=== PATIENT | female | born 1950 | race Caucasian/White ===

== ENCOUNTER 2023-06-10 14:24 | Observation (INO) | payer MEDICARE, SELFPAY ==
[2023-06-10] VITALS (9 sets, daily range): BP systolic 108–161; BP diastolic 50–91; PULSE 63–91; RESP 15–18; TEMP 36.1–36.6; O2SAT 94–99; BMI 41.9
--- NOTE | 2023-06-10 | KNEE_PTH ---
PATIENT: ANNA SANCHEZ LOC: MS3 U#:[id number] AGE/SX: 72/F ROOM: [facility] RE06/10/[address]: Dr. Alfred Lira DO : 1950 BED: 1 DIS: 06/13/2023 SPEC #: [id number] RECD: 06/10/23 14:05 STATUS: REHAN ENGLEDeion #: [id number] YESY: 06/10/23 00:[address]: Alfred Lira DEPT: SURGICAL PATHOLOGY RECD BY: Leonel Zhou ENTERED: 06/11/23 08:15 SP TYPE: TOTAL KNEE OTHR DR: Dr. Ko Barr DO Tissues: Knee, NOS Procedures: Decalcification bone/plaque Surgery Specimen Level IV HEADER OPERATION: ERAS, total knee replacement robotic arm assist PRE-OP DIAGNOSIS: Unilateral posttraumatic osteoarthritis, right knee; valgus deformity right knee TISSUE SUBMITTED: Right knee bone and tissue MICROSCOPIC DIAGNOSIS Bone and soft tissue, right knee, total knee replacement/resection: Pieces of bone with degenerative osteoarthritic changes. Fibroadipose tissue, fibroconnective tissue, skeletal muscle tissue and reactive synovial tissue. Focal changes consistent with pseudogout. LEAH:ap 06/13/2023 MICROSCOPIC DESCRIPTION Slides are reviewed. GROSS DESCRIPTION Received is one container designated bone and soft tissue right knee. The specimen consists of multiple fragments of nunes-yellow bone measuring in aggregate 8.0 x 7.0 x 3.0 cm. Focal area of bone also shows chalky, white deposits. Also in the specimen container are multiple fragments of yellow-white soft tissue measuring in aggregate 6.0 x 7.0 x 2.0 cm. A number of bony fragments contain articular surfaces consistent with tibial plateau and femoral condyle and displaying prominent osteophyte formation, eburnation and bone erosion. Seed Potato Cutter sections are submitted in two cassettes as follows: 1 - soft tissue, 2 - bone after decalcification. / LEAH:ap 06/11/2023 TC:5 CPT: 72691, 99585
[2023-06-10] MEDS: Lactated Ringers 1,000 ML 15 ML IV (08:31)
[2023-06-10] MEDS: Magnesium 2 GM for ERAS IV (08:31)
[2023-06-10] MEDS: Acetaminophen 500 MG Tablet 1000 MG PO ×3 (08:53→22:02)
[2023-06-10] MEDS: Gabapentin 600 MG Tablet PO (08:54)
[2023-06-10 09:43] LABS: Bedside Glucose 130 mg/dL (74-106)
[2023-06-10] MEDS: Clindamycin 900 MG/50 ML BAG 75 MG IV (10:37)
[2023-06-10] MEDS: TXA 1000mg in NS100 100ml (IVPB at Incision) 660 MG IV (10:50)
[2023-06-10] MEDS: JPS (Morphine 10mg/ml) OPERA.SITE (11:45)
[2023-06-10] MEDS: TXA 1000mg in NS100 100ml (IVPB at Closure) 660 MG IV (11:47)
--- NOTE | 2023-06-10 11:53 | PCM.OPRPT ---
Report of Operation Date of Procedure: 06/10/23 Pre-Operative Diagnosis: OA right knee Post-Operative Diagnosis: same Surgery/Procedure Performed:: Right TKR Description of Surgical Findings:: Report of Operation Date of Procedure: 06/10/2023 Preoperative Diagnosis: [ right ] knee primary osteoarthritis Postoperative Diagnosis: [ right ] knee primary osteoarthritis Operation: Robotic Assisted Knee Total Arthroplasty, [ right ] knee Surgeon: Dr Alfred Lira DO Senior Bioinformatics Scientist: Magdiel De Los Santos PA-C Anesthesia: spinal Anesthesiologist: Speedy Fuentes M.D. Findings: Stable knee with good patella tracking Specimen(s): Bony cuts Complications: No intraoperative complications Estimated Blood Loss: 20 cc IV Fluids: 1000 cc crystalloid Implants Used: 1. Marquis Triathlon CR press fit size 2 femur 2. [place] Triathlon size 1 tibia 3. 11 mm CS polyethylene 4. 29 mm patella Brief History Operative Indications: [ (72 y/o female) ] with history of [ right ] knee osteoarthrosis with radiographic findings with loss of joint space, osteophyte formation and subchondral sclerosis. Failed conservative measures as mentioned in the H&P. Discussion of total knee arthroplasty as well as risk and benefits were discussed with the patient including but not limited to blood loss, DVTs, PEs, neurovascular damage, general risk of anesthesia including loss of life, and stiffness or instability were also discussed with the patient. Patient demonstrated understanding and was able to sign informed consent. Procedure: On the date of procedure, patient's [ right ] lower extremity was marked in the preoperative area. The patient was then taken back to the operating room where that patient was placed on the table in the supine position. All bony prominences were identified and well-padded. Anesthesia assumed control of the C-spine and airway throughout the remainder of the procedure. A tourniquet was placed on the [ right ] upper thigh and the leg was prepped in a sterile fashion. The surgeon then scrubbed at this time. Upon reentering the room, the [right ] lower extremity was draped in a standard orthopedic fashion. A timeout was then called and everyone agreed upon the side, the site, the procedure to be performed, patient's identity and antibiotics given. Esmarch bandage was used to exsanguinate the extremity and the tourniquet was placed up to 250 mmHg with the knee in flexion. A midline skin incision was made and a sharp dissection was taken down through skin, subcutaneous tissue and fat. The standard medial parapatellar incision was made and the patella was subluxed laterally. An appropriate deep MCL release was done and the fat pad was resected. Our attention was then directed to the patella. The patella was everted and a flat resection was made. The knee was then flexed up and 2 femoral pins were placed inside the incision and 2 tibial pins were placed outside the incision in the medial tibia bicortically. Once this was completed, the 2 checkpoints in the femur and tibia were placed. Knee was then flexed up and the bony landmarks were registered. Once the was completed, the knee taken through range of motion and manually stressed allowing us to plan for an appropriate tibial cut. The robotic arm was brought into the field sterilely and checkpoint and saw were registered. Based on the patient's deformity, the tibial cut was made in [ 2 degrees valgus ]. At this time, the tensioner was then placed in the joint and ligament tension was checked at 90 degrees and full extension. Based on the patient's ligamentous tension, appropriate adjustments were made to the operative plan and ligament releases were done. Once we were happy with our operative plan with balanced flexion and extension gaps, our attention was directed to the femur. The robot was brought into the field sterilely and registered. Posterior condylar cuts, anterior chamfer cuts and anterior cuts were appropriately made for a [size 2 ] femur. When these were completed, the saws were switched out in the distal femoral and posterior chamfer cuts were made. Protecting the soft tissue throughout this time. A [ size1 ] base plate was selected. The knee was flexed to 90 degrees and soft tissues and posterior osteophytes were removed from the joint. 40 cc of the periarticular injection was injected into the posterior medial corner of the joint. The appropriate trials were then placed on the femur and tibia. A trial polyethylene was trialed to ensure proper balancing and stability of the knee. The appropriate tibial internal rotation was then marked with a bovie. Our attention was then directed to the patella. The lug holes were drilled and the patella trial was placed. Patellar tracking was checked and deemed appropriate. Once we were happy, lug holes were drilled for the femur and trial components were removed. The tibia was subluxed and pinned into place and the keel was punched and drilled appropriately. Final components were verified and opened. The wound was copiously irrigated with normal saline. The components were impacted into place with the tibia, femur and finally the patella. The trial poly component was placed and the knee was placed in full extension. The tracking, alignment and balance were verified and a [ 11 mm CS ] polyethylene component was placed. Once the final components were placed an Irrisept lavage was performed and the wound was copiously irrigated with normal saline solution and the periarticular injection was given. the wound was closed in a layer-decker fashion using #1 vicryl interrupted sutures for the arthrotomy, 2-0 interrupted vicryl suture for the subcuticular layer and ophelia for final skin closure. A sterile compressive dressing was then placed. The patient was then awakened from anesthesia, transferred to the rlong lane and transferred to the PACU for recovery. My physician clinical physician assistant was a vital part of this case. He was important in appropriate retraction during the case, and protection of soft tissues during bony cuts. His intimate knowledge of the case and my steps aided in safe and expedient completion of the procedure as well as appropriate position of the leg during the case. He was also vital in assisting with closure under my direct supervision. Due to the complexity of this case, robotic arm was used to assist in the surgery to improve accuracy and clinical outcomes. Post-op Plan: DVT ppx; ASA 81 mg BID, thigh high compression stockings Follow up: in office in 2 weeks for wound check PT: to start POD #0 at hospital, outpatient PT should be arranged. Preoperative antibiotic: Clindamycin 900 mg IV Alfred Lira DO Surgeon: Alfred Lira tracing lathe set up operator: Magdiel De Los Santos Type of Anesthesia: Spinal Anesthesiologist: Speedy Fuentes Estimated Blood Loss (mL): 20 cc Fluids Replaced: 1000 cc crystalloid Admit VTE Documentation VTE Present on Admission: No VTE Mechan Device Prophylaxis: SCD's and Thigh High RONALD Hose VTE Pharm Prophylaxis ordered?: Yes
--- NOTE | 2023-06-10 12:29 | RAD_ITS ---
STUDY: X-RAY - RIGHT KNEE REASON FOR EXAM: Female, 72 years old. Post op -- AP and Lateral xray of operative knee in PACU TECHNIQUE: 2 view(s) of the knee. COMPARISON: None. FINDINGS: Normal visualized distal femur. Normal visualized proximal tibia and fibula. Normal proximal tibiofibular articulation. The patient is status post total knee replacement. There is good alignment. Postoperative soft tissue changes. RAD/Knee 1 or 2 Views IMPRESSION: Status post total knee replacement. There is good alignment. Postoperative soft tissue changes. Electronically Signed: Damir Lake MD at 13:28 EDT ,
[2023-06-10] MEDS: Lactated Ringers 1,000 ML 999 ML IV (12:40)
[2023-06-10 13:51] LABS: Bedside Glucose 132 mg/dL (74-106)
--- NOTE | 2023-06-10 16:19 | CASEMGMT ---
TASH was informed patient's was asking for SW. TASH met with patient and her . Introduced self and role at [facility]. Patient said she spoke with Dominga in TCU and patient would like to know if she is going to TCU or the Rehab Unit. TASH told patient TASH will have to check with Dominga as TASH is not aware of this arrangement. TASH attempted to call Dominga, but she was not available. TASH let patient know SW will have to follow up with her tomorrow as Dominga is gone for the day. TASH updated TASH Dexter on MS3. TASH also sent Dominga a Backline message letting her know about patient. Millicent Cutler METER SETTER FIELD RECORDER
[2023-06-10] MEDS: Clindamycin 600 MG/50 ML BAG 100 MG IV ×2 (16:28→22:11)
[2023-06-10] MEDS: Aspirin 81 MG TAB.CHEW PO (16:28)
[2023-06-10] MEDS: oxyCODONE 5 MG Tablet PO (19:20)
[2023-06-10] MEDS: Ondansetron 4 MG/2 ML Vial IV (21:57)
[2023-06-10] MEDS: Senna/Docusate Sodium 1 Tablet 2 TABLET PO (22:03)
[2023-06-10] MEDS: metFORMIN (XR) 500 MG Tablet PO (22:04)
[2023-06-10] MEDS: Atorvastatin Calcium 10 MG Tablet PO (22:06)
[2023-06-11] VITALS (8 sets, daily range): BP systolic 128–141; BP diastolic 61–72; PULSE 65–82; RESP 16–18; TEMP 36.5–37.2; O2SAT 88–98
[2023-06-11] MEDS: Acetaminophen 500 MG Tablet 1000 MG PO ×3 (05:45→22:36)
[2023-06-11] MEDS: Levothyroxine 50 MCG Tablet PO (05:45)
[2023-06-11] MEDS: Clindamycin 600 MG/50 ML BAG 100 MG IV (05:45)
[2023-06-11 07:06] LABS: Hematocrit 39.7 % (37-47); Hemoglobin 12.3 g/dL (12.0-15.0); Mean Corpuscular Hgb 28.5 pg (27.0-32.0); Mean Corpuscular Volume 92.1 fL (81-99); Mean Platelet Vol. 8.9 fl (6.2-12.0); Platelet Count 202 K/mm3 (150-450); RBC Distribution Width CV 14.1 % (11.6-14.6); RBC Distribution Width SD 47.8 fl (35.1-43.9); Red Blood Count 4.31 M/mm3 (4.2-5.4)
[2023-06-11 07:37] LABS: Anion Gap 2 (5-15); BUN 16 mg/dL (7-18); BUN/Creat Ratio 20.9 RATIO (10-20); Calcium,Total 8.7 mg/dL (8.5-10.1); Chloride 105 mmol/L (98-107); Creatinine, Serum 0.77 mg/dL (0.55-1.02); EST Glomerular Filtration Rate 79 mL/min (>60); Est Glom Filt Rate - Afr Amer 95 mL/min (>60); Estimated Creatinine Clearance 37.06 ml/min; Glucose 149 mg/dL (74-106); Potassium 4.9 mmol/L (3.5-5.1); Sodium Level 136 mmol/L (136-145)
--- NOTE | 2023-06-11 07:54 | PN.ORTHO_ITS ---
Subjective Subjective Patient sitting at bedside. Patient states her knee is a little sore today. Otherwise she feels her pain has been very well managed. Patient denies chest pain, shortness of breath, calf pain, nausea or vomiting. Has no other complaints at this time. Patient is hoping that she can go to [facility] for for rehab. Objective Data Objective Data Vital Signs: Vital Signs Temp Pulse Resp BP Pulse Ox O2 Del Method O2 Flow Rate 98.2 F 65 16 136/67 H 94 Room Air 4 06/11/23 07:32 06/11/23 07:32 06/11/23 07:32 06/11/23 07:32 06/11/23 07:32 06/11/23 07:32 06/10/23 13:30 Oxygen Flow Rate (L/min) 4 Oxygen Delivery Method Room Air Weight: 97.4 kg Body Mass Index (BMI) 41.9 Intake & Output: Intake and Output for Last 24 Hours 06/09/23 06/10/23 06/11/23 23:59 23:59 23:59 Intake Total 2474 / 2474 50 / 50 Balance 2474 / 2474 50 / 50 Lab / Micro Data 06/11/23 06:57 06/11/23 06:57 Labs: Laboratory Results - last 24 hr 06/10/23 08:14: POC Glucose 130 H 06/10/23 13:31: POC Glucose 132 H 06/11/23 06:57: WBC 9.0, RBC 4.31, Hgb 12.3, Hct 39.7, MCV 92.1, MCH 28.5, MCHC 31.0 L, RDW Std Deviation 47.8 H, RDW Coeff of Romario 14.1, Plt Count 202, MPV 8.9, Sodium 136, Potassium 4.9, Chloride 105, Carbon Dioxide 29.0, Anion Gap 2 L, BUN 16, Creatinine 0.77, Estim Creat Clear Calc 37.06, Est GFR (MDRD) Af Amer 95, Est GFR (MDRD) Non-Af 79, BUN/Creatinine Ratio 20.9 H, Glucose 149 H, Calcium 8.7 Radiography Diagnostic Testing: Radiology Impression Knee X-Ray 06/10/23 12:29 IMPRESSION: Status post total knee replacement. There is good alignment. Postoperative soft tissue changes. Electronically Signed: Damir Lake MD at 13:28 EDT , Physical Exam Narrative Exam patient sitting in chair at bedside. Alert oriented. No respiratory distress, speaking in full sentences. Full range of motion of the upper extremities without limitations. The dressing is clean dry intact. No calf tenderness. Neurovascular is otherwise intact. Const alert and oriented x3 General Appearance: cooperative HEENT normocephalic Eyes PERRL Resp normal respiratory effort Effort and Inspection: able to speak in complete sentences Extremity normal capillary refill Skin no rashes or lesions noted Neuro CN's II-XII intact bilaterally Motor Exam: strength 5/5 throughout Psych mental status grossly normal and affect normal Assessment & Plan Assessment/Plan (1) Status post total right knee replacement not using cement: PLAN: 1. Continue all pain medications as prescribed 2. Aspirin 81 mg 1 p.o. every 12 hours x30 days for postop DVT prophylaxis 3. Encourage incentive spirometry 4. Continue ice to right knee when sitting 5. Ambulate weightbearing as tolerated with walker 6. Possible discharge tomorrow to [facility] for for rehab
[2023-06-11] MEDS: oxyCODONE 5 MG Tablet PO ×4 (09:11→22:26)
[2023-06-11] MEDS: Loratadine 10 MG Tablet PO (09:12)
[2023-06-11] MEDS: Aspirin 81 MG TAB.CHEW PO ×2 (09:12→17:11)
[2023-06-11] MEDS: Calcium Carbonate 500 MG Tablet PO (09:12)
[2023-06-11] MEDS: Senna/Docusate Sodium 1 Tablet 2 TABLET PO ×2 (09:12→22:36)
[2023-06-11] MEDS: Ascorbic Acid 500 MG Tablet PO (09:12)
[2023-06-11] MEDS: Losartan Potassium 50 MG Tablet PO (09:12)
--- NOTE | 2023-06-11 09:16 | CASEMGMT ---
Discharge Planning A list of SNF providers including quality and resource use data and consistent with the patient?s preferred geographic region, medical needs, and insurance network were printed and provided from the [employer] Guide. Lakshmi Lux, Discharge Planning Asst.
--- NOTE | 2023-06-11 11:16 | CASEMGMT ---
Social Work SW received call that patient had spoken with TCU regarding placement. TCU informed patient that no beds are currently available but patient will be notified if anything becomes available. SW introduced self and role to patient and patient's spouse, Josue. SW brought patient list for review. Patient declined list and provided choices: 1-[facility], 2-[facility] and 3-[facility]. SW referred patient to [facility], patient reported [facility] is her preference and she would prefer not to go elsewhere. Plan: Pt to d/c to SNF, pending SNF acceptance. Guerita Harrison PICTURE FRAME MAKER, SURGERY SCHEDULER
--- NOTE | 2023-06-11 13:08 | CASEMGMT ---
Discharge Planning Patient has been accepted by [facility]. Asked for precert to be submitted. Lakshmi Lux, Discharge Planning Asst.
--- NOTE | 2023-06-11 13:10 | CASEMGMT ---
Discharge Planning Patient has been accepted by [facility]. Asked for precert to be started. Lakshmi Lux, Discharge Planning Asst.
--- NOTE | 2023-06-11 15:21 | CASEMGMT ---
Social Work SW notified patient that [facility] accepted, pending precert. SW provided support and answered questions as able. Plan: Pt to d/c to [facility], pending precert. Guerita Harrison PIERCING MILL OPERATOR, DRUG ENFORCEMENT ADMINISTRATION AGENT
[2023-06-11] MEDS: metFORMIN (XR) 500 MG Tablet PO (22:26)
[2023-06-11] MEDS: Atorvastatin Calcium 10 MG Tablet PO (22:37)
[2023-06-12] MEDS: oxyCODONE 5 MG Tablet PO ×5 (02:30→19:00)
[2023-06-12] MEDS: Levothyroxine 50 MCG Tablet PO (06:28)
[2023-06-12] MEDS: Acetaminophen 500 MG Tablet 1000 MG PO ×3 (06:28→20:51)
[2023-06-12 06:30] VITALS: BP 146/85; PULSE 82; RESP 18; TEMP 36.5; O2SAT 98
[2023-06-12 09:33] VITALS: O2SAT 92
--- NOTE | 2023-06-12 10:35 | PCM.PN.ORT ---
Subjective Subjective Patient sitting at bedside. Patient states pain has been very well managed. Patient denies chest pain, shortness of breath, calf pain, nausea vomiting. No other complaints at this time. Patient states she is ready for discharge to ECF. Objective Data Objective Data Vital Signs: Vital Signs Temp Pulse Resp BP Pulse Ox O2 Del Method O2 Flow Rate 97.7 F L 82 18 146/85 H 98 Room Air 4 06/12/23 06:30 06/12/23 06:30 06/12/23 06:30 06/12/23 06:30 06/12/23 06:30 06/12/23 06:30 06/10/23 13:30 Oxygen Flow Rate (L/min) 4 Oxygen Delivery Method Room Air Weight: 97.4 kg Body Mass Index (BMI) 41.9 Intake & Output: Intake and Output for Last 24 Hours 06/10/23 06/11/23 06/12/23 23:59 23:59 23:59 Intake Total 2474 / 2474 50 / 50 Balance 2474 / 2474 50 / 50 Lab / Micro Data 06/11/23 06:57 06/11/23 06:57 Physical Exam Narrative Exam I found patient sitting at bedside alert oriented. No respiratory distress speaking full sentences. Cranial nerves II through gross intact. Full range of motion the upper extremities good muscle tone and strength. The dressing was clean dry intact. No calf tenderness. Neurovascular is otherwise intact. Const alert and oriented x3 General Appearance: cooperative and well developed HEENT normocephalic Eyes PERRL Resp normal respiratory effort Effort and Inspection: able to speak in complete sentences Extremity normal capillary refill Skin no rashes or lesions noted Neuro CN's II-XII intact bilaterally Psych mental status grossly normal and affect normal Assessment & Plan Assessment/Plan (1) Status post total right knee replacement not using cement: PLAN: 1. Continue all pain medications as prescribed 2. Aspirin 81 mg 1 p.o. every 12 hours x30 days for postop DVT prophylaxis 3. Continue encourage incentive spirometry 4. Ice to 30 minutes each hour while awake 5. Weight-bear as tolerated with walker 6. Diet to be changed to diabetic diet 1800 corwin/day 7. Possible discharge to ECF tomorrow
--- NOTE | 2023-06-12 10:36 | CASEMGMT ---
Discharge Planning Updates sent to [place] via [facility]. Precert has not been submitted and they are hoping to get it submitted at some point today. SW updated. Lakshmi Lux, Discharge Planning Asst.
[2023-06-12] MEDS: Senna/Docusate Sodium 1 Tablet 2 TABLET PO ×2 (10:45→20:50)
[2023-06-12] MEDS: Loratadine 10 MG Tablet PO (10:45)
[2023-06-12] MEDS: Aspirin 81 MG TAB.CHEW PO ×2 (10:45→17:11)
[2023-06-12] MEDS: Calcium Carbonate 500 MG Tablet PO (10:45)
[2023-06-12] MEDS: Losartan Potassium 50 MG Tablet PO (10:45)
[2023-06-12] MEDS: Ascorbic Acid 500 MG Tablet PO (10:46)
[2023-06-12 10:50] VITALS: BP 132/82; PULSE 72; RESP 20; TEMP 36.8; O2SAT 96
--- NOTE | 2023-06-12 14:12 | CASEMGMT ---
Social Work SW received message from [facility] in TCU that they now have beds available. SW updated pt and covid outbreak in TCU. Pt choosing to remain with plan to go to [facility]. Pt made aware salud is still pending at with insurance. Plan: [facility], pending ANTWON Bowman
[2023-06-12 15:06] VITALS: BP 126/62; PULSE 87; RESP 18; TEMP 36.8; O2SAT 96
[2023-06-12 20:43] VITALS: BP 133/58; PULSE 78; RESP 18; TEMP 36.6; O2SAT 97
[2023-06-12] MEDS: metFORMIN (XR) 500 MG Tablet PO (20:49)
[2023-06-12] MEDS: Atorvastatin Calcium 10 MG Tablet PO (20:50)
[2023-06-12] MEDS: 0.9% Saline Lock 10 ML Syringe IV (20:53)
[2023-06-13 00:15] VITALS: BP 127/64; PULSE 78; RESP 18; TEMP 36.5; O2SAT 95
[2023-06-13] MEDS: oxyCODONE 5 MG Tablet PO ×4 (00:16→14:52)
[2023-06-13] MEDS: Acetaminophen 500 MG Tablet 1000 MG PO ×2 (04:51→14:32)
[2023-06-13] MEDS: Levothyroxine 50 MCG Tablet PO (04:52)
[2023-06-13 04:58] VITALS: BP 133/63; PULSE 82; RESP 20; TEMP 36.7; O2SAT 95
[2023-06-13 08:30] VITALS: BP 126/66; PULSE 82; RESP 18; TEMP 36.8; O2SAT 95
[2023-06-13] MEDS: Losartan Potassium 50 MG Tablet PO (08:36)
[2023-06-13] MEDS: Aspirin 81 MG TAB.CHEW PO (08:36)
[2023-06-13] MEDS: Ascorbic Acid 500 MG Tablet PO (08:36)
[2023-06-13] MEDS: Calcium Carbonate 500 MG Tablet PO (08:36)
[2023-06-13] MEDS: Loratadine 10 MG Tablet PO (08:36)
--- NOTE | 2023-06-13 11:20 | CASEMGMT ---
Discharge Planning [facility] has received precert. SW updated. Lakshmi Lux, Discharge Planning Asst.
--- NOTE | 2023-06-13 12:19 | CASEMGMT ---
Social Work Precert has been obtained for pt to admit to [facility]. SW notified pt who in turn let her know. SW to notify physician when he comes in. ANTWON Beebe
--- NOTE | 2023-06-13 13:36 | PCM.PN.ORT ---
Subjective Subjective patient is s/p right sided total knee arthroplasty with Dr. Lira. Patient resting comfortably in bed. Rates pain 3/ 10 at rest. With movement 10/10. States taking Tylenol and oxycodone as needed and ice help to relieve pain. Patient has been up with therapy. Walking with the assit of a walker. Afebrile, no chest pain, shortness of breath, negative calf pain/ erythema, and no other signs of DVT. Objective Data Objective Data Vital Signs: Vital Signs Temp Pulse Resp BP Pulse Ox O2 Del Method O2 Flow Rate 98.2 F 82 18 126/66 H 95 Room Air 4 06/13/23 08:30 06/13/23 08:30 06/13/23 08:30 06/13/23 08:30 06/13/23 08:30 06/13/23 08:30 06/10/23 13:30 Oxygen Flow Rate (L/min) 4 Oxygen Delivery Method Room Air Weight: 97.4 kg Body Mass Index (BMI) 41.9 Intake & Output: Intake and Output for Last 24 Hours 06/11/23 06/12/23 06/13/23 23:59 23:59 23:59 Intake Total 50 / 50 Output Total 500 / 500 Balance 50 / 50 -500 / -500 Lab / Micro Data 06/11/23 06:57 06/11/23 06:57 Physical Exam Const Constitutional Narrative: Patient resting comfortably in bed No signs of acute distress Satting well on room air Limb is warm to touch, Sensation intact throughout entire lower extremity, including saphenous, sural, superficial and deep peroneal, and tibial distribution. DP/PT pulses bounding. Dorsi and plantarflexion strength 5/5 Dressing clear dry intact Calf nontender to palpation, no erythema, no edema. Negative Homans Assessment & Plan Assessment/Plan (1) Status post total right knee replacement not using cement: PLAN: Postop day 3 right total knee arthroplasty 1. Will continue PT today. Weightbearing as tolerated 2. plan for discharge to extended care facility today 3. Patient will follow up for post op appointment on as previously scheduled in 2 weeks 4. Labs remained stable no new data. 5. DVT prophylaxis : Aspirin 81 mg twice daily x4 weeks. Compressions walking x2 weeks. 6. Pain control: patient instructed to take tylenol 500mg 2 tablets TID. and oxycodone 1-2 tablets every 4-6 hours only as needed for pain control. 7. ok to remove post op dressing. post op day 5
--- NOTE | 2023-06-13 13:39 | TREXTCAR_ITS ---
Diet Diet Order/Speech Therapy: 06/12/23 10:25 Diet: Consistent Carb - Calorie Controlled Is pt able to select menu?: Yes How many daily calories?: 1800 calorie Wound(s) RIGHT KNEE: Wound Type: Surgical Incision Dressing Change: Okay to remove dressing postop day 5 otherwise maintain surgical dressing. Therapies Weight Bearing: Full weight bearing and Weight bearing as tolerated Physical Therapy: Eval and Treat Occupational Therapy: Eval and Treat Problem/Diagnosis (1) Status post total right knee replacement not using cement: Status: Acute Code(s): Z96.651 - Presence of right artificial knee joint Plan: Postop day 3 right total knee arthroplasty 1. Will continue PT today. Weightbearing as tolerated 2. plan for discharge to extended care facility 3. Patient will follow up for post op appointment on as previously scheduled in 2 weeks 4. Labs remained stable no new data. 5. DVT prophylaxis : Aspirin 81 mg twice daily x4 weeks. Compressions walking x2 weeks. 6. Pain control: patient instructed to take tylenol 500mg 2 tablets TID. and oxycodone 1-2 tablets every 4-6 hours only as needed for pain control. 7. ok to remove post op dressing. post op day 5 Allergies/Procedures Done in Hospital Allergies erythromycin base Allergy (Verified 06/10/23 08:33) PT UNSURE OF REACTION Penicillins Allergy (Verified 06/10/23 08:33) PT UNSURE OF REACTION Type of Care/Length of Stay Estimated LOS: Convalescent Care Less Than 30 days Type of Care Needed: Skilled Rehab Potential: Good Prognosis: Good Additional Orders/Day of Discharge Day of Discharge: 06/13/23 Discharge Plan Admission Admit Date/Time: 06/10/23 14:24 Attending Provider: Alfred Lira Primary Care Provider: Ko Barr Discharge Orders/Prescriptions Prescriptions: New acetaminophen 500 mg Tablet 1,000 mg PO Q8 Qty: 180 0RF aspirin 81 mg Tablet,Chewable 81 mg PO BIDCM Qty: 60 0RF sennosides-docusate sodium [Stool Softener-Stimulant Laxat] 8.6-50 mg Tablet 2 tab PO BID Qty: 14 0RF oxycodone 5 mg Tablet 5 - 10 mg PO .q4-6hrs prn PRN (Reason: Pain Score 4-10) 7 Days Qty: 60 0RF Continued albuterol sulfate 90 mcg/actuation HFA aerosol inhaler 2 inh INHALATION Q4H PRN (Reason: shortness of breath or wheezing) Patient Comments: inhale 2 puffs by mouth and INTO THE LUNGS every 4 hours if neede... (REFER TO PRESCRIPTION NOTES). levothyroxine 50 mcg tablet 50 mcg PO DAILY Patient Comments: take 1 tablet by mouth once daily 30 MINUTES before OTHER MEDS OR FOOD lisinopril 20 mg tablet 20 mg PO DAILY Patient Comments: take 1 tablet by mouth once daily omeprazole 20 mg capsule,delayed release(DR/EC) 20 mg PO DAILY Patient Comments: take 1 capsule by mouth once daily celecoxib 100 mg capsule 100 mg PO DAILY Patient Comments: take 1 capsule by mouth twice a day if needed for pain metformin 500 mg tablet extended release 24 hr 500 mg PO QHS Patient Comments: take 1 tablet by mouth every evening with dinner rosuvastatin 5 mg tablet 5 mg PO QHS Patient Comments: take 1 tablet by mouth at bedtime calcium carbonate-vitamin D3 [Calcium 600 + D(3)] 600 mg-10 mcg (400 unit) tablet 1 tab PO DAILY ascorbic acid (vitamin C) 500 mg capsule 50 mg PO DAILY zinc 50 mg capsule 50 mg PO DAILY cetirizine 10 mg tablet 10 mg PO DAILY Patient Comments: take 1 tablet by mouth once daily losartan 50 mg tablet 50 mg PO DAILY Patient Comments: take 1 tablet by mouth once daily Referrals / Follow Up: Ko Barr DO [Primary Care Provider] - Disposition Disposition (needs filled in before D/C Order can be placed): Group Home Facility
--- NOTE | 2023-06-13 13:42 | DCINST_ITS ---
Discharge Instructions Diet Discharge Diet: 1800 Calorie Control Diet and Carb Control Diet Activity Discharge Activity: Return to Normal Activity Weight Bearing Status: Weight bearing as tolerated Dressing / Incision Call your doctor if your incision/area has: Continuous Slow Oozing, Sudden Increased Bleeding, Increased Pain/ Swelling, Increased Redness, Foul Smelling Discharge and Swelling at the incision site Call your doctor if you observe: Fever of 101 or Higher, Shortness of breath, Chest pain and Calf discomfort Remove Dressing in: 5 days Cleanse incision/area with: Soap & Water and Keep Dressing Clean & Dry Follow Up Care When: In 2 weeks as previously scheduled. Test Results: Test results from this visit will be discussed in further detail at your follow- up appointment, if applicable. Discharge Plan Admission Admit Date/Time: 06/10/23 14:24 Attending Provider: Alfred Lira Primary Care Provider: Ko Barr Discharge Orders/Prescriptions Prescriptions: New acetaminophen 500 mg Tablet 1,000 mg PO Q8 Qty: 180 0RF aspirin 81 mg Tablet,Chewable 81 mg PO BIDCM Qty: 60 0RF sennosides-docusate sodium [Stool Softener-Stimulant Laxat] 8.6-50 mg Tablet 2 tab PO BID Qty: 14 0RF oxycodone 5 mg Tablet 5 - 10 mg PO .q4-6hrs prn PRN (Reason: Pain Score 4-10) 7 Days Qty: 60 0RF Continued albuterol sulfate 90 mcg/actuation HFA aerosol inhaler 2 inh INHALATION Q4H PRN (Reason: shortness of breath or wheezing) Patient Comments: inhale 2 puffs by mouth and INTO THE LUNGS every 4 hours if neede... (REFER TO PRESCRIPTION NOTES). levothyroxine 50 mcg tablet 50 mcg PO DAILY Patient Comments: take 1 tablet by mouth once daily 30 MINUTES before OTHER MEDS OR FOOD lisinopril 20 mg tablet 20 mg PO DAILY Patient Comments: take 1 tablet by mouth once daily omeprazole 20 mg capsule,delayed release(DR/EC) 20 mg PO DAILY Patient Comments: take 1 capsule by mouth once daily celecoxib 100 mg capsule 100 mg PO DAILY Patient Comments: take 1 capsule by mouth twice a day if needed for pain metformin 500 mg tablet extended release 24 hr 500 mg PO QHS Patient Comments: take 1 tablet by mouth every evening with dinner rosuvastatin 5 mg tablet 5 mg PO QHS Patient Comments: take 1 tablet by mouth at bedtime calcium carbonate-vitamin D3 [Calcium 600 + D(3)] 600 mg-10 mcg (400 unit) tablet 1 tab PO DAILY ascorbic acid (vitamin C) 500 mg capsule 50 mg PO DAILY zinc 50 mg capsule 50 mg PO DAILY cetirizine 10 mg tablet 10 mg PO DAILY Patient Comments: take 1 tablet by mouth once daily losartan 50 mg tablet 50 mg PO DAILY Patient Comments: take 1 tablet by mouth once daily Referrals / Follow Up: Ko Barr DO [Primary Care Provider] - Disposition Disposition (needs filled in before D/C Order can be placed[facility]
--- NOTE | 2023-06-13 14:05 | CASEMGMT ---
Social Work Precert has been obtained.? Physician updated and pt is ready for discharge today.? [facility] and sent along with discharge orders to [facility] via [facility].? Pt notified that precert has been obtained and that she would discharge today. Pt notifying spouse. Disposition: [place], [facility] level of care ANTWON Beebe
--- NOTE | 2023-06-13 14:15 | CASEMGMT ---
Discharge Planning Discharge orders, signed med list, and transport time sent to [place] via [facility]. [facility] will transport patient by wheelchair at 3p. Nursing, SW, and patient updated. Lakshmi Lux, Discharge Planning Asst.
--- NOTE | 2023-06-13 14:25 | DS.PCM_ITS ---
Providers Date of Admission: 06/10/23 Primary Care Physician: Dr. Ko Barr DO Reason For Visit: Total Knee Replacement Robotic Arm Nimesh Diagnosis Discharge Diagnosis (1) Status post total right knee replacement not using cement: Status: Acute Code(s): Z96.651 - Presence of right artificial knee joint Plan: Postop day 3 right total knee arthroplasty 1. Will continue PT today. Weightbearing as tolerated 2. plan for discharge to extended care facility today 3. Patient will follow up for post op appointment on as previously scheduled in 2 weeks 4. Labs remained stable no new data. 5. DVT prophylaxis : Aspirin 81 mg twice daily x4 weeks. Compressions walking x2 weeks. 6. Pain control: patient instructed to take tylenol 500mg 2 tablets TID. and oxycodone 1-2 tablets every 4-6 hours only as needed for pain control. 7. ok to remove post op dressing. post op day 5 Medications at Discharge Home Medications albuterol sulfate 90 mcg/actuation aerosol inhaler 2 inh inhalation Q4H PRN shortness of breath or wheezing 05/13/23 ascorbic acid (vitamin C) 500 mg capsule 50 mg PO DAILY SUPPLEMENT 05/13/23 calcium carbonate 600 mg-vitamin D3 10 mcg (400 unit) tablet (Calcium 600 + D(3)) 1 tab PO DAILY SUPPLEMENT 05/13/23 celecoxib 100 mg capsule 100 mg PO DAILY PAIN 05/13/23 cetirizine 10 mg tablet 10 mg PO DAILY ALLERGIES 05/13/23 levothyroxine 50 mcg tablet 50 mcg PO DAILY THYROID 05/13/23 lisinopril 20 mg tablet 20 mg PO DAILY HTN 05/13/23 metformin 500 mg tablet,extended release 24 hr 500 mg PO QHS BLOOD GLUCOSE 05/13/23 omeprazole 20 mg capsule,delayed release 20 mg PO DAILY GERD 05/13/23 rosuvastatin 5 mg tablet 5 mg PO QHS HLD 05/13/23 zinc 50 mg capsule 50 mg PO DAILY SUPPLEMENT 05/13/23 losartan 50 mg tablet 50 mg PO DAILY htn 06/10/23 acetaminophen 500 mg tablet 1,000 mg (2 x 500 mg) PO Q8 #180 tabs 06/13/23 aspirin 81 mg chewable tablet 81 mg PO BIDCM #60 tabs 06/13/23 oxycodone 5 mg tablet 5 - 10 mg (1 - 2 x 5 mg) PO .q4-6hrs prn PRN Pain Score 4- 10 7 days #60 tabs 06/13/23 sennosides 8.6 mg-docusate sodium 50 mg tablet (Stool Softener-Stimulant Laxative) 2 tab PO BID #14 tabs 06/13/23 Hospital Course Summary of Care Provided Hospital Course: Patient was admitted electively on 06/10/2023 for a right total knee arthroplasty with Dr. Greenwood. Medically patient had uncomplicated postoperative course h owever she had trouble with movement, pain control and therapy. She and therapy and case management have decided to pre-CERT to an extended care facility for which she was excepted to. Plan for discharge today. Weight / BMI Weight Weight: 97.4 kg Body Mass Index (BMI) 41.9 ABG / Lab / Microbiology Data 06/11/23 06:57 06/11/23 06:57 D/C Instructions Discharge Diet: 1800 Calorie Control Diet and Carb Control Diet Weight Bearing Status: Weight bearing as tolerated Call your doctor if your incision/area has: Continuous Slow Oozing, Sudden Increased Bleeding, Increased Pain/ Swelling, Increased Redness, Foul Smelling Discharge and Swelling at the incision site Call your doctor if you observe: Fever of 101 or Higher, Shortness of breath, Chest pain and Calf discomfort Cleanse incision/area with: Soap & Water and Keep Dressing Clean & Dry When: In 2 weeks as previously scheduled. Meaningful Use Info Meaningful Use Diagnoses (Choose all that apply): None applicable Discharge Plan Admission Admit Date/Time: 06/10/23 14:24 Attending Provider: Alfred Lira Primary Care Provider: Ko Barr Discharge Orders/Prescriptions Prescriptions: New acetaminophen 500 mg Tablet 1,000 mg PO Q8 Qty: 180 0RF aspirin 81 mg Tablet,Chewable 81 mg PO BIDCM Qty: 60 0RF sennosides-docusate sodium [Stool Softener-Stimulant Laxat] 8.6-50 mg Tablet 2 tab PO BID Qty: 14 0RF oxycodone 5 mg Tablet 5 - 10 mg PO .q4-6hrs prn PRN (Reason: Pain Score 4-10) 7 Days Qty: 60 0RF Continued albuterol sulfate 90 mcg/actuation HFA aerosol inhaler 2 inh INHALATION Q4H PRN (Reason: shortness of breath or wheezing) Patient Comments: inhale 2 puffs by mouth and INTO THE LUNGS every 4 hours if neede... (REFER TO PRESCRIPTION NOTES). levothyroxine 50 mcg tablet 50 mcg PO DAILY Patient Comments: take 1 tablet by mouth once daily 30 MINUTES before OTHER MEDS OR FOOD lisinopril 20 mg tablet 20 mg PO DAILY Patient Comments: take 1 tablet by mouth once daily omeprazole 20 mg capsule,delayed release(DR/EC) 20 mg PO DAILY Patient Comments: take 1 capsule by mouth once daily celecoxib 100 mg capsule 100 mg PO DAILY Patient Comments: take 1 capsule by mouth twice a day if needed for pain metformin 500 mg tablet extended release 24 hr 500 mg PO QHS Patient Comments: take 1 tablet by mouth every evening with dinner rosuvastatin 5 mg tablet 5 mg PO QHS Patient Comments: take 1 tablet by mouth at bedtime calcium carbonate-vitamin D3 [Calcium 600 + D(3)] 600 mg-10 mcg (400 unit) tablet 1 tab PO DAILY ascorbic acid (vitamin C) 500 mg capsule 50 mg PO DAILY zinc 50 mg capsule 50 mg PO DAILY cetirizine 10 mg tablet 10 mg PO DAILY Patient Comments: take 1 tablet by mouth once daily losartan 50 mg tablet 50 mg PO DAILY Patient Comments: take 1 tablet by mouth once daily Referrals / Follow Up: Ko Barr DO [Primary Care Provider] - Disposition Disposition (needs filled in before D/C Order can be placed): Residential Facility
[2023-06-13 14:29] VITALS: BP 101/56; PULSE 94; RESP 16; TEMP 37.1; O2SAT 97
== END 2023-06-13 15:45 | disposition skilled nursing facility (03) ==
LOC: MS3 06-11 08:42 → SDC 06-11 10:28
PROVIDERS: Admitting Provider Orthopaedic Surgery; PCP Student in an Organized Health Care Education/Training Program; Referring Provider Orthopaedic Surgery; Visit Provider Orthopaedic Surgery
PROC: 0SRC0JZ Replacement of Right Knee Joint with Synthetic Substitute, Open Approach (ICD-10-PCS; CPT 27447; principal; 2023-06-10 09:45)
DX: M17.31 Unilateral post-traumatic osteoarthritis, right knee (principal); E66.01 Morbid (severe) obesity due to excess calories; Z68.41 Body mass index [BMI] 40.0-44.9, adult; E11.9 Type 2 diabetes mellitus without complications; Z79.899 Other long term (current) drug therapy; Z79.84 Long term (current) use of oral hypoglycemic drugs; K21.9 Gastro-esophageal reflux disease without esophagitis; J45.909 Unspecified asthma, uncomplicated; M79.7 Fibromyalgia; E78.00 Pure hypercholesterolemia, unspecified; I10 Essential (primary) hypertension; M21.061 Valgus deformity, not elsewhere classified, right knee
CPT/HCPCS: 27447; S2900; 01402; 64447; 36415; 73560; 80048; 82962; 85027; 88305; 88311; 94668; 96365; 96366; 96375; 97110; 97116; 97162; 97166; 97530; 99221; 99252; C1776; J7120; A4216; G0378; G0463; J2405

== ENCOUNTER 2024-05-11 07:17 | Day surgery (SDC) | payer MEDICARE, SELFPAY ==
[2024-05-11] VITALS (7 sets, daily range): BP systolic 125–164; BP diastolic 67–77; PULSE 58–74; RESP 16–18; TEMP 36.1–36.4; O2SAT 93–97; BMI 43.1
--- NOTE | 2024-05-11 07:40 | RAD_ITS ---
STUDY: X-RAY - SACRUM/COCCYX REASON FOR EXAM: Female, 73 years old. CAUDAL BLOCK TECHNIQUE: 2 view(s) of the sacrum and coccyx were obtained. COMPARISON: None. FINDINGS: 4.7 seconds of fluoroscopy of the sacrum visualized operating room during a caudal block in 2 images are submitted for interpretation.. RAD/Fluor Guidance for Spine Inj IMPRESSION: Fluoroscopy during caudal block. Electronically Signed: Andrez Hallman MD at 13:39 EDT ,
[2024-05-11] MEDS: Lactated Ringers 1,000 ML 15 ML IV (07:44)
--- NOTE | 2024-05-11 07:53 | PRE.ANES_ITS ---
ASA Classification* ASA Classification ASA Classification: 3 Assessment & Plan Anesthesia* Anesthesia Assessment Anesthesia Assessment: Discussed sedation and/or anesthesia options, risks, benefits, and alternatives with patient/parents/legal guardian/POA. Questions invited. The patient/parents/legal guardian/POA seems to understand and agrees to proceed with anesthesia plan. Reviewed the physical assessment, medical history, allergy history and patient home medications list prior to surgery/procedure/anesthetic and documented any changes. Performed airway and anesthesia risk assessments. Anesthesia Type Anesthesia Type: MAC (see written pre anesthesia record for full assessment) Anesthesia Focused Assessment* Temperature: 97 F Pulse Rate: 74 Blood Pressure: 164/75 Respiratory Rate: 18 Pulse Ox: 97 Airway Assessment Mouth opens: >3 cm Mallampati Score: II Focused Labs Anesthesia Preop lab: CBC WBC 9.0 K/mm3 (4.4-11.0) 06/11/23 06:57 RBC 4.31 M/mm3 (4.2-5.4) 06/11/23 06:57 Hgb 12.3 g/dL (12.0-15.0) 06/11/23 06:57 Hct 39.7 % (37-47) 06/11/23 06:57 Plt Count 202 K/mm3 (150-450) 06/11/23 06:57 CHEMISTRY Potassium 4.9 mmol/L (3.5-5.1) 06/11/23 06:57 Sodium 136 mmol/L (136-145) 06/11/23 06:57 BUN 16 mg/dL (7-18) 06/11/23 06:57 Creatinine 0.77 mg/dL (0.55-1.02) 06/11/23 06:57 Glucose 149 mg/dL (74-106) H 06/11/23 06:57 POC Glucose 132 mg/dL (74-106) H 06/10/23 13:31 COAG Pre-Assessment Diagnosis/Proposed Procedure Planned Operative Procedure(s): CAUDAL EPIDURAL STEROID INJECTION Anesthesia History 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 When Was Last Pacemaker Check QUESTION #4 FULL TEXT: You/Your Family Experience fever (hyperthermia) with Anesthesia Last Oral Intake Last Oral intake: Last Oral Intake NPO since 00:00 05/11/24 07:46 Meds taken in AM with sips of Yes 05/11/24 07:46 water? Meds patient instructed to take am of surgery PONV PONV - library media specialist: PONV - library media specialist Female Yes 05/06/24 14:31 HX of Motion Sickness No 05/06/24 14:31 HX of N/V After Surgery No 05/06/24 14:31 Non-Smoker Yes 05/06/24 14:31 Duration of Surgery greater No 05/06/24 14:31 than 60 minutes Number of Risk Factors 2 05/06/24 14:31 PONV Score Moderate Risk 05/06/24 14:31 Height & Weight Height & Weight: Anesthesia: Height & Weight Height 5 ft 05/11/24 07:46 Weight: 100.244 kg 05/11/24 07:46 Body Mass Index (BMI) 43.1 05/11/24 07:46 Respiratory Assessment Respiratory Assessment - library media specialist: Respiratory Tract Infection Hx - library media specialist Hx Respiratory Tract Infection No 05/06/24 14:31 STOP Sleep Apnea STOP Sleep Apnea - library media specialist: STOP Sleep Apnea - library media specialist Hx Hypertension Yes: PER PT, CONTROLLED ON 05/06/24 14:31 MEDS Hx Sleep Apnea No 05/06/24 14:31 CPAP No 05/06/24 14:31 BIPAP Do you snore loudly (louder No 05/06/24 14:31 than talking or can be heard Do you often feel tired/ No 05/06/24 14:31 fatigued/ sleepy during daytime? Has anyone observed you stop No 05/06/24 14:31 breathing during sleep? STOP Results Negative 05/06/24 14:31 QUESTION #5 FULL TEXT : Do you snore loudly (louder than talking or can be heard through closed doors)? Tobacco Use History Tobacco Use History - library media specialist: Tobacco Use History - library media specialist Tobacco Use Smoking Status Former smoker 05/06/24 14:31 Hx Tobacco Use No 05/06/24 14:31 Years Smoking Packs Smoked per Day Smoking Cessation Date was No - quit smoking greater 05/06/24 14:31 within the last 15 years than 15 years ago Hx Smoking Cessation Date Hx Smoking Cessation Counseling Hematologic Medial History Hematologic Hx - library media specialist: Hematologic Medical Hx - lean sensei Hx of Blood Transfusion No 05/06/24 14:31 Hx of Transfusion in last 3 No 05/06/24 14:31 Months Date of Last Transfusion (if within last 3 months) Ever experience any problems No 05/06/24 14:31 with transfusion(s)? Specify any problems Hx of Preganancy in last 3 N/A 05/06/24 14:31 Months Nurse Filling Out Transfusion NBUCHER 05/06/24 14:31 & Questions: Date: 05/06/24 05/06/24 14:31 Time: 14:32 05/06/24 14:31 Patient unable to answer at this time (ie. confused, unrespo /Reproduction History /Reproductive History - library media specialist: /Reproductive Hx- library media specialist Hx Now No 05/06/24 14:31 Gestational Age (in weeks): EDC: Hx Hx Para Hx Section SAB No 05/06/24 14:31 Active Medications Active Medications: Current Medications Generic Name Dose Route Start Last Admin Trade Name Freq PRN Reason Stop Dose Admin Lactated Ringer's 1,000 mls @ 15 mls/hr 05/11/24 07:30 05/11/24 07:44 IV 15 mls/hr .Q48H DORIS Administration PFSH Medical History Herniated disc Wears glasses History of skin cancer Alcohol use Seasonal allergies Thyroid disease Diabetes Walker as ambulation aid Fibromyalgia Ambulates with cane High cholesterol Migraine headache Restless legs Dietary restriction Gastric reflux Asthma Shortness of breath on exertion Former smoker History of stress test Hypertension Home Medications ?Medication ?Instructions ?Recorded ?Last Taken ?Type albuterol sulfate 90 mcg/actuation 2 inh inhalation Q4H PRN shortness 05/13/23 Unknown History aerosol inhaler of breath or wheezing ascorbic acid (vitamin C) 500 mg 50 mg PO DAILY SUPPLEMENT 05/13/23 Unknown History capsule calcium carbonate 600 mg-vitamin 1 tab PO DAILY SUPPLEMENT 05/13/23 Unknown History D3 10 mcg (400 unit) tablet (Calcium 600 + D(3)) levothyroxine 50 mcg tablet 50 mcg PO DAILY THYROID 05/13/23 05/11/24 History metformin 500 mg tablet,extended 500 mg PO QHS BLOOD GLUCOSE 05/13/23 Unknown History release 24 hr omeprazole 20 mg capsule,delayed 20 mg PO DAILY GERD 05/13/23 05/11/24 History release rosuvastatin 5 mg tablet 5 mg PO QHS HLD 05/13/23 Unknown History zinc 50 mg capsule 50 mg PO DAILY SUPPLEMENT 05/13/23 Unknown History losartan 50 mg tablet 50 mg PO DAILY htn 06/10/23 05/11/24 History gabapentin 100 mg capsule 100 mg PO TID 05/06/24 05/11/24 History magnesium oxide 400 mg (241.3 mg 400 mg PO BID 05/06/24 Unknown History magnesium) tablet montelukast 10 mg tablet 10 mg PO DAILY 05/06/24 Unknown History Allergy/AdvReac Type Severity Reaction Status Date / Time erythromycin base Allergy PT UNSURE Verified 05/11/24 07:49 OF REACTION Penicillins Allergy PT UNSURE Verified 05/11/24 07:49 OF REACTION Surgical History History of total right knee replacement History of colonoscopy History of tonsillectomy History of thumb surgery History of tubal ligation History of cholecystectomy History of right knee surgery Social History Smoking Status: Former smoker Review of Systems (Anesthesia) ROS Narrative System reviewed and no additional complaints, except as documented.
[2024-05-11] MEDS: MethylPREDNISolone Acetate 80 MG/ML Vial (08:45)
[2024-05-11] MEDS: 0.9% Normal Saline (Pres. free 10 ML Vial (08:45)
[2024-05-11] MEDS: Lidocaine 1% (5 ml sdv) 5 ML Vial (08:45)
--- NOTE | 2024-05-11 08:53 | PCM.POST.ANE ---
Anesthesia: Postop Eval I Current Vital Signs Temperature: 97.4 F Pulse Rate: 64 Blood Pressure: 125/67 Respiratory Rate: 16 Pulse Ox: 95 Oxygen Delivery Method: Room Air Assessment Airway patent: Yes Spontaneous unlabored respirations: Yes Mental status: Awake and Calm nausea: No Vomiting: No Anesthesia Complication: No Fluid Hydration Crystalloid volume administer (ml): 200 Total IV fluid infused: 200 Progress Note Anesthesia document: Postop Eval 1 completed: Yes
--- NOTE | 2024-05-11 08:59 | OP.PCM_ITS ---
Report of Operation Date of Procedure: 05/11/24 Pre-Operative Diagnosis: Lumbosacral radiculopathy, lumbosacral degenerative di sc disease, lumbosacral spinal stenosis Post-Operative Diagnosis: Lumbosacral radiculopathy, lumbosacral degenerative disc disease, lumbosacral spinal stenosis Surgery/Procedure Performed:: Diagnostic/therapeutic caudal epidural steroid injection under fluoroscopic guidance Type of Anesthesia: MAC Estimated Blood Loss (mL): Minimal Description of Procedure: DESCRIPTION OF PROCEDURE: History and physical of today was reviewed. Risks and benefits of the procedure were explained. The patient understood and agreed to proceed. Informed consent was obtained. IV inserted per routine protocol. The patient was taken to the operating room and placed in the prone position with a pillow positioned underneath the abdomen. The lower back and tailbone area was prepped and draped in a sterile fashion using iodine x3. Under fluoroscopy guidance on a lateral view, the caudal space was identified. The skin and subcutaneous tissue was anesthetized with approximately 3 mL of 1% lidocaine using a 25-gauge regular needle. Under direct visualization with fluoroscopy, using a 22-gauge 3-1/2-inch spinal needle, the needle was advanced via the skin through the sacral hiatus. The tip of the needle was passed through the sacrococcygeal ligament and advanced to approximately S4 area. After negative aspiration of blood or CSF, a total of 3 mL of contrast was injected to confirm correct placement of the needle as well as cephalad spread. The spread was followed to approximately L5 area. After confirmation on AP as well as lateral view and repeated negative aspiration, a total of 15 mL of preservative-free 0.125% Marcaine with 80 mg of Depo-Medrol was injected easily. The needle was then removed intact. The patient experienced no sign or symptoms of intrathecal or intravascular injection. The patient experienced no paresthesia. The procedure was completed without any apparent difficulty or any complications. The patient appeared to tolerate it well. ASSESSMENT AND PLAN: This is a 73-year-old female with lumbosacral radiculopathy, lumbosacral degenerative disc disease, lumbosacral spinal stenosis status post diagnostic/therapeutic caudal epidural steroid injection, patient will continue her current medications, patient will follow up in approximately 2 weeks for reevaluation. Complications None
--- NOTE | 2024-05-11 09:11 | POSTOPAN2_ITS ---
Anesthesia Postop Eval I Sum Postop Eval Completion status Anesthesia document: Postop Eval 1 completed: Yes Anesthesia Postop Eval I Summary Anesthesia Postop Eval I Summary: Anesthesia Postop Eval I: Assessment Summary Airway patent Yes 05/11/24 08:54 ICT [email or web address] Spontaneous unlabored Yes 05/11/24 08:54 ICT [email or web address].RIGO respirations Mental status Awake,Calm 05/11/24 08:54 ICT [email or web address].RIGO nausea No 05/11/24 08:54 ICT MANAGERS.RIGO Vomiting No 05/11/24 08:54 ICT MANAGERSLAURI Anesthesia Postop Eval I: Fluid Summary Crystalloid volume administer 200 05/11/24 08:54 ICT MANAGERS.RIGO (ml) Colloids volume administered ( ml) Blood Product volume administered (ml) Total IV fluid infused 200 05/11/24 08:54 ICT MANAGERSLAURI Anesthesia Postop Eval I: Summary Notes Anesthesia Complication No 05/11/24 08:54 ZOILA Anesthesia Complication Comment: Post-operative progress note Anesthesia: Postop Eval II Evaluation Mental status: Awake Pain Level: 0 nausea: No Vomiting: No
--- NOTE | 2024-05-11 09:11 | PCM.POSTANE2 ---
Anesthesia Postop Eval I Sum Postop Eval Completion status Anesthesia document: Postop Eval 1 completed: Yes Anesthesia Postop Eval I Summary Anesthesia Postop Eval I Summary: Anesthesia Postop Eval I: Assessment Summary Airway patent Yes 05/11/24 08:54 PLASTERING CONTRACTOR.[email or web address] Spontaneous unlabored Yes 05/11/24 08:54 PLASTERING CONTRACTOR.RIGO respirations Mental status Awake,Calm 05/11/24 08:54 PLASTERING CONTRACTOR.RIGO nausea No 05/11/24 08:54 PLASTERING CONTRACTOR.RIGO Vomiting No 05/11/24 08:54 PLASTERING CONTRACTORLAURI Anesthesia Postop Eval I: Fluid Summary Crystalloid volume administer 200 05/11/24 08:54 PLASTERING CONTRACTOR.RIGO (ml) Colloids volume administered ( ml) Blood Product volume administered (ml) Total IV fluid infused 200 05/11/24 08:54 PLASTERING CONTRACTORLAURI Anesthesia Postop Eval I: Summary Notes Anesthesia Complication No 05/11/24 08:54 ZOILA Anesthesia Complication Comment: Post-operative progress note Anesthesia: Postop Eval II Evaluation Mental status: Awake Pain Level: 0 nausea: No Vomiting: No
[2024-05-11 09:35] LABS: Bedside Glucose 136 mg/dL (74-106)
== END 2024-05-11 09:19 | disposition home or self-care (01) ==
LOC: SDC 07:19 → AC 07:21
PROVIDERS: PCP Student in an Organized Health Care Education/Training Program; Referring Provider Anesthesiology Pain Medicine; Visit Provider Anesthesiology Pain Medicine
PROC: 3E0S3BZ Introduction of Anesthetic Agent into Epidural Space, Percutaneous Approach (ICD-10-PCS; CPT 62282; principal; 2024-05-11 08:35)
DX: M51.17 Intervertebral disc disorders with radiculopathy, lumbosacral region (principal); E11.9 Type 2 diabetes mellitus without complications; M48.07 Spinal stenosis, lumbosacral region; K21.9 Gastro-esophageal reflux disease without esophagitis; M79.7 Fibromyalgia; I10 Essential (primary) hypertension; J45.909 Unspecified asthma, uncomplicated; Z79.84 Long term (current) use of oral hypoglycemic drugs; Z79.899 Other long term (current) drug therapy
CPT/HCPCS: 62323; 64483; 77003; 82962; J7120; J3490

== ENCOUNTER 2024-08-10 08:51 | Day surgery (SDC) | payer MEDICARE, SELFPAY ==
[2024-08-10] VITALS (8 sets, daily range): BP systolic 110–155; BP diastolic 58–77; PULSE 59–77; RESP 16–18; TEMP 36.2–36.7; O2SAT 94–99; BMI 44.1
--- NOTE | 2024-08-10 09:30 | RAD_ITS ---
PROCEDURE: Right sacroiliac joint block. DATE OF EXAMINATION: August 10, 2024. INDICATION: Female, 74 years old. Low back pain. FLUOROSCOPY TIME (if supplied): (3.1 seconds) minutes/seconds. 2.08 mGy. One image was submitted. RAD/S-I Jts 3 or More Views IMPRESSION: Intraoperative imaging provided for right sacroiliac joint block. Electronically Signed: Damir Lake MD at 12:56 EST ,
--- NOTE | 2024-08-10 09:35 | PCM.PRE.AN2 ---
ASA Classification* ASA Classification ASA Classification: 2 Assessment & Plan Anesthesia* Anesthesia Assessment Anesthesia Assessment: Discussed sedation and/or anesthesia options, risks, benefits, and alternatives with patient/parents/legal guardian/POA. Questions invited. The patient/parents/legal guardian/POA seems to understand and agrees to proceed with anesthesia plan. Reviewed the physical assessment, medical history, allergy history and patient home medications list prior to surgery/procedure/anesthetic and documented any changes. Performed airway and anesthesia risk assessments. Anesthesia Type Anesthesia Type: MAC Anesthesia Focused Assessment* Temperature: 98.1 F Pulse Rate: 66 Blood Pressure: 155/74 Respiratory Rate: 16 Pulse Ox: 99 Airway Assessment Mouth opens: >3 cm Mallampati Score: II Focused Labs Anesthesia Preop lab: CBC WBC 9.0 K/mm3 (4.4-11.0) 06/11/23 06:57 RBC 4.31 M/mm3 (4.2-5.4) 06/11/23 06:57 Hgb 12.3 g/dL (12.0-15.0) 06/11/23 06:57 Hct 39.7 % (37-47) 06/11/23 06:57 Plt Count 202 K/mm3 (150-450) 06/11/23 06:57 CHEMISTRY Potassium 4.9 mmol/L (3.5-5.1) 06/11/23 06:57 Sodium 136 mmol/L (136-145) 06/11/23 06:57 BUN 16 mg/dL (7-18) 06/11/23 06:57 Creatinine 0.77 mg/dL (0.55-1.02) 06/11/23 06:57 Glucose 149 mg/dL (74-106) H 06/11/23 06:57 POC Glucose 136 mg/dL (74-106) H 05/11/24 07:40 COAG Pre-Assessment Diagnosis/Proposed Procedure Planned Operative Procedure(s): Right SI joint injection Anesthesia History Anesthesia History - counterintelligence agent: Anesthesia History - counterintelligence agent Hx Hospitalization No 05/06/24 14:31 Any Problems With Anesthesia No 05/06/24 14:31 Cholinesterase deficiency No 05/06/24 14:31 You/Your Family Experience No 05/06/24 14:31 fever (hyperthermia) with Relationship Recent Exposure to Contagious No 08/10/24 09:13 Disease Does patient have nerve Yes: ON MEDS 05/06/24 14:31 stimulator Patient instructed to have device shut off --Does patient have Pacemaker No 08/10/24 09:13 or ICD? When Was Last Pacemaker Check QUESTION #4 FULL TEXT: You/Your Family Experience fever (hyperthermia) with Anesthesia Last Oral Intake Last Oral intake: Last Oral Intake NPO since 00:00 08/10/24 09:13 Meds taken in AM with sips of No 08/10/24 09:13 water? Meds patient instructed to take am of surgery PONV PONV - counterintelligence agent: PONV - counterintelligence agent Female HX of Motion Sickness HX of N/V After Surgery Non-Smoker Duration of Surgery greater than 60 minutes Number of Risk Factors PONV Score Height & Weight Height & Weight: Anesthesia: Height & Weight Height 5 ft 08/10/24 09:13 Weight: 102.512 kg 08/10/24 09:13 Body Mass Index (BMI) 44.1 08/10/24 09:13 Respiratory Assessment Respiratory Assessment - counterintelligence agent: Respiratory Tract Infection Hx - counterintelligence agent Hx Respiratory Tract Infection No 05/06/24 14:31 STOP Sleep Apnea STOP Sleep Apnea - counterintelligence agent: STOP Sleep Apnea - counterintelligence agent Hx Hypertension Yes: PER PT, CONTROLLED ON 05/06/24 14:31 MEDS Hx Sleep Apnea No 05/11/24 09:05 CPAP No 05/11/24 08:55 BIPAP Do you snore loudly (louder than talking or can be heard Do you often feel tired/ fatigued/ sleepy during daytime? Has anyone observed you stop breathing during sleep? STOP Results QUESTION #5 FULL TEXT : Do you snore loudly (louder than talking or can be heard through closed doors)? 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 Specify any problems Hx of Preganancy in last 3 Months Nurse Filling Out Transfusion & Questions: Date: Time: Patient unable to answer at this time (ie. confused, unrespo /Reproduction History /Reproductive History - counterintelligence agent: /Reproductive Hx- counterintelligence agent Hx Now Gestational Age (in weeks): EDC: Hx Hx Para Hx Section SAB No 05/06/24 14:31 [facility] Medical History Herniated disc Wears glasses History of skin cancer Alcohol use Seasonal allergies Thyroid disease Diabetes Walker as ambulation aid Fibromyalgia Ambulates with cane High cholesterol Migraine headache Restless legs Dietary restriction Gastric reflux Asthma Shortness of breath on exertion Former smoker History of stress test Hypertension Home Medications ?Medication ?Instructions ?Recorded ?Last Taken ?Type albuterol sulfate 90 mcg/actuation 2 inh inhalation Q4H PRN shortness 05/13/23 08/09/24 History aerosol inhaler of breath or wheezing ascorbic acid (vitamin C) 500 mg 50 mg PO DAILY SUPPLEMENT 05/13/23 08/09/24 History capsule calcium 600 mg (as 1 tab PO DAILY SUPPLEMENT 05/13/23 08/09/24 History carbonate)-vitamin D3 10 mcg (400 unit) tablet (Calcium 600 + D(3)) levothyroxine 50 mcg tablet 50 mcg PO DAILY THYROID 05/13/23 08/10/24 History metformin 500 mg tablet,extended 500 mg PO QHS BLOOD GLUCOSE 05/13/23 08/09/24 History release 24 hr omeprazole 20 mg capsule,delayed 20 mg PO DAILY GERD 05/13/23 08/09/24 History release rosuvastatin 5 mg tablet 5 mg PO QHS HLD 05/13/23 08/09/24 History zinc 50 mg capsule 50 mg PO DAILY SUPPLEMENT 05/13/23 08/09/24 History losartan 50 mg tablet 50 mg PO DAILY htn 06/10/23 08/10/24 History gabapentin 100 mg capsule 100 mg PO TID 05/06/24 08/09/24 History magnesium oxide 400 mg (241.3 mg 400 mg PO BID 05/06/24 08/09/24 History magnesium) tablet montelukast 10 mg tablet 10 mg PO DAILY 05/06/24 08/09/24 History Allergy/AdvReac Type Severity Reaction Status Date / Time erythromycin base Allergy PT UNSURE Verified 08/10/24 09:08 OF REACTION Penicillins Allergy PT UNSURE Verified 08/10/24 09:08 OF REACTION Surgical History History of total right knee replacement History of colonoscopy History of tonsillectomy History of thumb surgery History of tubal ligation History of cholecystectomy History of right knee surgery Social History Smoking Status: Former smoker Review of Systems (Anesthesia) ROS Narrative System reviewed and no additional complaints, except as documented.
[2024-08-10 09:37] LABS: Bedside Glucose 140 mg/dL (74-106)
[2024-08-10] MEDS: Lidocaine 1% (5 ml sdv) 5 ML Vial (10:22)
[2024-08-10] MEDS: MethylPREDNISolone Acetate 40 MG/ML Vial (10:23)
[2024-08-10] MEDS: Bupivacaine 0.25% 30 ML Vial (10:23)
--- NOTE | 2024-08-10 10:24 | OP.PCM_ITS ---
Operative Report (Standard) Operative Information Surgery/Procedure Performed: Right-sided sacroiliac joint steroid injection under fluoroscopic guidance Surgeon: Raj Booth Date of Procedure: 08/10/24 Procedure Start Time: : Procedure Stop Time: Pre-Operative Diagnosis: Sacroiliitis, sacroiliac joints dysfunction Post-Operative Diagnosis: Sacroiliitis, sacroiliac joints dysfunction Select all DRAINS/GRAFTS/IMPLANTS that apply: None Type of Anesthesia: Local MAC and MAC Estimated Blood Loss: 1 cc Specimen collected: No Description of surgery: PREOPERATIVE DIAGNOSES: 1. Sacroiliitis. 2. Sacroiliac joint dysfunction. POSTOPERATIVE DIAGNOSES: 1. Sacroiliitis. 2. Sacroiliac joint dysfunction. PROCEDURE PERFORMED: Right-sided sacroiliac joint steroid injection under fluoroscopy guidance. ANESTHESIA: MAC. BLOOD LOSS: Minimal. COMPLICATIONS: None. DESCRIPTION OF PROCEDURE: History and physical of today was reviewed. Risks and benefits of the procedure were explained. The patient understood and agreed to the procedure. Informed consent was obtained. IV inserted per routine protocol. The patient was taken to the operating room and placed in the prone position with a pillow positioned underneath the abdomen. The right lower back and buttock area was prepped and draped in a sterile fashion using iodine x3. Under fluoroscopy guidance on an AP view, the right SI joint was visualized. The skin and subcutaneous tissue was anesthetized with approximately 3 mL of 1% lidocaine using a 25-gauge regular needle. Under direct visualization with fluoroscopy at approximately 15-degree angle, using a 22-gauge 3-1/2-inch spinal needle, the needle was advanced via the skin. The tip of the needle was maneuvered and directed towards the inferior one-third of the posterior SI joint. Once the tip of the needle was at the vicinity of the joint, after negative aspiration for blood or CSF, a total of 1 mL of contrast was injected to confirm correct placement of the needle as well as cephalocaudal spread. Confirmation was obtained on AP as well as oblique view. After repeated negative aspiration and confirmation, a total of 4 mL of preservative-free 0.25% Marcaine with 40 mg of Depo-Medrol was injected in and around the SI joint. The needle was then removed intact. The patient experienced no sign or symptoms of intrathecal or intravascular injection. The patient experienced no paresthesia. The procedure was completed without any apparent difficulty or any complications. The patient appeared to tolerate it well. ASSESSMENT AND PLAN: This is a 74-year-old female with sacroiliitis sacral iliac joint dysfunction status post right-sided sacroiliac joint steroid injection under fluoroscopic guidance, patient will continue current medications, patient will follow in approximately 2 weeks for reevaluation. Surgical Findings: see Flange Turner in flight refueling operator: No Complications Complications: No Admit VTE Documentation VTE Present on Admission: No VTE Pharm Prophylaxis ordered?: No
--- NOTE | 2024-08-10 10:26 | PCM.POST.ANE ---
Anesthesia: Postop Eval I Current Vital Signs Temperature: 97.4 F Pulse Rate: 77 Blood Pressure: 110/58 Respiratory Rate: 18 Pulse Ox: 96 Assessment Airway patent: Yes Spontaneous unlabored respirations: Yes nausea: No Vomiting: No Anesthesia Complication: No Fluid Hydration Crystalloid volume administer (ml): 0 Total IV fluid infused: 0 Progress Note Anesthesia document: Postop Eval 1 completed: No
--- NOTE | 2024-08-10 11:13 | POSTOPAN2_ITS ---
Anesthesia Postop Eval I Sum Postop Eval Completion status Anesthesia document: Postop Eval 1 completed: No Anesthesia Postop Eval I Summary Anesthesia Postop Eval I Summary: Anesthesia Postop Eval I: Assessment Summary Airway patent Yes 08/10/24 10:26 [email or web address] Spontaneous unlabored Yes 08/10/24 10:26 [email or web address].CSIR respirations Mental status nausea No 08/10/24 10:26 [email or web address]CSIR Vomiting No 08/10/24 10:26 [email or web address].CSIR Anesthesia Postop Eval I: Fluid Summary Crystalloid volume administer 0 08/10/24 10:26 [email or web address].CSIR (ml) Colloids volume administered ( ml) Blood Product volume administered (ml) Total IV fluid infused 0 08/10/24 10:26 [email or web address].CSIR Anesthesia Postop Eval I: Summary Notes Anesthesia Complication No 08/10/24 10:26 [email or web address].CSIR Anesthesia Complication Comment: Post-operative progress note Anesthesia: Postop Eval II Evaluation Mental status: Awake Pain Level: 0 nausea: No Vomiting: No
--- NOTE | 2024-08-10 11:13 | PCM.POSTANE2 ---
Anesthesia Postop Eval I Sum Postop Eval Completion status Anesthesia document: Postop Eval 1 completed: No Anesthesia Postop Eval I Summary Anesthesia Postop Eval I Summary: Anesthesia Postop Eval I: Assessment Summary Airway patent Yes 08/10/24 10:26 MD [email or web address] Spontaneous unlabored Yes 08/10/24 10:26 MD [email or web address] respirations Mental status nausea No 08/10/24 10:26 MD [email or web address] Vomiting No 08/10/24 10:26 MD [email or web address] Anesthesia Postop Eval I: Fluid Summary Crystalloid volume administer 0 08/10/24 10:26 MD [email or web address] (ml) Colloids volume administered ( ml) Blood Product volume administered (ml) Total IV fluid infused 0 08/10/24 10:26 MD [email or web address] Anesthesia Postop Eval I: Summary Notes Anesthesia Complication No 08/10/24 10:26 MD [email or web address] Anesthesia Complication Comment: Post-operative progress note Anesthesia: Postop Eval II Evaluation Mental status: Awake Pain Level: 0 nausea: No Vomiting: No
== END 2024-08-10 10:55 | disposition home or self-care (01) ==
LOC: SDC 08:51 → AC 08:54
PROVIDERS: PCP Student in an Organized Health Care Education/Training Program; Referring Provider Anesthesiology Pain Medicine; Visit Provider Anesthesiology Pain Medicine
PROC: 3E0U3BZ Introduction of Anesthetic Agent into Joints, Percutaneous Approach (ICD-10-PCS; CPT 64451; principal; 2024-08-10 10:25)
DX: M46.1 Sacroiliitis, not elsewhere classified (principal); E11.9 Type 2 diabetes mellitus without complications; M53.3 Sacrococcygeal disorders, not elsewhere classified; I10 Essential (primary) hypertension; E07.9 Disorder of thyroid, unspecified; M79.7 Fibromyalgia; E78.00 Pure hypercholesterolemia, unspecified; K21.9 Gastro-esophageal reflux disease without esophagitis; G25.81 Restless legs syndrome; J45.909 Unspecified asthma, uncomplicated; Z88.0 Allergy status to penicillin; Z90.49 Acquired absence of other specified parts of digestive tract; Z79.84 Long term (current) use of oral hypoglycemic drugs; Z79.890 Hormone replacement therapy; Z85.828 Personal history of other malignant neoplasm of skin; Z79.899 Other long term (current) drug therapy; Z96.651 Presence of right artificial knee joint; Z87.891 Personal history of nicotine dependence
CPT/HCPCS: 27096; 64483; 72202; 82962; A4216; J2405

== ENCOUNTER 2024-11-09 06:04 | Day surgery (SDC) | payer MEDICARE, SELFPAY ==
[2024-11-09] VITALS (7 sets, daily range): BP systolic 125–151; BP diastolic 70–84; PULSE 66–81; RESP 16–18; TEMP 36.2–36.6; O2SAT 94–98; BMI 44.0
--- NOTE | 2024-11-09 06:43 | PCM.PRE.AN2 ---
ASA Classification* ASA Classification ASA Classification: 2 Assessment & Plan Anesthesia* Anesthesia Assessment Anesthesia Assessment: Discussed sedation and/or anesthesia options, risks, benefits, and alternatives with patient/parents/legal guardian/POA. Questions invited. The patient/parents/legal guardian/POA seems to understand and agrees to proceed with anesthesia plan. Reviewed the physical assessment, medical history, allergy history and patient home medications list prior to surgery/procedure/anesthetic and documented any changes. Performed airway and anesthesia risk assessments. Anesthesia Type Anesthesia Type: MAC Anesthesia Focused Assessment* Airway Assessment Mouth opens: >3 cm Mallampati Score: II Focused Labs Anesthesia Preop lab: CBC WBC 9.0 K/mm3 (4.4-11.0) 06/11/23 06:57 06/11/23 RBC 4.31 M/mm3 (4.2-5.4) 06/11/23 06:57 06/11/23 Hgb 12.3 g/dL (12.0-15.0) 06/11/23 06:57 06/11/23 Hct 39.7 % (37-47) 06/11/23 06:57 06/11/23 Plt Count 202 K/mm3 (150-450) 06/11/23 06:57 06/11/23 CHEMISTRY Potassium 4.9 mmol/L (3.5-5.1) 06/11/23 06:57 06/11/23 Sodium 136 mmol/L (136-145) 06/11/23 06:57 06/11/23 BUN 16 mg/dL (7-18) 06/11/23 06:57 06/11/23 Creatinine 0.77 mg/dL (0.55-1.02) 06/11/23 06:57 06/11/23 Glucose 149 mg/dL (74-106) H 06/11/23 06:57 06/11/23 POC Glucose 140 mg/dL (74-106) H 08/10/24 09:19 08/10/24 COAG Pre-Assessment Diagnosis/Proposed Procedure Planned Operative Procedure(s): Caudal block Anesthesia History Anesthesia History - security systems manager: Anesthesia History - security systems manager Hx Hospitalization No 05/06/24 14:31 Any Problems With Anesthesia No 05/06/24 14:31 Cholinesterase deficiency No 05/06/24 14:31 You/Your Family Experience No 05/06/24 14:31 fever (hyperthermia) with Relationship Recent Exposure to Contagious No 11/09/24 06:39 Disease Does patient have nerve Yes: ON MEDS 05/06/24 14:31 stimulator Patient instructed to have device shut off --Does patient have Pacemaker or ICD? When Was Last Pacemaker Check QUESTION #4 FULL TEXT: You/Your Family Experience fever (hyperthermia) with Anesthesia Last Oral Intake Last Oral intake: Last Oral Intake NPO since Meds taken in AM with sips of water? Meds patient instructed to take am of surgery PONV PONV - security systems manager: PONV - security systems manager Female HX of Motion Sickness HX of N/V After Surgery Non-Smoker Duration of Surgery greater than 60 minutes Number of Risk Factors PONV Score Height & Weight Height & Weight: Anesthesia: Height & Weight Height 5 ft 08/10/24 09:13 Respiratory Assessment Respiratory Assessment - security systems manager: Respiratory Tract Infection Hx - security systems manager Hx Respiratory Tract Infection No 05/06/24 14:31 STOP Sleep Apnea STOP Sleep Apnea - security systems manager: STOP Sleep Apnea - security systems manager Hx Hypertension Yes: PER PT, CONTROLLED ON 05/06/24 14:31 MEDS Hx Sleep Apnea No 08/10/24 10:40 CPAP No 05/11/24 08:55 BIPAP Do you snore loudly (louder than talking or can be heard Do you often feel tired/ fatigued/ sleepy during daytime? Has anyone observed you stop breathing during sleep? STOP Results QUESTION #5 FULL TEXT : Do you snore loudly (louder than talking or can be heard through closed doors)? 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 Specify any problems Hx of Preganancy in last 3 Months Nurse Filling Out Transfusion & Questions: Date: Time: Patient unable to answer at this time (ie. confused, unrespo /Reproduction History /Reproductive History - security systems manager: /Reproductive Hx- security systems manager Hx Now Gestational Age (in weeks): EDC: Hx Hx Para Hx Section SAB No 05/06/24 14:31 [facility] Medical History Herniated disc Wears glasses History of skin cancer Alcohol use Seasonal allergies Thyroid disease Diabetes Walker as ambulation aid Fibromyalgia Ambulates with cane High cholesterol Migraine headache Restless legs Dietary restriction Gastric reflux Asthma Shortness of breath on exertion Former smoker History of stress test Hypertension Home Medications ?Medication ?Instructions ?Recorded ?Last Taken ?Type albuterol sulfate 90 mcg/actuation 2 inh inhalation Q4H PRN shortness 05/13/23 08/09/24 History aerosol inhaler of breath or wheezing calcium 600 mg (as 1 tab PO DAILY SUPPLEMENT 05/13/23 11/08/24 History carbonate)-vitamin D3 10 mcg (400 unit) tablet (Calcium 600 + D(3)) levothyroxine 50 mcg tablet 50 mcg PO DAILY THYROID 05/13/23 11/09/24 History metformin 500 mg tablet,extended 500 mg PO QHS BLOOD GLUCOSE 05/13/23 11/08/24 History release 24 hr omeprazole 20 mg capsule,delayed 20 mg PO DAILY GERD 05/13/23 11/08/24 History release rosuvastatin 5 mg tablet 5 mg PO QHS HLD 05/13/23 11/08/24 History losartan 50 mg tablet 50 mg PO DAILY htn 06/10/23 11/09/24 History gabapentin 100 mg capsule 100 mg PO TID 05/06/24 11/08/24 History magnesium oxide 400 mg (241.3 mg 400 mg PO BID 05/06/24 11/08/24 History magnesium) tablet Allergy/AdvReac Type Severity Reaction Status Date / Time erythromycin base Allergy PT UNSURE Verified 08/10/24 09:08 OF REACTION Penicillins Allergy PT UNSURE Verified 08/10/24 09:08 OF REACTION Surgical History History of total right knee replacement History of colonoscopy History of tonsillectomy History of thumb surgery History of tubal ligation History of cholecystectomy History of right knee surgery Social History Smoking Status: Former smoker Review of Systems (Anesthesia) ROS Narrative System reviewed and no additional complaints, except as documented.
[2024-11-09 07:09] LABS: Bedside Glucose 125 mg/dL (74-106)
[2024-11-09] MEDS: 0.9% Normal Saline (Pres. free 10 ML Vial (07:45)
[2024-11-09] MEDS: Lidocaine 1% (5 ml sdv) 5 ML Vial (07:45)
[2024-11-09] MEDS: MethylPREDNISolone Acetate 80 MG/ML Vial (07:45)
[2024-11-09] MEDS: Bupivacaine 0.25% 30 ML Vial (07:45)
--- NOTE | 2024-11-09 07:45 | RAD_ITS ---
Fluoroscopic guidance was used intraoperatively. Please refer to the operative note for further details. 1 image. Total radiation dose 2.69 mGy. Total fluoroscopy time 4.6 seconds. Reading Location: [facility]
--- NOTE | 2024-11-09 07:55 | PCM.OPRPT ---
Operative Report (Standard) Operative Information Date of Procedure: 11/09/24 Pre-Operative Diagnosis: 1 Post-Operative Diagnosis: 1 Surgery/Procedure Performed: 1 editor trade journal: No Type of Anesthesia: Local MAC RN Documented Start/Stop Times: Operation Date: 11/09/24 07:30 Case Time Into Pre-Op 11/09/24 06:11 Out of Pre-Op 11/09/24 07:34 Anesthesia Start 11/09/24 07:38 Into Room 11/09/24 07:38 Procedure Start 11/09/24 07:45 Procedure End 11/09/24 07:50 Anesthesia End 11/09/24 07:52 Into Recovery 11/09/24 07:52 Out of Room 11/09/24 07:52 Procedure Start Time: 07:55 Procedure Stop Time: 07:55 Select all DRAINS/GRAFTS/IMPLANTS that apply: None Estimated Blood Loss: 0 Specimen collected: No Description of surgery: PREOPERATIVE DIAGNOSIS: Lumbosacral radiculopathy, lumbosacral degenerative disc disease, lumbosacral spinal stenosis POSTOPERATIVE DIAGNOSIS:Lumbosacral radiculopathy, lumbosacral degenerative disc disease, lumbosacral spinal stenosis PROCEDURE PERFORMED: Diagnostic/therapeutic caudal epidural steroid injection Under fluoroscopic guidance. ANESTHESIA: MAC. BLOOD LOSS: Minimal. COMPLICATIONS: None. DESCRIPTION OF PROCEDURE: History and physical of today was reviewed. Risks and benefits of the procedure were explained. The patient understood and agreed to proceed. Informed consent was obtained. IV inserted per routine protocol. The patient was taken to the operating room and placed in the prone position with a pillow positioned underneath the abdomen. The lower back and tailbone area was prepped and draped in a sterile fashion using iodine x3. Under fluoroscopy guidance on a lateral view, the caudal space was identified. The skin and subcutaneous tissue was anesthetized with approximately 3 mL of 1% lidocaine using a 25-gauge regular needle. Under direct visualization with fluoroscopy, using a 22-gauge 3-1/2-inch spinal needle, the needle was advanced via the skin through the sacral hiatus. The tip of the needle was passed through the sacrococcygeal ligament and advanced to approximately S4 area. After negative aspiration of blood or CSF, a total of 3 mL of contrast was injected to confirm correct placement of the needle as well as cephalad spread. The spread was followed to approximately L5 area. After confirmation on AP as well as lateral view and repeated negative aspiration, a total of 15 mL of preservative-free 0.125% Marcaine with 80 mg of Depo-Medrol was injected easily. The needle was then removed intact. The patient experienced no sign or symptoms of intrathecal or intravascular injection. The patient experienced no paresthesia. The procedure was completed without any apparent difficulty or any complications. The patient appeared to tolerate it well. ASSESSMENT AND PLAN: This is a 74-year-old female with lumbosacral radiculopathy, lumbosacral spinal stenosis, lumbosacral degenerative disc disease status post diagnostic/therapeutic caudal epidural steroid injection, patient will continue her current medications, patient will follow-up in approximately 2 weeks for reevaluation. Surgical Findings: 0 Complications Complications: No Admit VTE Documentation VTE Present on Admission: No VTE Mechan Device Prophylaxis: None VTE Pharm Prophylaxis ordered?: No
--- NOTE | 2024-11-09 07:56 | PCM.POST.ANE ---
Anesthesia: Postop Eval I Current Vital Signs Temperature: 97.8 F Pulse Rate: 81 Blood Pressure: 133/75 Respiratory Rate: 18 Pulse Ox: 94 Assessment Airway patent: Yes Spontaneous unlabored respirations: Yes nausea: No Vomiting: No Anesthesia Complication: No Fluid Hydration Crystalloid volume administer (ml): 20 Total IV fluid infused: 20 Progress Note Anesthesia document: Postop Eval 1 completed: Yes
--- NOTE | 2024-11-09 08:57 | POSTOPAN2_ITS ---
Anesthesia Postop Eval I Sum Postop Eval Completion status Anesthesia document: Postop Eval 1 completed: Yes Anesthesia Postop Eval I Summary Anesthesia Postop Eval I Summary: Anesthesia Postop Eval I: Assessment Summary Airway patent Yes 11/09/24 07:56 IMPLEMENTATION ANALYST.TNES Spontaneous unlabored Yes 11/09/24 07:56 IMPLEMENTATION ANALYST.TNES respirations Mental status nausea No 11/09/24 07:56 IMPLEMENTATION ANALYST.TNES Vomiting No 11/09/24 07:56 IMPLEMENTATION ANALYST.TNES Anesthesia Postop Eval I: Fluid Summary Crystalloid volume administer 20 11/09/24 07:56 IMPLEMENTATION ANALYST.TNES (ml) Colloids volume administered ( ml) Blood Product volume administered (ml) Total IV fluid infused 20 11/09/24 07:56 IMPLEMENTATION ANALYST.TNES Anesthesia Postop Eval I: Summary Notes Anesthesia Complication No 11/09/24 07:56 IMPLEMENTATION ANALYST.TNES Anesthesia Complication Comment: Post-operative progress note Anesthesia: Postop Eval II Evaluation Mental status: Awake Pain Level: 0 nausea: No Vomiting: No
--- NOTE | 2024-11-09 08:57 | PCM.POSTANE2 ---
Anesthesia Postop Eval I Sum Postop Eval Completion status Anesthesia document: Postop Eval 1 completed: Yes Anesthesia Postop Eval I Summary Anesthesia Postop Eval I Summary: Anesthesia Postop Eval I: Assessment Summary Airway patent Yes 11/09/24 07:56 HUMAN RESOURCES ASSISTANT MANAGER.[email or web address] Spontaneous unlabored Yes 11/09/24 07:56 HUMAN RESOURCES ASSISTANT MANAGER.TNES respirations Mental status nausea No 11/09/24 07:56 HUMAN RESOURCES ASSISTANT MANAGER.TNES Vomiting No 11/09/24 07:56 HUMAN RESOURCES ASSISTANT MANAGER.TNES Anesthesia Postop Eval I: Fluid Summary Crystalloid volume administer 20 11/09/24 07:56 HUMAN RESOURCES ASSISTANT MANAGER.TNES (ml) Colloids volume administered ( ml) Blood Product volume administered (ml) Total IV fluid infused 20 11/09/24 07:56 HUMAN RESOURCES ASSISTANT MANAGER.TNES Anesthesia Postop Eval I: Summary Notes Anesthesia Complication No 11/09/24 07:56 HUMAN RESOURCES ASSISTANT MANAGER.TNES Anesthesia Complication Comment: Post-operative progress note Anesthesia: Postop Eval II Evaluation Mental status: Awake Pain Level: 0 nausea: No Vomiting: No
== END 2024-11-09 08:27 | disposition home or self-care (01) ==
LOC: SDC 06:05 → AC 06:08
PROVIDERS: PCP Student in an Organized Health Care Education/Training Program; Referring Provider Anesthesiology Pain Medicine; Visit Provider Anesthesiology Pain Medicine
PROC: 3E0S3BZ Introduction of Anesthetic Agent into Epidural Space, Percutaneous Approach (ICD-10-PCS; CPT 62282; principal; 2024-11-09 07:25)
DX: M51.17 Intervertebral disc disorders with radiculopathy, lumbosacral region (principal); E11.9 Type 2 diabetes mellitus without complications; M48.07 Spinal stenosis, lumbosacral region; I10 Essential (primary) hypertension; E07.9 Disorder of thyroid, unspecified; E78.00 Pure hypercholesterolemia, unspecified; M79.7 Fibromyalgia; K21.9 Gastro-esophageal reflux disease without esophagitis; J45.909 Unspecified asthma, uncomplicated; G25.81 Restless legs syndrome; Z79.890 Hormone replacement therapy; Z79.84 Long term (current) use of oral hypoglycemic drugs; Z88.0 Allergy status to penicillin; Z96.651 Presence of right artificial knee joint; Z79.899 Other long term (current) drug therapy; Z87.891 Personal history of nicotine dependence
CPT/HCPCS: 62323; 64490; 77003; 82962; A4216

== ENCOUNTER 2024-12-28 07:24 | Day surgery (SDC) | payer MEDICARE, SELFPAY ==
[2024-12-28] VITALS (7 sets, daily range): BP systolic 120–130; BP diastolic 57–88; PULSE 61–79; RESP 16–18; TEMP 36.4–36.6; O2SAT 93–100; BMI 42.6
--- NOTE | 2024-12-28 07:40 | RAD_ITS ---
PROCEDURE: L/S SPINE W BEND MIN 6 VW 12/28/2024 REASON FOR EXAM: MEDIAL BRANCH BLOCK L4-S1, BILAT TECHNIQUE: 7 fluoroscopic images were submitted. Fluoroscopy time was 20.2 seconds. Peak skin radiation dose was 9.1 mGy. COMPARISON: None FINDINGS: See impression RAD/L/S Spine w Bend Min 6 Vw IMPRESSION: Fluoroscopic guidance provided during L4 through S1 medial nerve blocks. See operative report for further details. Reading Location: [facility]
--- NOTE | 2024-12-28 07:56 | PCM.PRE.AN2 ---
ASA Classification* ASA Classification ASA Classification: 2 Assessment & Plan Anesthesia* Anesthesia Assessment Anesthesia Assessment: Discussed sedation and/or anesthesia options, risks, benefits, and alternatives with patient/parents/legal guardian/POA. Questions invited. The patient/parents/legal guardian/POA seems to understand and agrees to proceed with anesthesia plan. Reviewed the physical assessment, medical history, allergy history and patient home medications list prior to surgery/procedure/anesthetic and documented any changes. Performed airway and anesthesia risk assessments. Anesthesia Type Anesthesia Type: MAC Anesthesia Focused Assessment* Airway Assessment Mouth opens: >3 cm Mallampati Score: II Focused Labs Anesthesia Preop lab: CBC WBC 9.0 K/mm3 (4.4-11.0) 06/11/23 06:57 06/11/23 RBC 4.31 M/mm3 (4.2-5.4) 06/11/23 06:57 06/11/23 Hgb 12.3 g/dL (12.0-15.0) 06/11/23 06:57 06/11/23 Hct 39.7 % (37-47) 06/11/23 06:57 06/11/23 Plt Count 202 K/mm3 (150-450) 06/11/23 06:57 06/11/23 CHEMISTRY Potassium 4.9 mmol/L (3.5-5.1) 06/11/23 06:57 06/11/23 Sodium 136 mmol/L (136-145) 06/11/23 06:57 06/11/23 BUN 16 mg/dL (7-18) 06/11/23 06:57 06/11/23 Creatinine 0.77 mg/dL (0.55-1.02) 06/11/23 06:57 06/11/23 Glucose 149 mg/dL (74-106) H 06/11/23 06:57 06/11/23 POC Glucose 125 mg/dL (74-106) H 11/09/24 06:32 11/09/24 COAG Pre-Assessment Diagnosis/Proposed Procedure Planned Operative Procedure(s): alysia median nerve block Anesthesia History Anesthesia History - horseback excavator: Anesthesia History - horseback excavator Hx Hospitalization No 05/06/24 14:31 Any Problems With Anesthesia No 05/06/24 14:31 Cholinesterase deficiency No 05/06/24 14:31 You/Your Family Experience No 05/06/24 14:31 fever (hyperthermia) with Relationship Recent Exposure to Contagious No 11/09/24 06:39 Disease Does patient have nerve Yes: ON MEDS 05/06/24 14:31 stimulator Patient instructed to have device shut off --Does patient have Pacemaker or ICD? When Was Last Pacemaker Check QUESTION #4 FULL TEXT: You/Your Family Experience fever (hyperthermia) with Anesthesia Last Oral Intake Last Oral intake: Last Oral Intake NPO since Meds taken in AM with sips of water? Meds patient instructed to take am of surgery PONV PONV - horseback excavator: PONV - horseback excavator Female HX of Motion Sickness HX of N/V After Surgery Non-Smoker Duration of Surgery greater than 60 minutes Number of Risk Factors PONV Score Height & Weight Height & Weight: Anesthesia: Height & Weight Height 5 ft 11/09/24 06:40 Respiratory Assessment Respiratory Assessment - horseback excavator: Respiratory Tract Infection Hx - horseback excavator Hx Respiratory Tract Infection No 05/06/24 14:31 STOP Sleep Apnea STOP Sleep Apnea - horseback excavator: STOP Sleep Apnea - horseback excavator Hx Hypertension Yes: PER PT, CONTROLLED ON 05/06/24 14:31 MEDS Hx Sleep Apnea No 08/10/24 10:40 CPAP No 11/09/24 07:54 BIPAP Do you snore loudly (louder than talking or can be heard Do you often feel tired/ fatigued/ sleepy during daytime? Has anyone observed you stop breathing during sleep? STOP Results QUESTION #5 FULL TEXT : Do you snore loudly (louder than talking or can be heard through closed doors)? 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 Specify any problems Hx of Preganancy in last 3 Months Nurse Filling Out Transfusion & Questions: Date: Time: Patient unable to answer at this time (ie. confused, unrespo /Reproduction History /Reproductive History - horseback excavator: /Reproductive Hx- horseback excavator Hx Now Gestational Age (in weeks): EDC: Hx Hx Para Hx Section SAB No 05/06/24 14:31 [facility] Medical History Allergic rhinitis Fatty liver Herniated disc Wears glasses History of skin cancer Alcohol use Seasonal allergies Thyroid disease Diabetes Walker as ambulation aid Fibromyalgia Ambulates with cane High cholesterol Migraine headache Restless legs Dietary restriction Gastric reflux Asthma Shortness of breath on exertion Former smoker History of stress test Hypertension Home Medications ?Medication ?Instructions ?Recorded ?Last Taken ?Type calcium 600 mg (as 1 tab PO DAILY SUPPLEMENT 05/13/23 11/08/24 History carbonate)-vitamin D3 10 mcg (400 unit) tablet (Calcium 600 + D(3)) levothyroxine 50 mcg tablet 50 mcg PO DAILY THYROID 05/13/23 12/28/24 History omeprazole 20 mg capsule,delayed 20 mg PO DAILY GERD 05/13/23 11/08/24 History release rosuvastatin 5 mg tablet 5 mg PO QHS HLD 05/13/23 11/08/24 History losartan 50 mg tablet 50 mg PO DAILY htn 06/10/23 12/28/24 History magnesium oxide 400 mg (241.3 mg 400 mg PO BID 05/06/24 11/08/24 History magnesium) tablet diclofenac sodium 1 % topical gel 2 g topical ONCE 12/22/24 Unknown History (Arthritis Pain (diclofenac)) ferrous sulfate 325 mg (65 mg 325 mg PO QDAY 12/22/24 Unknown History iron) tablet semaglutide 1 mg/dose (4 mg/3 mL) 1 mg subcut QWEEK 12/28/24 12/13/24 History subcutaneous pen injector (Ozempic) Allergy/AdvReac Type Severity Reaction Status Date / Time erythromycin base Allergy PT UNSURE Verified 12/28/24 07:47 OF REACTION Penicillins Allergy PT UNSURE Verified 12/28/24 07:47 OF REACTION Family History Mother Alcohol abuse Arthritis Myocardial infarction Heart disease Brother Alcohol abuse Father Myocardial infarction Heart disease Surgical History History of total right knee replacement History of colonoscopy History of tonsillectomy History of thumb surgery History of tubal ligation History of cholecystectomy History of right knee surgery Social History Smoking Status: Former smoker alcohol intake: current alcohol intake frequency: a few times a week substance use type: does not use Review of Systems (Anesthesia) ROS Narrative System reviewed and no additional complaints, except as documented.
[2024-12-28] MEDS: Ipratropium/Albuterol Sulfate 3 ML AMPUL.NEB INHALATION (08:17)
[2024-12-28 08:23] LABS: Bedside Glucose 123 mg/dL (74-106)
[2024-12-28] MEDS: Lidocaine 1% (5 ml sdv) 5 ML Vial (08:46)
[2024-12-28] MEDS: MethylPREDNISolone Acetate 80 MG/ML Vial (08:46)
[2024-12-28] MEDS: Bupivacaine 0.25% 30 ML Vial (08:46)
--- NOTE | 2024-12-28 08:52 | OP.PCM_ITS ---
Operative Report (Standard) Operative Information Date of Procedure: 12/28/24 Pre-Operative Diagnosis: Lumbosacral spondylosis, lumbosacral degenerative disc disease, lumbar facet arthropathy Post-Operative Diagnosis: Lumbosacral spondylosis, lumbosacral degenerative disc disease, lumbar facet arthropathy Surgery/Procedure Performed: Bilateral lumbar medial branch block at L4-5 L5-S1 paving machine operator: No Type of Anesthesia: Local MAC RN Documented Start/Stop Times: Operation Date: 12/28/24 08:40 Case Time Into Pre-Op 12/28/24 07:27 Anesthesia Start 12/28/24 08:40 Into Room 12/28/24 08:40 Procedure Start 12/28/24 08:46 Procedure End 12/28/24 08:51 Procedure Start Time: 08:53 Procedure Stop Time: 08:53 Select all DRAINS/GRAFTS/IMPLANTS that apply: None Estimated Blood Loss: 0 Specimen collected: No Description of surgery: PROCEDURE PERFORMED: Bilateral lumbar medial branch block at L4, L5, and S1. ANESTHESIA: MAC. BLOOD LOSS: Minimal. COMPLICATIONS: None. DESCRIPTION OF PROCEDURE: History and physical of today was reviewed. Risks and benefits of the procedure were explained. The patient understood and agreed to proceed. Informed consent was obtained. IV inserted per routine protocol. The patient was taken to the operating room and placed in the prone position with a pillow positioned underneath the abdomen. The lower back area was prepped and draped in a sterile fashion using iodine x3. Under fluoroscopy guidance on AP view, the L4 through S1 vertebral bodies were visualized. The skin and subcutaneous tissue was anesthetized with approximately 5 mL of 1% lidocaine using a 25-gauge regular needle. Under direct visualization with fluoroscopy, at approximately 25-degree angle, starting on the left L4, ending on the right L4, passing through the L5 and S1 bilaterally, using a 22-gauge 3-1/2-inch spinal needle, the needle was advanced via the skin. The tip of the needle was maneuvered and directed towards the superior medial gutter of the transverse process at the vicinity of the medial branch. Once tip of the needle was in contact with the bone, the needle was pulled approximately 2 mm off the bone. After negative aspiration for blood or CSF and confirmation on AP, oblique as well as lateral view, a total of 12 mL of preservative-free 0.25% Marcaine with 80 mg of Depo-Medrol was injected in divided doses between those six levels. The needles were then removed intact. The patient experienced no sign or symptoms of intrathecal or intravascular injection. The patient experienced no paresthesia. The procedure was completed without any apparent difficulty or any complications. The patient appeared to tolerate it well. ASSESSMENT AND PLAN: This is a 74-year-old female with lumbosacral spondylosis, lumbosacral degenerative disc disease, lumbar facet arthropathy, status post bilateral lumbar medial branch block at L4-5 L5-S1, patient will continue her current medications, patient will follow-up in approximately 1-2 weeks for reevaluation. Surgical Findings: 1 Complications Complications: No
--- NOTE | 2024-12-28 08:54 | PCM.POST.ANE ---
Anesthesia: Postop Eval I Current Vital Signs Temperature: 97.8 F Pulse Rate: 79 Blood Pressure: 120/88 Respiratory Rate: 18 Pulse Ox: 93 Assessment Airway patent: Yes Spontaneous unlabored respirations: Yes nausea: No Vomiting: No Anesthesia Complication: No Fluid Hydration Crystalloid volume administer (ml): 10 Total IV fluid infused: 10 Progress Note Anesthesia document: Postop Eval 1 completed: Yes
--- NOTE | 2024-12-28 09:14 | POSTOPAN2_ITS ---
Anesthesia Postop Eval I Sum Postop Eval Completion status Anesthesia document: Postop Eval 1 completed: Yes Anesthesia Postop Eval I Summary Anesthesia Postop Eval I Summary: Anesthesia Postop Eval I: Assessment Summary Airway patent Yes 12/28/24 08:54 TELETYPE [email or web address].[email or web address] Spontaneous unlabored Yes 12/28/24 08:54 TELETYPE MECHANIC.CSIR respirations Mental status nausea No 12/28/24 08:54 TELETYPE MECHANIC.CSIR Vomiting No 12/28/24 08:54 TELETYPE MECHANIC.CSIR Anesthesia Postop Eval I: Fluid Summary Crystalloid volume administer 10 12/28/24 08:54 TELETYPE [email or web address].CSIR (ml) Colloids volume administered ( ml) Blood Product volume administered (ml) Total IV fluid infused 10 12/28/24 08:54 TELETYPE MECHANIC.CSIR Anesthesia Postop Eval I: Summary Notes Anesthesia Complication No 12/28/24 08:54 TELETYPE [email or web address].CSIR Anesthesia Complication Comment: Post-operative progress note Anesthesia: Postop Eval II Evaluation Mental status: Awake Pain Level: 2 nausea: No Vomiting: No
--- NOTE | 2024-12-28 09:14 | PCM.POSTANE2 ---
Anesthesia Postop Eval I Sum Postop Eval Completion status Anesthesia document: Postop Eval 1 completed: Yes Anesthesia Postop Eval I Summary Anesthesia Postop Eval I Summary: Anesthesia Postop Eval I: Assessment Summary Airway patent Yes 12/28/24 08:54 PARK [email or web address].[email or web address] Spontaneous unlabored Yes 12/28/24 08:54 PARK NATURALIST.CSIR respirations Mental status nausea No 12/28/24 08:54 PARK NATURALIST.CSIR Vomiting No 12/28/24 08:54 PARK NATURALIST.CSIR Anesthesia Postop Eval I: Fluid Summary Crystalloid volume administer 10 12/28/24 08:54 PARK [email or web address].CSIR (ml) Colloids volume administered ( ml) Blood Product volume administered (ml) Total IV fluid infused 10 12/28/24 08:54 PARK [email or web address].CSIR Anesthesia Postop Eval I: Summary Notes Anesthesia Complication No 12/28/24 08:54 PARK NATURALIST.CSIR Anesthesia Complication Comment: Post-operative progress note Anesthesia: Postop Eval II Evaluation Mental status: Awake Pain Level: 2 nausea: No Vomiting: No
== END 2024-12-28 09:34 | disposition home or self-care (01) ==
LOC: SDC 07:25 → AC 07:28
PROVIDERS: PCP Student in an Organized Health Care Education/Training Program; Referring Provider Anesthesiology Pain Medicine; Visit Provider Anesthesiology Pain Medicine
PROC: 3E0S3BZ Introduction of Anesthetic Agent into Epidural Space, Percutaneous Approach (ICD-10-PCS; CPT 62322; principal; 2024-12-28 08:35)
DX: M47.817 Spondylosis without myelopathy or radiculopathy, lumbosacral region (principal); E11.9 Type 2 diabetes mellitus without complications; M51.379 Other intervertebral disc degeneration, lumbosacral region without mention of lumbar back pain or lower extremity pain; M46.96 Unspecified inflammatory spondylopathy, lumbar region; I10 Essential (primary) hypertension; K21.9 Gastro-esophageal reflux disease without esophagitis; K76.0 Fatty (change of) liver, not elsewhere classified; E07.9 Disorder of thyroid, unspecified; E78.00 Pure hypercholesterolemia, unspecified; G25.81 Restless legs syndrome; M79.7 Fibromyalgia; J45.909 Unspecified asthma, uncomplicated; Z79.85 Long-term (current) use of injectable non-insulin antidiabetic drugs; Z90.49 Acquired absence of other specified parts of digestive tract; Z79.890 Hormone replacement therapy; Z79.899 Other long term (current) drug therapy; Z87.891 Personal history of nicotine dependence
CPT/HCPCS: 64493; 64494; 64483; 72114; 82962; 94640; A4216; J2405

== ENCOUNTER 2025-04-12 07:55 | Day surgery (SDC) | payer MEDICARE, SELFPAY ==
[2025-04-12] VITALS (8 sets, daily range): BP systolic 115–128; BP diastolic 63–90; PULSE 60–76; RESP 14–18; TEMP 36.8–36.9; O2SAT 95–98; BMI 43.0
[2025-04-12] MEDS: Lactated Ringers 1,000 ML 15 ML IV (08:28)
[2025-04-12] MEDS: Lidocaine 1% (20 ml mdv) 20 ML Vial (09:07)
== END 2025-04-12 09:47 | disposition home or self-care (01) ==
LOC: SDC 07:55 → AC 07:57
PROVIDERS: PCP Student in an Organized Health Care Education/Training Program; Referring Provider Anesthesiology Pain Medicine; Visit Provider Anesthesiology Pain Medicine
PROC: 3E0S3BZ Introduction of Anesthetic Agent into Epidural Space, Percutaneous Approach (ICD-10-PCS; CPT 62322; principal; 2025-04-12 09:25)
DX: M51.379 Other intervertebral disc degeneration, lumbosacral region without mention of lumbar back pain or lower extremity pain (principal); E11.9 Type 2 diabetes mellitus without complications; M47.817 Spondylosis without myelopathy or radiculopathy, lumbosacral region; M46.96 Unspecified inflammatory spondylopathy, lumbar region; I10 Essential (primary) hypertension; E07.9 Disorder of thyroid, unspecified; M79.7 Fibromyalgia; K21.9 Gastro-esophageal reflux disease without esophagitis; E78.00 Pure hypercholesterolemia, unspecified; G25.81 Restless legs syndrome; J45.909 Unspecified asthma, uncomplicated; Z79.82 Long term (current) use of aspirin; Z79.890 Hormone replacement therapy; Z79.85 Long-term (current) use of injectable non-insulin antidiabetic drugs; Z79.899 Other long term (current) drug therapy; Z87.891 Personal history of nicotine dependence
CPT/HCPCS: 64493; 64494; 01992; 64483; 72110; 82962

== ENCOUNTER 2025-07-12 05:59 | Day surgery (SDC) | payer MEDICARE, SELFPAY ==
[2025-07-12] VITALS (7 sets, daily range): BP systolic 113–139; BP diastolic 63–75; PULSE 58–86; RESP 12–20; TEMP 2.7–37; O2SAT 97–99; BMI 42.2
--- OUTSIDE RECORDS SUMMARY | 2025-07-12 06:05 | XMS RPT_ITS | CCD ---
Author Organization [facility] Care Team Providers Care Fiction And Nonfiction Author Name Role Phone KENNEDY FRENCH, DR CONNELL Primary Care Physician [phone] Dr. Venus Torres Unavailable Unavailable Venus Torres Attending Unavailable ROMAR DO, DR CONNELL Primary Care Unavailable KNAPIC DO MARIANGEL FRENCH Attending Unavailable ROMAR DO, DR CONNELL Primary Care Unavailable BAILEY , SHAWNA Flynn Attending Unavailable ROMAR DO, DR CONNELL Primary Care Unavailable ROMAR DO, DR CONNELL Attending Unavailable ROMAR DO, DR CONNELL Primary Care Unavailable KNAPIC DO MARIANGEL FRENCH Attending Unavailable ROMAR DO, DR CONNELL Primary Care Unavailable AIMEE NEWELL Attending Unavailable ROMAR DO, DR CONNELL Primary Care Unavailable ROMAR DO, DR CONNELL Attending Unavailable ROMAR DO, DR CONNELL Primary Care Unavailable ROMAR DO, DR CONNELL Attending Unavailable ROMAR DO, DR CONNELL Primary Care Unavailable ROMAR DO, DR CONNELL Attending Unavailable ROMAR DO, DR CONNELL Primary Care Unavailable ROMAR DO, DR CONNELL Attending Unavailable ROMAR DO, DR CONNELL Primary Care Unavailable ROMAR DO, DR CONNELL Attending Unavailable ROMAR DO, DR CONNELL Primary Care Unavailable ROMAR DO, DR CONNELL Attending Unavailable ROMAR DO, DR CONNELL Primary Care Unavailable ROMAR DO, DR CONNELL Attending Unavailable ROMAR DO, DR CONNELL Primary Care Unavailable ALEX OLIVIER-LIVIA MOREIRA Attending Unavai lable ROMAR DO, DR CONNELL Primary Care Unavailable ROMAR DO, DR CONNELL Attending Unavailable ROMAR DO, DR CONNELL Primary Care Unavailable ROMAR DO, DR CONNELL Attending Unavailable ROMAR DO, DR CONNELL Primary Care Unavailable KNAPIC DO MARIANGEL FRENCH Attending Unavailable ROMAR DO, DR CONNELL Primary Care Unavailable ROMAR DO, DR CONNELL Attending Unavailable ROMAR DO, DR CONNELL Primary Care Unavailable ROMAR DO, DR CONNELL Attending Unavailable ROMAR DO, DR CONNELL Primary Care Unavailable ROMAR DO, DR CONNELL Attending Unavailable ROMAR DO, DR CONNELL Primary Care Unavailable ROMAR DO, DR CONNELL Attending Unavailable ROMAR DO, DR CONNELL Primary Care Unavailable ROMAR DO, DR CONNELL Attending Unavailable ROMAR DO, DR CONNELL Primary Care Unavailable ROMAR DO, DR CONNELL Attending Unavailable ROMAR DO, DR CONNELL Primary Care Unavailable ROMAR DO, DR CONNELL Attending Unavailable ROMAR DO, DR CONNELL Primary Care Unavailable DANNY VINSON, RAYSA Attending Unavailable ROMAR DO, DR CONNELL Primary Care Unavailable ROMAR DO, DR CONNELL Attending Unavailable Romar DO, Dr. Connell Primary Care Provider [phone] Leobardo VINSON, Dr. Anthony Attending Provider Leobardo VINSON, Dr. Anthony Referring Provider JENSEN FRENCH, HEATHER Zamorano Primary Care Physician [phone] Kennedy FRENCH, Dr. Connell Primary Care Provider [phone] Leobardo VINSON, Dr. Anthony Attending Provider Leobardo VINSON, Dr. Anthony Referring Provider [phone] Kennedy FRENCH, Dr. Connell Referring Provider [phone] Jason VINSON, Dr. Gil Attending Provider Caseytchreyes FRENCH, Dr. Heather Zamorano Primary Care Provider [phone] CASEYTCHEY DO, HEATHER M Primary Care Unavailable DITCHEY DO, HEATHER M Attending Unavailable DITCHEY DO, HEATHER M Primary Care Unavailable DITCHEY DO, HEATHER M Attending Unavailable ROMAR DO, DR CONNELL Primary Care Unavailable ROMAR DO, DR CONNELL Attending Unavailable ROMAR DO, DR CONNELL Primary Care Unavailable ROMAR DO, DR CONNELL Attending Unavailable ROMAR DO, DR CONNELL Primary Care Unavailable ROMAR DO, DR CONNELL Attending Unavailable ROMAR DO, DR CONNELL Attending Unavailable ROMAR DO, DR CONNELL Primary Care Unavailable ROMAR DO, DR CONNELL Attending Unavailable ROMAR DO, DR CONNELL Primary Care Unavailable DITCHEY DO, HEATHER Zamorano Primary Care Unavailable DITCHEY DO, HEATHER M Attending Unavailable KENNEDY DO, DR CONNELL Attending Unavailable KENNEDY DO, DR CONNELL Primary Care Unavailable Ko Benavides Primary Care Unavailable Raj Booth Attending Unavailable Raj Booth Referring Unavailable Heather Styles Primary Care Unavailable Leobardo, Raj Referring Unavailable Raj Booth Attending Unavailable Heather Styles Primary Care Unavailable Jeffery Gomez Attending Unavailable Jeffery Gomez Referring Unavailable Heather Styles Primary Care Unavailable Raj Booth Attending Unavailable Leobardo, Raj Referring Unavailable Jeffery Gomez Attending Unavailable Ko Benavides Primary Care Unavailable Ko Benavides Referring Unavailable Raj Booth Attending Unavailable Ko Benavides Primary Care Unavailable Leobardo, Raj Referring Unavailable Ko Benavides Primary Care Unavailable Leobardo, Raj Attending Unavailable Leobardo, Raj Referring Unavailable Allergies Allergy Classification Reported Allergen(s) Allergy Type Date of Onset Reaction(s) Facility Macrolides (antibiotic) (2 sources) Azithromycin; Translations: [azithromycin] Drug Allergy Asthenia (finding) [facility] Penicillins (antibiotic) (2 sources) Penicillin; Translations: [penicillin] Drug Allergy [facility] (20 sources) Penicillin; Translations: [penicillin] Drug Allergy 3 [facility] (20 sources) Azithromycin; Translations: [azithromycin] Drug Allergy Asthenia (finding) [facility] (3 sources) Erythromycin Drug Allergy 3 PT UNSURE OF REACTION [facility] (3 sources) Penicillins Allergy to substance 3 PT UNSURE OF REACTION [facility] (1 source) Erythromycin Drug Allergy 3 [facility] (1 source) Erythromycin, Penicillin; Translations: [Erythromycin, Penicillin] Propensity to adverse reactions (disorder) [facility] (1 source) Erythromycin Drug Allergy 5 [facility] Rep[facility] (1 source) Penicillins Drug allergy (disorder) 5 [facility] Repository Medications Current Medications Medication Drug Class(es) Dates Sig (Normalized) Sig (Original) 3 ML semaglutide 1.34 MG/ML Pen Injector [Ozempic] (4 sources) Start: 11-24-2024 inject 1 dose by subcutaneous injection every week Ozempic 4 mg/3 mL (1 mg dose) subcutaneous solution Dose : 1 mg =, Subcutaneous, qWeek, # 3 mL, 3 Refill(s), Pharmacy: [facility], 151, cm, 10/27/24 11:33:00 EST, Height, kg, 10/27/24 11:33:00 EST, Dosing Weight Start Date: 11/24/24 Status: Ordered Quantity: 3.0 Unit: mL Repeat number: 4 Albuterol Sulfate HFA Inhalation Aerosol Solution 108 (90 Base) MCG/ACT (1 source) Start: 06-13-2023 Albuterol Sulfate HFA Inhalation Aerosol Solution 108 (90 Base) MCG/ACT 2 inhalation Aerosol Solution Inhalation 2 inhalation inhale orally every 4 hours as needed for dyspnea 06/13/2023 17:00:00 ascorbic acid 500 mg oral tablet (10 sources) Vitamin C Start: 06-14-2023 take 1 tablet by mouth once daily Ascorbic Acid Oral Tablet 500 MG 1 tablet Tablet Oral Give 1 tablet by mouth one time a day for supplement 06/14/2023 8:00:00 Start: 05-13-2023 End: 11-09-2024 Ascorbic Acid (Vitamin C) 50 0 mg capsule Discontinued 50 mg PO DAILY May 13, 2023 12:00am November 09, 2024 7:24am SUPPLEMENT Start: 05-13-2023 take 50 mg by mouth once daily Ascorbic Acid (Vitamin C) Active 50 MG PO DAILY May 13, 2023 12:00am Start: 09-29-2021 Vitamin C 500 mg oral tablet, chewable Dose : 500 mg = 1 tab(s), Chewed, Daily, # 30 tab(s), 0 Refill(s) Start Date: 09/29/21 Status: Ordered Start: 07-08-2018 Vitamin C qDay Start Date: 07/08/18 Status: Ordered aspirin 81 mg delayed release oral tablet (4 sources) Platelet Aggregation Inhibitor, Nonsteroidal Anti-inflammatory Drug Start: 04-06-2025 take 1 tablet by mouth once daily Aspirin (Adult Aspirin Regimen) 81 mg tablet,delayed release (DR/EC) Active 81 mg PO DAILY April 06, 2025 12:00am Start: 06-13-2023 End: 05-06-2024 take 1 tablet by mouth twice daily at mealtime Aspirin 81 mg Tablet,Chewable Discontinued 81 mg PO TWICE DAILY WITH MEALS 60 0 June 13, 2023 12:00am May 06, 2024 2:27pm Aspirin 81 Oral Tablet Delayed Release (1 source) Start: 06-14-2023 take 1 tablet by mouth twice daily Aspirin 81 Oral Tablet Delayed Release 1 tablet Tablet Delayed Release Oral Give 1 tablet by mouth two times a day for preventative preventative 06/14/2023 8:00:00 atorvastatin (1 source) HMG-CoA Reductase Inhibitor Start: 06-13-2023 take 1 tablet by mouth at bedtime for hyperlipidemia ATORVASTATIN 10 MG TABLET{90 EA} 1 tablet Tablet Oral GIVE 1 TABLET BY MOUTH AT BEDTIME FOR HYPERLIPIDEMIA (FORMULARY EQUIVALENT FOR ROSUVASTATIN) 06/13/2023 20:00:00 betamethasone 0.5 mg/ml topical cream (20 sources) Corticosteroid Start: 09-29-2021 betamethasone dipropionate 0.05% topical cream Apply 1 katie, Topical, BID, PRN Rash, # 45 gram(s), 0 Refill(s), Cream, 103.6 Start Date: 09/29/21 Status: Ordered Start: 09-29-2021 betamethasone dipropionate 0.05% topical cream Apply 1 katie, Topical, BID, # 45 gram(s), 0 Refill(s), Cream, 103.6 Start Date: 09/29/21 Status: Ordered calcium carbonate 1500 mg oral tablet (20 sources) Start: 12-19-2022 take 1 mg by mouth once daily calcium (as carbonate) 600 mg oral tablet mg = tab(s), Oral, qDay, 0 Refill(s) Start Date: 12/19/22 Status: Ordered calcium carbonate 1500 mg / cholecalciferol 0.01 mg oral tablet (3 sources) Vitamin D Start: 05-13-2023 Calcium Carbonate-Vitamin D3 (Calcium 600 + D(3)) 600 mg-10 mcg (400 unit) tablet Active 1 {tbl} PO DAILY May 13, 2023 12:00am SUPPLEMENT Calcium Carbonate-Vit D-Min Oral Tablet (1 source) Start: 06-14-2023 take 1 tablet by mouth once daily Calcium Carbonate-Vit D-Min Oral Tablet 1 tablet Tablet Oral Give 1 tablet by mouth one time a day for supplement 06/14/2023 8:00:00 Calcium Plus Vitamin D3 600 mg-12.5 mcg (500 intl units) oral capsule (6 sources) Start: 10-27-2024 take 1 capsule by mouth twice daily Calcium Plus Vitamin D3 600 mg-12.5 mcg (500 intl units) oral capsule 1 cap, Oral, BID, 0 Refill(s) Start Date: 10/27/24 Status: Ordered Repeat number: 1 Calcium with Vitamin D and K oral tablet, chewable (2 sources) Start: 07-02-2022 Calcium with Vitamin D and K oral tablet, chewable 0 Refill(s) Start Date: 07/02/22 Status: Ordered chlorhexidine gluconate 40 mg/ml medicated liquid soap (10 sources) Start: 10-27-2024 Hibiclens 4% topical soap See Instructions, PRN Rash, Rinse area with water, then apply minimum amount necessary to cover skin or wound area and wash gently. Rinse again thoroughly., # 240 mL, 1 Refill(s), Pharmacy: [facility], 151, cm, 10/27/24 11:33:00 EST, Height, kg, 10/27/24 11:33:00 EST, Dosing Weight Start Date: 10/27/24 Status: Ordered Quantity: 240.0 Unit: mL Repeat number: 2 Start: 11-15-2021 Hibiclens 4% t opical soap See Instructions, Rinse area with water, then apply minimum amount necessary to cover skin or wound area and wash gently. Rinse again thoroughly., # 240 mL, 0 Refill(s), Pharmacy: [id number], 152, cm, 11/14/21 9:02:00 EST, Height, kg, ... Start Date: 11/15/21 Status: Ordered diclofenac sodium 0.01 mg/mg topical gel (20 sources) Nonsteroidal Anti-inflammatory Drug Start: 12-22-2024 Diclofenac Sodium (Arthritis Pain (Diclofenac)) 1 % gel Active 2 g TOPICAL ONCE December 22, 2024 12:00am apply to single elbow, wrist or hand; for hand includes palm/fingers/back of hand Start: 09-28-2024 End: 03-27-2025 Voltaren 1% topical gel 4 = gram(s), Topical, QID, PRN Pain, not to exceed 16 grams/day/single joint of lower extremities. not to exceed 8 grams/day/single joint of upper extremities. not to exceed 32 grams/day total., # 100 gram(s), 1 Refill(s), Pharmacy: [facility], Gel, 152.4, cm, 09/02/24 9:26:00 EST, Height, 101.1, kg, 09/02/24 9:26:00 EST, Dosing Weight Start Date: 09/28/24 Stop Date: 03/27/25 Status: Ordered Quantity: 100.0 Unit: g Repeat number: 2 Start: 03-29-2022 End: 03-24-2023 Voltaren 1% topical gel 4 = gram(s), Topical, QID, PRN Pain, not to exceed 16 grams/day/single joint of lower extremities. not to exceed 8 grams/day/single joint of upper extremities. not to exceed 32 grams/day total., # 100 gram(s), 3 Refill(s), [facility]: [id number], Gel, 153, cm, 03/29/22 8:04:00 EDT, Height, 92.8 Start Date: 03/29/22 Stop Date: 03/24/23 Status: Ordered Start: 09-29-2021 Voltaren 1% to pical gel = gram(s), Topical, BID, 0 Refill(s), 103.6 Start Date: 09/29/21 Status: Ordered Start: 09-29-2021 Voltaren 1% to pical gel = gram(s), Topical, BID, 0 Refill(s), 103.6 Start Date: 09/29/21 Status: Ordered DME MISCellaneous (7 sources) Start: 12-23-2022 DME MISCellane ous See Instructions, Rollator with seat, Ht 4'11 weight 213lbs. Dx: M25.569, M54.9, # 1 EA, 0 Refill(s), Chronic knee pain Chronic back pain, 96.6 Start Date: 12/23/22 Status: Ordered Start: 06-05-2022 DME MISCellane ous See Instructions, BP machine and cuff. Dx: R03.0, # 1 EA, 0 Refill(s), [facility]: [id number], Elevated blood pressure reading, 152, cm, 05/10/22 8:34:00 EDT, Height, 91.3 Start Date: 06/05/22 Status: Ordered Esomeprazole (1 source) Proton Pump Inhibitor Start: 09-29-2021 esomeprazole 0 Refill(s) Start Date: 09/29/21 Status: Ordered gabapentin 300 mg oral capsule (7 sources) Anti-epileptic Agent Start: 10-27-2024 gabapenti n 300 mg oral capsule TID, 0 Refill(s), 101.1 Start Date: 10/27/24 Status: Ordered Repeat number: 1 Start: 05-06-2024 End: 12-28-2024 take 1 capsule by mouth three times daily Gabapentin 100 mg capsule Discontinued 100 mg PO THREE TIMES A DAY May 06, 2024 12:00am December 28, 2024 7:49am Hibiclens 4% topical soap (3 sources) Start: 09-29-2021 Hibiclens 4% t opical soap See Instructions, Rinse area with water, then apply minimum amount necessary to cover skin or wound area and wash gently. Rinse again thoroughly., # 240 mL, 0 Refill(s) Start Date: 09/29/21 Status: Ordered levothyroxine sodium 0.05 mg oral tablet (20 sources) l-Thyroxine Start: 01-26-2025 End: 10-23-2025 levothyroxine 50 mcg (0.05 mg) oral tablet Dose : 50 mcg = 1 tab(s), Oral, qDayAC, 30 minutes before other meds/food, # 90 tab(s), 2 Refill(s), Pharmacy: [facility], 150, cm, 01/26/25 10:07:00 EDT, Height, kg, 01/26/25 10:07:00 EDT, Dosing Weight Start Date: 01/26/25 Stop Date: 10/23/25 Status: Ordered Quantity: 90.0 Unit: tab(s) Repeat number: 3 Start: 07-30-2024 End: 10-28-2024 levothyroxine 50 mcg (0.05 m g) oral tablet Dose : 50 mcg = 1 tab(s), Oral, qDay, 30 minutes before other meds/food, # 90 tab(s), 0 Refill(s), Pharmacy: [facility], 152.4, cm, 05/22/24 10:55:00 EDT, Height, kg, 05/22/24 10:55:00 EDT, Dosing Weight Start Date: 07/30/24 Stop Date: 10/28/24 Status: Ordered Quantity: 90.0 Unit: tab(s) Repeat number: 1 Start: 06-14-2023 take 1 tablet by abdulaziz once daily for hypothyroidism Levothyroxine Sodium Oral Tablet 50 MCG 1 tablet Tablet Oral Give 1 tablet by mouth one time a day for hypothyroidism 06/14/2023 6:00:00 Start: 05-13-2023 take 1 tablet by mouth once da anjel Levothyroxine 50 mcg tablet Active 50 ug PO DAILY May 13, 2023 12:00am THYROID Start: 12-21-2022 End: 06-13-2024 levothyroxine 50 mcg (0.05 m g) oral tablet Dose : 50 mcg = 1 tab(s), Oral, qDay, 30 minutes before other meds/food, # 90 tab(s), 1 Refill(s), Pharmacy: [facility], 152, cm, 12/13/23 13:34:00 EDT, Height, kg, 12/13/23 13:34:00 EDT, Dosing Weight Start Date: 12/16/23 Stop Date: 06/13/24 Status: Ordered Start: 06-22-2022 End: 12-19-2022 levothyroxine 50 mcg (0.05 m g) oral tablet Dose : 50 mcg = 1 tab(s), Oral, qDay, 30 minutes before other meds/food, # 90 tab(s), 1 Refill(s), Pharmacy: [facility] #[id number], 152, cm, 05/10/22 8:34:00 EDT, Height, kg, 05/10/22 8:34:00 EDT, Dosing Weight Start Date: 06/22/22 Stop Date: 12/19/22 Status: Ordered Start: 10-02-2021 End: 06-16-2022 levothyroxine 50 mcg (0.05 m g) oral tablet Dose : 50 mcg = 1 tab(s), Oral, qDay, 30 minutes before other meds/food, # 90 tab(s), 1 Refill(s), Pharmacy: [facility] [facility], 152, cm, 11/14/21 9:02:00 EST, Height, kg, 11/14/21 9:02:00 EST, Dosing Weight Start Date: 12/18/21 Stop Date: 06/16/22 Status: Ordered loratadine 10 mg oral tablet (14 sources) Start: 02-22-2022 End: 06-01-2023 loratadine 10 mg oral tablet Dose : 10 mg = 1 tab(s), Oral, qDay, PRN as needed for allergy symptoms, # 90 tab(s), 1 Refill(s), Pharmacy: [facility] #[id number], 155, cm, 12/03/22 10:50:00 EDT, Height, kg, 12/03/22 10:50:00 EDT, Dosing Weight Start Date: 12/03/22 Stop Date: 06/01/23 Status: Ordered Start: 09-29-2021 loratadine 10 mg oral tablet Dose : 10 mg = 1 tab(s), Oral, qDay, # 90 tab(s), 0 Refill(s) Start Date: 09/29/21 Status: Ordered losartan potassium 50 mg oral tablet (20 sources) Angiotensin 2 Receptor Oz Start: 07-30-2024 End: 07-25-2025 losartan 50 mg oral tablet Dose : 50 mg = 1 tab(s), Oral, qDay, # 90 tab(s), 1 Refill(s), Pharmacy: [facility], 150, cm, 01/26/25 10:07:00 EDT, Height, kg, 01/26/25 10:07:00 EDT, Dosing Weight Start Date: 01/26/25 Stop Date: 07/25/25 Status: Ordered Quantity: 90.0 Unit: tab(s) Repeat number: 2 Start: 06-10-2023 End: 07-16-2024 losartan 50 mg oral tablet D ose : 50 mg = 1 tab(s), Oral, qDay, # 100 tab(s), 0 Refill(s), Pharmacy: [facility], 152.4, cm, 04/07/24 10:25:00 EDT, Height, kg, 04/07/24 10:19:00 EDT, Dosing Weight Start Date: 04/07/24 Stop Date: 07/16/24 Status: Ordered magnesium oxide 400 mg oral tablet (20 sources) Start: 08-05-2023 End: 09-24-2024 take 1 tablet by mouth twice daily Magnesium Oxide 400 mg (241.3 mg magnesium) tablet Active 400 mg PO TWICE A DAY May 06, 2024 12:00am Start: 05-21-2023 End: 06-11-2023 magnesium oxide 400 mg oral tablet Dose : 400 mg = 1 tab(s), Oral, Daily, X 21 day(s), # 21 tab(s), 0 Refill(s), 06/11/23 1:42:00 PM EDT, Pharmacy: [facility] #[id number], 152, cm, 05/21/23 13:10:00 EDT, Height, kg, 05/21/23 13:10:00 EDT, Dosing Weight Start Date: 05/21/23 Stop Date: 06/11/23 Status: Ordered metFORMIN hydrochloride 500 mg oral tablet (20 sources) Biguanide Start: 05-11-2024 MetFORMIN (Eqv -Glucophage XR) 500 mg oral tablet, EXTENDED RELEASE Dose : 500 mg = 1 tab(s), Oral, qDay, with evening meal, # 90 tab(s), 1 Refill(s), Pharmacy: [facility], 151, cm, 10/27/24 11:33:00 EST, Height, kg, 10/27/24 11:33:00 EST, Dosing Weight Start Date: 10/28/24 Status: Ordered Quantity: 90.0 Unit: tab(s) Repeat number: 2 Start: 08-21-2023 MetFORMIN (Eqv -Glucophage XR) 500 mg oral tablet, EXTENDED RELEASE Dose : 500 mg = 1 tab(s), Oral, qDay, with evening meal, # 90 tab(s), 1 Refill(s), Pharmacy: [facility] #[id number], 152, cm, 08/21/23 9:33:00 EST, Height, kg, 08/21/23 9:33:00 EST, Dosing Weight Start Date: 08/21/23 Status: Ordered Start: 05-13-2023 End: 12-28-2024 take 1 tablet by mouth every twenty-four hours at bedtime Metformin 500 mg tablet extended release 24 hr Discontinued 500 mg PO AT BEDTIME May 13, 2023 12:00am December 28, 2024 7:49am BLOOD GLUCOSE Start: 03-20-2023 take 1 tablet by abdulaziz th once daily metFORMIN HCl Oral Tablet 500 MG 1 tablet Tablet Oral Give 1 tablet by mouth one time a day for DM 06/14/2023 16:00:00 Start: 05-11-2022 End: 02-05-2023 metFORMIN 750 mg oral tablet EXTENDED RELEASE Dose : 750 mg = 1 tab(s), Oral, qDay, # 90 tab(s), 1 Refill(s), other reason (Rx) Start Date: 08/09/22 Stop Date: 02/05/23 Status: Ordered Start: 01-09-2022 metFORMIN 750 mg oral tablet EXTENDED RELEASE Dose : 750 mg = 1 tab(s), Oral, qDay, # 180 tab(s), 1 Refill(s), Pharmacy: [facility] 152, cm, 11/14/21 9:02:00 EST, Height, kg, 01/09/22 10:04:00 EDT, Dosing Weight Start Date: 01/09/22 Status: Ordered Start: 12-18-2021 metFORMIN 750 mg oral tablet EXTENDED RELEASE Dose : 750 mg = 1 tab(s), Oral, BID, # 180 tab(s), 1 Refill(s), Pharmacy: [facility] [address] 152, cm, 11/14/21 9:02:00 EST, Height, kg, 11/14/21 9:02:00 EST, Dosing Weight Start Date: 12/18/21 Status: Ordered Start: 09-29-2021 take 1 mg by mouth twice daily metFORMIN 750 mg oral tablet EXTENDED RELEASE mg = tab(s), Oral, BID, 0 Refill(s) Start Date: 09/29/21 Status: Ordered Milk of Magnesia Oral Suspension 1200 MG/15ML (1 source) Start: 06-13-2023 take 30 mL by mouth every twenty-four hours as needed for constipation Milk of Magnesia Oral Suspension 1200 MG/15ML 30 ml Suspension Oral Give 30 ml by mouth every 24 hours as needed for constipation 06/13/2023 15:45:00 mupirocin 0.02 mg/mg topical ointment (20 sources) RNA Synthetase Inhibitor Antibacterial Start: 09-24-2024 mupirocin 2% topical ointment See Instructions, apply sparingly to NASAL LESION twice a day for 5 days (IF NO IMPROVEMENT, SEEK MEDICAL ATTENTION), # 15 gram(s), 0 Refill(s), Pharmacy: [facility], Ointment, 152.4, cm, 09/02/24 9:26:00 EST, Height, 101.1, kg, 09/02/24 9:26:00 EST, Dosing Weight Start Date: 09/24/24 Status: Ordered Quantity: 15.0 Unit: g Repeat number: 1 Start: 09-24-2023 mupirocin 2% t opical ointment See Instructions, apply sparingly to NASAL LESION twice a day for 5 days (IF NO IMPROVEMENT, SEEK MEDICAL ATTENTION), # 15 gram(s), 0 Refill(s), Pharmacy: [facility] #[id number], Ointment, 152, cm, 09/09/23 8:33:00 EST, Height, 98.1, kg, 09/09/23 8:25:00 EST, Dosing Weight Start Date: 09/24/23 Status: Ordered Start: 11-14-2021 mupirocin 2% t opical ointment apply sparingly to NASAL LESION twice a day for 5 days (IF NO IMPROVEMENT, SEEK MEDICAL ATTENTION) Start Date: 11/14/21 Status: Ordered Start: 11-02-2021 End: 11-07-2021 mupirocin 2% topical ointmen t 1 application, Topical, BID, apply a thin film to nasal lesion twice daily. If no improvement seek medical attention., X 5 day(s), # 22 gram(s), 0 Refill(s), Pharmacy: [facility] Ointment, 152.4, cm, 11/02/21 10:46:00 EST, Height, 89.3,... Start Date: 11/02/21 Stop Date: 11/07/21 Status: Ordered nystatin [id number] unt/ml topical cream (20 sources) Polyene Antifungal Start: 11-08-2023 End: 01-07-2024 nystatin 100,000 units/g topical cream Apply 1 katie, Topical, BID, PRN Rash, Apply to the affected area under pannus twice daily until healing complete., # 60 gram(s), 1 Refill(s), Pharmacy: [facility] #[id number], Cream, 149.9, cm, 11/08/23 9:23:00 EST, Height, 98.1, kg, 11/08/23 9:23:00 EST, Dosing Weight Start Date: 11/08/23 Stop Date: 01/07/24 Status: Ordered Start: 11-21-2022 End: 01-20-2023 apply 1 [IU] topically twice daily as needed nystatin 100,000 units/g topical powder Apply 1 katie, Topical, BID, PRN Rash, # 60 gram(s), 1 Refill(s), Pharmacy: [facility] #[id number], Powder, 151.9, cm, 11/06/22 8:45:00 EST, Height, 95 Start Date: 11/21/22 Stop Date: 01/20/23 Status: Ordered Quantity: 60.0 Unit: g Repeat number: 2 Start: 09-29-2021 nystatin 100,0 00 units/g topical powder Apply 1 katie, Topical, BID, # 60 gram(s), 0 Refill(s), Powder, 103.6 Start Date: 09/29/21 Status: Ordered nystatin 100,000 units/g topical powder (3 sources) Start: 09-29-2021 nystatin 100,0 00 units/g topical powder Apply 1 katie, Topical, BID, # 60 gram(s), 0 Refill(s), Powder, 103.6 Start Date: 09/29/21 Status: Ordered omeprazole 20 mg delayed release oral capsule (20 sources) Proton Pump Inhibitor Start: 03-21-2022 End: 04-26-2025 take 1 capsule by mouth once daily Omeprazole 20 mg capsule,delayed release(DR/EC) Active 20 mg PO DAILY May 13, 2023 12:00am GERD Start: 11-20-2021 End: 02-18-2022 omeprazole 20 mg oral delaye d release capsule Dose : 20 mg = 1 cap(s), Oral, qDay, # 90 cap(s), 0 Refill(s), [facility] [address], cm, 11/14/21 9:02:00 EST, Height, kg, 11/14/21 9:02:00 EST, Dosing Weight Start Date: 11/20/21 Stop Date: 02/18/22 Status: Ordered Start: 10-16-2021 omeprazole 20 mg oral delayed release capsule Dose : 20 mg = 1 cap(s), Oral, qDay, # 30 cap(s), 0 Refill(s), [facility] [address] [facility], cm, 09/29/21 8:45:00 EST, Height, kg, 09/29/21 8:45:00 EST, Dosing Weight Start Date: 10/16/21 Status: Ordered Omeprazole Oral Tablet Delayed Release 20 MG (1 source) Start: 06-14-2023 take 1 tablet by abdulaziz once daily for gastroesophageal reflux disease Omeprazole Oral Tablet Delayed Release 20 MG 1 tablet Tablet Delayed Release Oral Give 1 tablet by mouth one time a day for gerd 06/14/2023 8:00:00 PEG-3350 with Electrolytes (Eqv-GoLYTELY) oral powder for reconstitution (1 source) Start: 12-11-2023 PEG-3350 with Electrolytes (Eqv-GoLYTELY) oral powder for reconstitution See Instructions, Take as directed 1 day before colonoscopy. Follow instructions as provided by your GI provider at [facility]., # 1 EA, 0 Refill(s), Pharmacy: [facility], 152, cm, 12/11/23 10:44:00 EDT, Height, kg, 12/11/23 10:44:00 EDT, Dosing Weight Start Date: 12/11/23 Status: Ordered Polyethylene Glycols (1 source) Start: 06-19-2023 take 17 g by mouth o nce daily for constipation Polyethylene Glycol 3350 Powder 17 gram Powder Oral Give 17 gram by mouth one time a day for constipation 06/19/2023 8:00:00 predniSONE 10 mg oral tablet (5 sources) Start: 09-09-2023 predniSONE 10 mg oral tablet See Instructions, Taper: Takes 6 tabs by mouth day 1, 5 tabs day 2, 4 tabs day 3, 3 tabs day 4, 2 days day 5, 1 tab day 6, # 21 tab(s), 0 Refill(s), [facility]acy: [facility] #[id number], Right hamstring muscle strain, 152, cm, 09/09/23 8:33:00 EST, Height, kg, 09/09/23 8:25:00 EST, Dosing Weight Start Date: 09/09/23 Status: Ordered Start: 08-05-2023 End: 08-11-2023 prednisone 10mg tab (TAPER) Taper [id number] x 1 day, Oral, qAM, # 21 tab(s), 0 Refill(s), Pain in left buttock Start Date: 08/05/23 Stop Date: 08/11/23 Status: Ordered rosuvastatin calcium 5 mg oral tablet (20 sources) HMG-CoA Reductase Inhibitor Start: 01-26-2025 rosuvastatin 5 mg or al tablet Dose : 5 mg = 1 tab(s), Oral, qHS, # 90 tab(s), 1 Refill(s), Pharmacy: [facility], 150, cm, 01/26/25 10:07:00 EDT, Height, kg, 01/26/25 10:07:00 EDT, Dosing Weight Start Date: 01/26/25 Status: Ordered Quantity: 90.0 Unit: tab(s) Repeat number: 2 Start: 10-27-2024 rosuvastatin 5 mg oral tablet Dose : 5 mg = 1 tab(s), Oral, qHS, # 90 tab(s), 1 Refill(s), other reason (Rx) Start Date: 10/27/24 Status: Ordered Quantity: 90.0 Unit: tab(s) Repeat number: 2 Start: 07-30-2024 rosuvastatin 5 mg oral tablet Dose : 5 mg = 1 tab(s), Oral, qHS, # 90 tab(s), 1 Refill(s), Pharmacy: [facility], 152.4, cm, 05/22/24 10:55:00 EDT, Height, kg, 05/22/24 10:55:00 EDT, Dosing Weight Start Date: 07/30/24 Status: Ordered Start: 11-08-2023 rosuvastatin 5 mg oral tablet Dose : 5 mg = 1 tab(s), Oral, qHS, # 90 tab(s), 1 Refill(s), Pharmacy: [facility] #[id number], 149.9, cm, 11/08/23 9:23:00 EST, Height, kg, 11/08/23 9:23:00 EST, Dosing Weight Start Date: 11/08/23 Status: Ordered Start: 06-13-2023 End: 06-13-2023 take 1 tablet by mouth at bedtime for hyperlipidemia Rosuvastatin Calcium Oral Tablet 5 MG 1 tablet Tablet Oral Give 1 tablet by mouth at bedtime for hyperlipidemia 06/13/2023 20:00:00 06/13/2023 19:51:00 Aborted Start: 12-21-2022 take 1 tablet by mouth at bedt shekhar Rosuvastatin 5 mg tablet Active 5 mg PO AT BEDTIME May 13, 2023 12:00am HLD Start: 07-05-2022 End: 01-01-2023 rosuvastatin 5 mg oral capsu le Dose : 5 mg = 1 cap(s), Oral, qPM, # 90 cap(s), 1 Refill(s), Pharmacy: [facility] #[id number], 152.4, cm, 07/02/22 7:15:00 EDT, Height, kg, 07/02/22 7:15:00 EDT, Dosing Weight Start Date: 07/05/22 Stop Date: 01/01/23 Status: Ordered Start: 10-02-2021 End: 06-16-2022 rosuvastatin 5 mg oral capsu le Dose : 5 mg = 1 cap(s), Oral, qPM, # 90 cap(s), 1 Refill(s), Pharmacy: [facility] 152, cm, 11/14/21 9:02:00 EST, Height, kg, 11/14/21 9:02:00 EST, Dosing Weight Start Date: 12/18/21 Stop Date: 06/16/22 Status: Ordered Semaglutide (2 sources) Start: 12-28-2024 Semaglutide (O zempic) 1 mg/dose (4 mg/3 mL) pen injector Active 1 mg SC EVERY WEEK December 28, 2024 12:00am Senna Leaves (1 source) Start: 06-14-2023 take 2 tablets by mouth twice daily Senna-S Oral Tablet 8.6-50 MG 2 tablet Tablet Oral Give 2 tablet by mouth two times a day for Preventative 06/14/2023 20:00:00 Tylenol Extra Strength Oral Tablet 500 MG (1 source) Start: 06-13-2023 take 2 tablets by mouth every eight hours as needed for pain Tylenol Extra Strength Oral Tablet 500 MG 2 tablet Tablet Oral Give 2 tablet by mouth every 8 hours as needed for pain 06/13/2023 17:00:00 Urea (1 source) Start: 10-02-2021 End: 10-06-2021 carbamide peroxide 6.5% otic solution Dose = 5 drop(s), Otic, BID, X 4 day(s), # 15 mL, 0 Refill(s), Pharmacy: [address], 152, cm, 09/29/21 8:45:00 EST, Height, kg, 09/29/21 8:45:00 EST, Dosing Weight Start Date: 10/02/21 Stop Date: 10/06/21 Status: Ordered Vitamin C 500 mg oral tablet, chewable (20 sources) Start: 09-29-2021 Vitamin C 500 mg oral tablet, chewable Dose : 500 mg = 1 tab(s), Chewed, Daily, # 30 tab(s), 0 Refill(s) Start Date: 09/29/21 Status: Ordered Vitamin D3 (20 sources) Start: 12-19-2022 Vitamin D3 Dos e : 25 mcg =, qDay, 0 Refill(s) Start Date: 12/19/22 Status: Ordered Start: 12-19-2022 Vitamin D3 qDa y, 0 Refill(s) Start Date: 12/19/22 Status: Ordered Start: 09-29-2021 Vitamin D3 Dos e : 1,000 unit(s) = 1 tab(s), Oral, Daily, 0 Refill(s) Start Date: 09/29/21 Status: Ordered Zinc (20 sources) Start: 06-14-2023 take 1 tablet by abdulaziz once daily Zinc Oral Tablet 50 MG 1 tablet Tablet Oral Give 1 tablet by mouth one time a day for supplement 06/14/2023 8:00:00 Start: 05-13-2023 End: 11-09-2024 take 1 capsule by mouth once daily Zinc 50 mg capsule Discontinued 50 mg PO DAILY May 13, 2023 12:00am November 09, 2024 7:25am SUPPLEMENT Start: 05-13-2023 End: 11-09-2024 take 1 capsule by mouth once daily Zinc 50 mg capsule Discontinued 50 mg PO DAILY May 13, 2023 12:00am November 09, 2024 7:25am Start: 05-13-2023 take 50 mg by mouth once daily Zinc Active 50 MG PO DAILY May 13, 2023 12:00am Start: 07-08-2018 End: 10-28-2021 take 1 dose by mouth once daily Zinc Dose : 50 mg =, O ral, qDay Start Date: 07/08/18 Stop Date: 10/28/21 Status: Ordered Completed/Discontinued Medications Medication Drug Class(es) Dates Sig (Normalized) Sig (Original) 0.25 MG, 0.5 MG Dose 3 ML semaglutide 0.68 MG/ML Pen Injector (1 source) Start: 09-02-2024 End: 10-02-2024 inject 0.5 mg by subcutaneous injection every week semaglutide 2 mg/3 mL (0.25 mg or 0.5 mg dose) subcutaneous solution Dose : 0.25 mg =, Subcutaneous, qWeek, rotate injection sites, # 5 EA, 0 Refill(s), Pharmacy: [facility], 152.4, cm, 09/02/24 9:26:00 EST, Height, kg, 09/02/24 9:26:00 EST, Dosing Weight Start Date: 09/02/24 Stop Date: 10/02/24 Status: Ordered 0.25 MG, 0.5 MG Dose 3 ML semaglutide 0.68 MG/ML Pen Injector [Ozempic] (2 sources) Start: 10-12-2024 inject 0.5 mg by subcutaneous injection every week Ozempic 2 mg/3 mL (0.25 mg or 0.5 mg dose) subcutaneous solution Dose : 0.5 mg =, Subcutaneous, qWeek, rotate injection sites, # 1 EA, 1 Refill(s), Pharmacy: [facility], 152.4, cm, 09/02/24 9:26:00 EST, Height, kg, 09/02/24 9:26:00 EST, Dosing Weight Start Date: 10/12/24 Status: Ordered Quantity: 1.0 Unit: EA Repeat number: 2 acetaminophen 500 mg oral tablet (3 sources) Start: 06-13-2023 End: 05-06-2024 take 2 tablets by mouth every eight hours Acetaminophen 500 mg Tablet Discontinued 1000 mg PO EVERY 8 HOURS 180 0 June 13, 2023 12:00am May 06, 2024 2:26pm Start: 06-13-2023 take 1000 mg by mout h every eight hours Acetaminophen Active 1000 MG PO EVERY 8 HOURS 180 June 13, 2023 12:00am [id number] 200 actuat albuterol 0.09 mg/actuat metered dose inhaler (20 sources) beta2-Adrenergic Agonist Start: 05-13-2023 End: 12-22-2024 Albuterol Sulfate 90 mcg/actuation HFA aerosol inhaler Discontinued 2 NMA INHALATION Q4H as needed for shortness of breath or wheezing May 13, 2023 12:00am December 22, 2024 10:33am Start: 05-13-2023 Albuterol Sulf ate Active 2 INH INHALATION Q4H May 13, 2023 12:00am Start: 12-19-2022 End: 06-17-2023 take 2 puff(s) by inhalation every four hours as needed for wheezing ProAir HFA MDI (90 mcg/inh) inhalation aerosol 2 puff(s), Inhalation, q4h, PRN Shortness of breath or wheezing, use with spacer chamber, # 1 EA, 5 Refill(s), [facility]acy: [facility] #[id number], 150.5, cm, 12/19/22 11:21:00 EDT, Height, kg, 12/19/22 11:21:00 EDT, Dosing Weight Start Date: 12/19/22 Stop Date: 06/17/23 Status: Ordered Start: 05-02-2022 take 2 puff(s) by in halation every six hours as needed for wheezing ProAir HFA MDI (90 mcg/inh) inhalation aerosol 2 puff(s), Inhalation, q6h, PRN as needed for wheezing, # 8.5 gram(s), 0 Refill(s), Pharmacy: [facility] #[id number], 153, cm, 03/29/22 8:04:00 EDT, Height Start Date: 05/02/22 Status: Ordered Albuterol (Eqv-ProAir HFA) 90 mcg/inh inhalation aerosol (3 sources) Start: 01-26-2025 End: 02-25-2025 Albuterol (Eqv-ProAir HFA) 90 mcg/inh inhalation aerosol 180 mcg Dose = 2 inh, Inhalation, q4h, PRN as needed for shortness of breath or wheezing, use with spacer chamber, # 1 EA, 0 Refill(s), Pharmacy: [facility], 150, cm, 01/26/25 10:07:00 EDT, Height, kg, 01/26/25 10:07:00 EDT, Dosing Weight Start Date: 01/26/25 Stop Date: 02/25/25 Status: Ordered Quantity: 1.0 Unit: EA Repeat number: 1 celecoxib 100 mg oral capsule (20 sources) Nonsteroidal Anti-inflammatory Drug Start: 03-20-2023 End: 02-17-2024 CeleBREX 100 mg oral capsule Dose : 200 mg = 2 cap(s), Oral, BID, # 180 cap(s), 0 Refill(s) Start Date: 01/06/24 Status: Suspended Start: 12-19-2022 End: 05-06-2024 take 1 capsule by mouth once daily Celecoxib 100 mg capsule Discontinued 100 mg PO DAILY May 13, 2023 12:00am May 06, 2024 2:27pm PAIN Start: 01-22-2022 End: 06-27-2022 CeleBREX 100 mg oral capsule Dose : 100 mg = 1 cap(s), Oral, BID, PRN Pain, Take with food and drink fluids. Do not take any other NSAIDs while on this medication., # 180 cap(s), 0 Refill(s), Pharmacy: [facility] 153, cm, 03/29/22 8:04:00 EDT, Height, kg, 03/29/22 8... Start Date: 03/29/22 Stop Date: 06/27/22 Status: Ordered Start: 11-20-2021 CeleBREX 100 m g oral capsule Dose : 100 mg = 1 cap(s), Oral, BID, # 60 cap(s), 1 Refill(s), Pharmacy: [address] 152, cm, 11/14/21 9:02:00 EST, Height, kg, 11/14/21 9:02:00 EST, Dosing Weight Start Date: 11/20/21 Status: Ordered Start: 10-16-2021 CeleBREX 100 m g oral capsule Dose : 100 mg = 1 cap(s), Oral, BID, # 60 cap(s), 0 Refill(s), Pharmacy: [address] 152, cm, 09/29/21 8:45:00 EST, Height, kg, 09/29/21 8:45:00 EST, Dosing Weight Start Date: 10/16/21 Status: Ordered Start: 09-29-2021 CeleBREX 100 m g oral capsule Dose : 100 mg = 1 cap(s), Oral, BID, # 60 cap(s), 0 Refill(s) Start Date: 09/29/21 Status: Ordered cetirizine hydrochloride 10 mg oral tablet (9 sources) Histamine-1 Receptor Antagonist Start: 04-08-2023 End: 05-06-2024 take 1 tablet by mouth once daily Cetirizine 10 mg tablet Discontinued 10 mg PO DAILY May 13, 2023 12:00am May 06, 2024 2:27pm ALLERGIES cyclobenzaprine hydrochloride 5 mg oral tablet (13 sources) Muscle Relaxant Start: 12-22-2024 End: 12-22-2024 take 1 tablet by mouth at bedtime Cyclobenzaprine 5 mg tablet Discontinued 5 mg PO AT BEDTIME December 22, 2024 12:00am December 22, 2024 10:32am Start: 02-05-2024 cyclobenzaprin e 5 mg oral tablet Dose : 5 mg = 1 tab(s), Oral, Daily, 0 Refill(s) Start Date: 02/05/24 Status: Ordered Start: 09-29-2021 take 1 mg by mouth t hree times daily cyclobenzaprine 10 mg oral tablet mg = tab(s), Oral, TID, 0 Refill(s) Start Date: 09/29/21 Status: Ordered docusate sodium 50 mg / sennosides, half-way 8.6 mg oral tablet (3 sources) Start: 06-13-2023 End: 05-06-2024 Sennosides-Docusate Sodium (Stool Softener-Stimulant Laxat) 8.6-50 mg Tablet Discontinued 2 {tbl} PO TWICE A DAY 14 0 June 13, 2023 12:00am May 06, 2024 2:29pm doxycycline hyclate 100 mg oral capsule (10 sources) Tetracycline-cla ss Drug Start: 01-09-2022 End: 01-19-2022 doxycycline hyclate 100 mg oral capsule Dose : 100 mg = 1 cap(s), Oral, BID, # 20 cap(s), 0 Refill(s), 90.5 Start Date: 01/09/22 Stop Date: 01/19/22 Status: Ordered ferrous sulfate 325 mg oral tablet (9 sources) Start: 10-27-2024 End: 02-11-2025 take 1 tablet by mouth once daily Ferrous Sulfate 325 mg (65 mg iron) tablet Discontinued 325 mg PO daily December 22, 2024 12:00am February 11, 2025 9:13am folic acid 1 mg oral tablet (10 sources) Start: 09-02-2024 End: 01-21-2026 take 1 tablet by mouth once daily Folic Acid 1 mg tablet Discontinued 1 mg PO daily December 22, 2024 12:00am December 22, 2024 10:32am lisinopril 20 mg oral tablet (13 sources) Angiotensin Converting Enzyme Inhibitor Start: 09-21-2022 End: 05-06-2024 take 1 tablet by mouth once daily Lisinopril 20 mg tablet Discontinued 20 mg PO DAILY May 13, 2023 12:00am May 06, 2024 2:28pm HTN methocarbamol 750 mg oral tablet (20 sources) Muscle Relaxant Start: 12-13-2023 End: 01-10-2024 methocarbamol 750 mg oral tablet Dose : 750 mg = 1 tab(s), Oral, qHS, PRN Muscle spasm, Do not drive, operate heavy machinery, or drink alcohol while on this med., # 14 tab(s), 1 Refill(s), Pharmacy: [facility], 152, cm, 12/13/23 13:34:00 EDT, Height, kg, 12/13/23 13:34:00 EDT, Dosing Weight Start Date: 12/13/23 Stop Date: 01/10/24 Status: Ordered Quantity: 14.0 Unit: tab(s) Repeat number: 2 Start: 11-14-2022 End: 12-12-2022 methocarbamol 750 mg oral ta blet Dose : 750 mg = 1 tab(s), Oral, qHS, PRN Muscle spasm, Do not drive, operate heavy machinery, or drink alcohol while on this med., # 14 tab(s), 1 Refill(s), Pharmacy: [facility] #[id number], 151.9, cm, 11/06/22 8:45:00 EST, Height, kg, 11/06/22 8:45:00 EST, Dosing Weight Start Date: 11/14/22 Stop Date: 12/12/22 Status: Ordered Start: 09-11-2022 End: 09-25-2022 methocarbamol 750 mg oral ta blet Dose : 750 mg = 1 tab(s), Oral, qHS, PRN Muscle spasm, Do not drive, operate heavy machinery, or drink alcohol while on this med., # 14 tab(s), 0 Refill(s), Pharmacy: [facility] #[id number], 155, cm, 09/10/22 9:20:00 EST, Height, kg, 09/10/22 9:20:00 EST, Do... Start Date: 09/11/22 Stop Date: 09/25/22 Status: Ordered Start: 05-10-2022 End: 05-17-2022 methocarbamol 750 mg oral ta blet Dose : 750 mg = 1 tab(s), Oral, TID, PRN Muscle spasm, Do not drive, operate heavy machinery, or drink alcohol while on this med., # 21 tab(s), 0 Refill(s), [facility]: [facility] #[id number], 152, cm, 05/10/22 8:34:00 EDT, Height, kg, 05/10/22 8:34:00 EDT, Do... Start Date: 05/10/22 Stop Date: 05/17/22 Status: Ordered Start: 04-11-2022 End: 04-18-2022 methocarbamol 750 mg oral ta blet Dose : 750 mg = 1 tab(s), Oral, TID, PRN Muscle spasm, Do not drive, operate heavy machinery, or drink alcohol while on this med., # 21 tab(s), 0 Refill(s), Pharmacy: [facility] #[id number], 153, cm, 03/29/22 8:04:00 EDT, Height Start Date: 04/11/22 Stop Date: 04/18/22 Status: Ordered montelukast 10 mg oral tablet (20 sources) Leukotriene Receptor Antagonist Start: 12-22-2024 End: 12-22-2024 take 1 tablet by mouth at bedtime Montelukast 10 mg tablet Discontinued 10 mg PO AT BEDTIME December 22, 2024 12:00am December 22, 2024 10:32am Start: 10-10-2023 End: 11-09-2024 take 1 tablet by mouth once daily Montelukast 10 mg tablet Discontinued 10 mg PO DAILY May 06, 2024 12:00am November 09, 2024 7:25am Start: 07-03-2023 End: 10-01-2023 montelukast 10 mg oral table t Dose : 10 mg = 1 tab(s), Oral, qPM, # 90 tab(s), 0 Refill(s), Pharmacy: [facility] #[id number], 152, cm, 05/21/23 13:10:00 EDT, Height, kg, 05/21/23 13:10:00 EDT, Dosing Weight Start Date: 07/03/23 Stop Date: 10/01/23 Status: Ordered Start: 06-17-2023 take 1 tablet by abdulaziz th at bedtime Singulair Oral Tablet 10 MG 1 tablet Tablet Oral Give 1 tablet by mouth at bedtime for allergies 06/17/2023 20:00:00 Start: 05-07-2023 montelukast 10 mg oral tablet Dose : 10 mg = 1 tab(s), Oral, qPM, # 30 tab(s), 0 Refill(s), Pharmacy: [facility] #[id number], 152, cm, 05/07/23 9:07:00 EDT, Height, kg, 05/07/23 9:07:00 EDT, Dosing Weight Start Date: 05/07/23 Status: Ordered oxyCODONE hydrochloride 5 mg oral tablet (4 sources) Opioid Agonist Start: 06-13-2023 End: 05-06-2024 take 5-10 mg by mouth every four to six hours as needed for pain Oxycodone 5 mg Tablet Discontinued 5 - 10 mg PO .q4-6hrs prn as needed for Pain Score 4-10 60 7 0 June 13, 2023 May 06, 2024 2:28pm Status post total right knee replacement not using cement Presence of right artificial knee joint Semaglutide (2 sources) Start: 12-22-2024 End: 12-22-2024 Semaglutide 0.25 mg or 0.5 mg (2 mg/3 mL) pen injector Discontinued 0.25 mg SC EVERY WEEK December 22, 2024 12:00am December 22, 2024 10:32am for 4 weeks Senna-Tabs Oral Tablet (2 sources) Start: 06-14-2023 End: 06-14-2023 take 2 tablets by mouth twice daily for constipation Senna-Tabs Oral Tablet 2 tablet Tablet Oral Give 2 tablet by mouth two times a day for constipation 06/14/2023 8:00:00 06/14/2023 11:49:00 Aborted Start: 06-13-2023 End: 06-13-2023 take 2 tablets by mouth every twelve hours as needed for constipation Senna-Tabs Oral Tablet 2 tablet Tablet Oral Give 2 tablet by mouth every 12 hours as needed for constipation 06/13/2023 17:00:00 06/13/2023 18:40:00 Aborted thiamine 100 mg oral tablet (6 sources) Start: 09-02-2024 End: 10-22-2025 take 1 tablet by mouth once daily Thiamine Hcl (Vitamin B1) 100 mg tablet Discontinued 100 mg PO daily December 22, 2024 12:00am December 22, 2024 10:32am Problems Active Problems Problem Classification Problem Date Documented Da te Episodic/Chronic Abdominal hernia (20 sources) Hiatal hernia 01-11-2022 Episodic Administrative/social admission (1 source) Need for assistance with personal care; Translations: [NEED FOR ASSISTANCE WITH PERSONAL CARE] Onset: Episodic Asthma (20 sources) Exacerbation of asthma; Translations: [Asthma] 02-02-2022 Chronic Conditions associated with dizziness or vertigo (20 sources) Dizziness 11-06-2022 Episodic Conduction disorders (15 sources) Prolonged QT interval 02-11-2024 Chronic Coronary atherosclerosis and other heart disease (1 source) Coronary atherosclerosis and other heart disease Onset: 3 Deficiency and other anemia (1 source) Anemia; Translations: [Anemia, unspecified] Episodic Delirium, dementia, and amnestic and other cognitive disorders (1 source) Age-related physical debility; Translations: [AGE-RELATED PHYSICAL DEBILITY] Onset: 3 Chronic Diabetes mellitus with complications (20 sources) Type 2 diabetes mellitus in obese; Translations: [Type 2 diabetes mellitus with other specified complication] Onset: 4 04-08-2023 Chronic Diabetes mellitus without complication (18 sources) Diabetes mellitus; Translations: [Type 2 diabetes mellitus without complication] Onset: 3 07-08-2018 Chronic Diabetes mellitus without complication (20 sources) Prediabetes 04-10-2022 Episodic Disorders of lipid metabolism (1 source) Hyperlipidemia, unspecified; Translations: [HYPERLIPIDEMIA, UNSPECIFIED] Onset: 3 Chronic Diverticulosis and diverticulitis (20 sources) Diverticular disease 01-11-2022 Chronic Esophageal disorders (20 sources) Gastroesophageal reflux disease; Translations: [Gastro-esophageal reflux disease without esophagitis] Onset: 3 01-06-2014 Chronic Esophageal disorders (1 source) Esophageal disorders Onset: 3 Essential hypertension (20 sources) Hypertensive disorder; Translations: [Essential hypertension] Onset: 3 08-21-2022 Chronic Fluid and electrolyte disorders (9 sources) Hyponatremia; Translations: [Hyperkalemia] 12-21-2022 Episodic Heart valve disorders (20 sources) Aortic valve sclerosis; Translations: [Pulmonic valve regurgitation] 06-04-2023 Chronic Nonspecific chest pain (18 sources) Chest pain; Translations: [Chest pain, unspecified] Onset: 4 02-11-2024 Episodic Osteoarthritis (2 sources) Osteoarthritis of knee; Translations: [Unilateral post-traumatic osteoarthritis, right knee] Chronic Other acquired deformities (1 source) Acquired genu valgum; Translations: [Valgus deformity, not elsewhere classified, right knee] Episodic Other aftercare (1 source) Aftercare following joint replacement surgery; Translations: [AFTERCARE FOLLOWING JOINT REPLACEMENT SURGERY] Onset: 3 Chronic Other aftercare (1 source) Follow-up orthopedic assessment; Translations: [Aftercare following joint replacement surgery] Chronic Other and ill-defined heart disease (20 sources) Left ventricular hypertrophy 05-21-2023 Chronic Other bone disease and musculoskeletal deformities (1 source) Disorder of bone; Translations: [Other specified disorders of bone density and structure, unspecified site] Onset: 2 Episodic Other bone disease and musculoskeletal deformities (20 sources) Osteopenia 04-24-2022 Episodic Other circulatory disease (1 source) Elevated blood pressure 06-05-2022 Episodic Other connective tissue disease (3 sources) History of total knee arthroplasty; Translations: [Presence of right artificial knee joint] 06-11-2023 Chronic Other connective tissue disease (1 source) Presence of right artificial knee joint; Translations: [Knee joint replacement] 06-13-2023 Chronic Other connective tissue disease (1 source) Artificial knee joint present; Translations: [Presence of right artificial knee joint] Chronic Other connective tissue disease (20 sources) Fibromyositis 01-06-2014 Episodic Other connective tissue disease (20 sources) Panniculitis 01-09-2022 Episodic Other connective tissue disease (20 sources) Cramp in lower limb 03-29-2022 Episodic Other connective tissue disease (1 source) Other symptoms and signs involving the musculoskeletal system; Translations: [Other symptoms and signs involving the musculoskeletal system] Episodic Other gastrointestinal disorders (1 source) Constipation, unspecified; Translations: [CONSTIPATION, UNSPECIFIED] Onset: 3 Episodic Other infections; including parasitic (6 sources) History of sexually transmitted disease 10-27-2024 Episodic Other inflammatory condition of skin (20 sources) Psoriasis 09-29-2021 Chronic Other inflammatory condition of skin (20 sources) Intertrigo 11-08-2023 Episodic Other liver diseases (12 sources) Steatosis of liver 09-18-2024 Chronic Other liver diseases (3 sources) Fatty (change of) liver, not elsewhere classified; Translations: [Metabolic dysfunction-associated steatotic liver disease (MASLD)] Onset: 5 02-11-2025 Chronic Other liver diseases (20 sources) Elevated liver enzymes level 10-02-2021 Episodic Other liver diseases (1 source) Enzyme level - finding; Translations: [Abnormal levels of other serum enzymes] Episodic Other liver diseases (7 sources) Large liver 09-02-2024 Episodic Other liver diseases (2 sources) Abnormal serum enzyme level, unspecified; Translations: [Abnormal serum enzyme level, unspecified] Onset: 5 Episodic Other lower respiratory disease (20 sources) Chronic cough 05-07-2023 Episodic Other lower respiratory disease (20 sources) Cough 04-23-2023 Episodic Other lower respiratory disease (20 sources) Sputum abnormal - amount 04-08-2023 Episodic Other nervous system disorders (1 source) Walking disability; Translations: [Difficulty in walking, not elsewhere classified] Chronic Other nervous system disorders (1 source) Unsteadiness on feet; Translations: [UNSTEADINESS ON FEET] Onset: 3 Episodic Other nervous system disorders (2 sources) Tremor, unspecified; Translations: [Tremor, unspecified] Onset: 5 Episodic Other non-traumatic joint disorders (20 sources) Knee pain 03-29-2022 Episodic Other non-traumatic joint disorders (1 source) Pain in right knee; Translations: [Pain of right knee joint] Episodic Other non-traumatic joint disorders (20 sources) Hip pain 11-08-2023 Episodic Other nutritional; endocrine; and metabolic disorders (20 sources) Body mass index 40+ - severely obese 04-08-2023 Chronic Other nutritional; endocrine; and metabolic disorders (20 sources) Morbid obesity 04-08-2023 Chronic Other nutritional; endocrine; and metabolic disorders (20 sources) Hypomagnesemia 05-21-2023 Chronic Other skin disorders (20 sources) Ingrowing nail of toe of right foot 01-09-2022 Episodic Other skin disorders (20 sources) Hidradenitis suppurativa 12-03-2022 Episodic Other upper respiratory disease (20 sources) Allergic rhinitis 04-08-2023 Chronic Other upper respiratory disease (20 sources) Lesion of nose 11-02-2021 Episodic Kate-; endo-; and myocarditis; cardiomyopathy (except that caused by tuberculosis or sexually transmitted disease) (20 sources) Ejection murmur 09-24-2022 Chronic Residual codes; unclassified (20 sources) Postmenopausal state 03-29-2022 Episodic Residual codes; unclassified (20 sources) Current drinker 05-08-2023 Episodic Residual codes; unclassified (20 sources) Peripheral edema 02-03-2023 Episodic Skin and subcutaneous tissue infections (20 sources) Cellulitis; Translations: [Furuncle] 12-03-2022 Episodic Sprains and strains (1 source) Injury of muscle and tendon at hip and thigh level; Translations: [Strain of muscle, fascia and tendon of the posterior muscle group at thigh level, right thigh, subsequent encounter] Episodic Thyroid disorders (7 sources) Hypothyroidism, unspecified; Translations: [Hypothyroidism] Onset: 3 10-27-2024 Chronic Unclassified (20 sources) Entire carpal canal (body structure) 01-06-2014 Unclassified (8 sources) Onset: 3 Unclassified (20 sources) Mild mitral valve regurgitation 06-04-2023 Unclassified (20 sources) Mild tricuspid valve regurgitation 06-04-2023 Unclassified (3 sources) Finding of hand region 01-26-2025 Unclassified (1 source) Low back pain, unspecified; Translations: [Low back pain, unspecified] Onset: Past or Other Problems Problem Classification Problem Date Documented Date Episodic/Chronic Immunizations and screening for infectious disease (6 sources) Encounter for screening for other viral diseases; Translations: [Encounter for screening for human immunodeficiency virus [HIV]] Onset: 11-08-2023 Episodic Other liver diseases (2 sources) Hepatomegaly, not elsewhere classified; Translations: [Hepatomegaly, not elsewhere classified] Onset: 09-02-2024 Episodic Other screening for suspected conditions (not mental disorders or infectious disease) (3 sources) Procedure carried out on subject; Translations: [Encounter for screening for other suspected endocrine disorder] Onset: 09-02-2024 Episodic Other upper respiratory infections (14 sources) Sore throat symptom; Translations: [Acute upper respiratory infection, unspecified] Onset: 11-21-2023 11-21-2023 Episodic Residual codes; unclassified (2 sources) Other specified health status; Translations: [Other specified health status] Onset: 09-02-2024 Episodic Spondylosis; intervertebral disc disorders; other back problems (20 sources) Chronic low back pain; Translations: [Sacrococcygeal disorders, not elsewhere classified] Onset: 09-12-2024 05-10-2022 Episodic Results Test Name Value Interpretation Reference Range Facility Bedside Glucoseon 04-12-2025 F[facility]ICK GLU 130 mg/dL High 74-106 [facility] Comment on above: Result Comment: NATHALIA EASLEYREGI OF PATIENT CARE PER NURSING PROTOCOL Performed By: #### L 501.080 ####[facility] [address] [place], [place], [address] [facility] deOrdered By: Raj Booth on 04-12-2025 Glucose [Mass/Vol] 130 mg/dL High 74-106 [facility] Comment on above: MANAGEMENT OF PATIEN T CARE PER NURSING PROTOCOL L/S Spine Min 4 Viewson 03-24 L/S Spine Min 4 Views [facility] Imaging Services [address] [place] [address] L/S Spine Min 4 Views MR#: [id number] Acct: [id number] Name: ANNA SANCHEZ Rep #: [id number] : 1950 F 74 From: James Perez MD PCP: Dr. Heather Styles DO Status: [facility] Study: L/S Spine Min 4 Views Date of Exam: 04/12/25 Exam# [id number] Ordering Dr: Raj Booth MD EXAM: XR Lumbosacral Spine, 2 or 3 Views CLINICAL INDICATION: BILAT MEDIAL BRANCH BLOCK LUMBAR TECHNIQUE: Frontal and lateral views of the lumbar spine and sacrum. COMPARISON: No relevant prior studies available. FINDINGS: OTHER FINDINGS: A total of 6 spot images were obtained. Total fluoroscopy time was 8.6 seconds. Total radiation dose was 4.73 mGy. RAD/L/S Spine Min 4 Views IMPRESSION: Fluoroscopic guidance was used intraoperatively. Please refer to operative note for further details. Reading Location: [facility] CC: Dr. Raj Booth MD; Dr. 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 Heather Styles, DO Status:[facility] Y Race: C Location: [place] [address] Anesthesia: Postop Eval I Current Vital Signs Temperature: 98.3 F Pulse Rate: 76 Blood Pressure: 115/65 Respiratory Rate: 14 Pulse Ox: 95 Assessment Airway patent: Yes Spontaneous unlabored respirations: Yes nausea: No Vomiting: No Anesthesia Complication: No Fluid Hydration Crystalloid volume administer (ml): 300 Total IV fluid infused: 300 Progress Note Anesthesia document: Postop Eval 1 completed: Yes 04/12/25916 Date Dawood Maxwell CRNA Cosigner Signature: Date CC: Signed Normal [facility] MR/[id number] 04-12-2025 [facility] Medical Records Department [address] [place] [address] Anesthesia Postop Eval II 04/12/25 1358 MR#: [id number] Acct: [id number] Name: ANNA SANCHEZ Rep #: [id number] : 1950 74 From: 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 Heather Styles, DO Status:[facility] Y Race: C Location: [facility] Anesthesia Postop Eval I Sum Postop Eval Completion status Anesthesia document: Postop Eval 1 completed: Yes Anesthesia Postop Eval I Summary Anesthesia Postop Eval I Summary: Anesthesia Postop Eval I: Assessment Summary Airway patent Yes 04/12/25 09:17 STAINED GLASS GLAZIER HELPER.JYUN Spontaneous unlabored Yes 04/12/25 09:17 STAINED GLASS GLAZIER HELPER.JYUN respirations Mental status nausea No 04/12/25 09:17 STAINED GLASS GLAZIER HELPER.JYUN Vomiting No 04/12/25 09:17 STAINED GLASS GLAZIER HELPER.JYUN Anesthesia Postop Eval I: Fluid Summary Crystalloid volume administer 300 04/12/25 09:17 STAINED GLASS GLAZIER HELPER.JYUN (ml) Colloids volume administered ( ml) Blood Product volume administered (ml) Total IV fluid infused 300 04/12/25 09:17 STAINED GLASS GLAZIER HELPER.JYUN Anesthesia Postop Eval I: Summary Notes Anesthesia Complication No 04/12/25 09:17 STAINED GLASS GLAZIER HELPER.JYUN Anesthesia Complication Comment: Post-operative progress note Anesthesia: Postop Eval II Evaluation Mental status: Awake and Calm Pain Level: 2 nausea: No Vomiting: No Complications Anesthesia Complication: No 04/12/25 1359 Date Xuan Doss STAINED GLASS GLAZIER HELPER Cosigner Signature: Date CC: Signed Normal [facility] Operative Reporton Operative Report [facility] Medical Records Department [address] [place] [address] Operative Report 04/12/25918 MR#: [id number] Acct: [id number] Name: ANNA SANCHEZ Rep #: [id number] : 1950 74 From: Raj Booth MD PCP: Dr. Heather Styles, DO Status:[facility] Location: [place] [address] Operative Report (Standard) Operative Information Date of Procedure: 04/12/25 Pre-Operative Diagnosis: Lumbosacral spondylosis, lumbosacral generative disease, lumbar facet arthropathy Post-Operative Diagnosis: Lumbosacral spondylosis, lumbosacral degenerative disc disease, lumbar facet arthropathy Surgery/Procedure Performed: Bilateral lumbar medial branch block at L4, L5, S1 under fluoroscopic guidance vacuum frame operator: No Type of Anesthesia: Local MAC RN Documented Start/Stop Times: Operation Date: 04/12/25 09:30 Case Time Into Pre-Op 04/12/25 08:01 Anesthesia Start 04/12/25 08:55 Into Room 04/12/25 08:55 Procedure Start 04/12/25 09:05 Procedure End 04/12/25 09:09 Anesthesia End 04/12/25 09:13 Out of Room 04/12/25 09:13 Into Recovery 04/12/25 09:15 Procedure Start Time: 09:19 Procedure Stop Time: 09:19 Select all DRAINS/GRAFTS/IMPLANTS that apply: None Estimated Blood Loss: 1 Specimen collected: No Description of surgery: PROCEDURE PERFORMED: Bilateral lumbar medial branch block at L4, L5, and S1. ANESTHESIA: MAC. BLOOD LOSS: Minimal. COMPLICATIONS: None. DESCRIPTION OF PROCEDURE: History and physical of today was reviewed. Risks and benefits of the procedure were explained. The patient understood and agreed to proceed. Informed consent was obtained. IV inserted per routine protocol. The patient was taken to the operating room and placed in the prone position with a pillow positioned underneath the abdomen. The lower back area was prepped and draped in a sterile fashion using iodine x3. Under fluoroscopy guidance on AP view, the L4 through S1 vertebral bodies were visualized. The skin and subcutaneous tissue was anesthetized with approximately 5 mL of 1% lidocaine using a 25-gauge regular needle. Under direct visualization with fluoroscopy, at approximately 25-degree angle, starting on the left L4, ending on the right L4, passing through the L5 and S1 bilaterally, using a 22-gauge 3-1/2-inch spinal needle, the needle was advanced via the skin. The tip of the needle was maneuvered and directed towards the superior medial gutter of the transverse process at the vicinity of the medial branch. Once tip of the needle was in contact with the bone, the needle was pulled approximately 2 mm off the bone. After negative aspiration for blood or CSF and confirmation on AP, oblique as well as lateral view, a total of 12 mL of preservative-free 0.25% Marcaine with 80 mg of Depo-Medrol was injected in divided doses between those six levels. The needles were then removed intact. The patient experienced no sign or symptoms of intrathecal or intravascular injection. The patient experienced no paresthesia. The procedure was completed without any apparent difficulty or any complications. The patient appeared to tolerate it well. ASSESSMENT AND PLAN: This is a 74-year-old female with lumbosacral spondylosis, lumbosacral degenerative disc disease, lumbar facet arthropathy, status post bilateral lumbar medial branch block at L4-5 L5-S1, patient will continue her current medications, patient will follow-up in approximately 1-2 weeks for reevaluation. Surgical Findings: 1 Complications Complications: No Admit VTE Documentation VTE Present on Admission: No VTE Mechan Device Prophylaxis: None VTE Pharm Prophylaxis ordered?: No 04/12/25 0920 Cosigner Signature (if applicable): CC: Dr. Raj Booth MD; Dr. Heather Styles DO Signed Normal [facility] MR/PAT.ANEon 04-06-2025 MR/PAT.[facility] Medical Records Department [address] [place] [address] PAT - Anesthesia 04/06/25 1834 MR#: [id number] Acct: [id number] Name: ANNA SANCHEZ Rep #: [id number] : 1950 74 From: Dagoberto Gold MD PCP: Dr. 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 When Was Last Pacemaker Check QUESTION #4 FULL TEXT: You/Your Family Experience fever (hyperthermia) with Anesthesia Last Oral Intake Last Oral intake: Last Oral Intake NPO since Meds taken in AM with sips of water? 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 Female Yes 04/06/25 08:15 HX of Motion Sickness No 04/06/25 08:15 HX of N/V After Surgery No 04/06/25 08:15 Non-Smoker Yes 04/06/25 08:15 Duration of Surgery greater No 04/06/25 08:15 than 60 minutes Number of Risk Factors 2 04/06/25 08:15 PONV Score Moderate Risk 04/06/25 08:15 Height Weight Height Weight: Anesthesia: Height Weight Height 5 ft 02/11/25 08:07 Respiratory Assessment Respiratory Assessment - 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 Has anyone observed you stop No 04/06/25 08:15 breathing during sleep? STOP Results Negative 04/06/25 08:15 QUESTION #5 FULL TEXT : Do you snore loudly (louder than talking or can be heard through closed doors)? 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 Specify any problems Hx of Preganancy in last 3 No 04/06/25 08:15 Months Nurse Filling Out Transfusion [id number] 04/06/25 08:15 Questions: Date: 04/06/25 04/06/25 08:15 Time: 08:19 04/06/25 08:15 Patient unable to answer at this time (ie. 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 Hx Now Gestational Age (in weeks): EDC: Hx Hx Para Hx Section SAB No 04/06/25 08:15 [facility] Medical History (Updated 04/06/25 @ 08:22 by Dennys Abbott) Cardiology follow-up encounter Allergic rhinitis Fatty liver Herniated disc Wears glasses History of skin cancer Alcohol use Seasonal allergies Thyroid disease Diabetes Walker as ambulation aid Fibromyalgia Ambulates with cane High cholesterol Migraine headache Restless legs Dietary restriction Gastric reflux Asthma Shortness of breath on exertion Former smoker History of stress test Hypertension Home Medications ???Medication ???Instructions ???Recorded ???Last Taken ???Type calcium 600 mg (as 1 tab PO DAILY SUPPLEMENT 05/13/23 11/08/24 History carbonate)-vitamin D3 10 mcg (400 unit) tablet (Calcium 600 + D(3)) levothyroxine 50 mcg tablet 50 mcg PO DAILY THYROID 05/13/23 0 12/28/24 History omeprazole 20 mg capsule,delayed (more content not included)... Normal [facility] BD BONE DENSITY DEXA AXIAL S [facility] 03-31-2025 BD BONE DENSITY DEXA AXIAL [facility] ORIGINAL EXAMINATION: BONE DENSITOMETRY 03/31/2025 8:58 am TECHNIQUE: A bone density dual x-ray absorptiometry (DEXA) scan was performed of the axial (e.g. hips, spine) and/or appendicular (e.g. radius) skeleton as appropriate. COMPARISON: 04/24/2022 HISTORY: Reason for Exam: Osteoporosis Screening FINDINGS: BMD (g/cm2) Lumbar Spine L1-L4: 1.081. T Score Lumbar Spine L1-L4: 0.3 BMD (g/cm2) Left Femoral Neck: 0.672. T Score Left Femoral Neck: -1.6 BMD (g/cm2) Left Hip: 0.974. T Score Left Hip: 0.3 BMD Change from previous Hip: +6.5 %, significant BMD Change from previous Lumbar spine: -4.1 %, significant FRAX: 10 year fracture risk assessment Major osteoporotic fracture: 13% Hip fracture: 2.5% The BHOF f/k/a NOF recommends that FDA-approved medical therapies be considered in post-menopausal women and men age >/= 50 years with a: * Hip or vertebral fracture, or * T-score of /= 20% for major osteoporotic fractures or * >/= 3% for hip fractures All treatment decisions require clinical judgement and consideration of individual patient factors, including patient preferences, comorbidities, previous drug use, risk factors not captured in the FRAX registered model (e.g., frailty, falls, vitamin D deficiency, increased bone turnover, interval significant decline in bone density) and possible under- or over-estimation of fracture risk by FRAX. IMPRESSION: Osteopenia. I have personally reviewed the images of this examination and agree with the resident's findings and interpretations. Interpreted by: Hi Franklin MD Preliminary Report By: Toño Waller Electronically signed By Hi Franklin MD Dictated Date: 03/31/2025 9:21:40 AM Prelim Date: 03/31/2025 11:51:30 AM Sign Date: 03/31/2025 11:51:30 AM Ordering Provider: HEATHER STYLES Interpreted by: Hi Franklin MD Preliminary Report By: Toño Waller Electronically signed By Hi Franklin MD Dictated Date: 03/31/2025 9:21:40 AM Prelim Date: 03/31/2025 11:51:30 AM Sign Date: 03/31/2025 11:51:30 AM Ordering Provider: HEATHER STYLES [facility] MAMMOGRAM SCREENING BILAT ERAL W/TOMOon 03-31-2025 [place] MAMMOGRAM SCREENING BILATERAL W/GUNNER ORIGINAL FROM: [facility] [address] [place], [place] [address] PROCEDURE FOR: ANAN SANCHEZ [address] [place] [address] Home: PID#: [id number] Exam#: [id number] : 1950 Age: 74 TO: HEATHER STYLES DO [address] [facility] [address] [place], [place] [address] EXAMINATION: SCREENING DIGITAL BILATERAL MAMMOGRAM WITH TOMOSYNTHESIS, 03/31/2025 8:44 am TECHNIQUE: Screening mammography of the bilateral breasts was performed with tomosynthesis. 2D standard and 3D tomosynthesis combination imaging performed through both breasts in the MLO and CC projection. Computer aided detection was utilized in the interpretation of this exam. COMPARISON: October 31, 2023, April 24, 2022, September 08, 2020 HISTORY: Breast cancer screening. FINDINGS: BREAST DENSITY: There are scattered areas of fibroglandular density. There are bilateral benign-type calcifications. There is no significant mass, architectural distortion or microcalcification. Fibroglandular pattern is stable. IMPRESSION: No mammographic evidence of malignancy. Continued screening with annual mammograms is recommended. [facility] risk calculations, generated with the history provided, report this patient's 10 year risk and lifetime risk for developing breast cancer at 1.3% and 1.6%, respectively. Based on this assessment tool, if the patient's calculated lifetime risk is below 20%, then the patient is considered at average risk for developing breast cancer. If the patient's calculated lifetime risk is at or above 20%, then the patient is considered high risk for developing breast cancer and may be a candidate for supplemental breast MRI screening in addition to annual mammographic screening per the [employer]. BIRADS: MAMMOGRAM BI-RADS: 2: Benign finding RECALL: 1 year screening RECALL TYPE: mammo LETTER SENT: Normal BI-RADS 1 and 2 Interpreted by: Janessa Oh Preliminary Report By: Janessa Oh Electronically signed By Janessa Oh Dictated Date: 03/31/2025 9:48:16 AM Prelim Date: 03/31/2025 9:50:46 AM Sign Date: 03/31/2025 9:50:46 AM Ordering Provider: HEATHER STYLES Interpreted by: Janessa Oh Preliminary Report By: Janessa Oh Electronically signed By Janessa Oh Dictated Date: 03/31/2025 9:48:16 AM Prelim Date: 03/31/2025 9:50:46 AM Sign Date: 03/31/2025 9:50:46 AM Ordering Provider: HEATHER STYLES Digital Marketing Apprentice: STEVENSON SANTANA RT (R, CT), RDMS letter sent: Normal BI-RADS 1 and 2 Mammogram BI-RADS: 2 Benign Normal [facility] Ct Ann on 03-05-2025 Albumin DL <= 20 mg/L (U) [Mass/Vol] 3.3 mg/L Invalid Interpretation Code AO ADM SS Albumin/Creatinine DL <= 20 mg/L (U) [Mass ratio] 3 mg/G Normal 0 - 30 mg/G AO Chemistry S Creatinine (U) [Mass/Vol] 115.3 mg/dL Normal 29.0 - 226.0 mg/dL AO ADM SS MALBRon 03-05-2025 U Creatinine 115.3 mg/dL Normal 29.0-226.0 [facility] Comment on above: Performed By: #### M ALBR #### [address] [address] U Microalb 3.3 mg/L Normal [facility] Comment on above: Performed By: #### M ALBR #### [place] [address] [place], [place] [address] U Ratio Alb/Cre 3 mg/G Normal 0-30 [facility] Comment on above: Performed By: #### M ALBR #### [place] [address] [place], [place] [address] Gastroenterology Visit Repor ton 02-11-2025 Gastroenterology Visit Report [facility] [address] [place] [address] OFFICE VISIT Date of Service: 02/11/25 MR#: [id number] Acct: [id number] Name: ANNA SANCHEZ Rep #: [id number] : 1950 Provider: Dr. Jeffery flynn MD Age/Sex: 74/F Location: [facility] Status: Signed Intake Vital Signs 11/09/24 06:40 12/28/24 07:57 02/11/25 08:07 Height 5 ft 5 ft 5 ft Weight: 217 lb BMI 42.3 BP 118/76 Blood Pressure Location Rt brachial Position Sitting Pulse 65 Pulse Oximetry (%) 93 Oxygen Delivery Method room air Intake Visit Reasons: Fatty liver Chief Complaint: Fatty Liver Allergies erythromycin base Allergy (Verified 02/11/25 07:50) PT UNSURE OF REACTION Penicillins Allergy (Verified 02/11/25 07:50) PT UNSURE OF REACTION Medications ???Medication ???Instructions ???Recorded ???Confirmed ???Type calcium 600 mg (as 1 tab PO DAILY SUPPLEMENT 05/13/23 12/22/24 History carbonate)-vitamin D3 10 mcg (400 unit) tablet (Calcium 600 + D(3)) levothyroxine 50 mcg tablet 50 mcg PO DAILY THYROID 05/13/23 0 12/28/24 History omeprazole 20 mg capsule,delayed 20 mg PO DAILY GERD 05/13/2312/28 History release rosuvastatin 5 mg tablet 5 mg PO QHS HLD 05/13/23 12/28/24 History losartan 50 mg tablet 50 mg PO DAILY htn 06/10/23 History magnesium oxide 400 mg (241.3 mg 400 mg PO BID 05/06/24 12/22/24 Hi story magnesium) tablet diclofenac sodium 1 % topical gel 2 g topical ONCE 12/22/24 5 History (Arthritis Pain (diclofenac)) semaglutide 1 mg/dose (4 mg/3 mL) 1 mg subcut QWEEK 12/28/24 History subcutaneous pen injector (Ozempic) ferrous sulfate 325 mg (65 mg 325 mg PO Q OTHER DAY 02/11/25 History iron) tablet Have you fallen in the past year?: No PFSH Medical History Allergic rhinitis Fatty liver Herniated disc Wears glasses History of skin cancer Alcohol use Seasonal allergies Thyroid disease Diabetes Walker as ambulation aid Fibromyalgia Ambulates with cane High cholesterol Migraine headache Restless legs Dietary restriction Gastric reflux Asthma Shortness of breath on exertion Former smoker History of stress test Hypertension Surgical History History of total right knee replacement History of colonoscopy History of tonsillectomy History of thumb surgery History of tubal ligation History of cholecystectomy History of right knee surgery Family History Mother Alcohol abuse Arthritis Myocardial infarction Heart disease Brother Alcohol abuse Father Myocardial infarction Heart disease Social History Smoking Status: Former smoker alcohol intake: current alcohol intake frequency: a few times a week substance use type: does not use HPI HPI Chief Complaint: Fatty Liver Details: ANNA SANCHEZ, is a 74 F who presents to the office today for initial consult. PCP referred for fatty liver. PMH includes type 2 diabetes, HTN, iron deficiency and hypothyroidism and on Ozempic. Pt states she feels overall well. Denies GI concerns. 5..24- Fib-4 1.49 ROS Const Constitutional: No fatigue, fever(s) or weight change ENT ENT: No difficulty swallowing Resp Respiratory: No shortness of breath or wheezing Cardio Cardiology: No chest pain at rest or dyspnea on exertion Gastro GI: Positive for bloating; No abdominal pain, belching, change in bowel habits, change in stool character, coffee ground emesis, constipation, cramping, diarrhea, heartburn, difficulty swallowing, feeling full early, excessive flatus, incontinent of stools, Vomiting blood/hematemesis, Blood in stool, loose stools, Black,tarry stools, nausea/dyspepsia, pain with swallowing, vomiting or other Genitourinary-Female: No difficulty urinating or burning urination Musc Musculoskeletal: Positive for abnormal gait, back pain, Arthritis and leg pain at night; No joint pain Skin Skin: No yellowing of the eye or itchy eyes Neuro Neurology: Positive for abnormal gait Psych Psychiatric: No anxiety and No depression Endo Endocrine: No fatigue or weight change Aller/Imm Allergy/Immunologic: No itchy eyes or wheezing Sascha/Lymp Hematologic/Lymphatic: No easy bleeding or easy bruising Exam Const General: cooperative, no acute distress and well developed Nutritional Appearance: obese Orientation: alert, awake and oriented x3 Other: BMI 42.3 kg/m???. Weight 217 pounds. Patient was 226 pounds about 6 months ago [facility] Head: normocephalic and atraumatic Nose: external nose normal Face and sinus: n (more content not included)... Normal [facility] .GFRon 01-26-2025 Estimated Glomerular Filtration Rate 75 ml/min/1.73sqm [facility] Comment on above: Result Comment: Stages of Chronic Kidney Disease (CKD) Stage Description eGFR(ml/min/1.73 sq.m.) CKD 1 Normal kidney function or >=90 normal kindney function with possible kidney damage (ex. Proteinuria) CKD 2 Kidney damage with mild loss 60-89 of kidney function CKD 3a Mild to moderate loss of kidney 45-59 function CKD 3b Moderate to severe loss of 30-44 of kindey function CKD 4 Severe loss of kidney function 15-29 CKD 5 Kidney failure <15 Note: (go live 2024) the eGFR calculation was updated to the 2020 CKD-EPI creatinine equation without a race factor to calculate the eGFR results. Performed By: #### A 1C, CMP, GFR #### [address] [address] #### B12 #### [address] [address] A1Con 01-26-2025 Glucose [Mass/Vol] 128 mg/dL Normal [facility] Comment on above: Result Comment: Tyesha mated Average Glucose calculated by equation ((28.7xA1C)-46.7) Estimated average glucose (eAG) is a calculated value from Hemoglobin A1C and is solar sales representative and assessor of the average blood glucose level in the last 2-3 month period. Normal range: less than 114 mg/dL Performed By: #### A 1C, CMP, GFR #### [place] [id number] #### B12 #### [address] [address] HbA1c (Bld) [Mass fraction] 6.1 % Normal 4.3-6.4 [facility] Comment on above: Performed By: #### A 1C, CMP, GFR #### [address] [address] #### B12 #### [address] [address] B12on 01-26-2025 Cobalamin (Vitamin B12) [Mass/Vol] 1147 pg/mL High 211-911 [facility] Comment on above: Performed By: #### A 1C, CMP, GFR #### [place] [id number] #### B12 #### [place] [address] CMPon 01-26-2025 Albumin Level 3.5 G/dL Normal 3.4-4.8 [facility] Comment on above: Performed By: #### A 1C, CMP, GFR #### [place] [address] #### B12 #### [place] [address] Albumin/Globulin [Mass ratio] 1.0 {ratio} Low 1.1-2.5 [facility] Comment on above: Performed By: #### A 1C, CMP, GFR #### [place] [address] #### B12 #### [place] [address] ALP [Catalytic activity/Vol] 53 U/L Normal 40-135 [facility] Comment on above: Performed By: #### A 1C, CMP, GFR #### [place] [address] #### B12 #### [place] [address] ALT [Catalytic activity/Vol] 51 U/L Normal 14-59 [facility] Comment on above: Performed By: #### A 1C, CMP, GFR #### [place] [address] #### B12 #### [place] [address] AST [Catalytic activity/Vol] 33 U/L Normal 10-40 [facility] Comment on above: Performed By: #### A 1C, CMP, GFR #### [place] [address] #### B12 #### [place] [address] Bili Total 0.5 mg/dL Normal 0.2-1.0 [facility] Comment on above: Result Comment: Use of this assay is not recommended for patients undergoing treatment with eltrombopag due to the potential for falsely elevated results. Performed By: #### A 1C, CMP, GFR #### [place] [address] #### B12 #### [place] [address] BUN/Creatinine Ratio 30 ratio High 7-27 [facility] Comment on above: Performed By: #### A 1C, CMP, GFR #### [place] [address] #### B12 #### [address] [address] Calcium [Mass/Vol] 9.8 mg/dL Normal 8.4-10.2 [facility] Comment on above: Performed By: #### A 1C, CMP, GFR #### [place] [address] #### B12 #### [place] [address] Chloride [Moles/Vol] 102 mmol/L Normal 98-107 [facility] Comment on above: Performed By: #### A 1C, CMP, GFR #### [place] [address] #### B12 #### [place] [address] CO2 [Moles/Vol] 28 mmol/L Normal 23-31 [facility] Comment on above: Performed By: #### A 1C, CMP, GFR #### [place] [address] #### B12 #### [place] [address] Creatinine [Mass/Vol] 0.82 mg/dL Normal 0.51-0.95 [facility] Comment on above: Performed By: #### A 1C, CMP, GFR #### [place] [address] #### B12 #### [address] [address] Electrolyte Balance 9.0 mEq/L Normal 4.0-15.[address] [facility] Comment on above: Performed By: #### A 1C, CMP, GFR #### [address] [address] #### B12 #### [address] [address] Globulin 3.5 G/dL Normal 2.7-4.4 [facility] Comment on above: Performed By: #### A 1C, CMP, GFR #### [place] [address] #### B12 #### [address] [address] Glucose [Mass/Vol] 95 mg/dL Normal 83-110 [facility] Comment on above: Performed By: #### A 1C, CMP, GFR #### [place] [address] #### B12 #### [address] [address] Potassium [Moles/Vol] 4.5 mmol/L Normal 3.5-5.1 [facility] Comment on above: Performed By: #### A 1C, CMP, GFR #### [place] [address] #### B12 #### [address] [address] Sodium [Moles/Vol] 139 mmol/L Normal 136-145 [facility] Comment on above: Performed By: #### A 1C, CMP, GFR #### [place] [address] #### B12 #### [address] [address] Total Protein 7.0 G/dL Normal 6.4-8.2 [facility] Comment on above: Performed By: #### A 1C, CMP, GFR #### [place] [address] #### B12 #### [address] [address] Urea nitrogen [Mass/Vol] 25 mg/dL High 7-18 [facility] Comment on above: Performed By: #### A 1C, CMP, GFR #### [facility] [address] [place], [place] [address] #### B12 #### [facility] [address] [place] [address] LABORATORYOrdered By: SYSTEM SYSTEM on 01-26-2025 Albumin BCP dye [Mass/Vol] 3.5 G/dL Normal 3.4 - 4.8 G/dL AO ADM SS Albumin/Globulin [Mass ratio] 1.0 {ratio} Low 1.1 - 2.5 ratio AO ADM SS ALP [Catalytic activity/Vol] 53 U/L Normal 40 - 135 U/L AO ADM SS ALT With P-5'-P [Catalytic activity/Vol] 51 U/L Normal 14 - 59 U/L AO ADM SS AST With P-5'-P [Catalytic activity/Vol] 33 U/L Normal 10 - 40 U/L AO ADM SS Bilirubin [Mass/Vol] 0.5 mg/dL Normal 0.2 - 1 .0 mg/dL AO ADM SS Comment on above: Interpretive Data: U se of this assay is not recommended for patients undergoing treatment with eltrombopag due to the potential for falsely elevated results. Calcium [Mass/Vol] 9.8 mg/dL Normal 8.4 - 10. 2 mg/dL AO ADM SS Chloride [Moles/Vol] 102 mmol/L Normal 98 - 10 7 mmol/L AO ADM SS CO2 [Moles/Vol] 28 mmol/L Normal 23 - 31 mmol/L AO ADM SS Cobalamin (Vitamin B12) [Mass/Vol] 1147 pg/mL High 211 - 911 pg/mL AH ADM SS Creatinine [Mass/Vol] 0.82 mg/dL Normal 0.51 - 0.95 mg/dL AO ADM SS Electrolyte Balance 9.0 mEq/L Normal 4.0 - 15 .0 mEq/L AO ADM SS Estimated Glomerular Filtration Rate 75 ml/min/1.73sqm Invalid Interpretation Code AO Chemistry S Comment on above: Interpretive Data: Stages of Chronic Kidney Disease (CKD) Stage Description eGFR(ml/min/1.73 sq.m.) CKD 1 Normal kidney function or >=90 normal kindney function with possible kidney damage (ex. Proteinuria) CKD 2 Kidney damage with mild loss 60-89 of kidney function CKD 3a Mild to moderate loss of kidney 45-59 function CKD 3b Moderate to severe loss of 30-44 of kindey function CKD 4 Severe loss of kidney function 15-29 CKD 5 Kidney failure <15 Note: (go live 2024) the eGFR calculation was updated to the 2020 CKD-EPI creatinine equation without a race factor to calculate the eGFR results. Globulin 3.5 G/dL Normal 2.7 - 4.4 G/dL AO ADM SS Glucose [Mass/Vol] 95 mg/dL Normal 83 - 110 mg/dL AO ADM SS Glucose [Mass/Vol] 128 mg/dL Invalid Interpretation Code AO Chemistry S Comment on above: Interpretive Data: E stimated average glucose (eAG) is a calculated value from Hemoglobin A1C and is solar sales representative and assessor of the average blood glucose level in the last 2-3 month period. Normal range: less than 114 mg/dL HbA1c (Bld) [Mass fraction] 6.1 % Normal 4.3 - 6.4 % AO ADM SS Potassium [Moles/Vol] 4.5 mmol/L Normal 3.5 - 5.1 mmol/L AO ADM SS Protein [Mass/Vol] 7.0 G/dL Normal 6.4 - 8.2 G/dL AO ADM SS Sodium [Moles/Vol] 139 mmol/L Normal 136 - 145 mmol/L AO ADM SS Urea nitrogen [Mass/Vol] 25 mg/dL High 7 - 18 mg/dL AO ADM SS Urea nitrogen/Creatinine [Mass ratio] 30 ratio High 7 - 27 ratio AO ADM SS Bedside Glucoseon 12-28-2024 FINGERSTICK GLU 123 mg/dL High 74-106 [facility] Comment on above: Result Comment: NATHALIA DUQUE OF PATIENT CARE PER NURSING PROTOCOL Performed By: #### L 501.080 #### [facility] Laboratory [address] [place], [address] [facility] deOrdered By: Raj Booth on 12-28-2024 Bedside Glucose ([facility]) 123 mg/dL High 74-106 [facility] Comment on above: MANAGEMENT OF PATIEN T CARE PER NURSING PROTOCOL Glucose [Mass/Vol] 123 mg/dL High 74-106 [facility] Comment on above: MANAGEMENT OF PATIEN T CARE PER NURSING PROTOCOL L/S Spine w Bend Min 6 Vwon 12-28-2024 L/S Spine w Bend Min 6 Vw [facility] Imaging Services [address] [place] [address] L/S Spine w Bend Min 6 Vw MR#: [id number] Acct: [id number] Name: ANNA SANCHEZ Rep #: [id number] : 1950 F 74 From: Naseem Mena PCP: Dr. Ko Benavides, DO Status: [facility] Study: L/S Spine w Bend Min 6 Vw Date of Exam: Exam# [id number] Ordering Dr: Raj Booth MD PROCEDURE: L/S SPINE W BEND MIN 6 VW 12/28/2024 REASON FOR EXAM: MEDIAL BRANCH BLOCK L4-S1, BILAT TECHNIQUE: 7 fluoroscopic images were submitted. Fluoroscopy time was 20.2 seconds. Peak skin radiation dose was 9.1 mGy. COMPARISON: None FINDINGS: See impression RAD/L/S Spine w Bend Min 6 Vw IMPRESSION: Fluoroscopic guidance provided during L4 through S1 medial nerve blocks. See operative report for further details. Reading Location: [facility] CC: Dr. Raj Booth MD; Dr. Ko Benavides DO Supervisor Reinforced Steel Placing: Signed [facility] MR/POSTOP.[facility] 12-28-2024 MR/POSTOP.[facility] Medical Records Department [address] [place] [address] Anesthesia Postop Eval I 12/28/24 0854 MR#: [id number] Acct: [id number] Name: ANNA SANCHEZ Rep #: [id number] : 1950 74 From: Cary Forrester PCP: Dr. Ko Benavides, DO Status:[facility] Y Race: C Location: [place] [address] Anesthesia: Postop Eval I Current Vital Signs Temperature: 97.8 F Pulse Rate: 79 Blood Pressure: 120/88 Respiratory Rate: 18 Pulse Ox: 93 Assessment Airway patent: Yes Spontaneous unlabored respirations: Yes nausea: No Vomiting: No Anesthesia Complication: No Fluid Hydration Crystalloid volume administer (ml): 10 Total IV fluid infused: 10 Progress Note Anesthesia document: Postop Eval 1 completed: Yes 12/28/24856 Date Cary Jay Signature: Date CC: Signed Normal [facility] [id number] 12-28-2024 [facility] Medical Records Department [address] [place] [address] Anesthesia Postop Eval II 12/28/24913 MR#: [id number] Acct: [id number] Name: ANNA SANCHEZ Rep #: [id number] : 1950 74 From: Cary Forrester PCP: Dr. Ko Benavides, DO Status:[facility] Y Race: C Location: [place] [address] Anesthesia Postop Eval I Sum Postop Eval Completion status Anesthesia document: Postop Eval 1 completed: Yes Anesthesia Postop Eval I Summary Anesthesia Postop Eval I Summary: Anesthesia Postop Eval I: Assessment Summary Airway patent Yes 12/28/24 08:54 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 Spontaneous unlabored Yes 12/28/24 08:54 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 respirations Mental status nausea No 12/28/24 08:54 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 Vomiting No 12/28/24 08:54 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 Anesthesia Postop Eval I: Fluid Summary Crystalloid volume administer 10 12/28/24 08:54 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 (ml) Colloids volume administered ( ml) Blood Product volume administered (ml) Total IV fluid infused 10 12/28/24 08:54 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 Anesthesia Postop Eval I: Summary Notes Anesthesia Complication No 12/28/24 08:54 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 Anesthesia Complication Comment: Post-operative progress note Anesthesia: Postop Eval II Evaluation Mental status: Awake Pain Level: 2 nausea: No Vomiting: No 12/28/24 0914 Date Cary Jay Signature: Date CC: Signed Normal [facility] Operative Reporton 5 Operative Report [facility] Medical Records Department [address] [place] [address] Operative Report 12/28/24 0852 MR#: [id number] Acct: [id number] Name: ANNA SANCHEZ Rep #: [id number] : 1950 74 From: Raj Booth MD PCP: Dr. Ko Benavides, Status:[facility] Location: [place] [address] Operative Report (Standard) Operative Information Date of Procedure: 12/28/24 Pre-Operative Diagnosis: Lumbosacral spondylosis, lumbosacral degenerative disc disease, lumbar facet arthropathy Post-Operative Diagnosis: Lumbosacral spondylosis, lumbosacral degenerative disc disease, lumbar facet arthropathy Surgery/Procedure Performed: Bilateral lumbar medial branch block at L4-5 L5-S1 vacuum frame operator: No Type of Anesthesia: Local MAC RN Documented Start/Stop Times: Operation Date: 12/28/24 08:40 Case Time Into Pre-Op 12/28/24 07:27 Anesthesia Start 12/28/24 08:40 Into Room 12/28/24 08:40 Procedure Start 12/28/24 08:46 Procedure End 12/28/24 08:51 Procedure Start Time: 08:53 Procedure Stop Time: 08:53 Select all DRAINS/GRAFTS/IMPLANTS that apply: None Estimated Blood Loss: 0 Specimen collected: No Description of surgery: PROCEDURE PERFORMED: Bilateral lumbar medial branch block at L4, L5, and S1. ANESTHESIA: MAC. BLOOD LOSS: Minimal. COMPLICATIONS: None. DESCRIPTION OF PROCEDURE: History and physical of today was reviewed. Risks and benefits of the procedure were explained. The patient understood and agreed to proceed. Informed consent was obtained. IV inserted per routine protocol. The patient was taken to the operating room and placed in the prone position with a pillow positioned underneath the abdomen. The lower back area was prepped and draped in a sterile fashion using iodine x3. Under fluoroscopy guidance on AP view, the L4 through S1 vertebral bodies were visualized. The skin and subcutaneous tissue was anesthetized with approximately 5 mL of 1% lidocaine using a 25-gauge regular needle. Under direct visualization with fluoroscopy, at approximately 25-degree angle, starting on the left L4, ending on the right L4, passing through the L5 and S1 bilaterally, using a 22-gauge 3-1/2-inch spinal needle, the needle was advanced via the skin. The tip of the needle was maneuvered and directed towards the superior medial gutter of the transverse process at the vicinity of the medial branch. Once tip of the needle was in contact with the bone, the needle was pulled approximately 2 mm off the bone. After negative aspiration for blood or CSF and confirmation on AP, oblique as well as lateral view, a total of 12 mL of preservative-free 0.25% Marcaine with 80 mg of Depo-Medrol was injected in divided doses between those six levels. The needles were then removed intact. The patient experienced no sign or symptoms of intrathecal or intravascular injection. The patient experienced no paresthesia. The procedure was completed without any apparent difficulty or any complications. The patient appeared to tolerate it well. ASSESSMENT AND PLAN: This is a 74-year-old female with lumbosacral spondylosis, lumbosacral degenerative disc disease, lumbar facet arthropathy, status post bilateral lumbar medial branch block at L4-5 L5-S1, patient will continue her current medications, patient will follow-up in approximately 1-2 weeks for reevaluation. Surgical Findings: 1 Complications Complications: No 12/28/24 0854 Cosigner Signature (if applicable): CC: Dr. Raj Booth MD; Dr. Ko Benavides DO Signed Normal [facility] HEPACon 11-24-2024 Hep A IgM Ab Non-Reactive Normal Non-Reactive [facility] Comment on above: Performed By: #### H , IBC ####[facility] [place] [address]#### HEPAC ####[place] [address] Hep A IgM Ab Int Normal [facility] Comment on above: Result Comment: No s erological evidence of a current Hepatitis A infection. See Interp Performed By: #### H FP, IBC ####[place] [address]#### HEPAC ####[place] [address] Hep B Core IgM Ab Non-Reactive Normal Non-Reactive [facility] Comment on above: Performed By: #### H FP, IBC ####[place] [address]#### HEPAC ####[place] [address] Hep B Core IgM Ab Int Normal [facility] Comment on above: Result Comment: Samp les with a value < 0.80 Index are considered nonreactive (negative) for IgM antibodies to hepatitis B core antigen. See Interp Performed By: #### H TRENT, IBC ####[place] [address]#### HEPAC ####[place] [address] Hep B Surf Ag Non-Reactive Normal Non-[facility] Comment on above: Performed By: #### H TRENT, IBC ####[place] [address]#### HEPAC ####[place] [address] Hep C Ab Non-Reactive Normal Non-Reactive [facility] Comment on above: Performed By: #### H TRENT, IBC ####[place] [address]#### HEPAC ####[place] [address] Hep C Ab Int Normal [facility] Comment on above: Result Comment: Nonr eactive: Samples with a value < 0.80 are considered nonreactive (negative) for antibodies to HCV. A negative test result does not exclude the possibility of exposure to or infection with HCV. HCV antibodies may be undetectable in some stages of the infection and in some clinical conditions. See Interp Performed By: #### H TRENT, IBC ####[place] [address]#### HEPAC ####[address] [address] HFPon 11-24-2024 Bili Indirect 0.3 mg/dL Normal [facility] Comment on above: Performed By: #### H TRENT, IBC ####[place] [address]#### HEPAC ####[place] [address] Albumin Level 3.7 G/dL Normal 3.4-4.8 [facility] Comment on above: Performed By: #### H TRENT, IBC ####[place] [address]#### HEPAC ####[place] [address] Albumin/Globulin [Mass ratio] 1.1 {ratio} Normal 1.1-2.5 [facility] Comment on above: Performed By: #### H TRENT, IBC ####[place] [address]#### HEPAC ####[place] [address] ALP [Catalytic activity/Vol] 69 U/L Normal 40-135 [facility] Comment on above: Performed By: #### H TRENT, IBC ####[place] [address]#### HEPAC ####[place] [address] ALT [Catalytic activity/Vol] 77 U/L High 14-59 [facility] Comment on above: Performed By: #### H TRENT, IBC ####[place] [address]#### HEPAC ####[place] [address] AST [Catalytic activity/Vol] 41 U/L High 10-40 [facility] Comment on above: Performed By: #### H TRENT IBC ####[id number] [address]#### HEPAC ####[place] [address] Bili Direct 0.1 mg/dL Normal 0.0-0.2 [facility] Comment on above: Result Comment: Use of this assay is not recommended for patients undergoing treatment with eltrombopag due to the potential for falsely elevated results. Performed By: #### H TRENT IB ####[place] [address]#### HEPAC ####[place] [address] Bili Total 0.4 mg/dL Normal 0.2-1.0 [facility] Comment on above: Result Comment: Use of this assay is not recommended for patients undergoing treatment with eltrombopag due to the potential for falsely elevated results. Performed By: #### H TRENT IB ####[place] [address]#### HEPAC ####[place] [address] Globulin 3.5 G/dL Normal 1.5-3.8 [facility] Comment on above: Performed By: #### H TRENT IBC ####[place] [address]#### HEPAC ####[place] [address] Total Protein 7.2 G/dL Normal 6.4-8.2 [facility] Comment on above: Performed By: #### Jesus NEWMAN IBC ####[place] [address]#### HEPAC ####[place] [address] IBCon 11-24-2024 TIBC 355 mcg/dL Normal 250-450 [facility] Comment on above: Performed By: #### H FP, IBC #### [facility] [address] [place], [place] [address] #### HEPAC #### [facility] [address] [place] [address] LABORATORYOrdered By: SYSTEM SYSTEM on 11-24-2024 Albumin BCP dye [Mass/Vol] 3.7 G/dL Normal 3.4 - 4.8 G/dL AO ADM SS Albumin/Globulin [Mass ratio] 1.1 {ratio} Normal 1.1 - 2.5 ratio AO ADM SS ALP [Catalytic activity/Vol] 69 U/L Normal 40 - 135 U/L AO ADM SS ALT With P-5'-P [Catalytic activity/Vol] 77 U/L High 14 - 59 U/L AO ADM SS AST With P-5'-P [Catalytic activity/Vol] 41 U/L High 10 - 40 U/L AO ADM SS Bilirubin [Mass/Vol] 0.4 mg/dL Normal 0.2 - 1 .0 mg/dL AO ADM SS Comment on above: Interpretive Data: U se of this assay is not recommended for patients undergoing treatment with eltrombopag due to the potential for falsely elevated results. Bilirubin.direct [Mass/Vol] 0.1 mg/dL Normal 0.0 - 0.2 mg/dL AO ADM SS Comment on above: Interpretive Data: U se of this assay is not recommended for patients undergoing treatment with eltrombopag due to the potential for falsely elevated results. Bilirubin.direct [Mass/Vol] 0.3 mg/dL Invalid Interpretation Code AO Chemistry S Globulin 3.5 G/dL Normal 1.5 - 3.8 G/dL AO ADM SS Iron binding capacity [Mass/Vol] 355 mcg/dL Normal 250 - 450 mcg/dL AO ADM SS Protein [Mass/Vol] 7.2 G/dL Normal 6.4 - 8.2 G/dL AO ADM SS LABORATORYOrdered By: Cindy Shah on 11-24-2024 HAV IgM IA Ql Non-Reactive (11/24/24 11:21 AM) Normal Non-Reactive AH ADM SS HAV IgM IA Ql No serological evide nce of a current Hepatitis A infection. Invalid Interpretation Code AH Chemistry S HBV core IgM IA Ql Non-Reactive (11/24/24 11:21 AM) Normal Non-Reactive AH ADM SS HBV core IgM IA Ql Samples with a value < 0.80 Index are considered nonreactive (negative) for IgM antibodies to hepatitis B core antigen. Invalid Interpretation Code AH Chemistry S HBV surface Ag IA Ql Non-Reactive (11/24/24 11:21 AM) Normal Non-Reactive AH ADM SS HCV Ab IA Ql Non-Reactive (11/24/24 11:21 AM) Normal Non-Reactive AH ADM SS HCV Ab IA Ql Nonreactive: Samples with a value < 0.80 are considered nonreactive (negative) for antibodies to HCV.A negative test result does not exclude the possibility of exposure to or infection with HCV. HCV antibodies may be undetectable in some stages of the infection and in some clinical conditions. Invalid Interpretation Code Chemistry S Bedside Glucoseon 11-09-2024 FINGERSTICK GLU 125 mg/dL High 74-106 [facility] Comment on above: Result Comment: NATHALIA DUQUE OF PATIENT CARE PER NURSING PROTOCOL Performed By: #### L 501.080 ####[facility] [id number] [facility] [place], [address] Fluor Guidance for Spine Inj on 11-09-2024 Fluor Guidance for Spine Inj [facility] Imaging Services [address] [place] [address] Fluor Guidance for Spine Inj MR#: [id number] Acct: [id number] Name: ANNA SANCHEZ Rep #: [id number] : 1950 F 74 From: James Perez MD PCP: Dr. Ko Benavides DO Status: [facility] Study: Fluor Guidance for Spine Inj Date of Exam: Exam# [id number] Ordering Dr: Raj Booth MD Fluoroscopic guidance was used intraoperatively. Please refer to the operative note for further details. 1 image. Total radiation dose 2.69 mGy. Total fluoroscopy time 4.6 seconds. Reading Location[facility] CC: Dr. Raj Booth MD; Dr. Ko Benavides DO Supervisor Reinforced Steel Placing: Signed Normal [facility] deOrdered By: Raj Booth on 11-09-2024 Bedside Glucose ([facility]) 125 mg/dL High 74-106 [facility] Comment on above: MANAGEMENT OF PATIEN T CARE PER NURSING PROTOCOL MR/POSTOP.ANEon 11-09-2024 MR/POSTOP.ANE [facility] Medical Records Department [address] [facility] [place] [address] Anesthesia Postop Eval I 11/09/24755 MR#: [id number] Acct: [id number] Name: ANNA SANCHEZ Rep #: [id number] : 1950 74 From: Chris Hogan CRNA PCP: Dr. Ko Benavides DO Status:REG SDC Y Race: C Location: [place] [address] Anesthesia: Postop Eval I Current Vital Signs Temperature: 97.8 F Pulse Rate: 81 Blood Pressure: 133/75 Respiratory Rate: 18 Pulse Ox: 94 Assessment Airway patent: Yes Spontaneous unlabored respirations: Yes nausea: No Vomiting: No Anesthesia Complication: No Fluid Hydration Crystalloid volume administer (ml): 20 Total IV fluid infused: 20 Progress Note Anesthesia document: Postop Eval 1 completed: Yes 11/09/24755 Date Chris Hogan CRNA Cosigner Signature: Date CC: Signed Normal [facility] MR/[id number] 11-09-2024 MR/POSTOPAN2 [facility] Medical Records Department [address] [place] [address] Anesthesia Postop Eval II 11/09/2457 MR#: [id number] Acct: [id number] Name: ANNA SANCHEZ Rep #: [id number] : 1950 74 From: Raysa Fuentes MD PCP: Dr. Ko Benavides, DO Status:DEP [facility] Y Race: C Location: [facility] Anesthesia Postop Eval I Sum Postop Eval Completion status Anesthesia document: Postop Eval 1 completed: Yes Anesthesia Postop Eval I Summary Anesthesia Postop Eval I Summary: Anesthesia Postop Eval I: Assessment Summary Airway patent Yes 11/09/24 07:56 STAINED GLASS GLAZIER HELPER.TNES Spontaneous unlabored Yes 11/09/24 07:56 STAINED GLASS GLAZIER HELPER.TNES respirations Mental status nausea No 11/09/24 07:56 STAINED GLASS GLAZIER HELPER.TNES Vomiting No 11/09/24 07:56 STAINED GLASS GLAZIER HELPER.TNES Anesthesia Postop Eval I: Fluid Summary Crystalloid volume administer 20 11/09/24 07:56 STAINED GLASS GLAZIER HELPER.TNES (ml) Colloids volume administered ( ml) Blood Product volume administered (ml) Total IV fluid infused 20 11/09/24 07:56 STAINED GLASS GLAZIER HELPER.TNES Anesthesia Postop Eval I: Summary Notes Anesthesia Complication No 11/09/24 07:56 STAINED GLASS GLAZIER HELPER.TNES Anesthesia Complication Comment: Post-operative progress note Anesthesia: Postop Eval II Evaluation Mental status: Awake Pain Level: 0 nausea: No Vomiting: No 11/09/24 0857 Date Raysa Fuentes MD Cosign Signature: Date CC: Signed Normal [facility] Operative Reporton 5 Operative Report [facility] Medical Records Department [address] [place] [address] Operative Report 11/09/24 0755 MR#: [id number] Acct: [id number] Name: ANNA SANCHEZ Rep #: [id number] : 1950 74 From: Raj Booth MD PCP: Dr. Ko Benavides, DO Status:[facility] Location: [place] [address] Operative Report (Standard) Operative Information Date of Procedure: 02/17/25 Pre-Operative Diagnosis: 1 Post-Operative Diagnosis: 1 Surgery/Procedure Performed: 1 vacuum frame operator: No Type of Anesthesia: Local MAC RN Documented Start/Stop Times: Operation Date: 11/09/24 07:30 Case Time Into Pre-Op 11/09/24 06:11 Out of Pre-Op 11/09/24 07:34 Anesthesia Start 11/09/24 07:38 Into Room 11/09/24 07:38 Procedure Start 11/09/24 07:45 Procedure End 11/09/24 07:50 Anesthesia End 11/09/24 07:52 Into Recovery 11/09/24 07:52 Out of Room 11/09/24 07:52 Procedure Start Time: 07:55 Procedure Stop Time: 07:55 Select all DRAINS/GRAFTS/IMPLANTS that apply: None Estimated Blood Loss: 0 Specimen collected: No Description of surgery: PREOPERATIVE DIAGNOSIS: Lumbosacral radiculopathy, lumbosacral degenerative disc disease, lumbosacral spinal stenosis POSTOPERATIVE DIAGNOSIS:Lumbosacral radiculopathy, lumbosacral degenerative disc disease, lumbosacral spinal stenosis PROCEDURE PERFORMED: Diagnostic/therapeutic caudal epidural steroid injection Under fluoroscopic guidance. ANESTHESIA: MAC. BLOOD LOSS: Minimal. COMPLICATIONS: None. DESCRIPTION OF PROCEDURE: History and physical of today was reviewed. Risks and benefits of the procedure were explained. The patient understood and agreed to proceed. Informed consent was obtained. IV inserted per routine protocol. The patient was taken to the operating room and placed in the prone position with a pillow positioned underneath the abdomen. The lower back and tailbone area was prepped and draped in a sterile fashion using iodine x3. Under fluoroscopy guidance on a lateral view, the caudal space was identified. The skin and subcutaneous tissue was anesthetized with approximately 3 mL of 1% lidocaine using a 25-gauge regular needle. Under direct visualization with fluoroscopy, using a 22-gauge 3-1/2-inch spinal needle, the needle was advanced via the skin through the sacral hiatus. The tip of the needle was passed through the sacrococcygeal ligament and advanced to approximately S4 area. After negative aspiration of blood or CSF, a total of 3 mL of contrast was injected to confirm correct placement of the needle as well as cephalad spread. The spread was followed to approximately L5 area. After confirmation on AP as well as lateral view and repeated negative aspiration, a total of 15 mL of preservative-free 0.125% Marcaine with 80 mg of Depo-Medrol was injected easily. The needle was then removed intact. The patient experienced no sign or symptoms of intrathecal or intravascular injection. The patient experienced no paresthesia. The procedure was completed without any apparent difficulty or any complications. The patient appeared to tolerate it well. ASSESSMENT AND PLAN: This is a 74-year-old female with lumbosacral radiculopathy, lumbosacral spinal stenosis, lumbosacral degenerative disc disease status post diagnostic/therapeutic caudal epidural steroid injection, patient will continue her current medications, patient will follow-up in approximately 2 weeks for reevaluation. Surgical Findings: 0 Complications Complications: No Admit VTE Documentation VTE Present on Admission: No VTE Mechan Device Prophylaxis: None VTE Pharm Prophylaxis ordered?: No 11/09/24 0758 Cosigner Signature (if applicable): CC: Dr. Raj Booth MD; Dr. Ko Benavides DO Signed Normal [facility] US ELASTOGRAPHY LIVER W/ABD LTDon 11-03-2024 US ELASTOGRAPHY LIVER W/ABD LTD ORIGINAL EXAMINATION: LIVER ELASTOGRAPHY ULTRASOUND11/03/2024 10:30 am RUQ Limited ultrasound abdomen and Hepatic elastography COMPARISON: Ultrasound 09/07/2024 TECHNIQUE: This report is based on interpretation of permanently recorded ultrasound images. HISTORY: ORDERING SYSTEM PROVIDED HISTORY: Reason for Exam: hepatic steatosis, rule out fibrosis, fatty liver on previous ultrasound FINDINGS: The gallbladder is not seen surgically absent. There is no intrahepatic bile duct dilatation. The common duct is 8 mm at the jaime hepatis. The liver is coarsened with diffusely increased echogenicity and limited depth penetration. There is some masking of the portal triads. The main portal vein is patent with antegrade blood flow. The pancreas is partially obscured, no focal abnormality or mass is seen in the visualized portions. No ascites is seen in the RUQ. Limited survey images of the right kidney show normal size cortical thickness and echogenicity with no pelvocaliectasis.. Elastography of the liver was performed in the right lobe. Multiple attempts were made but no reliable measurements could be obtained due to patient's large body habitus and increased depth of the liver from the skin surface. IMPRESSION: Failed liver elastography due to patient factors. Liver steatosis or other diffuse hepatocellular disease. No acute findings. Interpreted by: Kevin Holm MD Preliminary Report By: Kevin Holm MD Electronically signed By Kevin Holm MD Dictated Date: 11/03/2024 3:48:11 PM Prelim Date: 11/03/2024 3:50:39 PM Sign Date: 11/03/2024 3:50:39 PM Ordering Provider: KO Parmar [facility] .Auto Diffon 10-27-2024 Basophil, Absolute 0.1 10 3/mcL Normal 0.0-0.2 [facility] Comment on above: Performed By: #### A SHAREE, ADIFF, FE, GFR, CBC, CMP, MG, TSHR ####[place] [address] [place], [place] [address] Basophils/100 WBC (Bld) 0.8 % Normal 0.0-2.5 [facility] Comment on above: Performed By: #### A SHAREE, ADIFF, FE, GFR, CBC, CMP, MG, TSHR ####[address] [address] Eosinophil, Absolute 0.2 10 3/mcL Normal 0.0-0.7 [facility] Comment on above: Performed By: #### A SHAREE, ADIFF, FE, GFR, CBC, CMP, MG, TSHR ####[place] [address] [place], [place] [address] Eosinophils/100 WBC (Bld) 2.7 % Normal 0.0-7.0 [facility] Comment on above: Performed By: #### A SHAREE, ADIFF, FE, GFR, CBC, CMP, MG, TSHR ####[place] [address] [place], [place] [address] Lymphocyte, Absolute 2.3 10 3/mcL Normal 0.9-4.3 [facility] Comment on above: Performed By: #### A SHAREE, ADIFF, FE, GFR, CBC, CMP, MG, TSHR ####[place] [address] [place], [place] [address] Lymphocytes/100 WBC (Bld) 30.4 % Normal 20.0-40.0 [facility] Comment on above: Performed By: #### A SHAREE, ADIFF, FE, GFR, CBC, CMP, MG, TSHR ####[place] [address] [place], [place] [address] Monocyte, Absolute 0.5 10 3/mcL Normal 0.1-1.4 [facility] Comment on above: Performed By: #### A SHAREE, ADIFF, FE, GFR, CBC, CMP, MG, TSHR ####[address] [address] Monocytes/100 WBC (Bld) 6.4 % Normal 2.0-13.0 [facility] Comment on above: Performed By: #### A SHAREE, ADIFF, FE, GFR, CBC, CMP, MG, TSHR ####[place] [address] [place], [place] [address] Neutrophils/100 WBC (Bld) 59.7 % Normal 50.0-75.0 [facility] Comment on above: Performed By: #### A SHAREE, ADIFF, FE, GFR, CBC, CMP, MG, TSHR ####[address] [address] .GFRon 10-27-2024 Estimated Glomerular Filtration Rate 68 ml/min/1.73sqm Normal [facility] Comment on above: Result Comment: Stages of Chronic Kidney Disease (CKD) Stage Description eGFR(ml/min/1.73 sq.m.) CKD 1 Normal kidney function or >=90 normal kindney function with possible kidney damage (ex. Proteinuria) CKD 2 Kidney damage with mild loss 60-89 of kidney function CKD 3a Mild to moderate loss of kidney 45-59 function CKD 3b Moderate to severe loss of 30-44 of kindey function CKD 4 Severe loss of kidney function 15-29 CKD 5 Kidney failure <15 Note: (go live 2024) the eGFR calculation was updated to the 2020 CKD-EPI creatinine equation without a race factor to calculate the eGFR results. Performed By: #### A SHAREE, ADIFF, FE, GFR, CBC, CMP, MG, TSHR ####[place] [address] [place], [place] [address] .NEUABSon 10-27-2024 Neutrophil, Absolute 4.5 10 3/mcL Normal 2.3-8.1 [facility] Comment on above: Performed By: #### A SHAREE, ADIFF, FE, GFR, CBC, CMP, MG, TSHR ####[place] [address] [place], [place] [address] CBCon 10-27-2024 Erythrocyte distribution width (RBC) [Ratio] 14.6 % Normal 11.5-15.5 [facility] Comment on above: Performed By: #### A SHAREE, ADIFF, FE, GFR, CBC, CMP, MG, TSHR ####[place] [address] Hematocrit (Bld) [Volume fraction] 42.0 % Normal 34.0-46.0 [facility] Comment on above: Performed By: #### A SHAREE, ADIFF, FE, GFR, CBC, CMP, MG, TSHR ####[place] [address] Hgb 13.9 G/dL Normal 12.0-16.0 [facility] Comment on above: Performed By: #### A SHAREE, ADIFF, FE, GFR, CBC, CMP, MG, TSHR ####[place] [address] MCH (RBC) [Entitic mass] 29.4 pg Normal 27.0-33.0 [facility] Comment on above: Performed By: #### A SHAREE, ADIFF, FE, GFR, CBC, CMP, MG, TSHR ####[place] [address] MCHC 33.0 G/dL Normal 32.0-36.0 [facility] Comment on above: Performed By: #### A SHAREE, ADIFF, FE, GFR, CBC, CMP, MG, TSHR ####[address] [address] MCV (RBC) [Entitic vol] 89.0 fL Normal 80.0-99.0 [facility] Comment on above: Performed By: #### A SHAREE, ADIFF, FE, GFR, CBC, CMP, MG, TSHR ####[facility] [place], [place] [address] Platelet 231 10 3/mcL Normal 150-450 [facility] Comment on above: Performed By: #### A SHAREE, ADIFF, FE, GFR, CBC, CMP, MG, TSHR ####[facility] [place], [place] [address] Platelet mean volume (Bld) [Entitic vol] 7.5 fL Normal 6.6-10.5 [facility] Comment on above: Performed By: #### A SHAREE, ADIFF, FE, GFR, CBC, CMP, MG, TSHR ####[place] [address] [place], [place] [address] RBC 4.72 10 6/mcL Normal 4.10-5.30 [facility] Comment on above: Performed By: #### A SHAREE, ADIFF, FE, GFR, CBC, CMP, MG, TSHR ####[place] [address] [place], [place] [address] WBC 7.5 10 3/mcL Normal 4.5-10.8 [facility] Comment on above: Performed By: #### A SHAREE, ADIFF, FE, GFR, CBC, CMP, MG, TSHR ####[facility] [place], [place] [address] CMPon 10-27-2024 Albumin Level 3.8 G/dL Normal 3.4-4.8 [facility] Comment on above: Performed By: #### A SHAREE, ADIFF, FE, GFR, CBC, CMP, MG, TSHR ####[facility] [place], [place] [address] Albumin/Globulin [Mass ratio] 1.1 {ratio} Normal 1.1-2.5 [facility] Comment on above: Performed By: #### A SHAREE, ADIFF, FE, GFR, CBC, CMP, MG, TSHR ####[facility] [place], [place] [address] ALP [Catalytic activity/Vol] 56 U/L Normal 40-135 [facility] Comment on above: Performed By: #### A SHAREE, ADIFF, FE, GFR, CBC, CMP, MG, TSHR ####[place] [address] [place], [place] [address] ALT [Catalytic activity/Vol] 60 U/L High 14-59 [facility] Comment on above: Performed By: #### A SHAREE, ADIFF, FE, GFR, CBC, CMP, MG, TSHR ####[address] [address] AST [Catalytic activity/Vol] 44 U/L High 10-40 [facility] Comment on above: Performed By: #### A SHAREE, ADIFF, FE, GFR, CBC, CMP, MG, TSHR ####[place] [address] [place], [place] [address] Bili Total 0.4 mg/dL Normal 0.2-1.0 [facility] Comment on above: Result Comment: Use of this assay is not recommended for patients undergoing treatment with eltrombopag due to the potential for falsely elevated results. Performed By: #### A SHAREE, ADIFF, FE, GFR, CBC, CMP, MG, TSHR ####[place] [address] [place], [place] [address] BUN/Creatinine Ratio 22 ratio Normal 7-27 [facility] Comment on above: Performed By: #### A SHAREE, ADIFF, FE, GFR, CBC, CMP, MG, TSHR ####[address] [address] Calcium [Mass/Vol] 9.8 mg/dL Normal 8.4-10.2 [facility] Comment on above: Performed By: #### A SHAREE, ADIFF, FE, GFR, CBC, CMP, MG, TSHR ####[address] [address] Chloride [Moles/Vol] 104 mmol/L Normal 98-107 [facility] Comment on above: Performed By: #### A SHAREE, ADIFF, FE, GFR, CBC, CMP, MG, TSHR ####[address] [address] CO2 [Moles/Vol] 31 mmol/L Normal 23-31 [facility] Comment on above: Performed By: #### A SHAREE, ADIFF, FE, GFR, CBC, CMP, MG, TSHR ####[address] [address] Creatinine [Mass/Vol] 0.90 mg/dL Normal 0.55-1.02 [facility] Comment on above: Result Comment: Test ing performed on HEALBE Dimension EXL analyzer using a modified kinetic Elan technique. Performed By: #### A SHAREE, ADIFF, FE, GFR, CBC, CMP, MG, TSHR ####[place] [address] [address] Electrolyte Balance 8.0 mEq/L Normal 4.0-15.[address] [facility] Comment on above: Performed By: #### A SHAREE, ADIFF, FE, GFR, CBC, CMP, MG, TSHR ####[address] [address] Globulin 3.6 G/dL Normal [facility] Comment on above: Performed By: #### A SHAREE, ADIFF, FE, GFR, CBC, CMP, MG, TSHR ####[address] [address] Glucose [Mass/Vol] 91 mg/dL Normal 83-110 [facility] Comment on above: Performed By: #### A SHAREE, ADIFF, FE, GFR, CBC, CMP, MG, TSHR ####[address] [address] Potassium [Moles/Vol] 4.5 mmol/L Normal 3.5-5.1 [facility] Comment on above: Performed By: #### A SHAREE, ADIFF, FE, GFR, CBC, CMP, MG, TSHR ####[address] [address] Sodium [Moles/Vol] 143 mmol/L Normal 136-145 [facility] Comment on above: Performed By: #### A SHAREE, ADIFF, FE, GFR, CBC, CMP, MG, TSHR ####[address] [place], [place] [address] Total Protein 7.4 G/dL Normal 6.4-8.2 [facility] Comment on above: Performed By: #### A SHAREE, ADIFF, FE, GFR, CBC, CMP, MG, TSHR ####[place] [place], [place] [address] Urea nitrogen [Mass/Vol] 20 mg/dL High 7-18 [facility] Comment on above: Performed By: #### A SHAREE, ADIFF, FE, GFR, CBC, CMP, MG, TSHR ####[address] [place], [place] [address] FEon 10-27-2024 Iron [Mass/Vol] 75 ug/dL Normal 50-170 [facility] Comment on above: Performed By: #### A SHAREE, ADIFF, FE, GFR, CBC, CMP, MG, TSHR ####[address] [address] [place], [place] [address] LABORATORYOrdered By: SYSTEM SYSTEM on 10-27-2024 Albumin BCP dye [Mass/Vol] 3.8 G/dL Normal 3.4 - 4.8 G/dL AO ADM SS Albumin/Globulin [Mass ratio] 1.1 {ratio} Normal 1.1 - 2.5 ratio AO ADM SS ALP [Catalytic activity/Vol] 56 U/L Normal 40 - 135 U/L AO ADM SS ALT With P-5'-P [Catalytic activity/Vol] 60 U/L High 14 - 59 U/L AO ADM SS AST With P-5'-P [Catalytic activity/Vol] 44 U/L High 10 - 40 U/L AO ADM SS Basophils (Bld) [#/Vol] 0.1 103/mcL Normal 0.0 - 0.2 10^3/mcL AO Workflow SS Basophils/100 WBC (Bld) 0.8 % Normal 0.0 - 2.5 % AO Workflow SS Bilirubin [Mass/Vol] 0.4 mg/dL Normal 0.2 - 1 .0 mg/dL AO ADM SS Comment on above: Interpretive Data: U se of this assay is not recommended for patients undergoing treatment with eltrombopag due to the potential for falsely elevated results. Calcium [Mass/Vol] 9.8 mg/dL Normal 8.4 - 10. 2 mg/dL AO ADM SS Chloride [Moles/Vol] 104 mmol/L Normal 98 - 10 7 mmol/L AO ADM SS CO2 [Moles/Vol] 31 mmol/L Normal 23 - 31 mmol/L AO ADM SS Creatinine [Mass/Vol] 0.90 mg/dL Normal 0.55 - 1.02 mg/dL AO ADM SS Comment on above: Interpretive Data: T esting performed on Siemens Dimension EXL analyzer using a modified kinetic Elan technique. Electrolyte Balance 8.0 mEq/L Normal 4.0 - 15 .0 mEq/L AO ADM SS Eosinophil, Absolute 0.2 103/mcL Normal 0.0 - 0 .7 10^3/mcL AO Workflow SS Eosinophils/100 WBC (Bld) 2.7 % Normal 0.0 - 7.0 % AO Workflow SS Erythrocyte distribution width (RBC) [Ratio] 14.6 % Normal 11.5 - 15.5 % AO Workflow SS Estimated Glomerular Filtration Rate 68 ml/min/1.73sqm Invalid Interpretation Code AO Chemistry S Comment on above: Interpretive Data: Stages of Chronic Kidney Disease (CKD) Stage Description eGFR(ml/min/1.73 sq.m.) CKD 1 Normal kidney function or >=90 normal kindney function with possible kidney damage (ex. Proteinuria) CKD 2 Kidney damage with mild loss 60-89 of kidney function CKD 3a Mild to moderate loss of kidney 45-59 function CKD 3b Moderate to severe loss of 30-44 of kindey function CKD 4 Severe loss of kidney function 15-29 CKD 5 Kidney failure <15 Note: (go live 2024) the eGFR calculation was updated to the 2020 CKD-EPI creatinine equation without a race factor to calculate the eGFR results. Globulin 3.6 G/dL Invalid Interpretation Code AO ADM SS Glucose [Mass/Vol] 91 mg/dL Normal 83 - 110 mg/dL AO ADM SS Hematocrit (Bld) [Volume fraction] 42.0 % Normal 34.0 - 46.0 % AO Workflow SS Hemoglobin (Bld) [Mass/Vol] 13.9 G/dL Normal 12.0 - 16.0 G/dL AO Workflow SS Iron [Mass/Vol] 75 ug/dL Normal 50 - 170 mcg/dL AO ADM SS Lymphocytes (Bld) [#/Vol] 2.3 103/mcL Normal 0.9 - 4.3 10^3/mcL AO Workflow SS Lymphocytes/100 WBC (Bld) 30.4 % Normal 20.0 - 40.0 % AO Workflow SS Magnesium [Mass/Vol] 1.9 mg/dL Normal 1.8 - 2 .4 mg/dL AO ADM SS MCH (RBC) [Entitic mass] 29.4 pg Normal 27.0 - 33.0 pg AO Workflow SS MCHC 33.0 G/dL Normal 32.0 - 36.0 G/dL AO Workflow SS MCV (RBC) [Entitic vol] 89.0 fL Normal 80.0 - 99.0 fL AO Workflow SS Monocytes (Bld) [#/Vol] 0.5 103/mcL Normal 0.1 - 1.4 10^3/mcL AO Workflow SS Monocytes/100 WBC (Bld) 6.4 % Normal 2.0 - 13.0 % AO Workflow SS Neutrophils (Bld) [#/Vol] 4.5 103/mcL Normal 2.3 - 8.1 10^3/mcL AO Workflow SS Neutrophils/100 WBC (Bld) 59.7 % Normal 50.0 - 75.0 % AO Workflow SS Platelet mean volume (Bld) [Entitic vol] 7.5 fL Normal 6.6 - 10.5 fL AO Workflow SS Platelets (Bld) [#/Vol] 231 103/mcL Normal 150 - 450 10^3/mcL AO Workflow SS Potassium [Moles/Vol] 4.5 mmol/L Normal 3.5 - 5.1 mmol/L AO ADM SS Protein [Mass/Vol] 7.4 G/dL Normal 6.4 - 8.2 G/dL AO ADM SS RBC (Bld) [#/Vol] 4.72 106/mcL Normal 4.10 - 5.3 0 10^6/mcL AO Workflow SS Sodium [Moles/Vol] 143 mmol/L Normal 136 - 145 mmol/L AO ADM SS TSH Qn 1.79 m[IU]/L Normal 0.36 - 3.74 mcIU/mL AO ADM SS Urea nitrogen [Mass/Vol] 20 mg/dL High 7 - 18 mg/dL AO ADM SS Urea nitrogen/Creatinine [Mass ratio] 22 ratio Normal 7 - 27 ratio AO ADM SS WBC (Bld) [#/Vol] 7.5 103/mcL Normal 4.5 - 10.8 10^3/mcL AO Workflow SS MGon 10-27-2024 Magnesium [Mass/Vol] 1.9 mg/dL Normal 1.8-2.4 [facility] Comment on above: Performed By: #### A SHAREE, ADIFF, FE, GFR, CBC, CMP, MG, TSHR ####[facility] [place], [place] [address] TSHRon 10-27-2024 TSH Qn 1.79 m[IU]/L Normal 0.36-3.74 [facility] Comment on above: Performed By: #### A SHAREE, ADIFF, FE, GFR, CBC, CMP, MG, TSHR ####[facility] [place], [place] [address] US ABDOMEN LIMITEDon 024 US ABDOMEN LIMITED ORIGINAL EXAMINATION: RIGHT UPPER QUADRANT ULTRASOUND 09/07/2024 8:54 am COMPARISON: None. HISTORY: ORDERING SYSTEM PROVIDED HISTORY: Reason for Exam: hepatomegaly, alcohol use All images are recorded and archived. FINDINGS: LIVER: The liver demonstrates diffuse increased echogenicity without evidence of intrahepatic biliary ductal dilatation. Liver measures 15 cm in greatest dimension. There is no hepatic mass. BILIARY SYSTEM: Gallbladder surgically absent. Common bile duct is within normal limits measuring 6.9 mm. RIGHT KIDNEY: The right kidney is grossly unremarkable without evidence of hydronephrosis. Right kidney measures 11.8 x 4.5 x 3.7 cm appropriate cortical thickness and echotexture. PANCREAS: Visualized portions of the pancreas are unremarkable. OTHER: No evidence of right upper quadrant ascites. IMPRESSION: 1. Diffuse fatty infiltration of the liver. 2. Status post cholecystectomy. Interpreted by: Madhav Dean DO Preliminary Report By: Madhav Dean DO Electronically signed By Madhav Dean DO Dictated Date: 09/07/2024 10:51:30 AM Prelim Date: 09/07/2024 10:53:58 AM Sign Date: 09/07/2024 10:53:58 AM Ordering Provider: KO Parmar [facility] .GFRon 09-02-2024 GFR 88 ml/min/1.73sqm Normal [facility] Comment on above: Result Comment: GFR Population mean for , Non- Americans Ages 20-29 = 116 mL/min/1.73 sq.m. Ages 30-39 = 107 mL/min/1.73 sq.m. Ages 40-49 = 99 mL/min/1.73 sq.m. Ages 50-59 = 93 mL/min/1.73 sq.m. Ages 60-69 = 85 mL/min/1.73 sq.m. Ages 70+ = 75 mL/min/1.73 sq.m. Chronic Kidney Disease: Less than 60 mL/min/1.73 square meters End Stage Renal Disease: Less than 15 mL/min/1.73 square meters Performed By: #### Ty GREGG, CMP ####[address] [place], [place] [address] GFR Non- 72 ml/min/1.73sqm Normal [facility] Comment on above: Result Comment: GFR Population mean for , Non- Americans Ages 20-29 = 116 mL/min/1.73 sq.m. Ages 30-39 = 107 mL/min/1.73 sq.m. Ages 40-49 = 99 mL/min/1.73 sq.m. Ages 50-59 = 93 mL/min/1.73 sq.m. Ages 60-69 = 85 mL/min/1.73 sq.m. Ages 70+ = 75 mL/min/1.73 sq.m. Chronic Kidney Disease: Less than 60 mL/min/1.73 square meters End Stage Renal Disease: Less than 15 mL/min/1.73 square meters Performed By: #### G , CMP ####[address] [address] [place], [place] [address] CMPon 09-02-2024 Albumin Level 3.3 G/dL Low 3.4-4.8 [facility] Comment on above: Performed By: #### G , CMP ####[address] [place], [place] [address] Albumin/Globulin [Mass ratio] 1.1 {ratio} Normal 1.1-2.5 [facility] SYSTEM Comment on above: Performed By: #### G , CMP ####[place] [address] [place], [place] [address] ALP [Catalytic activity/Vol] 54 U/L Normal 40-135 [facility] Comment on above: Performed By: #### G FR, CMP ####[place] [address] [place], [place] [address] ALT [Catalytic activity/Vol] 58 U/L Normal 14-59 [facility] Comment on above: Performed By: #### G FR, CMP ####[place] [address] [place], [place] [address] AST [Catalytic activity/Vol] 30 U/L Normal 10-40 [facility] Comment on above: Performed By: #### Ty GREGG, CMP ####[place] [address] [place], [place] [address] Bili Total 0.5 mg/dL Normal 0.2-1.0 [facility] Comment on above: Result Comment: Use of this assay is not recommended for patients undergoing treatment with eltrombopag due to the potential for falsely elevated results. Performed By: #### Ty GREGG, CMP ####[place] [address] [place], [place] [address] BUN/Creatinine Ratio 24 ratio Normal 7-27 [facility] Comment on above: Performed By: #### G , CMP ####[place] [address] [place], [place] [address] Calcium [Mass/Vol] 9.4 mg/dL Normal 8.4-10.2 [facility] Comment on above: Performed By: #### G FR, CMP ####[place] [address] [place], [place] [address] Chloride [Moles/Vol] 105 mmol/L Normal 98-107 [facility] Comment on above: Performed By: #### G FR, CMP ####[place] [address] [place], [place] [address] CO2 [Moles/Vol] 33 mmol/L High 23-31 [facility] Comment on above: Performed By: #### G FR, CMP ####[place] [address] [place], [place] [address] Creatinine [Mass/Vol] 0.78 mg/dL Normal 0.55-1.02 [facility] Comment on above: Result Comment: Test ing performed on Siemens Dimension EXL analyzer using a modified kinetic Elan technique. Performed By: #### G FR, CMP ####[place] [address] [place], [place] [address] Electrolyte Balance 6.0 mEq/L Normal 4.0-15.[address] [facility] Comment on above: Performed By: #### G FR, CMP ####[place] [address] [place], [place] [address] Globulin 3.0 G/dL Normal [facility] Comment on above: Performed By: #### G FR, CMP ####[place] [address] [place], [place] [address] Glucose [Mass/Vol] 114 mg/dL High 83-110 [facility] Comment on above: Performed By: #### G FR, CMP ####[place] [address] [place], [place] [address] Potassium [Moles/Vol] 4.3 mmol/L Normal 3.5-5.1 [facility] Comment on above: Performed By: #### G FR, CMP ####[place] [address] [place], [place] [address] Sodium [Moles/Vol] 144 mmol/L Normal 136-145 [facility] Comment on above: Performed By: #### G FR, CMP ####[place] [address] [place], [place] [address] Total Protein 6.3 G/dL Low 6.4-8.2 [facility] Comment on above: Performed By: #### G FR, CMP ####[place] [address] [place], [place] [address] Urea nitrogen [Mass/Vol] 19 mg/dL High 7-18 [facility] Comment on above: Performed By: #### G FR, CMP ####[address] [address] LIPIDon 09-02-2024 Cholesterol [Mass/Vol] 147 mg/dL Normal 0-200 [facility] Comment on above: Result Comment: Chol esterol Reference Interval: Less than 200 Desirable 200-239 Borderline high risk 240 and above High risk Performed By: #### L IPID ####[facility] [place], [place] [address] Cholesterol in HDL [Mass/Vol] 57 mg/dL Normal 40-60 [facility] Comment on above: Performed By: #### L IPID ####[place] [address] [place], [place] [address] Cholesterol in LDL [Mass/Vol] 76 mg/dL Normal 0-130 [facility] Comment on above: Performed By: #### L IPID ####[place] [address] [place], [place] [address] Triglyceride [Mass/Vol] 71 mg/dL Normal 0-150 [facility] Comment on above: Result Comment: Trig lyceride Reference Interval: Less than 150 Normal 150-199 Borderline high risk 200-499 High risk 500 or higher Very high risk Performed By: #### L IPID ####[place] [address] [place], [place] [address] Bedside Glucoseon 08-10-2024 FINGERSTICK GLU 140 mg/dL High 74-106 [facility] Comment on above: Result Comment: NATHALIA GEMENT OF PATIENT CARE PER NURSING PROTOCOL Performed By: #### L 501.080 #### [facility] Laboratory [address] [facility] [place], [address] MR/POSTOP.ANEon 08-10-2024 MR/POSTOP.[facility] Medical Records Department [address] [place] [address] Anesthesia Postop Eval I 08/10/24 1026 MR#: [id number] Acct: [id number] Name: ANNA SANCHEZ Rep #: [id number] : 1950 74 From: Cary Forrester PCP: Dr. Ko Benavides, DO Status:REG SDC Y Race: C Location: [facility]- Anesthesia: Postop Eval I Current Vital Signs Temperature: 97.4 F Pulse Rate: 77 Blood Pressure: 110/58 Respiratory Rate: 18 Pulse Ox: 96 Assessment Airway patent: Yes Spontaneous unlabored respirations: Yes nausea: No Vomiting: No Anesthesia Complication: No Fluid Hydration Crystalloid volume administer (ml): 0 Total IV fluid infused: 0 Progress Note Anesthesia document: Postop Eval 1 completed: No 08/10/24 1029 Date Carycarmen Forrester Cosigner Signature: Date CC: Signed Normal [facility] MR/[id number] 08-10-2024 [facility] Medical Records Department [address] [place] [address] Anesthesia Postop Eval II 08/10/24 1113 MR#: [id number] Acct: [id number] Name: ANNA SANCHEZ Rep #: [id number] : 1950 74 From: Raysa Fuentes MD PCP: Dr. 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 respirations Mental status nausea No 08/10/24 10:26 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 Vomiting No 08/10/24 10:26 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 Anesthesia Postop Eval I: Fluid Summary Crystalloid volume administer 0 08/10/24 10:26 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 (ml) Colloids volume administered ( ml) Blood Product volume administered (ml) Total IV fluid infused 0 08/10/24 10:26 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 Anesthesia Postop Eval I: Summary Notes Anesthesia Complication No 08/10/24 10:26 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 Anesthesia Complication Comment: Post-operative progress note Anesthesia: Postop Eval II Evaluation Mental status: Awake Pain Level: 0 nausea: No Vomiting: No 08/10/24 1113 Date Raysa Fuentes MD Cosignstephanie Signature: Date CC: Signed Normal [facility] Operative Reporton 4 Operative Report [facility] Medical Records Department [address] [place] [address] Operative Report 08/10/24 1024 MR#: [id number] Acct: [id number] Name: ANNA SANCHEZ Rep #: [id number] : 1950 74 From: Raj Booth MD PCP: Dr. Ko Benavides DO Status:[facility] Location: [place] [address] Operative Report (Standard) Operative Information Surgery/Procedure Performed: Right-sided sacroiliac joint steroid injection under fluoroscopic guidance Surgeon: Raj Booth Date of Procedure: 08/10/24 Procedure Start Time: 10:25 Procedure Stop Time: 10:25 Pre-Operative Diagnosis: Sacroiliitis, sacroiliac joints dysfunction Post-Operative Diagnosis: Sacroiliitis, sacroiliac joints dysfunction Select all DRAINS/GRAFTS/IMPLANTS that apply: None Type of Anesthesia: Local MAC and MAC Estimated Blood Loss: 1 cc Specimen collected: No Description of surgery: PREOPERATIVE DIAGNOSES: 1. Sacroiliitis. 2. Sacroiliac joint dysfunction. POSTOPERATIVE DIAGNOSES: 1. Sacroiliitis. 2. Sacroiliac joint dysfunction. PROCEDURE PERFORMED: Right-sided sacroiliac joint steroid injection under fluoroscopy guidance. ANESTHESIA: MAC. BLOOD LOSS: Minimal. COMPLICATIONS: None. DESCRIPTION OF PROCEDURE: History and physical of today was reviewed. Risks and benefits of the procedure were explained. The patient understood and agreed to the procedure. Informed consent was obtained. IV inserted per routine protocol. The patient was taken to the operating room and placed in the prone position with a pillow positioned underneath the abdomen. The right lower back and buttock area was prepped and draped in a sterile fashion using iodine x3. Under fluoroscopy guidance on an AP view, the right SI joint was visualized. The skin and subcutaneous tissue was anesthetized with approximately 3 mL of 1% lidocaine using a 25-gauge regular needle. Under direct visualization with fluoroscopy at approximately 15-degree angle, using a 22-gauge 3-1/2-inch spinal needle, the needle was advanced via the skin. The tip of the needle was maneuvered and directed towards the inferior one-third of the posterior SI joint. Once the tip of the needle was at the vicinity of the joint, after negative aspiration for blood or CSF, a total of 1 mL of contrast was injected to confirm correct placement of the needle as well as cephalocaudal spread. Confirmation was obtained on AP as well as oblique view. After repeated negative aspiration and confirmation, a total of 4 mL of preservative-free 0.25% Marcaine with 40 mg of Depo-Medrol was injected in and around the SI joint. The needle was then removed intact. The patient experienced no sign or symptoms of intrathecal or intravascular injection. The patient experienced no paresthesia. The procedure was completed without any apparent difficulty or any complications. The patient appeared to tolerate it well. ASSESSMENT AND PLAN: This is a 74-year-old female with sacroiliitis sacral iliac joint dysfunction status post right- sided sacroiliac joint steroid injection under fluoroscopic guidance, patient will continue current medications, patient will follow in approximately 2 weeks for reevaluation. 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 Raj Booth MD; Dr. Ko Benavides DO Signed Normal [facility] S-I Jts 3 or More Viewson S-I Jts 3 or More Views [facility] Imaging Services [address] [place], [place] [id number] S-I Jts 3 or More Views MR#: [id number] Acct: [id number] Name: NANA SANCHEZ Rep #: [id number] : 1950 F 74 From: Damir warren MD PCP: Dr. Ko Benavides DO Status: [facility] Study: S-I Jts 3 or More Views Date of Exam: 08/10/24 Exam# [id number] Ordering Dr: [place] [id number] PROCEDURE: Right sacroiliac joint block. DATE OF EXAMINATION: August 10, 2024. INDICATION: Female, 74 years old. Low back pain. FLUOROSCOPY TIME (if supplied): (3.1 seconds) minutes/seconds. 2.08 mGy. One image was submitted. RAD/S-I Jts 3 or More Views IMPRESSION: Intraoperative imaging provided for right sacroiliac joint block. Electronically Signed: Damir Lake MD at 12:56 EST , CC: Dr. Raj Booth MD; Dr. Ko Benavides DO Supervisor Reinforced Steel Placing: Signed [facility] MYOCARDIAL SPECT STRESS/R ESTon 03-10-2024 NM MYOCARDIAL SPECT STRESS/REST ORIGINAL NM MYOCARDIAL SPECT STRESS/REST CLINICAL STATEMENT: chest pain, diabetes, hypertension, obesity TECHNIQUE: Lexiscan dose: 0.4 mg Radiopharmaceutical (stress): Tc-99m Sestamibi Dose:31.4mCi Radiopharmaceutical (rest): Tc-99m Sestamibi Dose:10.4 mCi SPECT acquisition and processing Reconstruction and reorientation of SPECT images into short axis, vertical and horizontal long axis planes Quantitative LVEF assessment COMPARISON:none REPORT:Technically very difficult study. Motion is noted on review of rotating raw images stress only images were obtained. Due to technical difficulties resting images were not available. No large perfusion defects noted on the stress images. IMPRESSION:Technically difficult and limited study. Stress only images obtained. Nuclear technicians tried to obtain resting images but were limited due to various reasons. (breast attenuation, ability to lift arms etc) No obvious large perfusion defects noted on the stress images suggesting against large areas of ischemia or infarction. Consider alternate modality to assess for CAD if clinically indicated. Interpreted By: Kenzie Swanson Preliminary Report By: Kenzie Swanson Electronically Signed By: Kenzie Swanson Dictated Date: 03/10/2024 7:07:01 PM Prelim Date: 03/10/2024 7:07:01 PM Sign Date: 03/10/2024 7:17:21 PM Ordering Provider:Ko Benavides Normal [facility] Brnadyn 02-21-2024 U Creatinine 121.3 mg/dL High 28.0-117.0 [facility] Comment on above: Performed By: #### H IVRP #### [place] [address] #### RPR, HCV1 #### [address] [address] U Microalb 521 mcg/dL Normal [facility] Comment on above: Performed By: #### H IVRP #### [address] [address] #### RPR, HCV1 #### [address] [address] U Ratio Alb/Cre 4 mcg/mg Normal 0-30 [facility] Comment on above: Performed By: #### H IVRP #### [place] [address] #### RPR, HCV1 #### [address] [address] TRVAMPon 02-14-2024 Trich vag FLORES Negative Normal Negative [facility] Comment on above: Result Comment: Perf ormed At: =G [facility] [address] [place] SALAZAR Brennan [id number] Sondra Burns MD Ph:[phone] Performed By: #### C TPCR, NGPCR1 #### [address] [address] XR CHEST 2 VIEWSon XR CHEST 2 VIEWS ORIGINAL HISTORY: Chest pain COMPARISON: No FINDINGS: The lungs and pleural spaces are clear. The cardiac silhouette is within normal limits. The pulmonary vasculature is within normal limits. IMPRESSION: Clear lungs. Interpreted by: Papito Jolly MD Preliminary Report By: aPpito Jolly MD Electronically signed By Papito Jolly MD Dictated Date: 02/13/2024 11:43:49 AM Prelim Date: 02/13/2024 11:44:12 AM Sign Date: 02/13/2024 11:44:12 AM Ordering Provider: [facility] RPRon 02-12-2024 Reagin Ab RPR Ql (S) Non-Reactive Normal Non-Reactive [facility] Comment on above: Result Comment: The RPR test is a non-treponemal assay useful as an aid in the diagnosis of primary and secondary syphilis. It converts to positive generally within 2 weeks after the appearance of a lesion. This test is also useful for monitoring response to antibiotic therapy. A positive RPR screening test will be followed by the FTA ABS test. False positive RPR tests may occur in 1) patients with underlying autoimmune disorders, 2) elderly patients, 3) , and 4) other conditions with abnormal serum globulins. Performed By: #### H IVRP #### [address] [address] #### RPR, HCV1 #### [address] [address] .Auto Diffon 02-11-2024 Basophil, Absolute 0.0 10 3/mcL Normal 0.0-0.2 [facility]) Comment on above: Performed By: #### H IVRP #### [address] [address] #### RPR, HCV1 #### [address] [address] Basophils/100 WBC (Bld) 0.7 % Normal 0.0-2.5 [facility] Comment on above: Performed By: #### H IVRP #### [place] [id number] #### RPR, HCV1 #### [address] [address] Eosinophil, Absolute 0.2 10 3/mcL Normal 0.0-0.4 [facility] ([place] Comment on above: Performed By: #### H IVRP #### [place] [id number] #### RPR, HCV1 #### [address] [address] Eosinophils/100 WBC (Bld) 4.1 % Normal 0.0-7.0 [facility] [place] Comment on above: Performed By: #### H IVRP #### [place] [address] #### RPR, HCV1 #### [address] [address] Lymphocyte, Absolute 1.3 10 3/mcL Normal 0.8-3.9 [facility] ([place] Comment on above: Performed By: #### H IVRP #### [place] [id number] #### RPR, HCV1 #### [address] [address] Lymphocytes/100 WBC (Bld) 24.0 % Normal 10.0-50.0 [facility] [place] Comment on above: Performed By: #### H IVRP #### [place] [id number] #### RPR, HCV1 #### [address] [address] Monocyte, Absolute 0.4 10 3/mcL Normal 0.2-1.0 [facility] ([place]) Comment on above: Performed By: #### H IVRP #### [place] [id number] #### RPR, HCV1 #### [address] [address] Monocytes/100 WBC (Bld) 7.0 % Normal 1.7-13.0 [facility] [place] Comment on above: Performed By: #### H IVRP #### [address] [address] #### RPR, HCV1 #### [address] [address] Neutrophils/100 WBC (Bld) 64.2 % Normal 37.0-80.0 [facility] ([place]) Comment on above: Performed By: #### H IVRP #### [address] [address] #### RPR, HCV1 #### [address] [address] .GFRon 02-11-2024 GFR 73 ml/min/1.73sqm Normal [facility] [place] Comment on above: Result Comment: GFR Population mean for , Non- Americans Ages 20-29 = 116 mL/min/1.73 sq.m. Ages 30-39 = 107 mL/min/1.73 sq.m. Ages 40-49 = 99 mL/min/1.73 sq.m. Ages 50-59 = 93 mL/min/1.73 sq.m. Ages 60-69 = 85 mL/min/1.73 sq.m. Ages 70+ = 75 mL/min/1.73 sq.m. Chronic Kidney Disease: Less than 60 mL/min/1.73 square meters End Stage Renal Disease: Less than 15 mL/min/1.73 square meters Performed By: #### H IVRP #### [address] [address] #### RPR, HCV1 #### [address] [address] GFR Non- 60 ml/min/1.73sqm Normal [facility] [place] Comment on above: Result Comment: GFR Population mean for , Non- Americans Ages 20-29 = 116 mL/min/1.73 sq.m. Ages 30-39 = 107 mL/min/1.73 sq.m. Ages 40-49 = 99 mL/min/1.73 sq.m. Ages 50-59 = 93 mL/min/1.73 sq.m. Ages 60-69 = 85 mL/min/1.73 sq.m. Ages 70+ = 75 mL/min/1.73 sq.m. Chronic Kidney Disease: Less than 60 mL/min/1.73 square meters End Stage Renal Disease: Less than 15 mL/min/1.73 square meters Performed By: #### H IVRP #### [place] [address] #### RPR, HCV1 #### [place] [id number] .NEUABSon 02-11-2024 Neutrophil, Absolute 3.5 10 3/mcL Normal 2.9-6.2 [facility] ([place] Comment on above: Performed By: #### H IVRP #### [place] [address] #### RPR, HCV1 #### [place] [address] CBCon 02-11-2024 Erythrocyte distribution width (RBC) [Ratio] 14.8 % High 11.5-14.5 [facility] [place] Comment on above: Performed By: #### H IVRP #### [place] [address] #### RPR, HCV1 #### [place] [address] Hematocrit (Bld) [Volume fraction] 40.6 % Normal 37.0-47.0 [facility] [place] Comment on above: Performed By: #### H IVRP #### [place] [address] #### RPR, HCV1 #### [place] [address] Hgb 13.9 G/dL Normal 12.0-16.0 [facility] [place] Comment on above: Performed By: #### H IVRP #### [place] [address] #### RPR, HCV1 #### [address] [address] MCH (RBC) [Entitic mass] 29.0 pg Normal 27.0-31.2 [facility] ([place] Comment on above: Performed By: #### H IVRP #### [place] [address] #### RPR, HCV1 #### [address] [address] MCHC 34.3 G/dL Normal 33.0-37.0 [facility] [place] Comment on above: Performed By: #### H IVRP #### [place] [address] #### RPR, HCV1 #### [place] [id number] MCV (RBC) [Entitic vol] 84.7 fL Normal 80.0-94.0 [facility] ([place] Comment on above: Performed By: #### H IVRP #### [place] [address] #### RPR, HCV1 #### [address] [address] Platelet 205 10 3/mcL Normal 130-400 [facility] [place] Comment on above: Performed By: #### H IVRP #### [place] [address] #### RPR, HCV1 #### [address] [address] Platelet mean volume (Bld) [Entitic vol] 7.6 fL Normal 7.4-10.4 [facility] [place] Comment on above: Performed By: #### H IVRP #### [place] [address] #### RPR, HCV1 #### [address] [address] RBC 4.79 10 6/mcL Normal 4.20-5.40 [facility] [place] Comment on above: Performed By: #### H IVRP #### [address] [address] #### RPR, HCV1 #### [place] [address] WBC 5.4 10 3/mcL Normal 4.6-10.8 [facility] [place] Comment on above: Performed By: #### H IVRP #### [address] [address] #### RPR, HCV1 #### [place] [address] CMPon 02-11-2024 Albumin Level 3.6 G/dL Normal 3.4-4.8 [facility] [place] Comment on above: Performed By: #### H IVRP #### [place] [address] #### RPR, HCV1 #### [place] [address] Albumin/Globulin [Mass ratio] 1.2 {ratio} Normal 1.1-2.5 [facility] [place] Comment on above: Performed By: #### H IVRP #### [address] [address] #### RPR, HCV1 #### [place] [id number] ALP [Catalytic activity/Vol] 53 U/L Normal 40-135 [facility] [place] Comment on above: Performed By: #### H IVRP #### [address] [address] #### RPR, HCV1 #### [address] [address] ALT [Catalytic activity/Vol] 55 U/L Normal 14-59 [facility] [place] Comment on above: Performed By: #### H IVRP #### [place] [address] #### RPR, HCV1 #### [address] [address] AST [Catalytic activity/Vol] 31 U/L Normal 10-40 [facility] [place] Comment on above: Performed By: #### H IVRP #### [place] [id number] #### RPR, HCV1 #### [address] [address] Bili Total 0.6 mg/dL Normal 0.2-1.0 [facility] [place] Comment on above: Result Comment: Use of this assay is not recommended for patients undergoing treatment with eltrombopag due to the potential for falsely elevated results. Performed By: #### H IVRP #### [place] [address] #### RPR, HCV1 #### [place] [address] BUN/Creatinine Ratio 26 ratio Normal 7-27 [facility] ([place] Comment on above: Performed By: #### H IVRP #### [place] [address] #### RPR, HCV1 #### [address] [address] Calcium [Mass/Vol] 9.2 mg/dL Normal 8.4-10.2 [facility] ([place] Comment on above: Performed By: #### H IVRP #### [place] [address] #### RPR, HCV1 #### [address] [address] Chloride [Moles/Vol] 105 mmol/L Normal 98-107 [facility] ([place] Comment on above: Performed By: #### H IVRP #### [place] [address] #### RPR, HCV1 #### [address] [address] CO2 [Moles/Vol] 32 mmol/L High 23-31 [facility] ([place] Comment on above: Performed By: #### H IVRP #### [address] [address] #### RPR, HCV1 #### [address] [address] Creatinine [Mass/Vol] 0.92 mg/dL Normal 0.55-1.02 [facility] ([place] Comment on above: Performed By: #### H IVRP #### [address] [address] #### RPR, HCV1 #### [address] [address] Electrolyte Balance 7.0 mEq/L Normal 4.0-15.0 [facility] Comment on above: Performed By: #### H IVRP #### [place] [address] #### RPR, HCV1 #### [place] [address] Globulin 3.0 G/dL Normal [facility] ([place] Comment on above: Performed By: #### H IVRP #### [place] [address] #### RPR, HCV1 #### [address] [address] Glucose [Mass/Vol] 126 mg/dL High 83-110 [facility] ([place] Comment on above: Performed By: #### H IVRP #### [address] [address] #### RPR, HCV1 #### [address] [address] Potassium [Moles/Vol] 5.1 mmol/L Normal 3.5-5.1 [facility] ([place] Comment on above: Performed By: #### H IVRP #### [place] [address] #### RPR, HCV1 #### [address] [address] Sodium [Moles/Vol] 144 mmol/L Normal 136-145 [facility] ([place] Comment on above: Performed By: #### H IVRP #### [address] [address] #### RPR, HCV1 #### [place] [address] Total Protein 6.6 G/dL Normal 6.4-8.2 [facility] ([place] Comment on above: Performed By: #### H IVRP #### [place] [address] #### RPR, HCV1 #### [place] [address] Urea nitrogen [Mass/Vol] 24 mg/dL High 7-18 [facility] ([place] Comment on above: Performed By: #### H IVRP #### [place] [address] #### RPR, HCV1 #### [place] [address] HCVon 02-11-2024 Hep C Ab Non-Reactive Normal Non-Reactive [facility] [place] Comment on above: Performed By: #### H IVRP #### [place] [id number] #### RPR, HCV1 #### [place] [address] Hep C Ab Int Normal [facility] ([place] Comment on above: Result Comment: Nonr eactive: Samples with a value < 0.80 are considered nonreactive (negative) for antibodies to HCV. A negative test result does not exclude the possibility of exposure to or infection with HCV. HCV antibodies may be undetectable in some stages of the infection and in some clinical conditions. See Interp Performed By: #### H IVRP #### [place] [id number] #### RPR, HCV1 #### [place] [address] HIVRPon 02-11-2024 HIV p24 Antigen Non-Reactive Normal Non-Reactive [facility] [place] Comment on above: Result Comment: Dete ction of p24 may be inhibited by biotin in the sample, causing false negative results in acute infection. Therefore do not test samples from patients who are taking biotin. Performed By: #### H IVRP #### [place] [address] #### RPR, HCV1 #### [place] [address] HIV P24 Int Non-Reactive Invalid Interpretation Code [facility] ([place]) Comment on above: Performed By: #### H IVRP #### [place] [address] #### RPR, HCV1 #### [place] [address] Rapid HIV 1/2 Antibody Non-Reactive Normal Non-Reactive [facility] ([place] Comment on above: Performed By: #### H IVRP #### [place] [address] #### RPR, HCV1 #### [place] [address] RHIV 1/2 Ab Int Non-Reactive Invalid Interpretation Code [facility] ([place] Comment on above: Performed By: #### H IVRP #### [place] [address] #### RPR, HCV1 #### [place] [address] LABORATORYOrdered By: Mandie Vincent on 02-11-2024 HCV Ab IA Ql Non-Reactive (02/11/24 11:05 AM) Normal Non-Reactive AH ADM SS HCV Ab IA Ql Nonreactive: Samples with a value < 0.80 are considered nonreactive (negative) for antibodies to HCV.A negative test result does not exclude the possibility of exposure to or infection with HCV. HCV antibodies may be undetectable in some stages of the infection and in some clinical conditions. Invalid Interpretation Code Chemistry S LABORATORYOrdered By: James vu on 02-11-2024 HIV 1 p24 Ab Ql (S) Non-Reactive 2 (02/11/24 11:05 AM) Normal AO Rapid Testing SS Comment on above: Interpretive Data: D etection of p24 may be inhibited by biotin in the sample, causing false negative results in acute infection. Therefore do not test samples from patients who are taking biotin. HIV 1 p24 Ab Ql (S) Non-Reactive Invalid Interpretation Code AO Rapid Testing SS HIV 1+2 Ab IA Ql Non-Reactive Invalid Interpretation Code AO Rapid Testing SS HIV 1+2 Ab IA.rapid Ql (Unsp spec) Non-Reactive (02/11/24 11:05 AM) Normal AO Rapid Testing SS LABORATORYOrdered By: Yas Williamson on 02-11-2024 Reagin Ab RPR Ql (S) Non-Reactive 1 (02/11/24 11:05 AM) Normal Non-Reactive Man Viro/Sero SS Comment on above: Interpretive Data: T he RPR test is a non-treponemal assay useful as an aid in the diagnosis of primary and secondary syphilis. It converts to positive generally within 2 weeks after the appearance of a lesion. This test is also useful for monitoring response to antibiotic therapy. A positive RPR screening test will be followed by the FTA ABS test. False positive RPR tests may occur in 1) patients with underlying autoimmune disorders, 2) elderly patients, 3) , and 4) other conditions with abnormal serum globulins. LABORATORYOrdered By: SYSTEM SYSTEM on 02-11-2024 Albumin BCP dye [Mass/Vol] 3.6 G/dL Normal 3.4 - 4.8 G/dL AO ADM SS Albumin/Globulin [Mass ratio] 1.2 {ratio} Normal 1.1 - 2.5 ratio AO ADM SS ALP [Catalytic activity/Vol] 53 U/L Normal 40 - 135 U/L AO ADM SS ALT With P-5'-P [Catalytic activity/Vol] 55 U/L Normal 14 - 59 U/L AO ADM SS AST With P-5'-P [Catalytic activity/Vol] 31 U/L Normal 10 - 40 U/L AO ADM SS Basophil, Absolute 0.0 103/mcL Normal 0.0 - 0.2 10^3/mcL AO Workflow SS Basophils/100 WBC (Bld) 0.7 % Normal 0.0 - 2.5 % AO Workflow SS Bilirubin [Mass/Vol] 0.6 mg/dL Normal 0.2 - 1 .0 mg/dL AO ADM SS Comment on above: Interpretive Data: U se of this assay is not recommended for patients undergoing treatment with eltrombopag due to the potential for falsely elevated results. Calcium [Mass/Vol] 9.2 mg/dL Normal 8.4 - 10. 2 mg/dL AO ADM SS Chloride [Moles/Vol] 105 mmol/L Normal 98 - 10 7 mmol/L AO ADM SS CO2 [Moles/Vol] 32 mmol/L High 23 - 31 mmol/L AO ADM SS Creatinine [Mass/Vol] 0.92 mg/dL Normal 0.55 - 1.02 mg/dL AO ADM SS Electrolyte Balance 7.0 mEq/L Normal 4.0 - 15 .0 mEq/L AO ADM SS Eosinophil, Absolute 0.2 103/mcL Normal 0.0 - 0 .4 10^3/mcL AO Workflow SS Eosinophils/100 WBC (Bld) 4.1 % Normal 0.0 - 7.0 % AO Workflow SS Erythrocyte distribution width (RBC) [Ratio] 14.8 % High 11.5 - 14.5 % AO Workflow SS GFR/1.73 sq M.predicted among blacks MDRD (S/P/Bld) [Vol rate/Area] 73 ml/min/1.73sqm Invalid Interpretation Code AO Chemistry S Comment on above: Interpretive Data: GFR Population mean for , Non- Americans Ages 20-29 = 116 mL/min/1.73 sq.m. Ages 30-39 = 107 mL/min/1.73 sq.m. Ages 40-49 = 99 mL/min/1.73 sq.m. Ages 50-59 = 93 mL/min/1.73 sq.m. Ages 60-69 = 85 mL/min/1.73 sq.m. Ages 70+ = 75 mL/min/1.73 sq.m. Chronic Kidney Disease: Less than 60 mL/min/1.73 square meters End Stage Renal Disease: Less than 15 mL/min/1.73 square meters GFR/1.73 sq M.predicted among non-blacks MDRD (S/P/Bld) [Vol rate/Area] 60 ml/min/1.73sqm Invalid Interpretation Code AO Chemistry S Comment on above: Interpretive Data: GFR Population mean for , Non- Americans Ages 20-29 = 116 mL/min/1.73 sq.m. Ages 30-39 = 107 mL/min/1.73 sq.m. Ages 40-49 = 99 mL/min/1.73 sq.m. Ages 50-59 = 93 mL/min/1.73 sq.m. Ages 60-69 = 85 mL/min/1.73 sq.m. Ages 70+ = 75 mL/min/1.73 sq.m. Chronic Kidney Disease: Less than 60 mL/min/1.73 square meters End Stage Renal Disease: Less than 15 mL/min/1.73 square meters Globulin 3.0 G/dL Invalid Interpretation Code AO ADM SS Glucose [Mass/Vol] 126 mg/dL High 83 - 110 mg/dL AO ADM SS Hematocrit (Bld) [Volume fraction] 40.6 % Normal 37.0 - 47.0 % AO Workflow SS Hemoglobin (Bld) [Mass/Vol] 13.9 G/dL Normal 12.0 - 16.0 G/dL AO Workflow SS Lymphocyte, Absolute 1.3 103/mcL Normal 0.8 - 3 .9 10^3/mcL AO Workflow SS Lymphocytes/100 WBC (Bld) 24.0 % Normal 10.0 - 50.0 % AO Workflow SS MCH (RBC) [Entitic mass] 29.0 pg Normal 27.0 - 31.2 pg AO Workflow SS MCHC 34.3 G/dL Normal 33.0 - 37.0 G/dL AO Workflow SS MCV (RBC) [Entitic vol] 84.7 fL Normal 80.0 - 94.0 fL AO Workflow SS Monocyte, Absolute 0.4 103/mcL Normal 0.2 - 1.0 10^3/mcL AO Workflow SS Monocytes/100 WBC (Bld) 7.0 % Normal 1.7 - 13.0 % AO Workflow SS Natriuretic peptide.B prohormone N-Terminal [Mass/Vol] 258 pg/mL High 0 - 125 pg/mL AO ADM SS Comment on above: Interpretive Data: N T-proBNP results of less than 300 pg/mL effectively rules out acute congestive heart failure with 99% negative predictive value. Neutrophil, Absolute 3.5 103/mcL Normal 2.9 - 6 .2 10^3/mcL AO Workflow SS Neutrophils/100 WBC (Bld) 64.2 % Normal 37.0 - 80.0 % AO Workflow SS Platelet mean volume (Bld) [Entitic vol] 7.6 fL Normal 7.4 - 10.4 fL AO Workflow SS Platelets (Bld) [#/Vol] 205 103/mcL Normal 130 - 400 10^3/mcL AO Workflow SS Potassium [Moles/Vol] 5.1 mmol/L Normal 3.5 - 5.1 mmol/L AO ADM SS Protein [Mass/Vol] 6.6 G/dL Normal 6.4 - 8.2 G/dL AO ADM SS RBC (Bld) [#/Vol] 4.79 106/mcL Normal 4.20 - 5.4 0 10^6/mcL AO Workflow SS Sodium [Moles/Vol] 144 mmol/L Normal 136 - 145 mmol/L AO ADM SS Urea nitrogen [Mass/Vol] 24 mg/dL High 7 - 18 mg/dL AO ADM SS Urea nitrogen/Creatinine [Mass ratio] 26 ratio Normal 7 - 27 ratio AO ADM SS WBC (Bld) [#/Vol] 5.4 103/mcL Normal 4.6 - 10.8 10^3/mcL AO Workflow SS LABORATORYOrdered By: LABCOR P CONTRIBUTOR_SYSTEM on 02-11-2024 Trich vag FLORES ([place]) Negative Invalid Interpretation Code Negative AO Sendouts SS Comment on above: Result Comment: Perf ormed At: =G [facility] [address] [place], [place] [id number] Sondra Burns MD Ph:[phone] LABORATORYOrdered By: Trinidad Ugalde on 02-11-2024 Trich Vag Source (LC) Urine (02/11/24 10:41 AM) Normal AO Sendouts SS PBNPon 02-11-2024 Natriuretic peptide B (Bld) [Mass/Vol] 258 pg/mL High 0-125 [facility] ([place]) Comment on above: Result Comment: NT-p roBNP results of less than 300 pg/mL effectively rules out acute congestive heart failure with 99% negative predictive value. Performed By: #### H IVRP #### [facility] [address] [place] [address] #### RPR, HCV1 #### [place] [address] TRVAMPon 02-11-2024 Trich Vag Source Urine Normal [facility] ([place] Comment on above: Performed By: #### C TPCR, NGPCR1 #### [place] [address] LABORATORYOrdered By: Judith dee on 02-05-2024 Glucose [Mass/Vol] 128 mg/dL High 82 - 115 mg/dL [facility] Work Phone: CVFLURVon 11-21-2023 FLU A PCR Negative Normal Negative [facility] ([place] Comment on above: Performed By: #### C TPCR, NGPCR1 #### [place] [address] FLU B PCR Negative Normal Negative [facility] ([place] Comment on above: Performed By: #### C TPCR, NGPCR1 #### [place] [address] RSV PCR Negative Normal Negative [facility] ([place] Comment on above: Performed By: #### C TPCR, NGPCR1 #### [place] [address] SARS-CoV-2 (COVID-19) RNA FLORES+probe Ql (Unsp spec) Negative Normal Negative [facility] ([place] Comment on above: Result Comment: Resu lts from the Xpert Xpress CoV-2/Flu/RSV plus test should be correlated with the clinical history, epidemiological data, and other data available to the clinical evaluating the patient. Performance of the Xpert Xpress CoV-2/Flu/RSV plus test has only been established in nasopharyngeal swab specimen. Erroneous test results might occur from improper specimen collection, failure to follow the recommended sample collection, handling and storage procedures, technical error, or sample mix-up. False negative results may occur if a virus is present at a level below the analytical limit of detection. Viral nucleic acid may persist in vivo, independent of virus viability. Detection of analyte target(s) does not imply that the corresponding virus(es) are infectious or are the causative agents for clinical symptoms. Recent patient exposure to FluMist or other live attenuated influenza vaccines may cause inaccurate positive results. Performed By: #### C TPCR, NGPCR1 #### [place] [address] LABORATORYOrdered By: Daniel Regalado on 11-21-2023 FLUAV RNA FLORES+probe Ql (Resp) Negative (11/21/23 10:50 AM) Normal Negative AO Auto Urine SS FLUBV RNA FLORES+probe Ql (Resp) Negative (11/21/23 10:50 AM) Normal Negative AO Auto Urine SS RSV RNA FLORES+probe Ql (Resp) Negative (11/21/23 10:50 AM) Normal Negative AO Auto Urine SS SARS-CoV-2 (COVID-19) RNA FLORES+probe Ql (Resp) Negative 1 (11/21/23 10:50 AM) Normal Negative AO Auto Urine SS Comment on above: Interpretive Data: R esults from the Xpert Xpress CoV-2/Flu/RSV plus test should be correlated with the clinical history, epidemiological data, and other data available to the clinical evaluating the patient. Performance of the Xpert Xpress CoV-2/Flu/RSV plus test has only been established in nasopharyngeal swab specimen. Erroneous test results might occur from improper specimen collection, failure to follow the recommended sample collection, handling and storage procedures, technical error, or sample mix-up. False negative results may occur if a virus is present at a level below the analytical limit of detection. Viral nucleic acid may persist in vivo, independent of virus viability. Detection of analyte target(s) does not imply that the corresponding virus(es) are infectious or are the causative agents for clinical symptoms. Recent patient exposure to FluMist or other live attenuated influenza vaccines may cause inaccurate positive results. No Panel Informationon Culture Throat Normal throat nadeen present Sensitivity Testing: Not Indicated [facility] Work Phone: CTPCRon 11-12-2023 C. trachomatis Interp Normal See CT Interp N [facility] ([place]) Comment on above: Result Comment: C. t rachomatis DNA not detected. Specimen is presumptive negative for C. trachomatis. A negative result does not preclude C. trachomatis infection because results depend on adequate specimen collection, absence of inhibitors, and sufficient DNA to be detected. See CT Interp N Performed By: #### C TPCR, NGPCR1 #### [address] [address] C.trachomatis PCR Negative Normal Negative [facility] ([place]) Comment on above: Result Comment: Mole cular (PCR) assay performed on the [employer] Josh 4800 system. Performed By: #### C TPCR, NGPCR1 #### [address] [address] Chlam Source Urine Normal [facility] ([place] Comment on above: Performed By: #### C TPCR, NGPCR1 #### [place] [address] [id number] 11-12-2023 GC PCR Source Urine Normal [facility] ([place] Comment on above: Performed By: #### C TPCR, NGPCR1 #### [place] [address] N. gonorrhoeae (PCR) Negative Normal Negative [facility] ([place] Comment on above: Result Comment: Mole cular (PCR) assay performed on the [employer] Josh 4800 System. Performed By: #### C TPCR, NGPCR1 #### [place] [address] N. gonorrhoeae Interp Normal See NG Interp N [facility] ([place] Comment on above: Result Comment: N. g onorrhoeae DNA not detected. Specimen is presumptive negative for N. gonorrhoeae. A negative result does not preclude Neisseria gonorrhoeae infection because results depend on adequate specimen collection, absence of inhibitors, and sufficient DNA to be detected. See NG Interp N Performed By: #### C TPCR, NGPCR1 #### [place] [address] TRVAMPon 11-12-2023 Trich vag FLORES Negative Normal Negative [facility] ([place] Comment on above: Result Comment: Perf ormed At: =G [facility] [place] [id number] Sondra Burns MD Ph:[phone] Performed By: #### C TPCR, NGPCR1 #### [place] [address] TRVAMPon 11-09-2023 Trich Vag Source Urine Normal [facility] ([place] Comment on above: Performed By: #### C TPCR, NGPCR1 #### [facility] [address] [place] [id number] LABORATORYOrdered By: Negin Davidson on 11-08-2023 C. trachomatis DNA FLORES+probe Ql (Unsp spec) Negative 3 (11/08/23 10:49 AM) Normal Negative AH Auto Viro/Sero SS Comment on above: Interpretive Data: M olecular (PCR) assay performed on the [employer] Josh 4800 system. C. trachomatis DNA FLORES+probe Ql (Unsp spec) C. trachomatis DNA not detected. Specimen is presumptive negative forC. trachomatis.A negative result does not preclude C. trachomatis infection becauseresults depend on adequate specimen collection, absence of inhibitors,and sufficient DNA to be detected. Normal See CT Interp N AH Auto Viro/Sero SS N. gonorrhoeae DNA FLORES+probe Ql (Unsp spec) Negative 2 (11/08/23 10:49 AM) Normal Negative AH Auto Viro/Sero SS Comment on above: Interpretive Data: M olecular (PCR) assay performed on the [employer] Josh 4800 System. N. gonorrhoeae DNA FLORES+probe Ql (Unsp spec) N. gonorrhoeae DNA not detected. Specimen is presumptive negative forN. gonorrhoeae. A negative result does not preclude Neisseria gonorrhoeaeinfection because results depend on adequate specimen collection, absenceof inhibitors, and sufficient DNA to be detected. Normal See NG Interp N AH Auto Viro/Sero SS LABORATORYOrdered By: LABCOR P CONTRIBUTOR_SYSTEM on 11-08-2023 Trich vag FLORES (LC) Negative Invalid Interpretation Code Negative AO Sendouts SS Comment on above: Result Comment: Perf ormed At: =G [facility] [place] [place] [id number] Sondra Burns MD Ph:[phone] LABORATORYOrdered By: Alison Norris on 11-08-2023 Trich Vag Source (LC) Urine (11/08/23 10:49 AM) Normal AO Sendouts SS Laboratory - Specimen inform ationOrdered By: Negin Davidson on 11-08-2023 Specimen source Nom (Unsp spec) Urine (11/08/23 10:49 AM) Normal AH Auto Viro/Sero SS MA MAMMOGRAM SCREENING BILAT ERAL W/TOMOon 10-31-2023 MA MAMMOGRAM SCREENING BILATERAL W/GUNNER ORIGINAL FROM: [facility] [address] [place], [place] [address] PROCEDURE FOR: ANNA SANCHEZ [address] [place] [address] Home: PID#: [id number] Exam#: [id number] : 1950 Age: 73 TO: KO BENAVIDES [facility] [place], [place] [address] Fax: NO FAX EXAMINATION: SCREENING DIGITAL BILATERAL MAMMOGRAM WITH TOMOSYNTHESIS, 10/31/2023 7:35 am TECHNIQUE: Screening mammography of the bilateral breasts was performed with tomosynthesis. 2D standard and 3D tomosynthesis combination imaging performed through both breasts in the MLO and CC projection. Computer aided detection was utilized in the interpretation of this exam. COMPARISON: 04/24/2022 HISTORY: Breast cancer screening. FINDINGS: BREAST DENSITY: Predominantly Fatty There are bilateral benign breast calcifications. There are no significant masses or calcifications. IMPRESSION: No mammographic evidence of malignancy. Continued screening with annual mammograms is recommended. Syed Chavezzick risk calculations, generated with the history provided, report this patient's 10 year risk and lifetime risk for developing breast cancer at 2.8% and 3.8%, respectively. Based on this assessment tool, if the patient's calculated lifetime risk is below 20%, then the patient is considered at average risk for developing breast cancer. If the patient's calculated lifetime risk is at or above 20%, then the patient is considered high risk for developing breast cancer and may be a candidate for supplemental breast MRI screening in addition to annual mammographic screening per the [employer]. BIRADS: MAMMOGRAM BI-RADS: 2: Benign finding RECALL: 1 year screening RECALL TYPE: mammo LETTER SENT: Normal BI-RADS 1 and 2 Interpreted by: Mariangel Cornelius MD Preliminary Report By: Mariangel Cornelius MD Electronically signed By Mariangel Cornelius MD Dictated Date: 10/31/2023 2:43:36 PM Prelim Date: 10/31/2023 2:45:45 PM Sign Date: 10/31/2023 2:45:45 PM Ordering Provider: KO BENAVIDES [employer] Apprentice: TIM KEITH RT(R)(M)(CT) letter sent: Normal BI-RADS 1 and 2 Mammogram BI-RADS: 2 Benign Normal [facility] ([place] HFPon 10-25-2023 Albumin Level 3.7 G/dL Normal 3.4-4.8 [facility]) Comment on above: Performed By: #### C TPCR, NGPCR1 #### [address] [address] Albumin/Globulin [Mass ratio] 1.2 {ratio} Normal 1.1-2.5 [facility]) Comment on above: Performed By: #### C TPCR, NGPCR1 #### [address] [address] ALP [Catalytic activity/Vol] 49 U/L Normal 40-135 [facility]) Comment on above: Performed By: #### C TPCR, NGPCR1 #### [address] [address] ALT [Catalytic activity/Vol] 51 U/L Normal 14-59 [facility] ([place] Comment on above: Performed By: #### C TPCR, NGPCR1 #### [address] [address] AST [Catalytic activity/Vol] 26 U/L Normal 10-40 [facility] ([place] Comment on above: Performed By: #### C TPCR, NGPCR1 #### [address] [address] Bili Direct 0.2 mg/dL Normal 0.0-0.2 [facility] ([place] Comment on above: Result Comment: Use of this assay is not recommended for patients undergoing treatment with eltrombopag due to the potential for falsely elevated results. Performed By: #### C TPCR, NGPCR1 #### [address] [address] Bili Indirect 0.3 mg/dL Normal [facility] ([place] Comment on above: Performed By: #### C TPCR, NGPCR1 #### [address] [address] Bili Total 0.5 mg/dL Normal 0.2-1.0 [facility] ([place] Comment on above: Result Comment: Use of this assay is not recommended for patients undergoing treatment with eltrombopag due to the potential for falsely elevated results. Performed By: #### C TPCR, NGPCR1 #### [place] [address] Globulin 3.2 G/dL Normal [facility] ([place] Comment on above: Performed By: #### C TPCR, NGPCR1 #### [place] [address] Total Protein 6.9 G/dL Normal 6.4-8.2 [facility] ([place] Comment on above: Performed By: #### C TPCR, NGPCR1 #### [address] [address] LABORATORYOrdered By: SYSTEM SYSTEM on 10-25-2023 Albumin BCP dye [Mass/Vol] 3.7 G/dL Normal 3.4 - 4.8 G/dL AO ADM SS Albumin/Globulin [Mass ratio] 1.2 {ratio} Normal 1.1 - 2.5 ratio AO ADM SS ALP [Catalytic activity/Vol] 49 U/L Normal 40 - 135 U/L AO ADM SS ALT With P-5'-P [Catalytic activity/Vol] 51 U/L Normal 14 - 59 U/L AO ADM SS AST With P-5'-P [Catalytic activity/Vol] 26 U/L Normal 10 - 40 U/L AO ADM SS Bilirubin [Mass/Vol] 0.5 mg/dL Normal 0.2 - 1 .0 mg/dL AO ADM SS Comment on above: Interpretive Data: U se of this assay is not recommended for patients undergoing treatment with eltrombopag due to the potential for falsely elevated results. Bilirubin.direct [Mass/Vol] 0.2 mg/dL Normal 0.0 - 0.2 mg/dL AO ADM SS Comment on above: Interpretive Data: U se of this assay is not recommended for patients undergoing treatment with eltrombopag due to the potential for falsely elevated results. Bilirubin.direct [Mass/Vol] 0.3 mg/dL Invalid Interpretation Code AO Chemistry S Globulin 3.2 G/dL Invalid Interpretation Code AO ADM SS Protein [Mass/Vol] 6.9 G/dL Normal 6.4 - 8.2 G/dL AO ADM SS .GFRon 09-30-2023 GFR 78 ml/min/1.73sqm Normal [facility] ([place] Comment on above: Result Comment: GFR Population mean for , Non- Americans Ages 20-29 = 116 mL/min/1.73 sq.m. Ages 30-39 = 107 mL/min/1.73 sq.m. Ages 40-49 = 99 mL/min/1.73 sq.m. Ages 50-59 = 93 mL/min/1.73 sq.m. Ages 60-69 = 85 mL/min/1.73 sq.m. Ages 70+ = 75 mL/min/1.73 sq.m. Chronic Kidney Disease: Less than 60 mL/min/1.73 square meters End Stage Renal Disease: Less than 15 mL/min/1.73 square meters Performed By: #### C TPCR, NGPCR1 #### [place] [address] GFR Non- 64 ml/min/1.73sqm Normal [facility] ([place] Comment on above: Result Comment: GFR Population mean for , Non- Americans Ages 20-29 = 116 mL/min/1.73 sq.m. Ages 30-39 = 107 mL/min/1.73 sq.m. Ages 40-49 = 99 mL/min/1.73 sq.m. Ages 50-59 = 93 mL/min/1.73 sq.m. Ages 60-69 = 85 mL/min/1.73 sq.m. Ages 70+ = 75 mL/min/1.73 sq.m. Chronic Kidney Disease: Less than 60 mL/min/1.73 square meters End Stage Renal Disease: Less than 15 mL/min/1.73 square meters Performed By: #### C TPCR, NGPCR1 #### [address] [address] CMPon 09-30-2023 Albumin Level 3.4 G/dL Normal 3.4-4.8 [facility] ([place] Comment on above: Performed By: #### C TPCR, NGPCR1 #### [place] [id number] Albumin/Globulin [Mass ratio] 1.1 {ratio} Normal 1.1-2.5 [facility] ([place] Comment on above: Performed By: #### C TPCR, NGPCR1 #### [place] [id number] ALP [Catalytic activity/Vol] 58 U/L Normal 40-135 [facility] ([place] Comment on above: Performed By: #### C TPCR, NGPCR1 #### [place] [address] ALT [Catalytic activity/Vol] 81 U/L High 14-59 [facility] ([place] Comment on above: Performed By: #### C TPCR, NGPCR1 #### [place] [id number] AST [Catalytic activity/Vol] 32 U/L Normal 10-40 [facility] ([place] Comment on above: Performed By: #### C TPCR, NGPCR1 #### [place] [id number] Bili Total 0.5 mg/dL Normal 0.2-1.0 [facility] ([place] Comment on above: Result Comment: Use of this assay is not recommended for patients undergoing treatment with eltrombopag due to the potential for falsely elevated results. Performed By: #### C TPCR, NGPCR1 #### [place] [id number] BUN/Creatinine Ratio 21 ratio Normal 7-27 [facility] ([place] Comment on above: Performed By: #### C TPCR, NGPCR1 #### [address] [address] Calcium [Mass/Vol] 9.4 mg/dL Normal 8.4-10.2 [facility] ([place] Comment on above: Performed By: #### C TPCR, NGPCR1 #### [address] [address] Chloride [Moles/Vol] 105 mmol/L Normal 98-107 [facility] ([place] Comment on above: Performed By: #### C TPCR, NGPCR1 #### [address] [address] CO2 [Moles/Vol] 28 mmol/L Normal 23-31 [facility] ([place] Comment on above: Performed By: #### C TPCR, NGPCR1 #### [place] [id number] Creatinine [Mass/Vol] 0.87 mg/dL Normal 0.55-1.02 [facility] ([place] Comment on above: Performed By: #### C TPCR, NGPCR1 #### [address] [address] Electrolyte Balance 8.0 mEq/L Normal 4.0-15.0 [facility] [place] Comment on above: Performed By: #### C TPCR, NGPCR1 #### [address] [address] Globulin 3.2 G/dL Normal [facility] ([place] Comment on above: Performed By: #### C TPCR, NGPCR1 #### [address] [address] Glucose [Mass/Vol] 144 mg/dL High 83-110 [facility] ([place] Comment on above: Performed By: #### C TPCR, NGPCR1 #### [address] [address] Potassium [Moles/Vol] 4.7 mmol/L Normal 3.5-5.1 [facility] ([place] Comment on above: Performed By: #### C TPCR, NGPCR1 #### [address] [address] Sodium [Moles/Vol] 141 mmol/L Normal 136-145 [facility] ([place] Comment on above: Performed By: #### C TPCR, NGPCR1 #### [address] [address] Total Protein 6.6 G/dL Normal 6.4-8.2 [facility] ([place] Comment on above: Performed By: #### C TPCR, NGPCR1 #### [address] [address] Urea nitrogen [Mass/Vol] 18 mg/dL Normal 7-18 [facility] ([place] Comment on above: Performed By: #### C TPCR, NGPCR1 #### [address] [address] MGon 09-30-2023 Magnesium [Mass/Vol] 1.8 mg/dL Normal 1.8-2.4 [facility] ([place] Comment on above: Performed By: #### C TPCR, NGPCR1 #### [address] [address] .GFRon 08-05-2023 GFR Non- 70 ml/min/1.73sqm Normal [facility] [facility] [place] Comment on above: Result Comment: GFR Population mean for , Non- Americans Ages 20-29 = 116 mL/min/1.73 sq.m. Ages 30-39 = 107 mL/min/1.73 sq.m. Ages 40-49 = 99 mL/min/1.73 sq.m. Ages 50-59 = 93 mL/min/1.73 sq.m. Ages 60-69 = 85 mL/min/1.73 sq.m. Ages 70+ = 75 mL/min/1.73 sq.m. Chronic Kidney Disease: Less than 60 mL/min/1.73 square meters End Stage Renal Disease: Less than 15 mL/min/1.73 square meters Performed By: #### H IVRP #### [address] [address] #### RPR, HCV1 #### [address] [address] GFR 84 ml/min/1.73sqm Normal [facility] ([place]) Comment on above: Result Comment: GFR Population mean for , Non- Americans Ages 20-29 = 116 mL/min/1.73 sq.m. Ages 30-39 = 107 mL/min/1.73 sq.m. Ages 40-49 = 99 mL/min/1.73 sq.m. Ages 50-59 = 93 mL/min/1.73 sq.m. Ages 60-69 = 85 mL/min/1.73 sq.m. Ages 70+ = 75 mL/min/1.73 sq.m. Chronic Kidney Disease: Less than 60 mL/min/1.73 square meters End Stage Renal Disease: Less than 15 mL/min/1.73 square meters Performed By: #### H IVRP #### [address] [address] #### RPR, HCV1 #### [address] [address] [facility] 08-05-2023 BUN/Creatinine Ratio 22 ratio Normal 7-27 [facility] ([place] Comment on above: Performed By: #### H IVRP #### [address] [address] #### RPR, HCV1 #### [address] [address] Calcium [Mass/Vol] 9.1 mg/dL Normal 8.4-10.2 [facility] ([place]) Comment on above: Performed By: #### H IVRP #### [address] [address] #### RPR, HCV1 #### [address] [address] Chloride [Moles/Vol] 104 mmol/L Normal 98-107 [facility] ([place] Comment on above: Performed By: #### H IVRP #### [address] [address] #### RPR, HCV1 #### [address] [address] CO2 [Moles/Vol] 29 mmol/L Normal 23-31 [facility] ([place] Comment on above: Performed By: #### H IVRP #### [address] [address] #### RPR, HCV1 #### [address] [address] Creatinine [Mass/Vol] 0.81 mg/dL Normal 0.55-1.02 [facility] ([place] Comment on above: Performed By: #### H IVRP #### [place] [id number] #### RPR, HCV1 #### [address] [address] Electrolyte Balance 7.0 mEq/L Normal 4.0-15.0 [facility] [place] Comment on above: Performed By: #### H IVRP #### [place] [id number] #### RPR, HCV1 #### [address] [address] Glucose [Mass/Vol] 113 mg/dL High 83-110 [facility] ([place] Comment on above: Performed By: #### H IVRP #### [address] [address] #### RPR, HCV1 #### [address] [address] Potassium [Moles/Vol] 4.6 mmol/L Normal 3.5-5.1 [facility] ([place] Comment on above: Performed By: #### H IVRP #### [address] [address] #### RPR, HCV1 #### [address] [address] Sodium [Moles/Vol] 140 mmol/L Normal 136-145 [facility] ([place] Comment on above: Performed By: #### H IVRP #### [address] [address] #### RPR, HCV1 #### [facility] [address] [place] [address] Urea nitrogen [Mass/Vol] 18 mg/dL Normal 7-18 [facility] ([place] Comment on above: Performed By: #### H IVRP #### [place] [address] [place], [place] [address] #### RPR, HCV1 #### [address] [address] LABORATORYOrdered By: SYSTEM SYSTEM on 08-05-2023 Calcium [Mass/Vol] 9.1 mg/dL Invalid Interpretation Code 8.4 - 10.2 mg/dL AO ADM SS Chloride [Moles/Vol] 104 mmol/L Invalid Interpretation Code 98 - 107 mmol/L AO ADM SS CO2 [Moles/Vol] 29 mmol/L Invalid Interpretation Code 23 - 31 mmol/L AO ADM SS Creatinine [Mass/Vol] 0.81 mg/dL Invalid Interpretation Code 0.55 - 1.02 mg/dL AO ADM SS Electrolyte Balance 7.0 mEq/L Invalid Interpretation Code 4.0 - 15.0 mEq/L AO ADM SS GFR/1.73 sq M.predicted among blacks MDRD (S/P/Bld) [Vol rate/Area] 84 ml/min/1.73sqm Invalid Interpretation Code AO Chemistry S Comment on above: Interpretive Data: GFR Population mean for , Non- Americans Ages 20-29 = 116 mL/min/1.73 sq.m. Ages 30-39 = 107 mL/min/1.73 sq.m. Ages 40-49 = 99 mL/min/1.73 sq.m. Ages 50-59 = 93 mL/min/1.73 sq.m. Ages 60-69 = 85 mL/min/1.73 sq.m. Ages 70+ = 75 mL/min/1.73 sq.m. Chronic Kidney Disease: Less than 60 mL/min/1.73 square meters End Stage Renal Disease: Less than 15 mL/min/1.73 square meters GFR/1.73 sq M.predicted among non-blacks MDRD (S/P/Bld) [Vol rate/Area] 70 ml/min/1.73sqm Invalid Interpretation Code AO Chemistry S Comment on above: Interpretive Data: GFR Population mean for , Non- Americans Ages 20-29 = 116 mL/min/1.73 sq.m. Ages 30-39 = 107 mL/min/1.73 sq.m. Ages 40-49 = 99 mL/min/1.73 sq.m. Ages 50-59 = 93 mL/min/1.73 sq.m. Ages 60-69 = 85 mL/min/1.73 sq.m. Ages 70+ = 75 mL/min/1.73 sq.m. Chronic Kidney Disease: Less than 60 mL/min/1.73 square meters End Stage Renal Disease: Less than 15 mL/min/1.73 square meters Glucose [Mass/Vol] 113 mg/dL Invalid Interpretation Code 83 - 110 mg/dL AO ADM SS Magnesium [Mass/Vol] 1.7 mg/dL Invalid Interpretation Code 1.8 - 2.4 mg/dL AO ADM SS Potassium [Moles/Vol] 4.6 mmol/L Invalid Interpretation Code 3.5 - 5.1 mmol/L AO ADM SS Sodium [Moles/Vol] 140 mmol/L Invalid Interpretation Code 136 - 145 mmol/L AO ADM SS Urea nitrogen [Mass/Vol] 18 mg/dL Invalid Interpretation Code 7 - 18 mg/dL AO ADM SS Urea nitrogen/Creatinine [Mass ratio] 22 ratio Invalid Interpretation Code 7 - 27 ratio AO ADM SS MGon 08-05-2023 Magnesium [Mass/Vol] 1.7 mg/dL Low 1.8-2.4 [facility] ([place] Comment on above: Performed By: #### H IVRP #### [facility] [address] [place], [place] [address] #### RPR, HCV1 #### [facility] [address] [place] [address] Basophil percentageOrdered B y: Mariangel Robison on 06-11-2023 Chloride [Moles/Vol] 105 mmol/L 98-107 [facility] Glucose [Mass/Vol] 149 mg/dL 74-106 [facility] Comment on above: Fasting Glucose resu lt greater than or equal to 126 mg/dL suggests DIABETES MELLITUS per A.D.A. criteria. Potassium [Moles/Vol] 4.9 mmol/L 3.5-5.1 [facility] Sodium [Moles/Vol] 136 mmol/L 136-145 [facility] WBC (Bld) [#/Vol] 9.0 10*3/uL 4.4-11.0 [facility] Blood erythrocytes count (nu mber/volume)Ordered By: Mariangel Robison on 06-11-2023 RBC (Bld) [#/Vol] 4.31 10*6/uL 4.2-5.4 [facility] Blood hemoglobin measurement (mass/volume)Ordered By: Mariangel Robison on 06-11-2023 Hemoglobin (Bld) [Mass/Vol] 12.3 g/dL 12.0-15.0 [facility] Blood platelet mean volumeOr dered By: Mariangel Robison on 06-11-2023 Platelet mean volume (Bld) [Entitic vol] 8.9 fL 6.2-12.0 [facility] Determination of erythrocyte mean corpuscular volume (MCV)Ordered By: Mariangel Robison on 06-11-2023 MCV (RBC) [Entitic vol] 92.1 fL 81-99 [facility] Hematocrit Auto (Bld) [Volum e fraction]Ordered By: Mariangel Robison on 06-11-2023 Hematocrit (Bld) [Volume fraction] 39.7 % 37-47 [facility] Laboratory - Chemistry and C hemistry - challengeOrdered By: Mariangel Robison 06-11-2023 CO2 [Moles/Vol] 29.0 mmol/L 21.0-32.0 [facility] Urea nitrogen/Creatinine [Mass ratio] 20.9 mg/mg 10-20 [facility] Laboratory - Hematology and Cell countsOrdered By: Mariangel Robison 06-11-2023 Erythrocyte distribution width (RBC) [Entitic vol] 47.8 fL 35.1-43.9 [facility] Erythrocyte distribution width (RBC) [Ratio] 14.1 % 11.6-14.6 [facility] MCH (RBC) [Entitic mass] 28.5 pg 27.0-32.0 [facility] MCHC Auto (RBC) [Mass/Vol]Or dered By: Mariangel Robison on 06-11-2023 MCHC (RBC) [Mass/Vol] 31.0 g/dL 32-36 [facility] No Panel InformationOrdered By: Mariangel Robison on 06-11-2023 Estimated Creatinine Clearance Calc 37.06 ml/min [facility] Estimated GFR (MDRD) Amer 95 mL/min >60 [facility] Comment on above: GFR Calc Estimated GFR (MDRD) Non-Af Amer 79 mL/min >60 [facility] Comment on above: Non- GFR Calc Platelets bldOrdered By: Moises Robison on 06-11-2023 Platelets (Bld) [#/Vol] 202 10*3/uL 150-450 [facility] Serum or plasma calcium ashley urement (mass/volume)Ordered By: Mariangel Robison on 06-11-2023 Calcium [Mass/Vol] 8.7 mg/dL 8.5-10.1 [facility] Serum or plasma creatinine m easurement (mass/volume)Ordered By: Mariangel Robison on 06-11-2023 Creatinine [Mass/Vol] 0.77 mg/dL 0.55-1.02 [facility] Comment on above: The validity of the calculated GFR & GFRAA in patients over 70 years has not been determined. Clinical correlation is essential. Serum or plasma urea nitroge n measurement (mass/volume)Ordered By: Mariangel Robison on 06-11-2023 Urea nitrogen [Mass/Vol] 16 mg/dL 7-18 [facility] Thin prep Papanicolaou smear with manual screeningOrdered By: Mariangel Robison on 06-11-2023 Thin prep Papanicolaou smear with manual screening 2 5-15 [facility] Glucose Glucometer (BldC) [M ass/Vol]Ordered By: Mariangel Robison on 06-10-2023 Glucose [Mass/Vol] 132 mg/dL 74-106 [facility] Comment on above: MANAGEMENT OF PATIEN T CARE PER NURSING PROTOCOL Trinh 06-03-2023 Albumin Level 3.4 G/dL Normal 3.4-4.8 [facility] ([place]) Comment on above: Performed By: #### A LB #### [place] [address] LABORATORYOrdered By: SYSTEM SYSTEM on 06-03-2023 Albumin BCP dye [Mass/Vol] 3.4 G/dL Invalid Interpretation Code 3.4 - 4.8 G/dL AO ADM SS LABORATORYOrdered By: Dawood Paulson on 06-03-2023 MRSA DNA FLORES+probe Ql (Unsp spec) Not Detected 1 (06/03/23 1:30 PM) Invalid Interpretation Code Not Detected AH Auto Viro/Sero SS Comment on above: Result Comment: Note s MRSA PCR Int MRSA DNA not detecte d by Real-Time Polymerase Chain Reaction (PCR). A negative result may be due to intermittent colonization. Colonization may vary depending on patient treatment, patient status, or exposure to high-risk environments.As with all PCR based in vitro diagnostic tests, extremely low levels of target below the limit of detection of the assay may be detected, but results may not be reproducible. Invalid Interpretation Code Auto Viro/Sero SS MRSAPCRon 06-03-2023 MRSA (PCR) Not detected Normal Not Detected [facility] ([place]) Comment on above: Result Comment: Note s Performed By: #### M RSAPCR #### [address] [address] MRSA PCR Int Normal [facility] ([place]) Comment on above: Result Comment: MRSA DNA not detected by Real-Time Polymerase Chain Reaction (PCR). A negative result may be due to intermittent colonization. Colonization may vary depending on patient treatment, patient status, or exposure to high-risk environments. As with all PCR based in vitro diagnostic tests, extremely low levels of target below the limit of detection of the assay may be detected, but results may not be reproducible. See Below Performed By: #### M RSAPCR #### [address] [address] .Auto Diffon 05-20-2023 Basophil, Absolute 0.1 10 3/mcL Normal 0.0-0.2 [facility] ([place] Comment on above: Performed By: #### H IVRP #### [place] [address] [place], [place] [address] #### RPR, HCV1 #### [address] [address] Basophils/100 WBC (Bld) 1.0 % Normal 0.0-2.5 [facility] ([place] Comment on above: Performed By: #### H IVRP #### [place] [address] #### RPR, HCV1 #### [address] [address] Eosinophil, Absolute 0.5 10 3/mcL High 0.0-0.4 [facility] ([place]) Comment on above: Performed By: #### H IVRP #### [place] [address] #### RPR, HCV1 #### [address] [address] Eosinophils/100 WBC (Bld) 8.7 % High 0.0-7.0 [facility] ([place] Comment on above: Performed By: #### H IVRP #### [place] [address] #### RPR, HCV1 #### [address] [address] Lymphocyte, Absolute 1.4 10 3/mcL Normal 0.8-3.9 [facility] ([place] Comment on above: Performed By: #### H IVRP #### [place] [address] #### RPR, HCV1 #### [address] [address] Lymphocytes/100 WBC (Bld) 23.8 % Normal 10.0-50.0 [facility] ([place] Comment on above: Performed By: #### H IVRP #### [place] [address] #### RPR, HCV1 #### [address] [address] Monocyte, Absolute 0.3 10 3/mcL Normal 0.2-1.0 [facility] ([place] Comment on above: Performed By: #### H IVRP #### [place] [address] #### RPR, HCV1 #### [facility] [address] [place] [address] Monocytes/100 WBC (Bld) 5.8 % Normal 1.7-13.0 [facility] ([place] Comment on above: Performed By: #### H IVRP #### [address] [address] #### RPR, HCV1 #### [address] [address] Neutrophils/100 WBC (Bld) 60.7 % Normal 37.0-80.0 [facility] ([place]) Comment on above: Performed By: #### H IVRP #### [address] [address] #### RPR, HCV1 #### [address] [address] .GFRon 05-20-2023 GFR 83 ml/min/1.73sqm Normal [facility] ([place]) Comment on above: Result Comment: GFR Population mean for , Non- Americans Ages 20-29 = 116 mL/min/1.73 sq.m. Ages 30-39 = 107 mL/min/1.73 sq.m. Ages 40-49 = 99 mL/min/1.73 sq.m. Ages 50-59 = 93 mL/min/1.73 sq.m. Ages 60-69 = 85 mL/min/1.73 sq.m. Ages 70+ = 75 mL/min/1.73 sq.m. Chronic Kidney Disease: Less than 60 mL/min/1.73 square meters End Stage Renal Disease: Less than 15 mL/min/1.73 square meters Performed By: #### H IVRP #### [address] [address] #### RPR, HCV1 #### [address] [address] GFR Non- 69 ml/min/1.73sqm Normal [facility] ([place]) Comment on above: Result Comment: GFR Population mean for , Non- Americans Ages 20-29 = 116 mL/min/1.73 sq.m. Ages 30-39 = 107 mL/min/1.73 sq.m. Ages 40-49 = 99 mL/min/1.73 sq.m. Ages 50-59 = 93 mL/min/1.73 sq.m. Ages 60-69 = 85 mL/min/1.73 sq.m. Ages 70+ = 75 mL/min/1.73 sq.m. Chronic Kidney Disease: Less than 60 mL/min/1.73 square meters End Stage Renal Disease: Less than 15 mL/min/1.73 square meters Performed By: #### H IVRP #### [place] [address] #### RPR, HCV1 #### [place] [address] .NEUABSon 05-20-2023 Neutrophil, Absolute 3.6 10 3/mcL Normal 2.9-6.2 [facility] ([place] Comment on above: Performed By: #### H IVRP #### [place] [address] #### RPR, HCV1 #### [place] [address] A1Con 05-20-2023 HbA1c (Bld) [Mass fraction] 6.4 % Normal 4.3-6.4 [facility] ([place] Comment on above: Performed By: #### H IVRP #### [place] [address] #### RPR, HCV1 #### [place] [address] BMPon 05-20-2023 BUN/Creatinine Ratio 34 ratio High 7-27 [facility] ([place] Comment on above: Performed By: #### H IVRP #### [place] [id number] #### RPR, HCV1 #### [place] [address] Calcium [Mass/Vol] 8.8 mg/dL Normal 8.4-10.2 [facility] ([place] Comment on above: Performed By: #### H IVRP #### [address] [address] #### RPR, HCV1 #### [address] [address] Chloride [Moles/Vol] 104 mmol/L Normal 98-107 [facility] ([place] Comment on above: Performed By: #### H IVRP #### [place] [id number] #### RPR, HCV1 #### [address] [address] CO2 [Moles/Vol] 32 mmol/L High 23-31 [facility] ([place] Comment on above: Performed By: #### H IVRP #### [place] [address] #### RPR, HCV1 #### [address] [address] Creatinine [Mass/Vol] 0.82 mg/dL Normal 0.55-1.02 [facility] ([place] Comment on above: Performed By: #### H IVRP #### [place] [address] #### RPR, HCV1 #### [address] [address] Electrolyte Balance 9.0 mEq/L Normal 4.0-15.0 [facility] [place] Comment [place] above: Performed By: #### H IVRP #### [place] [id number] #### RPR, HCV1 #### [address] [address] Glucose [Mass/Vol] 114 mg/dL High 83-110 [facility] ([place] Comment on above: Performed By: #### H IVRP #### [place] [id number] #### RPR, HCV1 #### [address] [address] Potassium [Moles/Vol] 4.7 mmol/L Normal 3.5-5.1 [facility] ([place] Comment on above: Performed By: #### H IVRP #### [address] [address] #### RPR, HCV1 #### [address] [address] Sodium [Moles/Vol] 145 mmol/L Normal 136-145 [facility] ([place] Comment on above: Performed By: #### H IVRP #### [place] [address] #### RPR, HCV1 #### [place] [address] Urea nitrogen [Mass/Vol] 28 mg/dL High 7-18 [facility] ([place] Comment on above: Performed By: #### H IVRP #### [place] [address] #### RPR, HCV1 #### [place] [address] CBCon 05-20-2023 Erythrocyte distribution width (RBC) [Ratio] 14.3 % Normal 11.5-14.5 [facility] ([place] Comment on above: Performed By: #### H IVRP #### [place] [id number] #### RPR, HCV1 #### [place] [address] Hematocrit (Bld) [Volume fraction] 38.6 % Normal 37.0-47.0 [facility] ([place] Comment on above: Performed By: #### H IVRP #### [place] [address] #### RPR, HCV1 #### [place] [id number] Hgb 12.8 G/dL Normal 12.0-16.0 [facility] ([place] Comment on above: Performed By: #### H IVRP #### [place] [address] #### RPR, HCV1 #### [address] [address] MCH (RBC) [Entitic mass] 28.8 pg Normal 27.0-31.2 [facility] ([place] Comment on above: Performed By: #### H IVRP #### [place] [address] #### RPR, HCV1 #### [place] [address] MCHC 33.1 G/dL Normal 33.0-37.0 [facility] ([place] Comment on above: Performed By: #### H IVRP #### [place] [address] #### RPR, HCV1 #### [place] [address] MCV (RBC) [Entitic vol] 87.1 fL Normal 80.0-94.0 [facility] ([place] Comment on above: Performed By: #### H IVRP #### [place] [address] #### RPR, HCV1 #### [place] [address] Platelet 197 10 3/mcL Normal 130-400 [facility] ([place] Comment on above: Performed By: #### H IVRP #### [place] [address] #### RPR, HCV1 #### [address] [address] Platelet mean volume (Bld) [Entitic vol] 7.4 fL Normal 7.4-10.4 [facility] ([place] Comment on above: Performed By: #### H IVRP #### [place] [address] #### RPR, HCV1 #### [place] [address] RBC 4.43 10 6/mcL Normal 4.20-5.40 [facility] ([place] Comment on above: Performed By: #### H IVRP #### [facility] [address] [place], [place] [address] #### RPR, HCV1 #### [facility] [address] [place] [address] WBC 5.9 10 3/mcL Normal 4.6-10.8 [facility] ([place] Comment on above: Performed By: #### H IVRP #### [address] [place], [place] [address] #### RPR, HCV1 #### [facility] [address] [place] [address] KNEE W/O CONTRAST RIGHTon 05-20-2023 CT KNEE W/O CONTRAST RIGHT ORIGINAL EXAMINATION: CT OF THE RIGHT KNEE WITHOUT CONTRAST 05/20/2023 8:35 am TECHNIQUE: CT of the right knee was performed without the administration of intravenous contrast. Multiplanar reformatted images are provided for review. Automated exposure control, iterative reconstruction, and/or weight based adjustment of the mA/kV was utilized to reduce the radiation dose to as low as reasonably achievable. COMPARISON: Right knee radiographs 05/04/2012. 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 robotic knee mapping. History of arthroscopy. FINDINGS: No acute fracture or dislocation. Decreased osseous mineralization. No visible aggressive osseous lesions. There is epmo-tw-ohatbzek medial femorotibial compartment joint space narrowing with with central and marginal osteophytes. Chondrocalcinosis. There is moderate lateral femorotibial compartment joint space narrowing with subchondral sclerosis and marginal osteophytes. Chondrocalcinosis. There is [id number] patellofemoral compartment joint space narrowing with sizable marginal osteophytes and subchondral sclerosis. Chondrocalcinosis. No significant joint effusion. An intracapsular body of the medial parapatellar recess measures up to 0.5 cm. Smaller intracapsular bodies of the infrapatellar recess are present. No significant volume of fluid is evident of a popliteal cyst. Tendons and ligaments are suboptimally evaluated on this examination. Mild insertional quadriceps and patellar origin enthesopathy. No severe muscle atrophy. A nonspecific small rounded fluid signal intensity focus is noted abutting the inferior aspect of the medial collateral ligament measuring 1.0 x 0.8 x 0.8 cm. Provided images of the hip and hemipelvis exhibit no acute osseous abnormalities or aggressive osseous lesions. The included intrapelvic contents exhibit no acute abnormalities. Provided images of the ankle exhibit no acute osseous abnormalities or aggressive osseous lesions. IMPRESSION: 1. No acute osseous abnormalities or aggressive osseous lesions. 2. Tricompartmental degenerative change with chondrocalcinosis, most advanced of the lateral femorotibial compartment. Intracapsular bodies as above. Interpreted by: Madhav Hines DO Preliminary Report By: Madhav Hines DO Electronically signed By Madhav Hines DO Dictated Date: 05/20/2023 8:42:54 AM Prelim Date: 05/20/2023 8:49:12 AM Sign Date: 05/20/2023 8:49:12 AM Ordering Provider: MARIANGEL ROBISON [facility] ([place]) LABORATORYOrdered By: SYSTEM SYSTEM on 05-20-2023 Basophil, Absolute 0.1 103/mcL Invalid Interpretation Code 0.0 - 0.2 10^3/mcL AO Workflow SS Basophils/100 WBC (Bld) 1.0 % Invalid Interpretation Code 0.0 - 2.5 % AO Workflow SS Calcium [Mass/Vol] 8.8 mg/dL Invalid Interpretation Code 8.4 - 10.2 mg/dL AO ADM SS Chloride [Moles/Vol] 104 mmol/L Invalid Interpretation Code 98 - 107 mmol/L AO ADM SS CO2 [Moles/Vol] 32 mmol/L Invalid Interpretation Code 23 - 31 mmol/L AO ADM SS Creatinine [Mass/Vol] 0.82 mg/dL Invalid Interpretation Code 0.55 - 1.02 mg/dL AO ADM SS Electrolyte Balance 9.0 mEq/L Invalid Interpretation Code 4.0 - 15.0 mEq/L AO ADM SS Eosinophil, Absolute 0.5 103/mcL Invalid Interpretation Code 0.0 - 0.4 10^3/mcL AO Workflow SS Eosinophils/100 WBC (Bld) 8.7 % Invalid Interpretation Code 0.0 - 7.0 % AO Workflow SS Erythrocyte distribution width (RBC) [Ratio] 14.3 % Invalid Interpretation Code 11.5 - 14.5 % AO Workflow SS GFR/1.73 sq M.predicted among blacks MDRD (S/P/Bld) [Vol rate/Area] 83 ml/min/1.73sqm Invalid Interpretation Code AO Chemistry S Comment on above: Interpretive Data: GFR Population mean for , Non- Americans Ages 20-29 = 116 mL/min/1.73 sq.m. Ages 30-39 = 107 mL/min/1.73 sq.m. Ages 40-49 = 99 mL/min/1.73 sq.m. Ages 50-59 = 93 mL/min/1.73 sq.m. Ages 60-69 = 85 mL/min/1.73 sq.m. Ages 70+ = 75 mL/min/1.73 sq.m. Chronic Kidney Disease: Less than 60 mL/min/1.73 square meters End Stage Renal Disease: Less than 15 mL/min/1.73 square meters GFR/1.73 sq M.predicted among non-blacks MDRD (S/P/Bld) [Vol rate/Area] 69 ml/min/1.73sqm Invalid Interpretation Code AO Chemistry S Comment on above: Interpretive Data: GFR Population mean for , Non- Americans Ages 20-29 = 116 mL/min/1.73 sq.m. Ages 30-39 = 107 mL/min/1.73 sq.m. Ages 40-49 = 99 mL/min/1.73 sq.m. Ages 50-59 = 93 mL/min/1.73 sq.m. Ages 60-69 = 85 mL/min/1.73 sq.m. Ages 70+ = 75 mL/min/1.73 sq.m. Chronic Kidney Disease: Less than 60 mL/min/1.73 square meters End Stage Renal Disease: Less than 15 mL/min/1.73 square meters Glucose [Mass/Vol] 114 mg/dL Invalid Interpretation Code 83 - 110 mg/dL AO ADM SS HbA1c (Bld) [Mass fraction] 6.4 % Invalid Interpretation Code 4.3 - 6.4 % AO ADM SS Hematocrit (Bld) [Volume fraction] 38.6 % Invalid Interpretation Code 37.0 - 47.0 % AO Workflow SS Hemoglobin (Bld) [Mass/Vol] 12.8 G/dL Invalid Interpretation Code 12.0 - 16.0 G/dL AO Workflow SS Lymphocyte, Absolute 1.4 103/mcL Invalid Interpretation Code 0.8 - 3.9 10^3/mcL AO Workflow SS Lymphocytes/100 WBC (Bld) 23.8 % Invalid Interpretation Code 10.0 - 50.0 % AO Workflow SS Magnesium [Mass/Vol] 1.6 mg/dL Invalid Interpretation Code 1.8 - 2.4 mg/dL AO ADM SS MCH (RBC) [Entitic mass] 28.8 pg Invalid Interpretation Code 27.0 - 31.2 pg AO Workflow SS MCHC 33.1 G/dL Invalid Interpretation Code 33.0 - 37.0 G/dL AO Workflow SS MCV (RBC) [Entitic vol] 87.1 fL Invalid Interpretation Code 80.0 - 94.0 fL AO Workflow SS Monocyte, Absolute 0.3 103/mcL Invalid Interpretation Code 0.2 - 1.0 10^3/mcL AO Workflow SS Monocytes/100 WBC (Bld) 5.8 % Invalid Interpretation Code 1.7 - 13.0 % AO Workflow SS Neutrophil, Absolute 3.6 103/mcL Invalid Interpretation Code 2.9 - 6.2 10^3/mcL AO Workflow SS Neutrophils/100 WBC (Bld) 60.7 % Invalid Interpretation Code 37.0 - 80.0 % AO Workflow SS Platelet mean volume (Bld) [Entitic vol] 7.4 fL Invalid Interpretation Code 7.4 - 10.4 fL AO Workflow SS Platelets (Bld) [#/Vol] 197 103/mcL Invalid Interpretation Code 130 - 400 10^3/mcL AO Workflow SS Potassium [Moles/Vol] 4.7 mmol/L Invalid Interpretation Code 3.5 - 5.1 mmol/L AO ADM SS RBC (Bld) [#/Vol] 4.43 106/mcL Invalid Interpretation Code 4.20 - 5.40 10^6/mcL AO Workflow SS Sodium [Moles/Vol] 145 mmol/L Invalid Interpretation Code 136 - 145 mmol/L AO ADM SS TSH Qn 0.92 m[IU]/L Invalid Interpretation Code 0.36 - 3.74 mcIU/mL AO ADM SS Urea nitrogen [Mass/Vol] 28 mg/dL Invalid Interpretation Code 7 - 18 mg/dL AO ADM SS Urea nitrogen/Creatinine [Mass ratio] 34 ratio Invalid Interpretation Code 7 - 27 ratio AO ADM SS WBC (Bld) [#/Vol] 5.9 103/mcL Invalid Interpretation Code 4.6 - 10.8 10^3/mcL AO Workflow SS MGon 05-20-2023 Magnesium [Mass/Vol] 1.6 mg/dL Low 1.8-2.4 [facility] ([place]) Comment on above: Performed By: #### H IVRP #### [place] [id number] [place], [place] [address] #### RPR, HCV1 #### [place] [address] TSHon 05-20-2023 TSH Qn 0.92 m[IU]/L Normal 0.36-3.74 [facility] ([place]) Comment on above: Performed By: #### H IVRP #### [place] [address] [id number] [place], [place] [address] #### RPR, HCV1 #### [place] [address] LABORATORYOrdered By: SYSTEM SYSTEM on 01-28-2023 Calcium [Mass/Vol] 9.1 mg/dL Invalid Interpretation Code 8.4 - 10.2 mg/dL AO ADM SS Chloride [Moles/Vol] 103 mmol/L Invalid Interpretation Code 98 - 107 mmol/L AO ADM SS CO2 [Moles/Vol] 30 mmol/L Invalid Interpretation Code 23 - 31 mmol/L AO ADM SS Creatinine [Mass/Vol] 0.78 mg/dL Invalid Interpretation Code 0.55 - 1.02 mg/dL AO ADM SS Electrolyte Balance 8.0 mEq/L Invalid Interpretation Code 4.0 - 15.0 mEq/L AO ADM SS GFR/1.73 sq M.predicted among blacks MDRD (S/P/Bld) [Vol rate/Area] 88 ml/min/1.73sqm Invalid Interpretation Code AO Chemistry S GFR/1.73 sq M.predicted among non-blacks MDRD (S/P/Bld) [Vol rate/Area] 73 ml/min/1.73sqm Invalid Interpretation Code AO Chemistry S Glucose [Mass/Vol] 99 mg/dL Invalid Interpretation Code 83 - 110 mg/dL AO ADM SS Potassium [Moles/Vol] 4.7 mmol/L Invalid Interpretation Code 3.5 - 5.1 mmol/L AO ADM SS Sodium [Moles/Vol] 141 mmol/L Invalid Interpretation Code 136 - 145 mmol/L AO ADM SS Urea nitrogen [Mass/Vol] 25 mg/dL Invalid Interpretation Code 7 - 18 mg/dL AO ADM SS Urea nitrogen/Creatinine [Mass ratio] 32 ratio Invalid Interpretation Code 7 - 27 ratio AO ADM SS LABORATORYOrdered By: SYSTEM SYSTEM on 01-23-2023 Calcium [Mass/Vol] 9.4 mg/dL Invalid Interpretation Code 8.4 - 10.2 mg/dL AO ADM SS Chloride [Moles/Vol] 108 mmol/L Invalid Interpretation Code 98 - 107 mmol/L AO ADM SS CO2 [Moles/Vol] 33 mmol/L Invalid Interpretation Code 23 - 31 mmol/L AO ADM SS Creatinine [Mass/Vol] 0.76 mg/dL Invalid Interpretation Code 0.55 - 1.02 mg/dL AO ADM SS Electrolyte Balance 6.0 mEq/L Invalid Interpretation Code 4.0 - 15.0 mEq/L AO ADM SS GFR/1.73 sq M.predicted among blacks MDRD (S/P/Bld) [Vol rate/Area] 91 ml/min/1.73sqm Invalid Interpretation Code AO Chemistry S GFR/1.73 sq M.predicted among non-blacks MDRD (S/P/Bld) [Vol rate/Area] 75 ml/min/1.73sqm Invalid Interpretation Code AO Chemistry S Glucose [Mass/Vol] 112 mg/dL Invalid Interpretation Code 83 - 110 mg/dL AO ADM SS Potassium [Moles/Vol] 5.1 mmol/L Invalid Interpretation Code 3.5 - 5.1 mmol/L AO ADM SS Sodium [Moles/Vol] 147 mmol/L Invalid Interpretation Code 136 - 145 mmol/L AO ADM SS Urea nitrogen [Mass/Vol] 21 mg/dL Invalid Interpretation Code 7 - 18 mg/dL AO ADM SS Urea nitrogen/Creatinine [Mass ratio] 28 ratio Invalid Interpretation Code 7 - 27 ratio AO ADM SS LABORATORYOrdered By: SYSTEM SYSTEM on 12-21-2022 Albumin BCP dye [Mass/Vol] 3.6 G/dL Invalid Interpretation Code 3.4 - 4.8 G/dL AO ADM SS Albumin/Globulin [Mass ratio] 1.2 {ratio} Invalid Interpretation Code 1.1 - 2.5 ratio AO ADM SS ALP [Catalytic activity/Vol] 54 U/L Invalid Interpretation Code 40 - 135 U/L AO ADM SS ALT With P-5'-P [Catalytic activity/Vol] 59 U/L Invalid Interpretation Code 14 - 59 U/L AO ADM SS AST With P-5'-P [Catalytic activity/Vol] 37 U/L Invalid Interpretation Code 10 - 40 U/L AO ADM SS Bilirubin [Mass/Vol] 0.4 mg/dL Invalid Interpretation Code 0.2 - 1.0 mg/dL AO ADM SS Calcium [Mass/Vol] 9.2 mg/dL Invalid Interpretation Code 8.4 - 10.2 mg/dL AO ADM SS Chloride [Moles/Vol] 106 mmol/L Invalid Interpretation Code 98 - 107 mmol/L AO ADM SS CO2 [Moles/Vol] 33 mmol/L Invalid Interpretation Code 23 - 31 mmol/L AO ADM SS Creatinine [Mass/Vol] 0.80 mg/dL Invalid Interpretation Code 0.55 - 1.02 mg/dL AO ADM SS Electrolyte Balance 8.0 mEq/L Invalid Interpretation Code 4.0 - 15.0 mEq/L AO ADM SS GFR 86 ml/min/1.73sqm Invalid Interpretation Code AO Chemistry S GFR Non- 71 ml/min/1.73sqm Invalid Interpretation Code AO Chemistry S Globulin 2.9 G/dL Invalid Interpretation Code AO ADM SS Glucose [Mass/Vol] 93 mg/dL Invalid Interpretation Code 83 - 110 mg/dL AO ADM SS Potassium [Moles/Vol] 5.0 mmol/L Invalid Interpretation Code 3.5 - 5.1 mmol/L AO ADM SS Protein [Mass/Vol] 6.5 G/dL Invalid Interpretation Code 6.4 - 8.2 G/dL AO ADM SS Sodium [Moles/Vol] 147 mmol/L Invalid Interpretation Code 136 - 145 mmol/L AO ADM SS TSH Qn 1.49 m[IU]/L Invalid Interpretation Code 0.36 - 3.74 mcIU/mL AO ADM SS Urea nitrogen [Mass/Vol] 24 mg/dL Invalid Interpretation Code 7 - 18 mg/dL AO ADM SS Urea nitrogen/Creatinine [Mass ratio] 30 ratio Invalid Interpretation Code 7 - 27 ratio AO ADM SS LABORATORYOrdered By: Stacie Mae on 12-21-2022 Basophil, Absolute 0.0 103/mcL Invalid Interpretation Code 0.0 - 0.2 10^3/mcL AO Workflow SS Basophils/100 WBC (Bld) 0.8 % Invalid Interpretation Code 0.0 - 2.5 % AO Workflow SS Cholesterol [Mass/Vol] 159 mg/dL Invalid Interpretation Code 0 - 200 mg/dL AO ADM SS Cholesterol in HDL [Mass/Vol] 65 mg/dL Invalid Interpretation Code 40 - 60 mg/dL AO ADM SS Cholesterol in LDL [Mass/Vol] 80 mg/dL Invalid Interpretation Code 0 - 130 mg/dL AO ADM SS Eosinophil, Absolute 0.2 103/mcL Invalid Interpretation Code 0.0 - 0.4 10^3/mcL AO Workflow SS Eosinophils/100 WBC (Bld) 3.6 % Invalid Interpretation Code 0.0 - 7.0 % AO Workflow SS Erythrocyte distribution width (RBC) [Ratio] 14.4 % Invalid Interpretation Code 11.5 - 14.5 % AO Workflow SS Hematocrit (Bld) [Volume fraction] 40.0 % Invalid Interpretation Code 37.0 - 47.0 % AO Workflow SS Hemoglobin (Bld) [Mass/Vol] 13.3 G/dL Invalid Interpretation Code 12.0 - 16.0 G/dL AO Workflow SS Lymphocyte, Absolute 1.6 103/mcL Invalid Interpretation Code 0.8 - 3.9 10^3/mcL AO Workflow SS Lymphocytes/100 WBC (Bld) 28.5 % Invalid Interpretation Code 10.0 - 50.0 % AO Workflow SS MCH (RBC) [Entitic mass] 29.9 pg Invalid Interpretation Code 27.0 - 31.2 pg AO Workflow SS MCHC 33.3 G/dL Invalid Interpretation Code 33.0 - 37.0 G/dL AO Workflow SS MCV (RBC) [Entitic vol] 89.6 fL Invalid Interpretation Code 80.0 - 94.0 fL AO Workflow SS Monocyte, Absolute 0.3 103/mcL Invalid Interpretation Code 0.2 - 1.0 10^3/mcL AO Workflow SS Monocytes/100 WBC (Bld) 6.0 % Invalid Interpretation Code 1.7 - 13.0 % AO Workflow SS Neutrophil, Absolute 3.5 103/mcL Invalid Interpretation Code 2.9 - 6.2 10^3/mcL AO Workflow SS Neutrophils/100 WBC (Bld) 61.1 % Invalid Interpretation Code 37.0 - 80.0 % AO Workflow SS Platelet mean volume (Bld) [Entitic vol] 7.4 fL Invalid Interpretation Code 7.4 - 10.4 fL AO Workflow SS Platelets (Bld) [#/Vol] 220 103/mcL Invalid Interpretation Code 130 - 400 10^3/mcL AO Workflow SS RBC (Bld) [#/Vol] 4.46 106/mcL Invalid Interpretation Code 4.20 - 5.40 10^6/mcL AO Workflow SS Triglyceride [Mass/Vol] 68 mg/dL Invalid Interpretation Code 0 - 150 mg/dL AO ADM SS WBC (Bld) [#/Vol] 5.7 103/mcL Invalid Interpretation Code 4.6 - 10.8 10^3/mcL AO Workflow SS LABORATORYOrdered By: Azucena Suh on 11-06-2022 Albumin DL <= 20 mg/L (U) [Mass/Vol] 673 mcg/dL Invalid Interpretation Code AO ADM SS Albumin/Creatinine DL <= 20 mg/L (U) [Mass ratio] 8 mcg/mg Invalid Interpretation Code 0 - 30 mcg/mg AO ADM SS Creatinine (U) [Mass/Vol] 88.7 mg/dL Invalid Interpretation Code 28.0 - 117.0 mg/dL AO ADM SS LABORATORYOrdered By: [place] on 07-02-2022 Glucose [Mass/Vol] 86 mg/dL Invalid Interpretation Code 82 - 115 mg/dL [facility] Work Phone: LABORATORYOrdered By: Azucena Suh on 03-29-2022 Calcium [Mass/Vol] 9.3 mg/dL Invalid Interpretation Code 8.4 - 10.2 mg/dL AO ADM SS Chloride [Moles/Vol] 105 mmol/L Invalid Interpretation Code 98 - 107 mmol/L AO ADM SS CO2 [Moles/Vol] 31 mmol/L Invalid Interpretation Code 23 - 31 mmol/L AO ADM SS Creatinine [Mass/Vol] 0.80 mg/dL Invalid Interpretation Code 0.55 - 1.02 mg/dL AO ADM SS Electrolyte Balance 7.0 mEq/L Invalid Interpretation Code 4.0 - 15.0 mEq/L AO ADM SS Glucose [Mass/Vol] 89 mg/dL Invalid Interpretation Code 83 - 110 mg/dL AO ADM SS Iron [Mass/Vol] 83 ug/dL Invalid Interpretation Code 50 - 170 mcg/dL AO ADM SS Magnesium [Mass/Vol] 1.8 mg/dL Invalid Interpretation Code 1.8 - 2.4 mg/dL AO ADM SS Potassium [Moles/Vol] 4.7 mmol/L Invalid Interpretation Code 3.5 - 5.1 mmol/L AO ADM SS Sodium [Moles/Vol] 143 mmol/L Invalid Interpretation Code 136 - 145 mmol/L AO ADM SS Urea nitrogen [Mass/Vol] 22 mg/dL Invalid Interpretation Code 7 - 18 mg/dL AO ADM SS Urea nitrogen/Creatinine [Mass ratio] 28 ratio Invalid Interpretation Code 7 - 27 ratio AO ADM SS LABORATORYOrdered By: SYSTEM SYSTEM on 03-29-2022 GFR 86 ml/min/1.73sqm Invalid Interpretation Code AO Chemistry S GFR Non- 71 ml/min/1.73sqm Invalid Interpretation Code AO Chemistry S LABORATORYOrdered By: Otilio Franklin on 03-29-2022 HbA1c (Bld) [Mass fraction] 5.9 % Invalid Interpretation Code 4.3 - 6.4 % AO ADM SS LABORATORYOrdered By: Stacie Mae on 01-01-2022 Albumin BCP dye [Mass/Vol] 3.4 G/dL Invalid Interpretation Code 3.4 - 4.8 G/dL AO ADM SS Albumin/Globulin [Mass ratio] 1.2 {ratio} Invalid Interpretation Code 1.1 - 2.5 ratio AO ADM SS ALP [Catalytic activity/Vol] 46 U/L Invalid Interpretation Code 40 - 135 U/L AO ADM SS ALT With P-5'-P [Catalytic activity/Vol] 46 U/L Invalid Interpretation Code 14 - 59 U/L AO ADM SS AST With P-5'-P [Catalytic activity/Vol] 30 U/L Invalid Interpretation Code 10 - 40 U/L AO ADM SS Bili Indirect 0.2 mg/dL Invalid Interpretation Code AO Chemistry S Bilirubin [Mass/Vol] 0.4 mg/dL Invalid Interpretation Code 0.2 - 1.0 mg/dL AO ADM SS Bilirubin.direct [Mass/Vol] 0.2 mg/dL Invalid Interpretation Code 0.0 - 0.2 mg/dL AO ADM SS Globulin 2.9 G/dL Invalid Interpretation Code AO ADM SS Protein [Mass/Vol] 6.3 G/dL Invalid Interpretation Code 6.4 - 8.2 G/dL AO ADM SS LABORATORYOrdered By: Merlyn Kerr on 11-02-2021 Blood Glucose Frequency Daily (11/02/21 10:46 AM) [facility] Work Phone: LABORATORYOrdered By: Giulia Sanabria on 10-25-2021 Albumin DL <= 20 mg/L (U) [Mass/Vol] 349 mcg/dL Invalid Interpretation Code AO ADM SS Albumin/Creatinine DL <= 20 mg/L (U) [Mass ratio] 3 mcg/mg Invalid Interpretation Code 0 - 30 mcg/mg AO ADM SS Creatinine (U) [Mass/Vol] 106.5 mg/dL Invalid Interpretation Code 28.0 - 117.0 mg/dL AO ADM SS LABORATORYOrdered By: Stacie Mae on 10-02-2021 Albumin BCP dye [Mass/Vol] 3.4 G/dL Invalid Interpretation Code 3.4 - 4.8 G/dL AO ADM SS Albumin/Globulin [Mass ratio] 1.1 {ratio} Invalid Interpretation Code 1.1 - 2.5 ratio AO ADM SS ALP [Catalytic activity/Vol] 35 U/L Invalid Interpretation Code 40 - 135 U/L AO ADM SS ALT With P-5'-P [Catalytic activity/Vol] 84 U/L Invalid Interpretation Code 14 - 59 U/L AO ADM SS AST With P-5'-P [Catalytic activity/Vol] 57 U/L Invalid Interpretation Code 10 - 40 U/L AO ADM SS Bilirubin [Mass/Vol] 0.4 mg/dL Invalid Interpretation Code 0.2 - 1.0 mg/dL AO ADM SS Calcium [Mass/Vol] 8.9 mg/dL Invalid Interpretation Code 8.4 - 10.2 mg/dL AO ADM SS Chloride [Moles/Vol] 102 mmol/L Invalid Interpretation Code 98 - 107 mmol/L AO ADM SS Cholesterol [Mass/Vol] 116 mg/dL Invalid Interpretation Code 0 - 200 mg/dL AO ADM SS Cholesterol in HDL [Mass/Vol] 49 mg/dL Invalid Interpretation Code 40 - 60 mg/dL AO ADM SS Cholesterol in LDL [Mass/Vol] 53 mg/dL Invalid Interpretation Code 0 - 130 mg/dL AO ADM SS CO2 [Moles/Vol] 28 mmol/L Invalid Interpretation Code 23 - 31 mmol/L AO ADM SS Creatinine [Mass/Vol] 0.82 mg/dL Invalid Interpretation Code 0.55 - 1.02 mg/dL AO ADM SS Electrolyte Balance 11.0 mEq/L Invalid Interpretation Code AO ADM SS Globulin 3.2 G/dL Invalid Interpretation Code AO ADM SS Glucose [Mass/Vol] 107 mg/dL Invalid Interpretation Code 83 - 110 mg/dL AO ADM SS HbA1c (Bld) [Mass fraction] 6.0 % Invalid Interpretation Code 4.3 - 6.4 % AO ADM SS Potassium [Moles/Vol] 4.2 mmol/L Invalid Interpretation Code 3.5 - 5.1 mmol/L AO ADM SS Protein [Mass/Vol] 6.6 G/dL Invalid Interpretation Code 6.4 - 8.2 G/dL AO ADM SS Sodium [Moles/Vol] 141 mmol/L Invalid Interpretation Code 136 - 145 mmol/L AO ADM SS Triglyceride [Mass/Vol] 68 mg/dL Invalid Interpretation Code 0 - 150 mg/dL AO ADM SS TSH Qn 2.01 m[IU]/L Invalid Interpretation Code 0.36 - 3.74 mcIU/mL AO ADM SS Urea nitrogen [Mass/Vol] 17 mg/dL Invalid Interpretation Code 7 - 18 mg/dL AO ADM SS Urea nitrogen/Creatinine [Mass ratio] 21 ratio Invalid Interpretation Code 7 - 27 ratio AO ADM SS Vit. D 25-Hydroxy 34.8 ng/mL Invalid Interpretation Code AO ADM SS LABORATORYOrdered By: SYSTEM SYSTEM on 10-02-2021 GFR 84 ml/min/1.73sqm Invalid Interpretation Code AO Chemistry S GFR Non- 69 ml/min/1.73sqm Invalid Interpretation Code AO Chemistry S UPPER EXT DVT RIGHTon 2019 UPPER EXT DVT RIGHT ANNA MOREL Fem jose [id number] Ordering physician: Fahad Fan LOC:ULTR [id number] Attending physician: Fahad Fan 1950 69 DOS: 10/09/19 Acc#: [id number] Exam/Proc: UPPER EXT DVT RIGHT Dept: ULTRASOUND DUPLEX UPPER EXTREMITY VENOUS DOPPLER: Right-sided CLINICAL HISTORY: R/O DVT , right upper extremity pain Comparison: None Findings: The right subclavian, axillary, brachial, radial, ulnar and cephalic veins show no direct or indirect evidence of thrombosis. There is normal phasic spontaneous flow in these veins which are also compressible. The internal jugular vein is also patent. Spectral analysis shows normal flow augmentation in the subclavian, axillary and basilic veins with physiologic maneuvers. There is mildly echogenic thrombus in the basilic vein which is noncompressible without any visible flow. IMPRESSION: No evidence of deep vein thrombosis in the right upper extremity. There is acute thrombus in the basilic vein. Electronically signed by: Kevin Holm MD 10/09/2019 5:19 PM [facility] REPORT SIGNATURE ON FILE Electronically Signed Date/Time: 10/09/191718 Dictated Date/time: 10/09/191718 CC: Normal [facility] Vital Signs Date Time Vital Sign Value Performing Clinician Facility 04-12-2025 09:28-0400 Body temperature 98.2 [degF] Dr. Ko Benavides DO Work Phone: [facility] 04-12-2025 09:28-0400 Diastolic blood pressure 68 mm[Hg] Dr. Ko Benavides DO Work Phone: [facility] 04-12-2025 09:28-0400 Heart rate 60 /min Dr. Ko Benavides DO Work Phone: [facility] 04-12-2025 09:28-0400 Respiratory rate 18 /min Dr. Ko Benavides DO Work Phone: [facility] 04-12-2025 09:28-0400 SaO2% (BldA) [Mass fraction] 97 % Dr. Ko Benavides DO Work Phone: [facility] 04-12-2025 09:28-0400 Systolic blood pressure 120 mm[Hg] Dr. Ko Benavides DO Work Phone: [facility] 04-12-2025 08:15-0400 Body height 152.[address] Ko Benavides DO Work Phone: [facility] 04-12-2025 08:15-0400 Body mass index (BMI) [Ratio] 43 kg/m2 Dr. Ko Benavides DO Work Phone: [facility] 04-12-2025 08:15-0400 Body weight 99.[address] Ko Benavides DO Work Phone: [facility] 02-11-2025 08:07-0400 Body mass index (BMI) [Ratio] 42.3 kg/m2 Dr. Ko Benavides DO Work Phone: [facility] 02-11-2025 08:07-0400 Body weight 98.[address] Ko Benavides DO Work Phone: [facility] 02-11-2025 08:07-0400 Diastolic blood pressure 76 mm[Hg] Dr. Ko Benavides DO Work Phone: [facility] 02-11-2025 08:07-0400 Heart rate 65 /min Dr. Ko Benavides DO Work Phone: [facility] 02-11-2025 08:07-0400 SaO2% (BldA) [Mass fraction] 93 % Dr. Ko Benavides DO Work Phone: [facility] 02-11-2025 08:07-0400 Systolic blood pressure 118 mm[Hg] Dr. Ko Benavides DO Work Phone: [facility] 12-28-2024 09:10-0400 Body temperature 97.6 [degF] Dr. Ko Benavides DO Work Phone: [facility] 12-28-2024 09:10-0400 Diastolic blood pressure 68 mm[Hg] Dr. Ko Benavides DO Work Phone: [facility] 12-28-2024 09:10-0400 Heart rate 64 /min Dr. Ko Benavides DO Work Phone: [facility] 12-28-2024 09:10-0400 Respiratory rate 16 /min Dr. Ko Benavides DO Work Phone: [facility] 12-28-2024 09:10-0400 SaO2% (BldA) [Mass fraction] 100 % Dr. Ko Benavides DO Work Phone: [facility] 12-28-2024 09:10-0400 Systolic blood pressure 125 mm[Hg] Dr. Ko Benavides DO Work Phone: [facility] 12-28-2024 07:57-0400 Body height 152.[address] Ko Benavides DO Work Phone: [facility] 12-28-2024 07:57-0400 Body mass index (BMI) [Ratio] 42.6 kg/m2 Dr. Ko Benavides DO Work Phone: [facility] 12-28-2024 07:57-0400 Body weight [address] Ko Benavides DO Work Phone: [facility] 11-09-2024 08:05-0500 Body temperature 97.1 [degF] Dr. Ko Benavides DO Work Phone: [facility] 11-09-2024 08:05-0500 Diastolic blood pressure 74 mm[Hg] Dr. Ko Benavides DO Work Phone: [facility] 11-09-2024 08:05-0500 Heart rate 66 /min Dr. Ko Benavides DO Work Phone: [facility] 11-09-2024 08:05-0500 Respiratory rate 18 /min Dr. Ko Benavides DO Work Phone: [facility] 11-09-2024 08:05-0500 SaO2% (BldA) [Mass fraction] 97 % Dr. Ko Benavides DO Work Phone: [facility] 11-09-2024 08:05-0500 Systolic blood pressure 133 mm[Hg] Dr. Ko Benavides DO Work Phone: [facility] 11-09-2024 06:40-0500 Body mass index (BMI) [Ratio] 44 kg/m2 Dr. Ko Benavides DO Work Phone: [facility] 11-09-2024 06:40-0500 Body weight 102.[address] Ko Benavides DO Work Phone: [facility] 05-22-2024 10:55-0400 Body height 152.4 cm GIACOMO SOTO MD [facility] 05-22-2024 10:55-0400 Body temperature 96.44 [degF] GIACOMO SOTO MD [facility] 05-22-2024 10:55-0400 Body weight 100.5 kg GIACOMO SOTO MD [facility] 05-22-2024 10:55-0400 Diastolic Blood Pressure Non-Invasive 78 mm[Hg] GIACOMO SOTO MD [facility] 05-22-2024 10:55-0400 Heart rate 85 /min GIACOMO SOTO MD [facility] 05-22-2024 10:55-0400 Respiratory rate 20 /min GIACOMO SOTO MD [facility] 05-22-2024 10:55-0400 Systolic Blood Pressure Non-Invasive 123 mm[Hg] GIACOMO SOTO MD [facility] 02-05-2024 07:56-0400 Diastolic Blood Pressure Non-Invasive 90 mm[Hg] SHAWNA HENRIQUEZ DO [facility] 02-05-2024 07:56-0400 Heart rate 69 /min SHAWNA BAILEY DO [facility] 02-05-2024 07:56-0400 Respiratory rate 16 /min SHAWNA BAILEY DO [facility] 02-05-2024 07:56-0400 Systolic Blood Pressure Non-Invasive 119 mm[Hg] SHAWNA BAILEY DO [facility] 02-05-2024 07:46-0400 Diastolic Blood Pressure Non-Invasive 85 mm[Hg] SHAWNA BAILEY DO [facility] 02-05-2024 07:46-0400 Heart rate 71 /min SHAWNA BAILEY DO [facility] 02-05-2024 07:46-0400 Respiratory rate 15 /min SHAWNA BAILEY DO [facility] 02-05-2024 07:46-0400 Systolic Blood Pressure Non-Invasive 131 mm[Hg] SHAWNA BAILEY DO [facility] 02-05-2024 07:31-0400 Body temperature 96.98 [degF] SHAWNA BAILEY DO [facility] 02-05-2024 07:31-0400 Diastolic Blood Pressure Non-Invasive 67 mm[Hg] SHAWNA BAILEY DO [facility] 02-05-2024 07:31-0400 Heart rate 78 /min SHAWNA BAILEY DO [facility] 02-05-2024 07:31-0400 Respiratory rate 20 /min SHAWNA BAILEY DO [facility] 02-05-2024 07:31-0400 Systolic Blood Pressure Non-Invasive 147 mm[Hg] HSAWNA BAILEY DO [facility] 02-05-2024 07:25-0400 Heart rate 78 /min SHAWNA BAILEY DO [facility] 02-05-2024 07:25-0400 Respiratory Rate - Anes 16 br/min SHAWNA BAILEY DO [facility] 02-05-2024 07:20-0400 Heart rate 78 /min SHAWNA BAILEY DO [facility] 02-05-2024 07:20-0400 Respiratory Rate - Anes 24 br/min SHAWNA ABILEY DO [facility] 02-05-2024 07:15-0400 Heart rate 85 /min SHAWNA BAILEY DO [facility] 02-05-2024 07:15-0400 Respiratory Rate - Anes 0 br/min SHAWNA BAILEY DO [facility] 02-05-2024 06:45-0400 Body height 152 cm SHAWNA BAILEY DO [facility] 02-05-2024 06:45-0400 Body temperature 97.52 [degF] SHAWNA BAILEY DO [facility] 02-05-2024 06:45-0400 Body weight 98.5 kg SHAWNA BAILEY DO [facility] 02-05-2024 06:45-0400 Body weight 42.63 kg/m2 SHAWNA BAILEY DO [facility] 06-28-2023 11:00-0400 PAIN LEVEL 0 {score} Dr. Venus Torres [facility] 06-28-2023 10:59-0400 Body temperature 97.6 [degF] Dr. Venus Torres [facility] 06-28-2023 10:59-0400 Diastolic blood pressure 72 mm[Hg] Dr. Venus Torres [facility] 06-28-2023 10:59-0400 Heart rate 69 /min Dr. Venus Torres [facility] 06-28-2023 10:59-0400 Respiratory rate 16 /min Dr. Venus Torres [facility] 06-28-2023 10:59-0400 Systolic blood pressure 134 mm[Hg] Dr. Venus Torres [facility] 06-27-2023 22:49-0400 Body temperature 97.7 [degF] Dr. Venus Torres [facility] 06-27-2023 22:49-0400 Diastolic blood pressure 74 mm[Hg] Dr. Venus Torres [facility] 06-27-2023 22:49-0400 Heart rate 71 /min Dr. Venus Torres [facility] 06-27-2023 22:49-0400 Respiratory rate 16 /min Dr. Venus Torres [facility] 06-27-2023 22:49-0400 Systolic blood pressure 119 mm[Hg] Dr. Venus Torres [facility] 06-27-2023 22:49-0400 PAIN LEVEL 0 {score} Dr. Venus Torres [facility] 06-27-2023 08:21-0400 Body temperature 97.8 [degF] Dr. Venus Torres [facility] 06-27-2023 08:21-0400 Diastolic blood pressure 67 mm[Hg] Dr. Venus Torres [facility] 06-27-2023 08:21-0400 Heart rate 72 /min Dr. Venus Torres [facility] 06-27-2023 08:21-0400 Respiratory rate 18 /min Dr. Venus Torres [facility] 06-27-2023 08:21-0400 Systolic blood pressure 122 mm[Hg] Dr. Venus Torres [facility] 06-27-2023 08:21-0400 PAIN LEVEL 0 {score} Dr. Venus Torres [facility] 06-27-2023 02:14-0400 PAIN LEVEL 2 {score} Dr. Venus Torres [facility] 06-27-2023 02:13-0400 Body temperature 97.3 [degF] Dr. Venus Torres [facility] 06-27-2023 02:13-0400 Diastolic blood pressure 76 mm[Hg] Dr. Venus Torres [facility] 06-27-2023 02:13-0400 Heart rate 70 /min Dr. Venus Torres [facility] 06-27-2023 02:13-0400 Systolic blood pressure 122 mm[Hg] Dr. Venus Torres [facility] 06-26-2023 12:51-0400 Body weight 96.[address] Venus Torres [facility] 06-26-2023 08:45-0400 Body temperature 97.5 [degF] Dr. Venus Torres [facility] 06-26-2023 08:45-0400 Diastolic blood pressure 68 mm[Hg] Dr. Venus Torres [facility] 06-26-2023 08:45-0400 Heart rate 67 /min Dr. Venus Torres [facility] 06-26-2023 08:45-0400 Respiratory rate 18 /min Dr. Venus Torres [facility] 06-26-2023 08:45-0400 Systolic blood pressure 127 mm[Hg] Dr. Venus Torres [facility] 06-26-2023 08:45-0400 PAIN LEVEL 0 {score} Dr. Venus Torres [facility] 06-25-2023 22:22-0400 Body temperature 97.7 [degF] Dr. Venus Torres [facility] 06-25-2023 22:22-0400 Diastolic blood pressure 70 mm[Hg] Dr. Venus Torres [facility] 06-25-2023 22:22-0400 Heart rate 65 /min Dr. Venus Torres [facility] 06-25-2023 22:22-0400 Respiratory rate 18 /min Dr. Venus Torres [facility] 06-25-2023 22:22-0400 Systolic blood pressure 143 mm[Hg] Dr. Venus Torres [facility] 06-25-2023 21:25-0400 PAIN LEVEL 0 {score} Dr. Venus Torres [facility] 06-25-2023 21:25-0400 PAIN LEVEL 0 {score} Dr. Venus Torres [facility] 06-25-2023 20:35-0400 PAIN LEVEL 4 {score} Dr. Venus Torres [facility] 06-25-2023 20:35-0400 PAIN LEVEL 4 {score} Dr. Venus Torres [facility] 06-25-2023 10:08-0400 PAIN LEVEL 0 {score} Dr. Venus Torres [facility] 06-25-2023 09:43-0400 PAIN LEVEL 5 {score} Dr. Venus Torres [facility] 06-25-2023 09:05-0400 PAIN LEVEL 2 {score} Dr. Venus Torres [facility] 06-25-2023 09:05-0400 Body temperature 97.7 [degF] Dr. Venus Torres [facility] 06-25-2023 09:05-0400 Diastolic blood pressure 66 mm[Hg] Dr. Venus Torres [facility] 06-25-2023 09:05-0400 Heart rate 64 /min Dr. Venus Torres [facility] 06-25-2023 09:05-0400 Respiratory rate 14 /min Dr. Venus Torres [facility] 06-25-2023 09:05-0400 Systolic blood pressure 122 mm[Hg] Dr. Venus Torres [facility] 06-24-2023 22:10-0400 Body temperature 97.8 [degF] Dr. Venus Torres [facility] 06-24-2023 22:10-0400 Diastolic blood pressure 76 mm[Hg] Dr. Venus Torres [facility] 06-24-2023 22:10-0400 Heart rate 69 /min Dr. Venus Torres [facility] 06-24-2023 22:10-0400 Respiratory rate 18 /min Dr. Venus Torres [facility] 06-24-2023 22:10-0400 Systolic blood pressure 146 mm[Hg] Dr. Venus Torres [facility] 06-24-2023 21:11-0400 PAIN LEVEL 0 {score} Dr. Venus Torres [facility] 06-24-2023 21:11-0400 PAIN LEVEL 6 {score} Dr. Venus Torres [facility] 06-24-2023 21:11-0400 PAIN LEVEL 0 {score} Dr. Venus Torres [facility] 06-24-2023 20:07-0400 PAIN LEVEL 6 {score} Dr. Venus Torres [facility] 06-24-2023 12:26-0400 PAIN LEVEL 4 {score} Dr. Venus Torres [facility] 06-24-2023 12:25-0400 PAIN LEVEL 4 {score} Dr. Venus Torres [facility] 06-24-2023 09:11-0400 PAIN LEVEL 7 {score} Dr. Venus Torres [facility] 06-24-2023 09:10-0400 PAIN LEVEL 7 {score} Dr. Venus Torres [facility] 06-24-2023 07:59-0400 Body temperature 97.5 [degF] Dr. Venus Torres [facility] 06-24-2023 07:59-0400 Diastolic blood pressure 64 mm[Hg] Dr. Venus Torres [facility] 06-24-2023 07:59-0400 Heart rate 62 /min Dr. Venus Torres [facility] 06-24-2023 07:59-0400 Respiratory rate 16 /min Dr. Venus Torres [facility] 06-24-2023 07:59-0400 Systolic blood pressure 137 mm[Hg] Dr. Venus Torres [facility] 06-24-2023 07:59-0400 PAIN LEVEL 0 {score} Dr. Venus Torres [facility] 06-23-2023 23:21-0400 Body temperature 97.6 [degF] Dr. Venus Torres [facility] 06-23-2023 23:21-0400 Diastolic blood pressure 73 mm[Hg] Dr. Venus Torres [facility] 06-23-2023 23:21-0400 Heart rate 71 /min Dr. Venus Torres [facility] 06-23-2023 23:21-0400 Respiratory rate 16 /min Dr. Venus Torres [facility] 06-23-2023 23:21-0400 Systolic blood pressure 131 mm[Hg] Dr. Venus Torres [facility] 06-23-2023 23:21-0400 PAIN LEVEL 0 {score} Dr. Venus Torres [facility] 06-23-2023 21:24-0400 PAIN LEVEL 2 {score} Dr. Venus Torres [facility] 06-23-2023 21:24-0400 PAIN LEVEL 2 {score} Dr. Venus Torres [facility] 06-23-2023 20:07-0400 PAIN LEVEL 6 {score} Dr. Venus Torres [facility] 06-23-2023 20:07-0400 PAIN LEVEL 6 {score} Dr. Venus Torres [facility] 06-23-2023 09:14-0400 PAIN LEVEL 4 {score} Dr. Venus Torres [facility] 06-23-2023 09:13-0400 PAIN LEVEL 4 {score} Dr. Venus Torres [facility] 06-23-2023 09:05-0400 Body temperature 97.8 [degF] Dr. Venus Torres [facility] 06-23-2023 09:05-0400 Diastolic blood pressure 70 mm[Hg] Dr. Venus Torres [facility] 06-23-2023 09:05-0400 Heart rate 68 /min Dr. Venus Torres [facility] 06-23-2023 09:05-0400 Respiratory rate 18 /min Dr. Venus Torres [facility] 06-23-2023 09:05-0400 Systolic blood pressure 146 mm[Hg] Dr. Venus Torres [facility] 06-23-2023 08:05-0400 PAIN LEVEL 8 {score} Dr. Venus Torres [facility] 06-23-2023 07:58-0400 PAIN LEVEL 8 {score} Dr. Venus Torres [facility] 06-23-2023 07:38-0400 PAIN LEVEL 8 {score} Dr. Venus Torres [facility] 06-22-2023 22:27-0400 Body temperature 97.5 [degF] Dr. Venus Torres [facility] 06-22-2023 22:27-0400 Diastolic blood pressure 74 mm[Hg] Dr. Venus Torres [facility] 06-22-2023 22:27-0400 Heart rate 65 /min Dr. Venus Torres [facility] 06-22-2023 22:27-0400 Respiratory rate 16 /min Dr. Venus Torres [facility] 06-22-2023 22:27-0400 Systolic blood pressure 138 mm[Hg] Dr. Venus Torres [facility] 06-22-2023 20:56-0400 PAIN LEVEL 3 {score} Dr. Venus Torres [facility] 06-22-2023 20:06-0400 PAIN LEVEL 7 {score} Dr. Venus Torres [facility] 06-22-2023 17:29-0400 PAIN LEVEL 0 {score} Dr. Venus Torres [facility] 06-22-2023 08:51-0400 Body weight 97.[address] Venus Torres [facility] 06-22-2023 08:19-0400 Body temperature 97.6 [degF] Dr. Venus Torres [facility] 06-22-2023 08:19-0400 Diastolic blood pressure 68 mm[Hg] Dr. Venus Torres [facility] 06-22-2023 08:19-0400 Heart rate 64 /min Dr. Venus Torres [facility] 06-22-2023 08:19-0400 Respiratory rate 18 /min Dr. Venus Torres [facility] 06-22-2023 08:19-0400 Systolic blood pressure 136 mm[Hg] Dr. Venus Torres [facility] 06-22-2023 08:19-0400 PAIN LEVEL 4 {score} Dr. Venus Torres [facility] 06-22-2023 08:18-0400 PAIN LEVEL 4 {score} Dr. Venus Torres [facility] 06-22-2023 08:18-0400 PAIN LEVEL 4 {score} Dr. Venus Torres [facility] 06-22-2023 07:00-0400 PAIN LEVEL 8 {score} Dr. Venus Torres [facility] 06-21-2023 23:52-0400 Body temperature 98.3 [degF] Dr. Venus Torres [facility] 06-21-2023 23:52-0400 Diastolic blood pressure 74 mm[Hg] Dr. Venus Torres [facility] 06-21-2023 23:52-0400 Heart rate 68 /min Dr. Venus Torres [facility] 06-21-2023 23:52-0400 Respiratory rate 19 /min Dr. Venus Torres [facility] 06-21-2023 23:52-0400 Systolic blood pressure 140 mm[Hg] Dr. Venus Torres [facility] 06-21-2023 23:51-0400 PAIN LEVEL 5 {score} Dr. Venus Torres [facility] 06-21-2023 07:57-0400 Body temperature 97.8 [degF] Dr. Venus Torres [facility] 06-21-2023 07:57-0400 Diastolic blood pressure 70 mm[Hg] Dr. Venus Torres [facility] 06-21-2023 07:57-0400 Heart rate 68 /min Dr. Venus Torres [facility] 06-21-2023 07:57-0400 Respiratory rate 16 /min Dr. Venus Torres [facility] 06-21-2023 07:57-0400 Systolic blood pressure 148 mm[Hg] Dr. Venus Torres [facility] 06-21-2023 07:57-0400 PAIN LEVEL 3 {score} Dr. Venus Torres [facility] 06-21-2023 06:04-0400 PAIN LEVEL 2 {score} Dr. Venus Torres [facility] 06-21-2023 05:06-0400 PAIN LEVEL 6 {score} Dr. Venus Torres [facility] 06-20-2023 23:37-0400 Body temperature 98.8 [degF] Dr. Venus Torres [facility] 06-20-2023 23:37-0400 Diastolic blood pressure 80 mm[Hg] Dr. Venus Torres [facility] 06-20-2023 23:37-0400 Heart rate 68 /min Dr. Venus Torres [facility] 06-20-2023 23:37-0400 Respiratory rate 18 /min Dr. Venus Torres [facility] 06-20-2023 23:37-0400 Systolic blood pressure 113 mm[Hg] Dr. Venus Torres [facility] 06-20-2023 23:36-0400 PAIN LEVEL 2 {score} Dr. Venus Torres [facility] 06-20-2023 18:22-0400 PAIN LEVEL 0 {score} Dr. Venus Torres [facility] 06-20-2023 16:53-0400 PAIN LEVEL 5 {score} Dr. Venus Torres [facility] 06-20-2023 11:36-0400 PAIN LEVEL 0 {score} Dr. Venus Torres [facility] 06-20-2023 09:55-0400 PAIN LEVEL 5 {score} Dr. Venus Torres [facility] 06-20-2023 09:40-0400 Body weight 97.[address] Venus Torres [facility] 06-20-2023 08:53-0400 Body temperature 97.9 [degF] Dr. Venus Torres [facility] 06-20-2023 08:53-0400 Diastolic blood pressure 60 mm[Hg] Dr. Venus Torres [facility] 06-20-2023 08:53-0400 Heart rate 66 /min Dr. Venus Torers [facility] 06-20-2023 08:53-0400 Respiratory rate 18 /min Dr. Venus Torres [facility] 06-20-2023 08:53-0400 Systolic blood pressure 150 mm[Hg] Dr. Venus Torres [facility] 06-20-2023 02:51-0400 PAIN LEVEL 2 {score} Dr. Venus Torres [facility] 06-19-2023 22:10-0400 Body temperature 98 [degF] Dr. Venus Torres [facility] 06-19-2023 22:10-0400 Diastolic blood pressure 67 mm[Hg] Dr. Venus Torres [facility] 06-19-2023 22:10-0400 Heart rate 65 /min Dr. Venus Torres [facility] 06-19-2023 22:10-0400 Respiratory rate 16 /min Dr. Venus Torres [facility] 06-19-2023 22:10-0400 Systolic blood pressure 122 mm[Hg] Dr. Venus Torres [facility] 06-19-2023 21:23-0400 PAIN LEVEL 1 {score} Dr. Venus Torres [facility] 06-19-2023 13:40-0400 Body weight 98.[address] Venus Torres [facility] 06-19-2023 08:32-0400 PAIN LEVEL 4 {score} Dr. Venus Torres [facility] 06-19-2023 07:03-0400 PAIN LEVEL 7 {score} Dr. Venus Torres [facility] 06-19-2023 07:01-0400 Body temperature 98.3 [degF] Dr. Venus Torres [facility] 06-19-2023 07:01-0400 Diastolic blood pressure 66 mm[Hg] Dr. Venus Torres [facility] 06-19-2023 07:01-0400 Heart rate 64 /min Dr. Venus Torres [facility] 06-19-2023 07:01-0400 Respiratory rate 18 /min Dr. Venus Torres [facility] 06-19-2023 07:01-0400 Systolic blood pressure 116 mm[Hg] Dr. Venus Torres [facility] 06-19-2023 05:34-0400 PAIN LEVEL 2 {score} Dr. Venus Torres [facility] 06-19-2023 01:29-0400 PAIN LEVEL 3 {score} Dr. Venus Torres [facility] 06-19-2023 00:01-0400 PAIN LEVEL 6 {score} Dr. Venus Torres [facility] 06-18-2023 22:11-0400 Body temperature 97.7 [degF] Dr. Venus Torres [facility] 06-18-2023 22:11-0400 Diastolic blood pressure 67 mm[Hg] Dr. Venus Torres [facility] 06-18-2023 22:11-0400 Heart rate 75 /min Dr. Venus Torres [facility] 06-18-2023 22:11-0400 Respiratory rate 16 /min Dr. Venus Torres [facility] 06-18-2023 22:11-0400 Systolic blood pressure 114 mm[Hg] Dr. Venus Torres [facility] 06-18-2023 22:11-0400 PAIN LEVEL 2 {score} Dr. Venus Torres [facility] 06-18-2023 21:30-0400 PAIN LEVEL 2 {score} Dr. Venus Torres [facility] 06-18-2023 19:00-0400 PAIN LEVEL 7 {score} Dr. Venus Torres [facility] 06-18-2023 09:05-0400 PAIN LEVEL 5 {score} Dr. Venus Torres [facility] 06-18-2023 08:48-0400 PAIN LEVEL 8 {score} Dr. Venus Torres [facility] 06-18-2023 08:41-0400 Body temperature 97.7 [degF] Dr. Venus Torres [facility] 06-18-2023 08:41-0400 Diastolic blood pressure 74 mm[Hg] Dr. Venus Torres [facility] 06-18-2023 08:41-0400 Heart rate 73 /min Dr. Venus Torres [facility] 06-18-2023 08:41-0400 Respiratory rate 18 /min Dr. Venus Torres [facility] 06-18-2023 08:41-0400 Systolic blood pressure 120 mm[Hg] Dr. Venus Torres [facility] 06-18-2023 08:15-0400 PAIN LEVEL 8 {score} Dr. Venus Torres [facility] 06-18-2023 05:18-0400 PAIN LEVEL 6 {score} Dr. Venus Torres [facility] 06-18-2023 00:24-0400 Body temperature 97.5 [degF] Dr. Venus Torres [facility] 06-18-2023 00:24-0400 Diastolic blood pressure 72 mm[Hg] Dr. Venus Torres [facility] 06-18-2023 00:24-0400 Heart rate 77 /min Dr. Venus Torres [facility] 06-18-2023 00:24-0400 Respiratory rate 18 /min Dr. Venus Torres [facility] 06-18-2023 00:24-0400 Systolic blood pressure 118 mm[Hg] Dr. Venus Torres [facility] 06-18-2023 00:24-0400 PAIN LEVEL 8 {score} Dr. Venus Torres [facility] 06-17-2023 19:26-0400 PAIN LEVEL 8 {score} Dr. Venus Torres [facility] 06-17-2023 17:57-0400 PAIN LEVEL 2 {score} Dr. Venus Torres [facility] 06-17-2023 11:51-0400 PAIN LEVEL 3 {score} Dr. Venus Torres [facility] 06-17-2023 09:01-0400 PAIN LEVEL 0 {score} Dr. Venus Torres [facility] 06-17-2023 08:46-0400 PAIN LEVEL 0 {score} Dr. Venus Torres [facility] 06-17-2023 08:31-0400 Body temperature 97.8 [degF] Dr. Venus Torres [facility] 06-17-2023 08:31-0400 Diastolic blood pressure 65 mm[Hg] Dr. Venus Torres [facility] 06-17-2023 08:31-0400 Heart rate 81 /min Dr. Venus Torres [facility] 06-17-2023 08:31-0400 Respiratory rate 18 /min Dr. Venus Torres [facility] 06-17-2023 08:31-0400 Systolic blood pressure 112 mm[Hg] Dr. Venus Torres [facility] 06-17-2023 06:00-0400 PAIN LEVEL 7 {score} Dr. Venus Torres [facility] 06-17-2023 02:04-0400 PAIN LEVEL 0 {score} Dr. Venus Torres [facility] 06-17-2023 01:05-0400 PAIN LEVEL 8 {score} Dr. Venus Torres [facility] 06-16-2023 23:10-0400 Body temperature 98.2 [degF] Dr. Venus Torres [facility] 06-16-2023 23:10-0400 Diastolic blood pressure 74 mm[Hg] Dr. Venus Torres [facility] 06-16-2023 23:10-0400 Heart rate 74 /min Dr. Venus Torres [facility] 06-16-2023 23:10-0400 Respiratory rate 16 /min Dr. Venus Torres [facility] 06-16-2023 23:10-0400 Systolic blood pressure 116 mm[Hg] Dr. Venus Torres [facility] 06-16-2023 23:10-0400 PAIN LEVEL 0 {score} Dr. Venus Torres [facility] 06-16-2023 22:06-0400 PAIN LEVEL 0 {score} Dr. Venus Torres [facility] 06-16-2023 21:12-0400 PAIN LEVEL 6 {score} Dr. Venus Torres [facility] 06-16-2023 19:34-0400 PAIN LEVEL 1 {score} Dr. Venus Torres [facility] 06-16-2023 17:12-0400 PAIN LEVEL 7 {score} Dr. Venus Torres [facility] 06-16-2023 15:17-0400 PAIN LEVEL 3 {score} Dr. Venus Torres [facility] 06-16-2023 12:53-0400 PAIN LEVEL 7 {score} Dr. Venus Torres [facility] 06-16-2023 11:29-0400 PAIN LEVEL 0 {score} Dr. Venus Torres [facility] 06-16-2023 07:23-0400 Body temperature 98.1 [degF] Dr. Venus Torres [facility] 06-16-2023 07:23-0400 Diastolic blood pressure 58 mm[Hg] Dr. Venus Torres [facility] 06-16-2023 07:23-0400 Heart rate 72 /min Dr. Venus Torres [facility] 06-16-2023 07:23-0400 Respiratory rate 16 /min Dr. Venus Torres [facility] 06-16-2023 07:23-0400 Systolic blood pressure 120 mm[Hg] Dr. Venus Torres [facility] 06-16-2023 07:22-0400 PAIN LEVEL 4 {score} Dr. Venus Torres [facility] 06-16-2023 07:18-0400 PAIN LEVEL 4 {score} Dr. Venus Torres [facility] 06-16-2023 03:05-0400 PAIN LEVEL 0 {score} Dr. Venus Torres [facility] 06-16-2023 02:38-0400 PAIN LEVEL 7 {score} Dr. Venus Torres [facility] 06-15-2023 23:17-0400 PAIN LEVEL 0 {score} Dr. Venus Torres [facility] 06-15-2023 22:56-0400 PAIN LEVEL 0 {score} Dr. Venus Torres [facility] 06-15-2023 22:22-0400 PAIN LEVEL 8 {score} Dr. Venus Torres [facility] 06-15-2023 20:19-0400 PAIN LEVEL 0 {score} Dr. Venus Torres [facility] 06-15-2023 17:57-0400 PAIN LEVEL 10 {score} Dr. Venus Torres [facility] 06-15-2023 17:54-0400 PAIN LEVEL 10 {score} Dr. Venus Torres [facility] 06-15-2023 14:11-0400 Body temperature 97.3 [degF] Dr. Venus Torres [facility] 06-15-2023 14:11-0400 Diastolic blood pressure 69 mm[Hg] Dr. Venus Torres [facility] 06-15-2023 14:11-0400 Heart rate 86 /min Dr. Venus Torres [facility] 06-15-2023 14:11-0400 Respiratory rate 16 /min Dr. Venus Torres [facility] 06-15-2023 14:11-0400 Systolic blood pressure 114 mm[Hg] Dr. Vneus Torres [facility] 06-15-2023 13:08-0400 PAIN LEVEL 10 {score} Dr. Venus Torres [facility] 06-15-2023 10:23-0400 PAIN LEVEL 0 {score} Dr. Venus Torres [facility] 06-15-2023 10:22-0400 PAIN LEVEL 0 {score} Dr. Venus Torres [facility] 06-15-2023 08:05-0400 PAIN LEVEL 9 {score} Dr. Venus Torres [facility] 06-15-2023 04:04-0400 PAIN LEVEL 9 {score} Dr. Venus Torres [facility] 06-15-2023 01:42-0400 PAIN LEVEL 5 {score} Dr. Venus Torres [facility] 06-15-2023 01:41-0400 Body temperature 97.5 [degF] Dr. Venus Torres [facility] 06-15-2023 01:41-0400 Diastolic blood pressure 74 mm[Hg] Dr. Venus Torres [facility] 06-15-2023 01:41-0400 Heart rate 80 /min Dr. Venus Torres [facility] 06-15-2023 01:41-0400 Respiratory rate 18 /min Dr. Venus Torres [facility] 06-15-2023 01:41-0400 Systolic blood pressure 118 mm[Hg] Dr. Venus Torres [facility] 06-14-2023 23:53-0400 PAIN LEVEL 9 {score} Dr. Venus Torres [facility] 06-14-2023 23:53-0400 PAIN LEVEL 9 {score} Dr. Venus Torres [facility] 06-14-2023 19:43-0400 PAIN LEVEL 9 {score} Dr. Venus Torres [facility] 06-14-2023 15:59-0400 PAIN LEVEL 3 {score} Dr. Venus Torres [facility] 06-14-2023 13:35-0400 PAIN LEVEL 7 {score} Dr. Venus Torres [facility] 06-14-2023 10:58-0400 PAIN LEVEL 7 {score} Dr. Venus Torres [facility] 06-14-2023 10:57-0400 Body temperature 97.8 [degF] Dr. Venus Torres [facility] 06-14-2023 10:57-0400 Diastolic blood pressure 64 mm[Hg] Dr. Venus Torres [facility] 06-14-2023 10:57-0400 Heart rate 84 /min Dr. Venus Torres [facility] 06-14-2023 10:57-0400 Respiratory rate 18 /min Dr. Venus Torres [facility] 06-14-2023 10:57-0400 Systolic blood pressure 119 mm[Hg] Dr. Venus Torres [facility] 06-14-2023 09:27-0400 PAIN LEVEL 10 {score} Dr. Venus Torres [facility] 06-14-2023 08:59-0400 PAIN LEVEL 0 {score} Dr. Venus Torres [facility] 06-14-2023 05:39-0400 PAIN LEVEL 0 {score} Dr. Venus Torres [facility] 06-14-2023 04:00-0400 PAIN LEVEL 6 {score} Dr. Venus Torres [facility] 06-14-2023 03:22-0400 PAIN LEVEL 0 {score} Dr. Venus Torres [facility] 06-13-2023 23:53-0400 PAIN LEVEL 8 {score} Dr. Venus Torres [facility] 06-13-2023 22:06-0400 Body temperature 97.6 [degF] Dr. Venus Torres [facility] 06-13-2023 22:06-0400 Diastolic blood pressure 64 mm[Hg] Dr. Venus Torres [facility] 06-13-2023 22:06-0400 Heart rate 91 /min Dr. Venus Torres [facility] 06-13-2023 22:06-0400 Respiratory rate 16 /min Dr. Venus Torres [facility] 06-13-2023 22:06-0400 Systolic blood pressure 116 mm[Hg] Dr. Venus Torres [facility] 06-13-2023 22:06-0400 PAIN LEVEL 2 {score} Dr. Venus Torres [facility] 06-13-2023 17:59-0400 Body height 166.[address] Venus Torres [facility] 06-13-2023 17:29-0400 Body temperature 97.8 [degF] Dr. Venus Torres [facility] 06-13-2023 17:29-0400 Heart rate 100 /min Dr. Venus Torres [facility] 06-13-2023 17:29-0400 Oxygen saturation in Blood 98 % Dr. Venus Torres [facility] 06-13-2023 17:29-0400 PAIN LEVEL 2 {score} Dr. Venus Torres [facility] 06-13-2023 17:29-0400 Respiratory rate 18 /min Dr. Venus Torres [facility] 06-13-2023 17:28-0400 Diastolic blood pressure 60 mm[Hg] Dr. Venus Torres [facility] 06-13-2023 17:28-0400 Systolic blood pressure 109 mm[Hg] Dr. Venus Torres [facility] 06-13-2023 14:29-0400 Body temperature 98.7 [degF] [facility] 06-13-2023 14:29-0400 Diastolic blood pressure 56 mm[Hg] [facility] 06-13-2023 14:29-0400 Heart rate 94 /min [facility] 06-13-2023 14:29-0400 Respiratory rate 16 /min [facility] 06-13-2023 14:29-0400 SaO2% (BldA) [Mass fraction] 97 % [facility] 06-13-2023 14:29-0400 Systolic blood pressure 101 mm[Hg] [facility] 06-10-2023 14:49-0400 Body height 152.4 cm [facility] 06-10-2023 14:49-0400 Body mass index (BMI) [Ratio] 41.9 kg/m2 [facility] 06-10-2023 14:49-0400 Body weight 97.4 kg [facility] 06-10-2023 13:30-0400 Inhaled oxygen flow rate 4 L/min [facility] 07-02-2022 08:54-0400 Diastolic Blood Pressure NBP [address] FRANCISCO JAVIER BRIAN MD [facility] 07-02-2022 08:54-0400 Heart rate 83 /min DR FRANCISCO JAVIER BRIAN MD [facility] 07-02-2022 08:54-0400 Respiratory rate 22 /min DR FRANCISCO JAVIER BRIAN MD [facility] 07-02-2022 08:54-0400 Systolic Blood Pressure NBP [address] FRANCISCO JAVIER BRIAN MD [facility] 07-02-2022 08:46-0400 Diastolic Blood Pressure NBP [address] FRANCISCO JAVIER BRIAN MD [facility] 07-02-2022 08:46-0400 Heart rate 81 /min DR FRANCISCO JAVIER BRIAN MD [facility] 07-02-2022 08:46-0400 Respiratory rate 19 /min DR FRANCISCO JAVIER BRIAN MD [facility] 07-02-2022 08:46-0400 Systolic Blood Pressure NBP [address] FRANCISCO JAVIER BRIAN MD [facility] 07-02-2022 08:35-0400 Diastolic Blood Pressure NBP [address] FRANCISCO JAVIER BRIAN MD [facility] 07-02-2022 08:35-0400 Heart rate 79 /min DR FRANCISCO JAVIER BRIAN MD [facility] 07-02-2022 08:35-0400 Respiratory rate 23 /min DR FRANCISCO JAVIER BRIAN MD [facility] 07-02-2022 08:35-0400 Systolic Blood Pressure NBP [address] FRANCISCO JAVIER BRIAN MD [facility] 07-02-2022 07:15-0400 Body height 152.[address] FRANCISCO JAVIER BRIAN MD [facility] 07-02-2022 07:15-0400 Body temperature 96.98 [degF] DR FRANCISCO JAVIER BRIAN MD [facility] 07-02-2022 07:15-0400 Body weight 95.[address] FRANCISCO JAVIER BRIAN MD [facility] 07-02-2022 07:15-0400 Heart rate 62 /min DR FRANCISCO JAVIER BRIAN MD [facility] 11-02-2021 10:46-0500 Body height 152.[address] KO BENAVIDES DO [facility] 11-02-2021 10:46-0500 Body weight 38.45 kg/m2 DR KO BENAVIDES DO [facility] 11-02-2021 10:46-0500 Body weight 89.[address] KO BENAVIDES DO [facility] Encounters Encounter Date Encounter Type Care Provider Facility Start: 07-15-2025 ambulatory Heather Styles Facility :[facility] Start: 07-12-2025 ambulatory Heather Styles Facility :[facility] Start: 04-12-2025 End: 04-12-2025 Admission to same day [facility] Dr. Raj Booth MD [facility] Start: 04-12-2025 End: 04-12-[address] Ko Benavides DO Work Phone: [facility] Start: 03-31-2025 End: 03-31-2025 ambulatory HEATHER Lona STYLES DO Facility:[facility] [place] Start: 03-31-2025 End: 03-31-2025 Patient encounter procedure HEATHER Lona STYLES DO [facility] Start: 03-05-2025 End: 03-09-2025 ambulatory HEATHER Lona PEÑATCHREYES FRENCH Facility:[facility] [place] Start: 03-05-2025 End: 03-09-2025 Outreach Lab HEATHER Lona STYLES DO [facility] Start: 03-05-2025 ambulatory HEATHER Lona STYLES DO Facil ity:[facility] Start: 02-11-2025 End: 02-11-[address] Jeffery Gomez MD [facility] Work Phone: Start: 02-11-2025 End: 02-11-2025 ambulatory Jeffery Gomez Facility:[facility] Start: 01-26-2025 End: 01-30-[address] KO BENAVIDES DO [facility] Start: 01-26-2025 End: 01-30-[address] KO BENAVIDES DO [facility] Start: 12-28-2024 End: 12-28-2024 Admission to same day surgery center Dr. Raj Booth MD [facility] Start: 12-28-2024 End: 12-28-[address] Ko Benavides DO Work Phone: [facility] Work Phone: Start: 11-24-2024 End: 11-24-[address] KO BENAVIDES DO [facility] Start: 11-24-2024 End: 11-24-[address] KO BENAVIDES DO [facility] Start: 11-09-2024 End: 11-09-2024 Admission to same day surgery center Dr. Raj Booth MD [facility] Start: 11-09-2024 End: 11-09-2024 ambulatory Ko Benavides Facility:[facility] Start: 11-03-2024 End: 11-03-[address] KO BENAVIDES DO [facility] Start: 11-03-2024 End: 11-03-[address] KO BENAVIDES DO [facility] Start: 10-27-2024 End: 10-27-[address] KO BENAVIDES DO [facility] Start: 10-27-2024 End: 10-27-[address] KO BENAVIDSE DO [facility] Start: 09-07-2024 End: 09-07-[address] KO BENAVIDES DO [facility] Start: 09-07-2024 End: 09-07-[address] KO BENAVIDES DO [facility] Start: 09-02-2024 End: 09-06-[address] KO BENAVIDES DO Facility:[facility] Start: 08-10-2024 End: 08-10-2024 ambulatory Ko Benavides Facility:[facility] Start: 05-22-2024 End: 05-22-2024 Emergency department patient visit GIACOMO SOTO MD [facility] Start: 05-14-2024 End: 05-14-[address] KO BENAVIDES DO Facility:[facility] Start: 05-14-2024 End: 05-14-[address] KO BENAVDIES DO [facility] Start: 04-01-2024 End: 04-01-[address] KO BENAVIDES DO Facility:[facility] Start: 04-01-2024 End: 04-01-[address] KO BENAVIDES DO [facility] Start: 03-18-2024 End: 03-18-[address] KO BENAVIDES DO Facility:[facility] Start: 03-18-2024 End: 03-18-[address] KO BENAVIDES DO [facility] Start: 03-10-2024 End: 03-10-[address] KO BENAVIDES DO Facility:[facility] Start: 03-10-2024 End: 03-10-[address] KO BENAVIDES DO [facility] Start: 02-21-2024 End: 02-25-[address] KO BENAVIDES DO Facility:[facility] Start: 02-11-2024 End: 02-15-[address] KO BENAVIDES DO Facility:[facility] Start: 02-11-2024 End: 02-15-[address] KO BENAVIDES DO [facility] Start: 02-11-2024 End: 02-11-[address] KO BENAVIDES DO Facility:[facility] Start: 02-11-2024 End: 02-11-[address] KO BENAVIDES DO [facility] Start: 02-10-[address] KO BENAVIDES DO Facili ty:B Start: 02-05-2024 End: 02-05-[address] KO BENAVIDES DO Facility:[facility] Start: 02-05-2024 End: 02-05-2024 Minor Procedure SHAWNA HENRIQUEZ DO [facility] Start: 12-02-2023 End: 01-14-[address] KO BENAVIDES DO Facility:[facility] Start: 12-02-2023 End: 01-14-[address] MARIANGEL ROBISON DO [facility] Start: 11-21-2023 End: 11-25-[address] KO BENAVIDES DO Facility:[facility] Start: 11-21-2023 End: 11-25-[address] KO BENAVIDES DO [facility] Start: 11-21-2023 End: 11-25-[address] KO BENAVIDES DO Facility:[facility] Start: 11-21-2023 End: 11-25-[address] KO BENAVIDES DO [facility] Start: 11-08-2023 End: 11-12-[address] KO BENAVIDES DO Facility:[facility] Start: 11-08-2023 End: 11-12-2023 Encounter for general adult medical examination without abnormal findings DR KO BENAVIDES DO Facility:[facility] Start: 11-08-2023 End: 11-12-[address] KO BENAVIDES DO [facility] Start: 10-31-2023 End: 10-31-[address] KO BENAVIDES DO Facility:[facility] Start: 10-31-2023 End: 10-31-[address] KO BENAVIDES DO [facility] Start: 10-25-2023 End: 10-25-[address] KO BENAVIDES DO Facility:[facility] Start: 10-25-2023 End: 10-25-[address] KO BENAVIDES DO [facility] Start: 09-30-2023 End: 09-30-[address] KO BENAVIDES DO Facility:[facility] Start: 09-17-2023 End: 10-25-[address] KO BENAVIDES DO Facility:[facility] Start: 09-17-2023 End: 10-25-2023 Physical therapy management LIVIA YANEZ [facility] Start: 08-05-2023 End: 09-11-2023 Admission to same day surgery center DR MARIANGEL ROBISON DO [facility] Start: 08-05-2023 End: 09-11-[address] KO BENAVIDES DO Facility:[facility] Start: 08-05-2023 End: 08-05-[address] KO BENAVIDES DO [facility] Start: 06-13-2023 End: 06-28-2023 Evaluation and management of inpatient [facility] Start: 06-10-2023 End: 06-13-2023 Evaluation and management of inpatient [facility] Work Phone: Start: 06-10-2023 End: 06-13-2023 observation encounter [facility] Work Phone: Start: 06-03-2023 End: 06-03-[address] KO BENAVIDES DO Facility:[facility] Start: 06-03-2023 End: 06-03-[address] KO BENAVIDES DO [facility] Start: 05-20-2023 End: 05-20-[address] KO BENAVIDES DO Facility:[facility] Start: 05-20-2023 End: 05-20-[address] KO BENAVIDES DO [facility] Start: 05-20-2023 End: 05-20-[address] KO BENAVIDES DO Facility:[facility] Start: 05-20-2023 End: 05-20-[address] MARIANGEL ROBISON DO [facility] Start: 01-28-2023 End: 01-28-[address] KO BENAVIDES DO [facility] Start: 01-23-2023 End: 01-23-[address] KO BENAVIDES DO [facility] Start: 12-21-2022 End: 12-21-[address] KO BENAVIDES DO [facility] Start: 11-06-2022 End: 11-10-[address] KO BENAVIDES DO [facility] Start: 07-02-2022 End: 07-02-[address] FRANCISCO JAVIER BRIAN MD [facility] Start: 04-24-2022 End: 04-24-[address] KO BENAVIDES DO [facility] Start: 04-11-2022 End: 04-11-[address] KO BENAVIDES DO [facility] Start: 03-29-2022 End: 03-29-[address] KO BENAVIDES DO [facility] Start: 02-07-2022 End: 02-07-[address] KO BENAVIDES DO [facility] Start: 01-11-2022 End: 01-11-[address] KO BENAVIDES DO [facility] Start: 01-01-2022 End: 01-01-[address] KO BENAVIDES DO [facility] Start: 11-02-2021 End: 11-02-[address] KO BENAVIDES DO [facility] Start: 10-25-2021 End: 10-25-[address] KO BENAVIDES DO [facility] Start: 10-02-2021 End: 10-02-[address] KO BENAVIDES DO [facility] Procedures Date Procedure Procedure Detail Performing Clinician Start: 04-12-2025 Local anesthetic lum bar epidural block Dr. Ko Benavides DO Work Phone: Start: 12-28-2024 Local anesthetic lum bar epidural block Dr. Ko Benavides DO Work Phone: Start: 12-28-2024 Complete x-ray serie s of lumbar spine with bending views Dr. Ko Benavides DO Work Phone: Start: 12-28-2024 Injection of facet joint Dr. Ko Benavides DO Work Phone: Start: 12-28-2024 Injection of spinal epidural space Dr. Ko Benavides DO Work Phone: Start: 11-09-2024 Fluoroscopy guided injection of cervical spinal nerve root Dr. Ko Benavides DO Work Phone: Start: 11-09-2024 Injection using fluoroscopic guidance Dr. Ko Benavides DO Work Phone: Start: 02-05-2024 Colonoscopy SHAWNA HENRIQUEZ DO Start: 06-10-2023 Radiologic examinati on of knee Start: 06-10-2023 Total Knee Replaceme nt Robotic Arm Nimesh (Right) Cholecystectomy DR KO Mora DO Cholecystectomy Cholecystectomy( Confirmed ) DR KO BENAVIDES DO Colonoscopy SHAWNA HENRIQUEZ DO Fracture of phalanx of thumb (disorder) DR KO BENAVIDES DO Fracture of phalanx of thumb (disorder) SHAWNA HENRIQUEZ DO Comment on above: left H/O: hysterectomy H/O: hysterect rhiannon( Confirmed ) DR KO BENAVIDES DO Hysterectomy DR KO BENAVIDES D O Knee region structur e (body structure) DR KO BENAVIDES DO Comment on above: cartilage removed Tonsillectomy DR FRANCISCO JAVIER MCKENZIE MD Total knee replacement SHAWNA HENRIQUEZ Comment on above: right Plan of Treatment Date Care Activity Detail Author Start: 04-12-2025 Injection of spinal epidural space [facility] Start: 04-12-2025 X-ray of lumbar spine, two or three views Lumbar Spine 2 or 3 Views [facility] Start: 04-12-2025 Patient discharge [facility] Start: 12-28-2024 Njx dx/ther agt pvrt facet jt lmbr/sac 1 level INJ PARAVERT F JNT L/S 1 [facility] Start: 12-28-2024 Njx dx/ther agt pvrt facet jt lmbr/sac 2nd level INJ PARAVERT F JNT L/S 2 [facility] Start: 12-28-2024 Complete x-ray series of lumbar spine with bending views L/S Spine w Bend Min 6 Vw [facility] Start: 12-28-2024 XR Lumbar spine Views W right bending and W left bending [facility] Start: 12-28-2024 Patient discharge [facility] Start: 11-09-2024 Njx dx/ther sbst intrlmnr lmbr/sac w/img gdn NJX INTERLAMINAR LMBR/SAC [facility] Start: 11-09-2024 Patient discharge [facility] Start: 06-13-2023 Patient discharge [facility] Start: 06-12-2023 Inhalation therapy procedure [facility] Start: 06-10-2023 Following clinical pathway protocol [facility] Start: 06-10-2023 Admission procedure [facility] Start: 06-10-2023 Provision of overbed trapeze [facility] Start: 06-10-2023 Recommendation to continue with treatment [facility] Start: 06-10-2023 Ambulation therapy management [facility] Start: 06-10-2023 Application of device [facility] Start: 06-10-2023 Application of elastic bandage [facility] Start: 06-10-2023 Assessment of risk of venous thromboembolism [facility] Start: 06-10-2023 Catheterization of vein [facility] Start: 06-10-2023 Exercises [facility] Start: 06-10-2023 Following clinical pathway protocol [facility] Start: 06-10-2023 Introduction of urinary catheter [facility] Start: 06-10-2023 Measuring intake and output [facility] Start: 06-10-2023 Neurovascular assessment [facility] Start: 06-10-2023 Patient education [facility] Start: 06-10-2023 Procedure discontinued [facility] Start: 06-10-2023 Provision of activity privileges [facility] Start: 06-10-2023 Referral to occupational therapist [facility] Start: 06-10-2023 Referral to service [facility] Start: 06-10-2023 Vital signs measurements [facility] Start: 06-10-2023 Wound care [facility] Start: 06-10-2023 [facility] Bilirubin.direct [Mass/volume] in Serum or Plasma [facility] C reactive protein [Mass/volume] in Serum or Plasma [facility] CBC W Auto Different ial panel - Blood [facility] Comprehensive metabo lic 2000 panel - Serum or Plasma [facility] Cytoplasmic ANCA Screen [facility] Folate [Moles/volume ] in Serum or Plasma [facility] Gamma glutamyl trans ferase measurement [facility] Hemoglobin A1c/Hemoglobin.total in Blood [facility] Hepatitis B virus harris rface Ab [Presence] in Serum [facility] Patient referral [facility] Work Phone: Procedure [facility] Prothrombin time [facility] Serum immunofixation [facility] Thyroid stimulating hormone measurement [facility] Ultrasound elastography [facility] Vitamin D, 25-hydrox y measurement [facility] Immunizations Immunization Date Immunization Notes Care Provider Fa chapraro 01-07-2024 diphtheria and tetanus toxoids, adsorbed for pediatric use MARIANGEL ROBISON DO [facility] 01-07-2024 zoster vaccine recombinant MARIANGEL ROBISON DO [facility] 01-06-2014 diphtheria and tetanus toxoids, adsorbed for pediatric use DR KO BENAVIDES DO [facility] Comment on above: Result Comment: Stas e: Unknown 01-06-2014 tetanus and diphtheria toxoids, adsorbed, preservative free, for adult use (2 Lf of tetanus toxoid and 2 Lf of diphtheria toxoid) DR KO BENAVIDES DO [facility] NEGATED: Highlighted row has not occurred!06-20-2023 influenza, injectable, quadrivalent, contains preservative Patient objection Dr. Venus Torres [facility] NEGATED: Highlighted row has not occurred!06-20-2023 pneumococcal polysaccharide vaccine, [address] Venus Torres [facility] NEGATED: Highlighted row has not occurred!06-20-2023 SARS-COV-2 (COVID-19) vaccine, mRNA, spike protein, LNP, preservative free, 30 mcg/0.3mL dose Patient objection Dr. Venus Torres [facility] Payers Date Payer Category Payer Self-pay 2021 Private Health Insurance [id number] 2021 Unknown [id number] 2021 Medicare [id number] 1950 Unknown [id number] 2.16.8 40.1.147922.3.579.2.627 1950 Unknown [id number] 2.16.8 40.1.197917.3.579.2.627 1950 Unknown [id number] 2.16.8 40.1.911685.3.579.2.627 1950 Unknown [id number] 2.16.8 40.1.894499.3.579.2.627 1950 Unknown [id number] 2.16.8 40.1.901737.3.579.2. 1950 Unknown [id number] 2.16.8 40.1.916279.3.579.2. 1950 Unknown [id number] 2.16.8 40.1.727458.3.579.2. 1950 Unknown [id number] 2.16.8 40.1.355773.3.579.2. 1950 Unknown [id number] 2.16.8 40.1.124808.3.579.2. 1950 Unknown [id number] 2.16.8 40.1.725078.3.579.2. 1950 Unknown [id number] 2.16.8 40.1.521701.3.579.2. 1950 Unknown [id number] 2.16.8 40.1.770129.3.579.2. 1950 Unknown [id number] 2.16.8 40.1.317665.3.579.2. 1950 Unknown [id number] 2.16.8 40.1.378036.3.579.2. 1950 Unknown [id number] 2.16.8 40.1.322185.3.579.2. 1950 Unknown [id number] 2.16.8 40.1.781211.3.579.2. 1950 Unknown [id number] 2.16.8 40.1.517950.3.579.2. 1950 Unknown [id number] 2.16.8 40.1.056752.3.579.2. 1950 Unknown [id number] 2.16.8 40.1.443293.3.579.2.627 1950 Unknown [id number] 2.16.8 40.1.968170.3.579.2. 1950 Unknown [id number] 2.16.8 40.1.698825.3.579.2.7 1950 Unknown [id number] 2.16.8 40.1.912878.3.579.2. 1950 Unknown [id number] 2.16.8 40.1.801824.3.579.2. 1950 Unknown [id number] 2.16.8 40.1.168414.3.579.2. 1950 Unknown [id number] 2.16.8 40.1.528168.3.579.2. 1950 Unknown [id number] 2.16. 840.1.078273.3.579.2. 1950 Unknown [id number] 2.16. 840.1.552028.3.579.2. 1950 Unknown [id number] 2.16. 840.1.998743.3.579.2. 1950 Unknown [id number] 2.16.8 40.1.769724.3.579.2. 1950 Unknown [id number] 2.16.8 40.1.422228.3.579.2. 1950 Unknown [id number] 2.16.8 40.1.549891.3.579.2. 1950 Unknown [id number] 2.16.8 40.1.886716.3.579.2. 1950 Unknown [id number] 2.16.8 40.1.262687.3.579.2. 1950 Unknown [id number] 2.16.8 40.1.536334.3.579.2.627 Unknown [id number] 2.16.8 40.1.382224.3.579.2.462 Unknown [id number] 2.16.8 40.1.358589.3.579.2.462 Unknown [id number] 2.16.8 40.1.380554.3.579.2.462 Unknown [id number] 2.16.8 40.1.702021.3.579.2.462 Unknown [id number] 2.16.8 40.1.099667.3.579.2.462 Unknown [id number] 2.16.8 40.1.040308.3.579.2.462 Unknown [id number] 2.16.8 40.1.741804.3.579.2.462 Social History Date Type Detail Facility Start: 09-29-2021 End: 02-05-2025 Never smoked tobacco (finding) [facility] Sex Assigned At [facility] Start: 06-23-2023 Tobacco smoking status WYIS Unknown if ever smoked [facility] Start: 1950 Sex Assigned At Female [facility] Start: 07-15-2007 End: 12-28-2024 Sex Female (finding) [facility] Start: 12-22-2024 End: 04-06-2025 Tobacco smoking status NHIS Ex-smoker (finding) [facility] NEGATED: Highlighted row [facility] Medical Equipment Procedure Code Equipment Code Equipment Origin al Text Equipment Identifier Dates ([id number]) Metal-backed pat tonya prosthesis ()[id number] FDA Start: 06-10-2023 ([id number]) Coated knee femu r prosthesis ()[id number] FDA Start: 06-10-2023 ([id number]) Coated knee tibi a prosthesis ()[id number] FDA Start: 06-10-2023 ([id number]) Tibial insert [id number] FDA Start: 06-10-2023 Goals Date Patient Goal Desired Activity /State Functional Status Date Assessment Result Facility 05-22-2024 Functional Status Independent [facility] 02-05-2024 Functional Status Awake, Up to bathroom [facility] 02-05-2024 Functional Status Maintained [facility] 12-02-2023 Functional Status Home Living Ad ditional Information OBJECTIVE Vitals: BP 148/80 manual Posture: slouched position in sitting Gait: amb with bilateral canes, slow pace Transfers: able to perform WFL Sensation: no abnormalities or asymmetries Palpation: no pain at hamstring insertion at ischial tuberosity, pain - not chief complaint with palpation at gluteal/prirformis region Edema: none AROM: bilateral hip WNL MMT: LE bilateral 4/5 grossly , no pain Special Test: Scour: neg bilat LISSY: neg bilat FADDIR: neg bilat Leg Length: symmetrical 90-90 hamstring: R ~45deg, L WNL Slump Test: neg [facility] 09-17-2023 Functional Status Home Living Ad ditional Information OBJECTIVE Posture: posterior pelvic tilt Gait: amb with cane, antalgic gait Transfers: antalgic with marked use of UEs Sensation: no abnormalities or asymmetries Reflexes: NT Palpation: at hamstring insertion of tibial tuberosity no pain provocation, no provocation of chief complaint of pain with palpation of gluteal region or lateral hip Edema: none AROM: WNL [facility] 08-05-2023 Functional Status Home Living Ad ditional Information OBJECTIVE Vitals: BP 145/80 Gait: amb with FWW, antalgic gait pt reports due to left buttock pain Transfers: marked use of UEs as pt reports due to left buttock pain Sensation: no abnormalities or asymmetries with light touch grossly Reflexes: NT Edema: none AROM: R knee 5 -104 PROM: would not allow PROM to be taken with force from PT [facility] 06-13-2023 Functional status Ambulates [facility] Work Phone: 07-02-2022 Functional Status Patient Identi fied Identification band, Verbal [facility] 07-02-2022 [facility] Mental Status Date Assessment Result Facility 04-12-2025 Cognitive function Voice/Name [facility] Work Phone: 12-28-2024 Cognitive function Voice/Name [facility] Work Phone: 11-09-2024 Cognitive function Level Of Cons ciousness Awake;Alert [facility] Work Phone: 05-22-2024 Mental Status Orientation Oriented x 4 [facility] 02-05-2024 Mental Status Oriented x 4 [facility] 02-05-2024 [facility] 06-13-2023 Cognitive function Voice/Name [facility] Work Phone: 07-02-2022 Mental Status Orientation Oriented x 4 [facility] Clinical Notes 04-24-2022 to 04-12-2025 Note Date & Type Note Facility 04-12-2025 Consult note [facility] 04-12-2025 Procedure note [facility] 04-12-2025 Consult note [facility] 03-31-2025 Note Exam Date Time Procedure Performing Provider Status 03/31/25 9:11 AM MA Mammo Screening B ilateral w/JANESSA Ruelas MD; Auth (Verified) [id number] ORIGINAL FROM: [facility] [address] [place] [address], [place] [address] PROCEDURE FOR: ANNA SANCHEZ [address] [place] [address] Home: PID#: [id number] Exam#: [id number] : 1950 Age: 74 TO: HEATHER STYLES DO [address] [id number] EXAMINATION: SCREENING DIGITAL BILATERAL MAMMOGRAM WITH TOMOSYNTHESIS, 03/31/2025 8:44 am TECHNIQUE: Screening mammography of the bilateral breasts was performed with tomosynthesis. 2D standard and 3D tomosynthesis combination imaging performed through both breasts in the MLO and CC projection. Computer aided detection was utilized in the interpretation of this exam. COMPARISON: October 31, 2023, April 24, 2022, September 08, 2020 HISTORY: Breast cancer screening. FINDINGS: BREAST DENSITY: There are scattered areas of fibroglandular density. There are bilateral benign-type calcifications. There is no significant mass, architectural distortion or microcalcification. Fibroglandular pattern is stable. IMPRESSION: No mammographic evidence of malignancy. Continued screening with annual mammograms is recommended. Syed Villeda risk calculations, generated with the history provided, report this patient's 10 year risk and lifetime risk for developing breast cancer at 1.3% and 1.6%, respectively. Based on this assessment tool, if the patient's calculated lifetime risk is below 20%, then the patient is considered at average risk for developing breast cancer. If the patient's calculated lifetime risk is at or above 20%, then the patient is considered high risk for developing breast cancer and may be a candidate for supplemental breast MRI screening in addition to annual mammographic screening per the [employer]. BIRADS: MAMMOGRAM BI-RADS: 2: Benign finding RECALL: 1 year screening RECALL TYPE: mammo LETTER SENT: Normal BI-RADS 1 and 2 Interpreted by: Janessa Oh Preliminary Report By: Janessa Oh Electronically signed By Janessa Oh Dictated Date: 03/31/2025 9:48:16 AM Prelim Date: 03/31/2025 9:50:46 AM Sign Date: 03/31/2025 9:50:46 AM Ordering Provider: HEATHER STYLES Interpreted by: Janessa Oh Preliminary Report By: Janessa Oh Electronically signed By Janessa Oh Dictated Date: 03/31/2025 9:48:16 AM Prelim Date: 03/31/2025 9:50:46 AM Sign Date: 03/31/2025 9:50:46 AM Ordering Provider: HEATHER STYLES Digital Marketing Apprentice: STEVENSON SANTANA RT (R, CT), RDMS letter sent: Normal BI-RADS 1 and 2 Mammogram BI-RADS: 2 Benign [facility]07-09-2025 Note* Exam Date Time Procedure Performing Provider Status 03/31/25 8:57 AM BD Bone Density DEXA Axial Skeleton HI FRANKLIN MD; Auth (Verified) [id number] ORIGINAL EXAMINATION: BONE DENSITOMETRY 03/31/2025 8:58 am TECHNIQUE: A bone density dual x-ray absorptiometry (DEXA) scan was performed of the axial (e.g. hips, spine) and/or appendicular (e.g. radius) skeleton as appropriate. COMPARISON: 04/24/2022 HISTORY: Reason for Exam: Osteoporosis Screening FINDINGS: BMD (g/cm2) Lumbar Spine L1-L4: 1.081. T Score Lumbar Spine L1-L4: 0.3 BMD (g/cm2) Left Femoral Neck: 0.672. T Score Left Femoral Neck: -1.6 BMD (g/cm2) Left Hip: 0.974. T Score Left Hip: 0.3 BMD Change from previous Hip: +6.5 %, significant BMD Change from previous Lumbar spine: -4.1 %, significant FRAX: 10 year fracture risk assessment Major osteoporotic fracture: 13% Hip fracture: 2.5% The BHOF f/k/a NOF recommends that FDA-approved medical therapies be considered in post-menopausal women and men age >/= 50 years with a: * Hip or vertebral fracture, or * T-score of /= 20% for major osteoporotic fractures or * >/= 3% for hip fractures All treatment decisions require clinical judgement and consideration of individual patient factors, including patient preferences, comorbidities, previous drug use, risk factors not captured in the FRAX registered model (e.g., frailty, falls, vitamin D deficiency, increased bone turnover, interval significant decline in bone density) and possible under- or over-estimation of fracture risk by FRAX. IMPRESSION: Osteopenia. I have personally reviewed the images of this examination and agree with the resident's findings and interpretations. Interpreted by: Hi Franklin MD Preliminary Report By: Toño Waller Electronically signed By Hi Franklin MD Dictated Date: 03/31/2025 9:21:40 AM Prelim Date: 03/31/2025 11:51:30 AM Sign Date: 03/31/2025 11:51:30 AM Ordering Provider: HEATHER STYLES Interpreted by: Hi Franklin MD Preliminary Report By: Toño Waller Electronically signed By Hi Franklin MD Dictated Date: 03/31/2025 9:21:40 AM Prelim Date: 03/31/2025 11:51:30 AM Sign Date: 03/31/2025 11:51:30 AM Ordering Provider: HEATHER STYLES [facility]05-22-2025 Evaluation note* Diagnosis Onset Date Resolution Status Admit Date Metabolic dysfunction-associ ated steatotic liver disease (MASLD) chronic February 11, 2025 7:50am [facility] Work Phone: [phone] Consult note [facility] Medical Records Department [address] [place] [address] Anesthesia Postop Eval II 12/28/24913 MR#: [id number] Acct: [id number] Name: ANNA SANCHEZ Rep #:[id number] : 1950 74 From: Cary Forrester PCP: Dr. 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 Anesthesia Postop Eval I: Fluid Summary Crystalloid volume administer 10 12/28/24 08:54 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 (ml) Colloids volume administered ( ml) Blood Product volume administered (ml) Total IV fluid infused 10 12/28/24 08:54 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 Anesthesia Postop Eval I: Summary Notes Anesthesia Complication No 12/28/24 08:54 STAINED GLASS GLAZIER HELPER.STEPH Anesthesia Complication Comment: Post-operative progress note Anesthesia: Postop Eval II Evaluation Mental status: Awake Pain Level: 2 nausea: No Vomiting: No 12/28/24 0914 a> Date _ Cary Sirca Cosigner Signature: CC: ~ Signed [facility]04-07-2025 Consult note [facility] Medical Records Department [address] [place] [address] Anesthesia Postop Eval I 12/28/24 0854 MR#: [id number] Acct: [id number] Name: ANNA SANCHEZ Sandhya Rep #:[id number] : 1950 74 From: Cary Forrester PCP: Dr. Ko Benavides, DO Status:REG SDC Y Race: C Location: [place] [address] Anesthesia: Postop Eval I Current Vital Signs Temperature: 97.8 F Pulse Rate: 79 Blood Pressure: 120/88 Respiratory Rate: 18 Pulse Ox: 93 Assessment Airway patent: Yes Spontaneous unlabored respirations: Yes nausea: No Vomiting: No Anesthesia Complication: No Fluid Hydration Crystalloid volume administer (ml): 10 Total IV fluid infused: 10 Progress Note Anesthesia document: Postop Eval 1 completed: Yes 12/28/24 0857 a> Date _ Cary Sirca Cosigner Signature: CC: ~ Signed [facility]04-07-2025 Procedure note [facility] Medical Records Department [address] [place] [address] Operative Report 12/28/24 0852 MR#: [id number] Acct: [id number] Name: ANNA SANCHEZ Rep #:[id number] : 1950 74 From: Raj Booth MD PCP: Dr. 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 ANESTHESIA: MAC. BLOOD LOSS: Minimal. COMPLICATIONS: None. DESCRIPTION OF PROCEDURE: History and physical of today was reviewed. Risks and benefits of the procedure were explained. The patient understood and agreedto proceed. Informed consent was obtained. IV inserted per routine protocol. The patient was taken to the operating room and placed in the proneposition with a pillow positioned underneath the abdomen. The lower back area was prepped and draped in a sterile fashion using iodine x3. Under fluoroscopy guidance on AP view, the L4 through S1 vertebral bodies were visualized. The skin and subcutaneous tissue was anesthetized with approximately 5 mL of 1% lidocaine using a 25-gauge regular needle. Under direct visualization with fluoroscopy, at approximately 25-degree angle, starting on the left L4, ending on the right L4, passing through the L5 and S1 bilaterally, using a 22-gauge 3-1/2-inch spinal needle, the needle was advanced via the skin. The tip of the needle was maneuvered and directed towards the superior medial gutter of the transverse process at the vicinity of the medial branch. Once tip of the needlewas in contact with thebone, the needle was pulled approximately 2 mm off the bone. After negative aspiration for blood orCSF and confirmation on AP, oblique as well as lateral view, a total of 12 mL of preservative-free 0.25% Marcaine with 80 mg of Depo-Medrol was injected in divided doses between those six levels. The needles were then removed intact. The patient experienced no sign or symptoms of intrathecal or intravascular injection. The patient experienced no paresthesia. The procedure was completed without any apparent difficulty or any complications. The patient appeared to tolerate it well. ASSESSMENT AND PLAN: This is a 74-year-old female with lumbosacral spondylosis, lumbosacral degenerative disc disease, lumbar facet arthropathy, status post bilateral lumbar medial branch block at L4-5 L5-S1, patient will continue her current medications, patient will follow-up in approximately 1-2 weeks for reevaluation. Surgical Findings: 1 Complications Complications: No 12/28/24 0854 Cosigner Signature (if applicable): CC: Dr. aRj Booth MD; Dr. Ko Benavides DO~ Signed [facility]04-07-2025 Consult note [facility] Medical Records Department [address] [place] [address] Pre-Anesthesia Evaluation 12/28/24 0756 MR#: [id number] Acct: [id number] Name: ANNA SANCHEZ Rep #:[id number] : 1950 74 From: Raysa Fuentes MD PCP: Dr. Ko Benavides DO Status:REG SDC Y Race: C Location: [address] ASA Classification* ASA Classification ASA Classification: 2 Assessment & Plan Anesthesia* Anesthesia Assessment Anesthesia Assessment: Discussed sedation and/or anesthesia options, risks, benefits, and alternatives with patient/parents/legal guardian/POA. Questions invited. The patient/parents/legal guardian/POA seems to understand and agrees to proceedwith anesthesia plan. Reviewed the physical assessment, medical history, allergy history and patient home medications list prior to surgery/procedure/anesthetic and documented any changes. Performed airway and anesthesia risk assessments. Anesthesia Type Anesthesia Type: MAC Anesthesia Focused Assessment* Airway Assessment Mouth opens: >3 cm Mallampati Score: II Focused Labs Anesthesia Preop lab: CBC WBC 9.0 K/mm3 (4.4-11.0) 06/11/23 06:57 06/11/23 RBC 4.31 M/mm3 (4.2-5.4) 06/11/23 06:57 06/11/23 Hgb 12.3 g/dL (12.0-15.0) 06/11/23 06:57 06/11/23 Hct 39.7 % (37-47) 06/11/23 06:57 06/11/23 Plt Count 202 K/mm3 (150-450) 06/11/23 06:57 06/11/23 CHEMISTRY Potassium 4.9 mmol/L (3.5-5.1) 06/11/23 06:57 06/11/23 Sodium 136 mmol/L (136-145) 06/11/23 06:57 06/11/23 BUN 16 mg/dL (7-18) 06/11/23 06:57 06/11/23 Creatinine 0.77 mg/dL (0.55-1.02) 06/11/23 06:57 06/11/23 Glucose 149 mg/dL (74-106) H 06/11/23 06:57 06/11/23 POC Glucose 125 mg/dL (74-106) H 11/09/24 06:32 11/09/24 COAG Pre-Assessment Diagnosis/Proposed Procedure Planned Operative Procedure(s): alysia median nerve block Anesthesia History 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 When Was Last Pacemaker Check QUESTION #4 FULL TEXT: You/Your Family Experience fever (hyperthermia) with Anesthesia Last Oral Intake Last Oral intake: Last Oral Intake NPO since Meds taken in AM with sips of water? 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 Has anyone observed you stop breathing during sleep? STOP Results QUESTION #5 FULL TEXT : Do you snore loudly (louder than talking or can be heard through closeddoors)? 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 Specify any problems Hx of Preganancy in last 3 Months Nurse Filling Out Transfusion & Questions: Date: Time: Patient unable to answer at this time (ie. 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 Hx Now Gestational Age (in weeks): EDC: Hx Hx Para Hx Section SAB No 05/06/24 14:31 PFSH Medical History Allergic rhinitis Fatty liver Herniated disc Wears glasses History of skin cancer Alcohol use Seasonal allergies Thyroid disease Diabetes Walker as ambulation aid Fibromyalgia Ambulates with cane High cholesterol Migraine headache Restless legs Dietary restriction Gastric reflux Asthma Shortness of breath on exertion Former smoker History of stress test Hypertension Home Medications ?Medication ?Instructions ?Recorded ?Last Taken ?Type calcium 600 mg (as 1 tab PO DAILY SUPPLEMENT 11/08/24 History carbonate)-vitamin D3 10 mcg (400 unit) tablet (Calcium 600 + D(3)) levothyroxine 50 mcg tablet 50 mcg PO DAILY THYROID 12/28/24 History omeprazole 20 mg capsule,delayed 20 mg PO DAILY GERD 0 05/13/23 11/08/24 History release rosuvastatin 5 mg tablet 5 mg PO QHS HLD 05/13/23 History losartan 50 mg tablet 50 mg PO DAILY htn 06/10/23 12/28/24 History magnesium oxide 400 mg (241.3 mg 400 mg PO BID 4 11/08/24 History magnesium) tablet diclofenac sodium 1 % topical gel 2 g topical ONCE 10/17 Unknown History (Arthritis Pain (diclofenac)) ferrous sulfate 325 mg (65 mg 325 mg PO QDAY 12/22/24 Unknown History iron) tablet semaglutide 1 mg/dose (4 mg/3 mL) 1 mg subcut QWEEK 12/13/24 History subcutaneous pen injector (Ozempic) Allergy/AdvReac Type Severity Reaction Status Date / Time erythromycin base Allergy PT UNSURE Verified 12/28/24 07:47 OF REACTION Penicillins Allergy PT UNSURE Verified 12/28/24 07:47 OF REACTION Family History Mother Alcohol abuse Arthritis Myocardial infarction Heart disease Brother Alcohol abuse Father Myocardial infarction Heart disease Surgical History History of total right knee replacement History of colonoscopy History of tonsillectomy History of thumb surgery History of tubal ligation History of cholecystectomy History of right knee surgery Social History Smoking Status: Former smoker alcohol intake: current alcohol intake frequency: a few times a week substance use type: does not use Review of Systems (Anesthesia) ROS Narrative System reviewed and no additional complaints, except as documented. 12/28/24 0757 > Date _ Raysa Fuentes MD Cosigner Signature: Date CC: ~ Signed [facility]02-11-2025 Note* Exam Date Time Procedure Performing Provider Status 11/03/24 10:25 AM US Elastography Liver w/ABD KEVIN ROBERTS MD; Auth (Verified) [id number] ORIGINAL EXAMINATION: LIVER ELASTOGRAPHY ULTRASOUND11/03/2024 10:30 am RUQ Limited ultrasound abdomen and Hepatic elastography COMPARISON: Ultrasound 09/07/2024 TECHNIQUE: This report is based on interpretation of permanently recorded ultrasound images. HISTORY: ORDERING SYSTEM PROVIDED HISTORY: Reason for Exam: hepatic steatosis, rule out fibrosis, fatty liver on previous ultrasound FINDINGS: The gallbladder is not seen surgically absent. There is no intrahepatic bile duct dilatation. The common duct is 8 mm at the jaime hepatis. The liver is coarsened with diffusely increased echogenicity and limited depth penetration. There is some masking of the portal triads. The main portal vein is patent with antegrade blood flow. The pancreas is partially obscured, no focal abnormality or mass is seen in the visualized portions. No ascites is seen in the RUQ. Limited survey images of the right kidney show normal size cortical thickness and echogenicity with no pelvocaliectasis.. Elastography of the liver was performed in the right lobe. Multiple attempts were made but no reliable measurements could be obtained due to patient's large body habitus and increased depth of the liver from the skin surface. IMPRESSION: Failed liver elastography due to patient factors. Liver steatosis or other diffuse hepatocellular disease. No acute findings. Interpreted by: Kevin Holm MD Preliminary Report By: Kevin Holm MD Electronically signed By Kevin Holm MD Dictated Date: 11/03/2024 3:48:11 PM Prelim Date: 11/03/2024 3:50:39 PM Sign Date: 11/03/2024 3:50:39 PM Ordering Provider: KO BENAVIDES [facility]12-16-2024 Note ORIGINAL EXAMINATION: RIGHT UPPER QUADRANT ULTRASOUND 09/07/2024 8:54 am COMPARISON: None. HISTORY: ORDERING SYSTEM PROVIDED HISTORY: Reason for Exam: hepatomegaly, alcohol use All images are recorded and archived. FINDINGS: LIVER: The liver demonstrates diffuse increased echogenicity without evidence of intrahepatic biliary ductal dilatation. Liver measures 15 cm in greatest dimension. There is no hepatic mass. BILIARY SYSTEM: Gallbladder surgically absent. Common bile duct is within normal limits measuring 6.9 mm. RIGHT KIDNEY: The right kidney is grossly unremarkable without evidence of hydronephrosis. Right kidney measures 11.8 x 4.5 x 3.7 cm appropriate cortical thickness and echotexture. PANCREAS: Visualized portions of the pancreas are unremarkable. OTHER: No evidence of right upper quadrant ascites. IMPRESSION: 1. Diffuse fatty infiltration of the liver. 2. Status post cholecystectomy. Interpreted by: Madhav Dean DO Preliminary Report By: Madhav Dean DO Electronically signed By Madhav Dean DO Dictated Date: 09/07/2024 10:51:30 AM Prelim Date: 09/07/2024 10:53:58 AM Sign Date: 09/07/2024 10:53:58 AM [facility] Discharge instructions Patient Education 05/22/2024 12:20:37 Pain, Acute, Uncertain Cause Acute Pain, Uncertain Cause Pain can be caused by many conditions that range from very minor to very serious. In some cases, though, pain comes and goes with no apparent cause. We were not able to find the exact cause for your pain. At this time there is no sign of any serious illness causing your pain. More tests may be needed to determine the cause. In many cases, pain like this goes away by itself. Home care Take any medicines as prescribed. If another medicine was not prescribed for pain, you can take an tmmb-jye-uckqrme pain medicine such as ibuprofen or acetaminophen. Use these as directed on the label. Follow-up care Follow up with your healthcare provider or our staff as directed. When to seek medical advice Call your healthcare provider for any of the following: Pain changes in pattern Pain doesn't lessen or gets worse New symptoms appear Fever of 100.4 F (38 C) or higher, or as directed by your healthcare provider [id number] [employer]. [address] [place] [address], [place] [address]. All rights reserved. This information is not intended as a substitute for professional medical care. Always follow yourhealthcare professional's instructions. Follow Up Care 05/22/2024 10:49:21 With:KO BENAVIDES Address: [address] [place] [id number] [phone] Business (1) When:5-7 days Comments:Follow-up as needed if symptoms persist.Use Tylenol for pain as needed.Ice/cool compresses to the right forearm.Return to the ED if symptoms worsen. [facility] 08-30-2024 Note Discharge Instructions Thank you for allowing [facility] to assist you with your healthcare needs. The following is importantdischarge information regarding your hospital visit. What to Do Next Instructions from Your Care Team No qualifying data available. Post Acute Orders No qualifying data available. You Need to Schedule the Following Appointments Follow Up with KO BENAVIDES When:Within 5-7 days Where:[address] [place] [id number] [phone] Business (1) Additional Information: Follow-up as needed if symptoms persist. Use Tylenol for pain as needed. Ice/cool compresses to the right forearm. Return to the ED if symptoms worsen. Allergies azithromycin Weakness penicillin Medications Please ask your primary doctor or pharmacist before taking any other medication not listed, including over the counter drugs, herbal medications, vitamins and or supplements as they may interact withyour home medications. What How Much When Instructions Last Dose Unchanged cholecalciferol (Vitamin D3) 25 Microgram Once a day Unchanged cyclobenzaprine (cyclobenzaprine 5 mg oral tablet) 1 tab(s) by mouth Every day Unchanged diclofenac topical (Voltaren 1% topical gel) 4 gram(s) Topical Four (4) times a day as needed for Pain Duration: 90 Days not to exceed 16 grams/ day/ single joint of lower extremities. not to exceed 8 grams/ day/ single joint of upper extremities. not to exceed 32 grams/ day total. Unchanged gabapentin (gabapentin 100 mg oral capsule) 1 cap by mouth Three (3) times a day Unchanged levothyroxine (levothyroxine 50 mcg (0.05 mg) oral tablet) 1 tab(s) by mouth Once a day Duration: 90 Days 30 minutes before other meds/ food Unchanged losartan (losartan 50 mg oral tablet) 1 tab(s) by mouth Once a day Duration: 100 Days Unchanged magnesium oxide (magnesium oxide 400 mg oral tablet) 1 tab(s) by mouth Two (2) times a day Duration: 90 Days Unchanged metFORMIN (MetFORMIN (Eqv-Glucophage XR) 500 mg oral tablet, EXTENDED RELEASE) 1 tab(s) by mouth Once a day with evening meal Unchanged methocarbamol (methocarbamol 750 mg oral tablet) 1 tab(s) by mouth Daily at bedtime as needed for Muscle spasm Duration: [address], operate heavy machinery, or drink alcohol while on this med. Unchanged montelukast (montelukast 10 mg oral tablet) 1 tab(s) by mouth Once a day (in the evening) Duration: 100 Days Unchanged mupirocin topical (mupirocin 2% topical ointment) See instructions apply sparingly to NASAL LESION twice a day for 5 days (IF NO IMPROVEMENT, SEEK MEDICAL ATTENTION) Unchanged nystatin topical (nystatin 100,000 units/ g topical powder) 1 application Topical Two (2) times a day as needed for Rash Duration: 30 Days Unchanged omeprazole (omeprazole 20 mg oral delayed release capsule) 1 cap by mouth Once a day Duration: 90 Days Unchanged rosuvastatin (rosuvastatin 5 mg oral tablet) 1 tab(s) by mouth Daily at bedtime Unchanged zinc sulfate (Zinc) 50 Milligram by mouth Once a day Duration: 30 Days Please take this list to your next doctor s visit. Bring all medications you take, including over the counter medications, herbals and other supplements with you to your doctor s visit. Patients and families are reminded to discard old lists and to update any records with all medication providers or retail pharmacies. Education Materials Acute Pain, Uncertain Cause Pain can be caused by many conditions that range from very minor to very serious. In some cases, though, pain comes and goes with no apparent cause. We were not able to find the exact cause for your pain. At this time there is no sign of any serious illness causing your pain. More tests may be needed to determine the cause. In many cases, pain like this goes away by itself. Home care Take any medicines as prescribed. If another medicine was not prescribed for pain, you can take an dhwl-bra-mzhbmws pain medicine such as ibuprofen or acetaminophen. Use these as directed on the label. Follow-up care Follow up with your healthcare provider or our staff as directed. When to seek medical advice Call your healthcare provider for any of the following: Pain changes in pattern Pain doesn't lessen or gets worse New symptoms appear Fever of 100.4 F (38 C) or higher, or as directed by your healthcare provider [id number] [employer]. [address] [place] [address], [place] [address]. All rights reserved. This information is not intended as a substitute for professional medical care. Always follow yourhealthcare professional's instructions. Additional Information VACCINATE! IT SAVES LIVES! Members of the community who have not yet received the COVID-19 vaccine and would like to receive it can visit one of [facility] vaccine clinics. There are many vaccine clinic locations within the [facility]. For locations and available times, please visit [email or web address] It is important to note that some COVID mobile vaccine clinics are held outdoors and may be canceled in rainy or stormy conditions. To learn more about pediatric vaccinations (ages 5-11), we invite you to visit the [facility] webpage. [email or web address] learn more about the COVID-19 vaccine, we invite you to visit the CDC website for a list of frequently asked questions. https://www.cdc.gov/coronavirus/2019-ncov/vaccines/faq.html [facility] Patient Portal Access Instructions: Stay connected with your healthcare team and access your personal medical information anytime with the [facility] Patient Portal. If you would like a full copy of your medical records please contact the [facility] Medical Records Department Saturday through Saturday between 8a.m. and 4:30p.m. Please follow the directions below to access the portal: 1.Access the email account you provided upon registration to the [facility].2.Look for an invitation email from [facility].3.Open the email and access the invitation link: Accept Invitation to [facility]4.Fill in the required horn to create your account. Sign into [email or web address] with your username and password that you created in the above steps to stay up to date. You can then view a summary of results, a summary of your visits, and the ability to download your summaries to your computer or send the information securely to a physician. Remember that your healthcare information is confidential, so carefully consider who you will allow to register on the [facility] [employer] Patient Portal for access to your information. You can also access the [facility] Patient Portal on the legalPAD. Simply click on Health Records under [facility]orrow[facility] and then click on the [facility] logo. HOW TO SAFELY DISPOSE OF PRESCRIPTION MEDICATIONS Please use one of the following methods to safely dispose of your unused medications. 1.Use a drug disposal kit: the drug disposal pouch allows you to safely discard your old and unuseddrugs. Ask your nurse to give you one when you are discharged.2.Visit a local take-back location: Many local pharmacies and police departments have programs that collect old and unwanted prescriptiondrugs. Call your local pharmacy or go to http://NGDATA.Synappio/8B5Mo1e to find one close to you.3.Make use of household items: Use cat litter or old coffee grounds to dispose medications if other options arenot available. Mix your drugs with these household products, seal them in an airtight container andthrow it into the garbage. Call [facility]: [phone] to be sure your drugs can be disposed of in this way. Some medicines may require a different approach.4.Never flush your medications down the toilet. IF YOU HAVE BEEN PRESCRIBED AN OPIOIDS FOR PAIN If you have been prescribed an opioid (such as hydrocodone, oxycodone or morphine), it is critical to understand the possible side effects and risks of opioid pain medications. Even when taken as directed, opioids can have several side effects including: Tolerance, meaning you might need to take more of a medication for the same pain relief. Nausea, vomiting and/or constipation. Sleepiness, dizziness, dry mouth, confusion, depression or itching. Physical dependence, meaning you have withdrawal symptoms when a medication is stopped ? this can develop within a few days. KNOW YOUR RESPONSIBILITIES It is important to know exactly how much and how often to take the opioid pain medications you are prescribed. Never take opioids in higher amounts or more often than prescribed. Do not combine opioids with alcohol or other drugs that cause drowsiness, such as benzodiazepines, also known as benzos,including diazepam and alprazolam, muscle relaxants or sleep aids. Never sell or share prescriptionopioids. This is illegal. Store opioids in a secure place and out of reach of others (including children, family, friends and visitors). The last page(s) of this document has been signed and retained as a CHART COPY Signatures Patient Education Materials Pain, Acute, Uncertain Cause Medication Leaflets My discharge plan and instructions have been reviewed and explained to me and I,ANNA SANCHEZ understand my current condition and have read and understand these discharge instructions. I have received a written copy of the plan/instructions. If I have questions, I am aware that I should contact my doctor. Patient/Surgeon'S Assistant Signature: Date/Time: Relationship to Patient: Witness Name/Signature: Date/Time: [facility]08-30-2024 Note* Exam Date Time Procedure Performing Provider Status 05/22/24 11:26 AM VL Venous US/Doppler One Arm (for DVT). Auth (Verified) [facility] 07-10-2024 Note* Exam Date Time Procedure Performing Provider Status 04/01/24 9:13 AM Echocardiogram, Adult - CV Auth (Verified) [facility] 06-18-2024 Note ORIGINAL NM MYOCARDIAL SPECT STRESS/REST CLINICAL STATEMENT: chest pain, diabetes, hypertension, obesity TECHNIQUE: Lexiscan dose: 0.4 mg Radiopharmaceutical (stress): Tc-99m Sestamibi Dose:31.4mCi Radiopharmaceutical (rest): Tc-99m Sestamibi Dose:10.4 mCi SPECT acquisition and processing Reconstruction and reorientation of SPECT images into short axis, vertical and horizontal long axisplanes Quantitative LVEF assessment COMPARISON:none REPORT:Technically very difficult study. Motion is noted on review of rotating raw images stress only images were obtained. Due to technical difficulties resting images were not available. No large perfusion defects noted on the stress images. IMPRESSION:Technically difficult and limited study. Stress only images obtained. Nuclear technicians tried to obtain resting images but were limited due to various reasons. (breast attenuation, ability to lift arms etc) No obvious large perfusion defects noted on the stress images suggesting against large areas of ischemia or infarction. Consider alternate modality to assess for CAD if clinically indicated. Interpreted By: Kenzie Swanson Preliminary Report By: Kenzie Swanson Electronically Signed By: Kenzie Swanson Dictated Date: 03/10/2024 7:07:01 PM Prelim Date: 03/10/2024 7:07:01 PM Sign Date: 03/10/2024 7:17:21 PM Ordering Provider:[facility]05-15-2024 Evaluation + Plan noteExtracted from: Title:Clinical Document Author:SHAWNA HENRIQUEZ ate:02/05/24 [place] ADMISSION HISTORY AN D PHYSICIAL CHIEF COMPLAINT: Colorectal cancer screening HISTORY OF PRESENT ILLNESS: Colorectal cancer screening, last colonoscopy greater than 10 years ago REVIEW OF SYSTEMS: Constitutional: denies weight loss Cardiovascular:denies chest pain, palpitations Respiratory:denies shortness of breath Gastrointestinal:no abd pain Musculoskeletal: no arthralgias Skin: no rashes ACTIVE PROBLEMS: (43) Alcohol use (354357160) Allergic rhinitis (360827664) Aortic valve sclerosis (486917196) Asthma (190014797) BMI 40.0-44.9, adult (1116103166) Carpal tunnel (388654413) Cellulitis (206529882) Cholecystectomy (64467247) Chronic cough (355357473) Chronic low back pain (954766929) Cough (48715360) Diverticulosis (7578236080) Dizziness (7007507460) Elevated liver enzymes (4778172301) Fibromyalgia (97286768) Gastroesophageal reflux (815696503) GERD (gastroesophageal reflux disease) ([id number]) H/O: hysterectomy ([id number]) Hiatal hernia (045987677) Hidradenitis suppurativa (93255043) Hypertension goal BP (blood pressure) < 150/90 (1838066025) Hypomagnesemia (409731988) Increased sputum production (380480505) Ingrown toenail of right foot (4262720227) Intertrigo (30190149) Left hip pain (26853348) Left ventricular hypertrophy (21769797) Leg cramping (5251375565) Mild mitral valve regurgitation (6751945407) Mild tricuspid regurgitation (1575163352) Morbid obesity (184440324) Nasal sore (890146023) Osteopenia (541339844) Panniculitis (96446850) Peripheral edema (200214475) Post-menopausal (398283404) Prediabetes (0299160628) Psoriasis (99485034) Pulmonic valve regurgitation (010363834) Right knee pain (7585758338) Sore throat (0173105180) Systolic ejection murmur (746690993) 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 Weights display the last 5 within 7 days. Initial Wt: 02/04 98.5 kg 217 lb Current Wt: 02/04 98.5 kg 217 lb physical exam alert and oriented cardio; regular without murmur pulm; clear abd; soft, nontender LABS: No 36hr Lab Data DIAGNOSTICS: IMPRESSION: Colorectal cancer screening PLAN: Proceed with colonoscopy as discussed in the office Future Appointments Appointment Date:02/10/2024 09:00:00 AM Scheduled Provider: Location:[facility] Appointment Type:MEDS - Diabetic Individual Visit Appointment Date:02/11/2024 08:00:00 AM Scheduled Provider:KO BENAVIDES DO Location:[facility] Appointment Type:PC OV Future Scheduled Tests Laboratory* Rapid HIV (AO) 11/08/23 * Rapid Plasma Reagin Test 11/08/23 * Hepatitis C Antibody IgG 11/08/23 * [facility] Send Out (Non-Blood Specimens) 11/08/23 [facility] 05-15-2024 Hospital Discharge instructions Patient Education 02/05/2024 07:34:23 Monitored Anesthesia Care, Care After Monitored Anesthesia Care, Care After These instructions provide you with information about caring for yourself after your procedure. Your health care provider may also give you more specific instructions. Your treatment has been plannedaccording to current medical practices, but problems sometimes occur. Call your health care provider if you have any problems or questions after your procedure. What can I expect after the procedure? After your procedure, you may: Feel sleepy for several hours. Feel clumsy and have poor balance for several hours. Feel forgetful about what happened after the procedure. Have poor judgment for several hours. Feel nauseous or vomit. Have a sore throat if you had a breathing tube during the procedure. Follow these instructions at home: For at least 24 hours after the procedure: Have a responsible adult stay with you. It is important to have someone help care for you until youare awake and alert. Rest as needed. Do not: ?Participate in activities in which you could fall or become injured. ?Drive. ?Use heavy machinery. ?Drink alcohol. ?Take sleeping pills or medicines that cause drowsiness. ?Make important decisions or sign legal documents. ?Take care of children on your own. Eating and drinking Follow the diet that is recommended by your health care provider. If you vomit, drink water, juice, or soup when you can drink without vomiting. Make sure you have little or no nausea before eating solid foods. General instructions Take gvog-ocm-bdgbwql and prescription medicines only as told by your health care provider. If you have sleep apnea, surgery and certain medicines can increase your risk for breathing problems. Follow instructions from your health care provider about wearing your sleep device: ?Anytime you are sleeping, including during daytime naps. ?While taking prescription pain medicines, sleeping medicines, or medicines that make you drowsy. If you smoke, do not smoke without supervision. Keep all follow-up visits as told by your health care provider. This is important. Contact a health care provider if: You keep feeling nauseous or you keep vomiting. You feel light-headed. You develop a rash. You have a fever. Get help right away if: You have trouble breathing. Summary For several hours after your procedure, you may feel sleepy and have poor judgment. Have a responsible adult stay with you for at least 24 hours or until you are awake and alert. This information is not intended to replace advice given to you by your health care provider. Make sure you discuss any questions you have with your health care provider. Document Released: 12/30/2016 Document Revised: 12/08/2018 Document Reviewed: 12/30/2016 [email or web address] Patient Education 2020 [employer]. 02/05/2024 07:34:19 Colonoscopy, Adult, Care After Colonoscopy, Adult, Care After This sheet gives you information about how to care for yourself after your procedure. Your health care provider may also give you more specific instructions. If you have problems or questions, contact your health care provider. What can I expect after the procedure? After the procedure, it is common to have: A small amount of blood in your stool for 24 hours after the procedure. Some gas. Mild abdominal cramping or bloating. Follow these instructions at home: General instructions For the first 24 hours after the procedure: ?Do not drive or use machinery. ?Do not sign important documents. ?Do not drink alcohol. ?Do your regular daily activities at a slower pace than normal. ?Eat soft, gtlu-bb-esgybq foods. Take ycgc-yys-ixhpllz or prescription medicines only as told by your health care provider. Relieving cramping and bloating Try walking around when you have cramps or feel bloated. Apply heat to your abdomen as told by your health care provider. Use a heat source that your healthcare provider recommends, such as a moist heat pack or a heating pad. ?Place a towel between your skin and the heat source. ?Leave the heat on for 20 30 minutes. ?Remove the heat if your skin turns bright red. This is especially important if you are unable to feel pain, heat, or cold. You may have a greater risk of getting burned. Eating and drinking Drink enough fluid to keep your urine pale yellow. Resume your normal diet as instructed by your health care provider. Avoid heavy or fried foods thatare hard to digest. Avoid drinking alcohol for as long as instructed by your health care provider. Contact a health care provider if: You have blood in your stool 2 3 days after the procedure. Get help right away if: You have more than a small spotting of blood in your stool. You pass large blood clots in your stool. Your abdomen is swollen. You have nausea or vomiting. You have a fever. You have increasing abdominal pain that is not relieved with medicine. Summary After the procedure, it is common to have a small amount of blood in your stool. You may also have mild abdominal cramping and bloating. For the first 24 hours after the procedure, do not drive or use machinery, sign important documents, or drink alcohol. Contact your health care provider if you have a lot of blood in your stool, nausea or vomiting, a fever, or increased abdominal pain. This information is not intended to replace advice given to you by your health care provider. Make sure you discuss any questions you have with your health care provider. Document Released: 04/23/2005 Document Revised: 07/02/2018 Document Reviewed: 11/20/2016 [email or web address] Patient Education 2020 [employer]. Follow Up Care 12/27/2023 13:16:42 With:SHAWNA HENRIQUEZ DO, Clinical Gastroenterology Address: [address] [facility] [place] [address]- [phone] When: only if needed With:KO BENAVIDES DO Address: [address] [facility] [place] [address]- [phone] When: Unknown [facility] 05-15-2024 Note Discharge Instructions Thank you for allowing [facility] to assist you with your healthcare needs. The following is importantdischarge information regarding your hospital visit. Your Care Team KO BENAVIDES DO, Dr. What to do next Scheduled Follow-Up Appointments Appointment Type When With Where Contact Information StatusMEDS - Diabetic Individual Visit 02/10/2024 09:00 AM EDT [facility] [phone] Confirmed PC OV 02/11/2024 08:00 AM EDT KO BENAVIDES DO [address] [phone] Confirmed Follow Up Appointments Follow Up with SHAWNA HENRIQUEZ DO, Clinical Gastroenterology When: When:Only if needed Where:[address] [place] [address] [place] [address] [phone] Follow Up with KO BENAVIDES DO When: Where:[address] [place] [phone] The Following Activity and Diet Have Been Ordered for You Discharge Activity - Ordered -- Driving Restricted, No driving until tomorrow, 02/05/24 6:38:00 EDT Discharge Return to Work, School, or Sports (Discharge Return to status) - Ordered -- May return to: work, 02/05/24 6:38:00 EDT Discharge Diet - Ordered -- Type of Diet: Regular Diet, 02/05/24 6:38:00 EDT Allergies azithromycin Weakness penicillin Medications Please ask your primary doctor or pharmacist before taking any other medication not listed, including over the counter drugs, herbal medications, vitamins and or supplements as they may interact withyour home medications. What How Much When Instructions Last Dose Unchanged albuterol (ProAir HFA MDI (90 mcg/ inh) inhalation aerosol) 2 puff(s) by inhalation Every 4 hours as needed for Shortness of breath or wheezing Duration: 30 Days use with spacer chamber Unchanged ascorbic acid (Vitamin C 500 mg oral tablet, chewable) 1 tab(s) Chewed Every day Unchanged betamethasone topical (betamethasone dipropionate 0.05% topical cream) 1 application Topical Two (2) times a day as needed for Rash Unchanged calcium carbonate (calcium (as carbonate) 600 mg oral tablet) by mouth Once a day Unchanged celecoxib (CeleBREX 100 mg oral capsule) 2 cap by mouth Two (2) times a day Unchanged cholecalciferol (Vitamin D3) 25 Microgram Once a day Unchanged cyclobenzaprine (cyclobenzaprine 5 mg oral tablet) 1 tab(s) by mouth Every day Unchanged diclofenac topical (Voltaren 1% topical gel) 4 gram(s) Topical Four (4) times a day as needed for Pain Duration: 90 Days not to exceed 16 grams/ day/ single joint of lower extremities. not to exceed 8 grams/ day/ single joint of upper extremities. not to exceed 32 grams/ day total. Unchanged levothyroxine (levothyroxine 50 mcg (0.05 mg) oral tablet) 1 tab(s) by mouth Once a day Duration: 90 Days 30 minutes before other meds/ food Unchanged losartan (losartan 50 mg oral tablet) 1 tab(s) by mouth Once a day Duration: 90 Days Unchanged magnesium oxide (magnesium oxide 400 mg oral tablet) 1 tab(s) by mouth Two (2) times a day Duration: 90 Days Unchanged metFORMIN (MetFORMIN (Eqv-Glucophage XR) 500 mg oral tablet, EXTENDED RELEASE) 1 tab(s) by mouth Once a day with evening meal Unchanged methocarbamol (methocarbamol 750 mg oral tablet) 1 tab(s) by mouth Daily at bedtime as needed for Muscle spasm Duration: [address], operate heavy machinery, or drink alcohol while on this med. Unchanged montelukast (montelukast 10 mg oral tablet) 1 tab(s) by mouth Once a day (in the evening) Duration: 90 Days Unchanged mupirocin topical (mupirocin 2% topical ointment) See instructions apply sparingly to NASAL LESION twice a day for 5 days (IF NO IMPROVEMENT, SEEK MEDICAL ATTENTION) Unchanged nystatin topical (nystatin 100,000 units/ g topical powder) 1 application Topical Two (2) times a day as needed for Rash Duration: 30 Days Unchanged omeprazole (omeprazole 20 mg oral delayed release capsule) 1 cap by mouth Once a day Duration: 90 Days Unchanged rosuvastatin (rosuvastatin 5 mg oral tablet) 1 tab(s) by mouth Daily at bedtime Unchanged zinc sulfate (Zinc) 50 Milligram by mouth Once a day Duration: 30 Days Please take this list to your next doctor s visit. Bring all medications you take, including over the counter medications, herbals and other supplements with you to your doctor s visit. Patients and families are reminded to discard old lists and to update any records with all medication providers or retail pharmacies. Education Materials Monitored Anesthesia Care, Care After These instructions provide you with information about caring for yourself after your procedure. Your health care provider may also give you more specific instructions. Your treatment has been plannedaccording to current medical practices, but problems sometimes occur. Call your health care provider if you have any problems or questions after your procedure. What can I expect after the procedure? After your procedure, you may: Feel sleepy for several hours. Feel clumsy and have poor balance for several hours. Feel forgetful about what happened after the procedure. Have poor judgment for several hours. Feel nauseous or vomit. Have a sore throat if you had a breathing tube during the procedure. Follow these instructions at home: For at least 24 hours after the procedure: Have a responsible adult stay with you. It is important to have someone help care for you until youare awake and alert. Rest as needed. Do not: ? Participate in activities in which you could fall or become injured. ? Drive. ? Use heavy machinery. ? Drink alcohol. ? Take sleeping pills or medicines that cause drowsiness. ? Make important decisions or sign legal documents. ? Take care of children on your own. Eating and drinking Follow the diet that is recommended by your health care provider. If you vomit, drink water, juice, or soup when you can drink without vomiting. Make sure you have little or no nausea before eating solid foods. General instructions Take aqwc-brg-jkupodv and prescription medicines only as told by your health care provider. If you have sleep apnea, surgery and certain medicines can increase your risk for breathing problems. Follow instructions from your health care provider about wearing your sleep device: ? Anytime you are sleeping, including during daytime naps. ? While taking prescription pain medicines, sleeping medicines, or medicines that make you drowsy. If you smoke, do not smoke without supervision. Keep all follow-up visits as told by your health care provider. This is important. Contact a health care provider if: You keep feeling nauseous or you keep vomiting. You feel light-headed. You develop a rash. You have a fever. Get help right away if: You have trouble breathing. Summary For several hours after your procedure, you may feel sleepy and have poor judgment. Have a responsible adult stay with you for at least 24 hours or until you are awake and alert. This information is not intended to replace advice given to you by your health care provider. Make sure you discuss any questions you have with your health care provider. Document Released: 12/30/2016 Document Revised: 12/08/2018 Document Reviewed: 12/30/2016 [email or web address] Patient Education 2020 [employer]. Colonoscopy, Adult, Care After This sheet gives you information about how to care for yourself after your procedure. Your health care provider may also give you more specific instructions. If you have problems or questions, contact your health care provider. What can I expect after the procedure? After the procedure, it is common to have: A small amount of blood in your stool for 24 hours after the procedure. Some gas. Mild abdominal cramping or bloating. Follow these instructions at home: General instructions For the first 24 hours after the procedure: ? Do not drive or use machinery. ? Do not sign important documents. ? Do not drink alcohol. ? Do your regular daily activities at a slower pace than normal. ? Eat soft, euoj-uh-iraddd foods. Take urxs-ill-fcgrnve or prescription medicines only as told by your health care provider. Relieving cramping and bloating Try walking around when you have cramps or feel bloated. Apply heat to your abdomen as told by your health care provider. Use a heat source that your healthcare provider recommends, such as a moist heat pack or a heating pad. ? Place a towel between your skin and the heat source. ? Leave the heat on for 20 30 minutes. ? Remove the heat if your skin turns bright red. This is especially important if you are unable to feel pain, heat, or cold. You may have a greater risk of getting burned. Eating and drinking Drink enough fluid to keep your urine pale yellow. Resume your normal diet as instructed by your health care provider. Avoid heavy or fried foods thatare hard to digest. Avoid drinking alcohol for as long as instructed by your health care provider. Contact a health care provider if: You have blood in your stool 2 3 days after the procedure. Get help right away if: You have more than a small spotting of blood in your stool. You pass large blood clots in your stool. Your abdomen is swollen. You have nausea or vomiting. You have a fever. You have increasing abdominal pain that is not relieved with medicine. Summary After the procedure, it is common to have a small amount of blood in your stool. You may also have mild abdominal cramping and bloating. For the first 24 hours after the procedure, do not drive or use machinery, sign important documents, or drink alcohol. Contact your health care provider if you have a lot of blood in your stool, nausea or vomiting, a fever, or increased abdominal pain. This information is not intended to replace advice given to you by your health care provider. Make sure you discuss any questions you have with your health care provider. Document Released: 04/23/2005 Document Revised: 07/02/2018 Document Reviewed: 11/20/2016 [email or web address] Patient Education 2020 [employer]. Additional Information VACCINATE! IT SAVES LIVES! Members of the community who have not yet received the COVID-19 vaccine and would like to receive it can visit one of [facility] vaccine clinics. There are many vaccine clinic locations within the [facility]. For locations and available times, please visit [email or web address].[place].[email or web address] It is important to note that some COVID mobile vaccine clinics are held outdoors and may be canceled in rainy or stormy conditions. To learn more about pediatric vaccinations (ages 5-11), we invite you to visit the [facility] webpage. [email or web address] learn more about the COVID-19 vaccine, we invite you to visit the CDC website for a list of frequently asked questions.https://www.cdc.gov/coronavirus/2019-ncov/vaccines/faq.html [facility] Patient Portal Access Instructions: Stay connected with your healthcare team and access your personal medical information anytime with the [facility] Patient Portal. Please follow the directions below to create your [facility] account: 1.Access the email account you provided upon registration to the hospital/physician office.2.Look for an invitation email from [facility].3.Open the email and access the invitation link: AcceptInvitation to [facility].4.Fill in the required horn to create your account. To access your account, visit [email or web address]. Click the blue button labeled Access Patient Portal and then log in with the username and password that you created in the steps above. You will be able to view your test results, lab results, a summary of your visits, upcoming appointments and more. There is also a convenient messaging option where you can send secure messages to your p rovider. In addition, you will have the ability to download any documents or summaries to your computer and/or send the information securely to a physician. Remember that your healthcare information is confidential, so carefully consider who you will allowto register on the [facility] [employer] Patient Portal for access to your information. You can also access the [facility] [employer] Patient Portal on the [place] [facility] katie. Simply click on Patient Portal and then log into your account. If you would like to receive a full copy of your medical records, please contact the [facility] Medical Records Department by calling [phone], Saturday through Saturday between 8 a.m. and 4:30 p.m. HOW TO SAFELY DISPOSE OF PRESCRIPTION MEDICATIONS Please use one of the following methods to safely dispose of your unused medications. 1.Use a drug disposal kit: the drug disposal pouch allows you to safely discard your old and unuseddrugs. Ask your nurse to give you one when you are discharged.2.Visit a local take-back location: Many local pharmacies and police departments have programs that collect old and unwanted prescriptiondrugs. Call your local pharmacy or go to http://NGDATA.Synappio/6R7No0y to find one close to you.3.Make use of household items: Use cat litter or old coffee grounds to dispose medications if other options arenot available. Mix your drugs with these household products, seal them in an airtight container andthrow it into the garbage. Call [facility]: [phone] to be sure your drugs can be disposed of in this way. Some medicines may require a different approach.4.Never flush your medications down the toilet. IF YOU HAVE BEEN PRESCRIBED AN OPIOID FOR PAIN If you have been prescribed an opioid (such as hydrocodone, oxycodone or morphine), it is critical to understand the possible side effects and risks of opioid pain medications. Even when taken as directed, opioids can have several side effects including: Tolerance, meaning you might need to take more of a medication for the same pain relief. Nausea, vomiting and/or constipation. Sleepiness, dizziness, dry mouth, confusion, depression or itching. Physical dependence, meaning you have withdrawal symptoms when a medication is stopped, can develop within a few days. KNOW YOUR RESPONSIBILITIES It is important to know exactly how much and how often to take the opioid pain medications you are prescribed. Never take opioids in higher amounts or more often than prescribed. Do not combine opioids with alcohol or other drugs that cause drowsiness, such as benzodiazepines, also known as benzos, including diazepam and alprazolam, muscle relaxants or sleep aids. Never sell or share prescription opioids. This is illegal. Store opioids in a secure place and out of reach of others (including children, family, friends and visitors). The last page of this document has been signed and retained as a CHART COPY. Signatures Patient Education Materials Monitored Anesthesia Care, Care After Colonoscopy, Adult, Care After Medication Leaflets My discharge plan and instructions have been reviewed and explained to me and I,ANNA SANCHEZ understand my current condition and have read and understand these discharge instructions. I have received a written copy of the plan/instructions. If I have questions, I am aware that I should contact my doctor. Patient/Surgeon'S Assistant Signature: Date/Time: Relationship to Patient: Witness Name/Signature: Date/Time: [facility]05-15-2024 Note Indication for Surgery Colorectal cancer screening Preoperative Diagnosis Colorectal cancer screening Postoperative Diagnosis Left colonic diverticulosis Operation Colonoscopy Surgeon(s) Shawna Henriquez D.O. Anesthesia MAC Estimated Blood Loss None Specimen(s) None Complications None Technique The patient was evaluated in the preoperative area and surgical consent was obtained. She was then brought to endoscopy and monitored on pulse oximetry, cardiac monitoring and placed on supplemental oxygen. She was placed in left lateral decubitus position and a surgical timeout was obtained. Sedation was provided by anesthesia. A digital exam revealed nonthrombosed external hemorrhoids. The colonoscope was carefully inserted into the rectum advanced towards the cecum. Diverticulosis was noted through the left colon. Cecal pouch appeared normal. Scope was then carefully directed through a 6-minute withdrawal with a fair prep. Once in the rectum retroflexion view was normal. Scope was removed. Patient is then transferred to the recovery area in stable condition vital signs. Discharge summary: 1. Final Diagnosis: 1. Left colonic diverticulosis 2. Nonthrombosed external hemorrhoids 2. Outcome: Patient tolerated procedure well without complication 3. Disposition: Patient was discharged home to follow previous diet and medications 4. Follow-up care: Follow-up with primary care physician as scheduled. 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 Assessment Postanesthesia assessment Vitals: Vital signs from flowsheet : Vital Signs 02/05/2024 7:25 EDT Heart Rate Monitored 78 bpm bpm Respiratory Rate - Anes 16 br/min br/min 02/05/2024 7:20 EDT Heart Rate Monitored 78 bpm bpm Respiratory Rate - Anes 24 br/min br/min Systolic Blood Pressure Non-Invasive 146 mmHg mmHg Diastolic Blood Pressure Non-Invasive 80 mmHg mmHg 02/05/2024 7:15 EDT Heart Rate Monitored 85 bpm bpm Respiratory Rate - Anes 0 br/min br/min Systolic Blood Pressure Non-Invasive 162 mmHg mmHg Diastolic Blood Pressure Non-Invasive 75 mmHg mmHg 02/05/2024 7:13 EDT Systolic Blood Pressure Non-Invasive 149 mmHg mmHg Diastolic Blood Pressure Non-Invasive 89 mmHg mmHg 02/05/2024 6:45 EDT Temperature Temporal Artery 36.4 DegC Apical Heart Rate 65 bpm Respiratory Rate 16 br/min Systolic Blood Pressure Non-Invasive 158 mmHg HI Diastolic Blood Pressure Non-Invasive 67 mmHg , Measurements from flowsheet . Mental status: alert & oriented x 4. Respiratory function: respirations are non-labored. Respiratory support: none. CV function: Normal rate. Cardiovascular support: none. Pain. Nausea status: see nursing documentation of medications. Postoperative hydration status: within normal limits. Digitally Signed by DOMINIC HAMM on 02/05/2024 07:29 AM [facility]05-15-2024 Anesthesiology Consult note Patient: ANNA SANCHEZ Age: 73 years Sex: Female : 1950 Associated Diagnoses: None Author: DOMINIC HAMM Preoperative Information Time of last solid food intake: 02/05/2024 00:00:00 Time of last clear liquid intake: 02/05/2024 03:30:00 Anesthesia history Patient's history: negative. Family's history: negative. Health Status Allergies: Allergic Reactions (Selected) Severity Not Documented Azithromycin- Weakness. Penicillin- No reactions were documented., Allergies (2) ActiveReaction azithromycinWeakness penicillinNone Documented Current medications: (Selected) Inpatient Medications Ordered Lactated Ringers Infusion 1,000 mL: 20 mL/hr, Intravenous Prescriptions Prescribed MetFORMIN (Eqv-Glucophage XR) 500 mg oral tablet, EXTENDED RELEASE: 500 mg, 1 tab(s), Oral, qDay, with evening meal, 90 tab(s), 1 Refill(s) ProAir HFA MDI (90 mcg/inh) inhalation aerosol: 2 puff(s), Inhalation, q4h, for 30 day(s), use withspacer chamber, PRN: Shortness of breath or wheezing, 1 EA, 5 Refill(s) Vitamin C 500 mg oral tablet, chewable: 500 mg, 1 tab(s), Chewed, Daily, 30 tab(s), 0 Refill(s) Voltaren 1% topical gel: 4 gram(s), Topical, QID, for 90 day(s), not to exceed 16 grams/day/single joint of lower extremities. not to exceed 8 grams/day/single joint of upper extremities. not to exceed 32 grams/day total., PRN: Pain, 100 gram(s), 3 Refill(s) levothyroxine 50 mcg (0.05 mg) oral tablet: 50 mcg, 1 tab(s), Oral, qDay, for 90 day(s), 30 minutesbefore other meds/food, 90 tab(s), 1 Refill(s) losartan 50 mg oral tablet: 50 mg, 1 tab(s), Oral, qDay, for 90 day(s), 90 tab(s), 1 Refill(s) magnesium oxide 400 mg oral tablet: 400 mg, 1 tab(s), Oral, BID, for 90 day(s), 180 tab(s), 3 Refill(s) methocarbamol 750 mg oral tablet: 750 mg, 1 tab(s), Oral, qHS, for 14 day(s), Do not drive, operateheavy machinery, or drink alcohol while on this med., PRN: Muscle spasm, 14 tab(s), 1 Refill(s) montelukast 10 mg oral tablet: 10 mg, 1 tab(s), Oral, qPM, for 90 day(s), 90 tab(s), 1 Refill(s) mupirocin 2% topical ointment: See Instructions, apply sparingly to NASAL LESION twice a day for 5 days (IF NO IMPROVEMENT, SEEK MEDICAL ATTENTION), 15 gram(s), 0 Refill(s) nystatin 100,000 units/g topical powder: 1 katie, Topical, BID, for 30 day(s), PRN: Rash, 60 gram(s),1 Refill(s) omeprazole 20 mg oral delayed release capsule: 20 mg, 1 cap(s), Oral, qDay, for 90 day(s), 90 cap(s), 1 Refill(s) rosuvastatin 5 mg oral tablet: 5 mg, 1 tab(s), Oral, qHS, 90 tab(s), 1 Refill(s) Documented Medications Documented CeleBREX 100 mg oral capsule: 200 mg, 2 cap(s), Oral, BID, 180 cap(s), 0 Refill(s) Vitamin D3: 25 mcg, qDay, 0 Refill(s) Zinc: 50 mg, Oral, qDay, for 30 day(s) betamethasone dipropionate 0.05% topical cream: 1 katie, Topical, BID, PRN: Rash, 45 gram(s), 0 Refill(s) calcium (as carbonate) 600 mg oral tablet: mg, tab(s), Oral, qDay, 0 Refill(s) cyclobenzaprine 5 mg oral tablet: 5 mg, 1 tab(s), Oral, Daily, 0 Refill(s), Medications (1) Active Scheduled: (0) Continuous: (1) Lactated Ringers 1,000 mL 1,000 mL, Intravenous, 20 mL/hr PRN: (0) Problem list: Medical Allergic rhinitis / SNOMED CT 337104475 / Confirmed Aortic valve sclerosis / SNOMED CT 904564499 / Confirmed Asthma / SNOMED CT 549470337 / Confirmed BMI 40.0-44.9, adult / SNOMED CT 0590172036 / Confirmed Carpal tunnel / SNOMED CT 122751049 / Confirmed Cellulitis / SNOMED CT 046361538 / Confirmed Cholecystectomy / SNOMED CT 13009977 / Confirmed Chronic cough / SNOMED CT 287406805 / Confirmed Chronic low back pain / SNOMED CT 253762155 / Confirmed Cough / SNOMED CT 44445623 / Confirmed Leg cramping / SNOMED CT 8331085446 / Confirmed Alcohol use / SNOMED CT 739329191 / Confirmed Diverticulosis / SNOMED CT 1579431079 / Confirmed Dizziness / SNOMED CT 1980783432 / Confirmed Systolic ejection murmur / SNOMED CT 348990422 / Confirmed Elevated liver enzymes / SNOMED CT 4872950729 / Confirmed Fibromyalgia / SNOMED CT 50658282 / Confirmed Gastroesophageal reflux / SNOMED CT 675761477 / Confirmed GERD (gastroesophageal reflux disease) / SNOMED CT [id number] / Confirmed H/O: hysterectomy / SNOMED CT [id number] / Confirmed Hiatal hernia / SNOMED CT 543827308 / Confirmed Hidradenitis suppurativa / SNOMED CT 37873604 / Confirmed Left hip pain / SNOMED CT 35840718 / Confirmed Hypertension goal BP (blood pressure) < 150/90 / SNOMED CT 1924471215 / Confirmed Hypomagnesemia / SNOMED CT 283760187 / Confirmed Ingrown toenail of right foot / SNOMED CT 4590473346 / Confirmed Intertrigo / SNOMED CT 02960946 / Confirmed Left ventricular hypertrophy / SNOMED CT 71622420 / Confirmed Nasal sore / SNOMED CT 308129297 / Confirmed Mild mitral valve regurgitation / SNOMED CT 7295545509 / Confirmed Mild tricuspid regurgitation / SNOMED CT 5267841416 / Confirmed Morbid obesity / SNOMED CT 653210183 / Confirmed Osteopenia / SNOMED CT 725005262 / Confirmed Right knee pain / SNOMED CT 8451189040 / Confirmed Panniculitis / SNOMED CT 69669731 / Confirmed Peripheral edema / SNOMED CT 905231907 / Confirmed Post-menopausal / SNOMED CT 331055439 / Confirmed Prediabetes / SNOMED CT 8756405961 / Confirmed Psoriasis / SNOMED CT 27788437 / Confirmed Pulmonic valve regurgitation / SNOMED CT 456952197 / Confirmed Sore throat / SNOMED CT 0692977058 / Confirmed Increased sputum production / SNOMED CT 668300557 / Confirmed Type 2 diabetes mellitus with obesity / SNOMED CT 8522759766 / Confirmed, Active Problems (43) Alcohol use Allergic rhinitis Aortic valve sclerosis Asthma BMI 40.0-44.9, adult Carpal tunnel Cellulitis Cholecystectomy Chronic cough Chronic low back pain Cough Diverticulosis Dizziness Elevated liver enzymes Fibromyalgia Gastroesophageal reflux GERD (gastroesophageal reflux disease) H/O: hysterectomy Hiatal hernia Hidradenitis suppurativa Hypertension goal BP (blood pressure) < 150/90 Hypomagnesemia Increased sputum production Ingrown toenail of right foot Intertrigo Left hip pain Left ventricular hypertrophy Leg cramping Mild mitral valve regurgitation Mild tricuspid regurgitation Morbid obesity Nasal sore Osteopenia Panniculitis Peripheral edema Post-menopausal Prediabetes Psoriasis Pulmonic valve regurgitation Right knee pain Sore throat Systolic ejection murmur Type 2 diabetes mellitus with obesity Histories Past Medical History: Active GERD (gastroesophageal reflux disease) ([id number]) Cholecystectomy (96629515) Carpal tunnel (276450919) H/O: hysterectomy ([id number]) Fibromyalgia (74365271) Resolved Hyponatremia (689289967): Resolved. Hyperkalemia (61114607): Resolved. Hypernatremia (9228853632): Resolved. Family History: Heart disease Mother () Father () Arthritis Mother () Alcohol abuse Mother () Brother Heart attack Mother () Father () Mental illness Mother () Procedure history: Cholecystectomy (86249345). Fracture of thumb (8221217467). Comments: 02/05/2024 6:43 VEDAT - Judith Bhagat RN left Hysterectomy (594697610). Tonsillectomy (199502688). Total knee arthroplasty (5269628558). Comments: 02/05/2024 6:43 VEDAT Judith Camacho RN right Colonoscopy ([id number]). 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 Current Home Treatments Blood Glucose monitoring Spouse Name Holly Marital Status of Patient if Patient Independent Adult: Nutrition/Health 02/05/2024 Type of diet: Regular, low carb Caffeine intake amount: 1-2 coffee daily Appetite Good Eating Difficulties None Physical Examination Vital Signs 02/05/2024 6:45 EDT Temperature Temporal Artery 36.4 DegC Apical Heart Rate 65 bpm Respiratory Rate 16 br/min Systolic Blood Pressure Non-Invasive 158 mmHg HI Diastolic Blood Pressure Non-Invasive 67 mmHg Vital Signs(last 24 hrs) Last Charted SBPH 158mmHg (FEBRUARY 04 06:45) DBP67 mmHg (FEBRUARY 04 06:45) BMI42.63 (FEBRUARY 04 06:45) Measurements from flowsheet : Measurements 02/05/2024 6:45 EDT Height 152 cm Admission Weight 98.5 kg Weight Method Stated [place] Body Weight 45.14 kg BSA Admission 1.93 Body Mass Index 42.63 kg/m2 Pain assessment: Pain Assessment 02/05/2024 6:45 EDT Primary Pain Intensity 0 Primary Pain Nonverbal Response Appears restful Pain Scale Type 0-10 Pain scale . General: Alert and oriented. Airway: Normal temporomandibular joint mobility, Normal mouth, Normal neck range of motion. Mallampati classification: III (soft palate, base of uvula visible). Dentition Evaluation: Denies loose/chipped teeth. Respiratory: Respirations are non-labored. Cardiovascular: Normal rate. Neurologic: Alert, Oriented. Review / Management Results review: No qualifying data available , Lab results 02/05/2024 7:13 EDT SN - Proc - Anesthesia Type MAC SN - Proc - Actual Procedure COLONOSCOPY 02/05/2024 7:06 EDT SN - PP - Body Position Lateral Right Side-up Standard Intra-op 02/05/2024 7:06 EDT SN - GCD - Post-operative Diagnosis SCREENING SN - GCD - Case Level OPD Level 3 02/05/2024 7:06 EDT SN - CAt - Case Attendee SN - CAt - Case Attendee SN - CAt - Case Attendee SN - CAt - Case Attendee SN - CAt - Case Attendee SN - CAt - Case Attendee SN - CAt - Case Attendee SN - CAt - Case Attendee SN - CAt - Role Performed Primary Surgeon SN - CAt - Role Performed Clerk To Justice 1 SN - CAt - Role Performed STAINED GLASS GLAZIER HELPER SN - CAt - Role Performed Searchlight Operator 02/05/2024 6:58 EDT Lactated Ringers Injection Begin Bag 1,000 mL mL 02/05/2024 6:53 EDT Boyd History and Physical 02/05/2024 6:50 EDT Urinary Elimination Voiding, no difficulties IV Present Present Allergies Yes Anesthesia Extension Set Applied Yes Undercover Operator On Yes Colon Prep Results Good Consent Form Signed Yes Patient Dressed In Hospital gown, No undergarments Pre-op Preparation Undergarments removed Bowel Prep Completed Yes Belongings At Bedside Cane, Dress, Glasses, Shoes NPO Status Maintained Allergy Band on and Verified Yes Patient ID Band on and Verified Yes Implants Verified Yes Pacemaker/AICD Verified No Site Verified by Patient/Family Yes Blood Consent Signed No Last Fluid Intake 02/05/2024 3:30 Last Food Intake 02/03/2024 18:00 Last Void 02/05/2024 6:40 02/05/2024 6:45 EDT Designated Person #1 We May Share PHI Holly Sanchez [phone] Designated Person #1 Relationship Spouse Designated Person #2 We May Share PHI Ileana Sanchez [phone] Designated Person #2 Relationship Mother Privacy Restrictions Requested None Height 152 cm Admission Weight 98.5 kg Weight Method Stated [place] Body Weight 45.14 kg BSA Admission 1.93 Body Mass Index 42.63 kg/m2 Temperature Temporal Artery 36.4 DegC Apical Heart Rate 65 bpm Respiratory Rate 16 br/min Systolic Blood Pressure Non-Invasive 158 mmHg HI Diastolic Blood Pressure Non-Invasive 67 mmHg Primary Pain Intensity 0 Primary Pain Nonverbal Response Appears restful Pain Scale Type 0-10 Pain scale Monitor Alarms On and Limits Checked Nail Bed Color [place] Capillary Refill < 2 seconds Heart Sounds ICU S1S2 Heart Rhythm Regular Cardiac Rhythm Sinus rhythm, Premature atrial contraction Respirations Unlabored Respiratory Pattern Regular Cough None Oxygen Therapy Room air Oxygen Saturation 95 % Abdomen Description Soft, Rounded Bowel Sounds All Quadrants Present Status N/A All Extremity Description [place] Skin Temperature Warm Temperature All Extremities Warm Skin Description [place], Dry Skin Integrity Intact Skin Moisture General Dry Neurological Symptoms Patient denies Extremity Movement Equal Characteristics of Speech Clear Level of Consciousness Alert Strength All Extremities Strong Tone All Extremities Normal Sensation All Extremities Intact Affect/Behavior Appropriate, Calm, Cooperative Orientation Oriented x 4 Sensory Deficits None Infectious Disease Symptoms Patient states no symptoms Infectious Disease Recent Exposure No Alcohol and Drug Use No Employee of Institutional Living No Health Care Employee No History of Exposure to TB No History of Positive Chest X-Ray for TB No History of Positive TB Skin Test No Homeless No Known Immunosuppression No Recent Immigrant No Resident of Institutional Living No Bloody Sputum No Fatigue No Fever No Loss of Appetite No Night Sweats No Persistent Cough > 3 Weeks No Weight Loss No Charleen Motor (2) Moves 4 extremities voluntarily or on command Charleen Respirations (2) Spontaneous respiration without support, RR > 10 Charleen Blood Pressure (2) BP 20% above or below preanesthetic level Charleen Pulse (2) Pulse 20% above or below preanesthetic level Charleen Oxygen Saturation (2) 94% or more Charleen Level of Consciousness (2) Fully awake Charleen III Score 12 Barriers to Learning None evident Teaching Method Explanation, Printed materials Preferred Spoken Language [place] Preferred Written Language [place]an Information Given by Patient Patient's Current Physicians Patient's Current Physicians Discharge To, Anticipated Home independently Positioning Repositions self Activity Status ADL Awake, Resting Standard Safety ID band on, Allergy Band on, Call device within reach, Bed in low position, Wheels locked, Visitor at bedside Demonstrates Correct Call Light Use Yes Prev Test Positive/Diagnosis w/COVID-19 No Current Quarantine/Isolated any Illness No Any Contact with Sick Animals/Birds No Traveled Anywhere in Last 30 Days No N/A Personal Devices, Patient Valuables Glasses Admission Note-Nursing Procedure/Therapy Intake . Assessment and Plan [employer] (ASA) physical status classification: Class III. Anesthetic Preoperative Plan Anesthetic technique: MAC. Informed consent: signed by patient. Digitally Signed by DOMINIC HAMM on 02/05/2024 07:17 AM [facility]05-15-2024 Note [place] ADMISSION HISTORY AND PHYSICIAL CHIEF COMPLAINT: Colorectal cancer screening HISTORY OF PRESENT ILLNESS: Colorectal cancer screening, last colonoscopy greater than 10 years ago REVIEW OF SYSTEMS: Constitutional: denies weight loss Cardiovascular:denies chest pain, palpitations Respiratory:denies shortness of breath Gastrointestinal:no abd pain Musculoskeletal: no arthralgias Skin: no rashes ACTIVE PROBLEMS: (43) Alcohol use (638112453) Allergic rhinitis (312735017) Aortic valve sclerosis (616159847) Asthma (758746917) BMI 40.0-44.9, adult (0954210196) Carpal tunnel (681008969) Cellulitis (132923252) Cholecystectomy (43293196) Chronic cough (246377422) Chronic low back pain (934758168) Cough (56856232) Diverticulosis (0992921904) Dizziness (0642005428) Elevated liver enzymes (0186870531) Fibromyalgia (73341651) Gastroesophageal reflux (089252837) GERD (gastroesophageal reflux disease) ([id number]) H/O: hysterectomy ([id number]) Hiatal hernia (866286817) Hidradenitis suppurativa (45768177) Hypertension goal BP (blood pressure) < 150/90 (6126527901) Hypomagnesemia (654115119) Increased sputum production (611187995) Ingrown toenail of right foot (0434489597) Intertrigo (35495300) Left hip pain (13497774) Left ventricular hypertrophy (26978952) Leg cramping (9001403939) Mild mitral valve regurgitation (3734848847) Mild tricuspid regurgitation (5328877615) Morbid obesity (059911042) Nasal sore (514647578) Osteopenia (420344047) Panniculitis (39889810) Peripheral edema (267980478) Post-menopausal (471714622) Prediabetes (2073475148) Psoriasis (14443972) Pulmonic valve regurgitation (518606637) Right knee pain (2579781473) Sore throat (5959681679) Systolic ejection murmur (114794205) 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 Weights display the last 5 within 7 days. Initial Wt: 02/04 98.5 kg 217 lb Current Wt: 02/04 98.5 kg 217 lb physical exam alert and oriented cardio; regular without murmur pulm; clear abd; soft, nontender LABS: No 36hr Lab Data DIAGNOSTICS: IMPRESSION: Colorectal cancer screening PLAN: Proceed with colonoscopy as discussed in the office Digitally Signed by SHAWNA HENRIQUEZ DO on 02/05/2024 06:53 AM [facility]03-02-2024 Note. MICRO - Microbiology PROCEDURE: Throat Culture [*1] SOURCE: Throat BODY SITE: COLLECTED DATE/TIME: 11/21/2023 10:46 EST RECEIVED DATE/TIME: 11/21/2023 20:42 EST START DATE/TIME: 11/21/2023 20:42 EST FREE TEXT SOURCE: FINAL REPORTS Final Report [] Verified Date/Time/Personnel: 11/23/2023 07:36 EST Normal throat nadeen present Sensitivity Testing: Not Indicated PRELIMINARY REPORTS Preliminary Report [] Verified Date/Time/Personnel: 11/22/2023 10:15 EST Negative for upper respiratory pathogens at 24 hours. Performing Locations *1: This test was performed at: [address], [facility] , [facility] ([place])10-31-2023 Note ORIGINAL FROM: [address] [address] PROCEDURE FOR: ANNA SANCHEZ [address] [place] [address] Home: PID#: [id number] Exam#: [id number] : 1950 Age: 73 TO: KO BENAVIDES [place] [address] Fax: NO FAX EXAMINATION: SCREENING DIGITAL BILATERAL MAMMOGRAM WITH TOMOSYNTHESIS, 10/31/2023 7:35 am TECHNIQUE: Screening mammography of the bilateral breasts was performed with tomosynthesis. 2D standard and 3D tomosynthesis combination imaging performed through both breasts in the MLO and CC projection. Computer aided detection was utilized in the interpretation of this exam. COMPARISON: 04/24/2022 HISTORY: Breast cancer screening. FINDINGS: BREAST DENSITY: Predominantly Fatty There are bilateral benign breast calcifications. There are no significant masses or calcifications. IMPRESSION: No mammographic evidence of malignancy. Continued screening with annual mammograms is recommended. Syed Villeda risk calculations, generated with the history provided, report this patient's 10 year risk and lifetime risk for developing breast cancer at 2.8% and 3.8%, respectively. Based on this assessment tool, if the patient's calculated lifetime risk is below 20%, then the patient is considered at average risk for developing breast cancer. If the patient's calculated lifetime risk is at or above 20%, then the patient is considered high risk for developing breast cancer and may be a candidate for supplemental breast MRI screening in addition to annual mammographic screening per the [employer]. BIRADS: MAMMOGRAM BI-RADS: 2: Benign finding RECALL: 1 year screening RECALL TYPE: mammo LETTER SENT: Normal BI-RADS 1 and 2 Interpreted by: Mariangel Cornelius MD Preliminary Report By: Mariangel Cornelius MD Electronically signed By Mariangel Cornelius MD Dictated Date: 10/31/2023 2:43:36 PM Prelim Date: 10/31/2023 2:45:45 PM Sign Date: 10/31/2023 2:45:45 PM Ordering Provider: KO BENAVIDES Digital Marketing Apprentice: TIM KEITH RT(R)(M)(CT) letter sent: Normal BI-RADS 1 and 2 Mammogram BI-RADS: 2 [facility]09-21-2023 Discharge summary Author Dawn Ritchie [facility] June 13, 2023 1:54pm Note Date/Time June 13, 2023 1:39pm [facility] Medical Records Department [address] [place] [address] Transfer to [facility] MR#: [id number] Acct: [id number] Name: ANNA SANCHEZ Rep #:[id number] : 1950 72 From: Dawn WHEELER PCP: Dr. Ko Benavides, DO Status:ADM SUKUMAR Certification of patient admission REQUIRED AT TIME OF ADMISSION. I CERTIFY THAT POST-HOSPITAL F SERVICES ARE REQUIRED TO BE GIVEN ON AN IN-PATIENT BASIS BECAUSE OF THE ABOVE NAMED PATIENT'S NEED FOR RETIREMENT CARE ON A CONTINUING BASIS FOR THE CONDITION(S) FOR WHICH HE/SHE WAS RECEIVING IN-PATIENT HOSPITAL SERVICES PRIOR TO HIS/HER TRANSFER TO THE [facility]. 06/13/23 2714<Electronically signed by Dawn WHEELER> Diet Diet Order/Speech Therapy: 06/12/23 10:25 Diet: Consistent Carb - Calorie Controlled Is pt able to select menu?: Yes How many daily calories?: 1800 calorie Wound(s) RIGHT KNEE: Wound Type: Surgical Incision Dressing Change: Okay to remove dressing postop day 5 otherwise maintain surgical dressing. Therapies Weight Bearing: Full weight bearing and Weight bearing as tolerated Physical Therapy: Eval and Treat Occupational Therapy: Eval and Treat Problem/Diagnosis (1) Status post total right knee replacement not using cement: Status: Acute Code(s): Z96.651 - Presence of right artificial knee joint Plan: Postop day 3 right total knee arthroplasty 1. Will continue PT today. Weightbearing as tolerated 2. plan for discharge to extended care facility 3. Patient will follow up for post op appointment on as previously scheduled in 2 weeks 4. Labs remained stable no new data. 5. DVT prophylaxis : Aspirin 81 mg twice daily x4 weeks. Compressions walking x2 weeks. 6. Pain control: patient instructed to take tylenol 500mg 2 tablets TID. and oxycodone 1-2 tablets every 4-6 hours only as needed for pain control. 7. ok to remove post op dressing. post op day 5 Allergies/Procedures Done in Hospital Allergies erythromycin base Allergy (Verified 06/10/23 08:33) PT UNSURE OF REACTION Penicillins Allergy (Verified 06/10/23 08:33) PT UNSURE OF REACTION Type of Care/Length of Stay Estimated LOS: Convalescent Care Less Than 30 days Type of Care Needed: Skilled Rehab Potential: Good Prognosis: Good Additional Orders/Day of Discharge Day of Discharge: 06/13/23 Discharge Plan Admission Admit Date/Time: 06/10/23 14:24 Attending Provider: Mariangel Robison Primary Care Provider: Ko Benavides Discharge Orders/Prescriptions Prescriptions: New acetaminophen 500 mg Tablet 1,000 mg PO Q8 Qty: 180 0RF aspirin 81 mg Tablet,Chewable 81 mg PO BIDCM Qty: 60 0RF sennosides-docusate sodium [Stool Softener-Stimulant Laxat] 8.6-50 mg Tablet 2 tab PO BID Qty: 14 0RF oxycodone 5 mg Tablet 5 - 10 mg PO .q4-6hrs prn PRN (Reason: Pain Score 4-10) 7 Days Qty: 60 0RF Continued albuterol sulfate 90 mcg/actuation HFA aerosol inhaler 2 inh INHALATION Q4H PRN (Reason: shortness of breath or wheezing) Patient Comments: inhale 2 puffs by mouth and INTO THE LUNGS every 4 hours if neede... (REFER TO PRESCRIPTION NOTES). levothyroxine 50 mcg tablet 50 mcg PO DAILY Patient Comments: take 1 tablet by mouth once daily 30 MINUTES before OTHER MEDS OR FOOD lisinopril 20 mg tablet 20 mg PO DAILY Patient Comments: take 1 tablet by mouth once daily omeprazole 20 mg capsule,delayed release(DR/EC) 20 mg PO DAILY Patient Comments: take 1 capsule by mouth once daily celecoxib 100 mg capsule 100 mg PO DAILY Patient Comments: take 1 capsule by mouth twice a day if needed for pain metformin 500 mg tablet extended release 24 hr 500 mg PO QHS Patient Comments: take 1 tablet by mouth every evening with dinner rosuvastatin 5 mg tablet 5 mg PO QHS Patient Comments: take 1 tablet by mouth at bedtime calcium carbonate-vitamin D3 [Calcium 600 + D(3)] 600 mg-10 mcg (400 unit) tablet 1 tab PO DAILY ascorbic acid (vitamin C) 500 mg capsule 50 mg PO DAILY zinc 50 mg capsule 50 mg PO DAILY cetirizine 10 mg tablet 10 mg PO DAILY Patient Comments: take 1 tablet by mouth once daily losartan 50 mg tablet 50 mg PO DAILY Patient Comments: take 1 tablet by mouth once daily Referrals / Follow Up: Ko Benavides DO [Primary Care Provider] - Disposition Disposition (needs filled in before D/C Order can be placed): [facility] 06/13/23 5784 <Electronically signed by Dawn WHEELER> Cosigner Signature (if applicable): CC: Dr. Ko Benavides DO ~ [facility] Work Phone: 1(731) 432-461709-21-2023 Progress note Author Dawn Ritchie [facility] June 13, 2023 1:54pm Note Date/Time June 13, 2023 1:39pm [facility] Medical Records Department [address] [facility] [place] [address] Progress Note - Orthopedic 06/13/23 1336 MR#: [id number] Acct: [id number] Name: ANNA SANCHEZ Rep #:[id number] : 1950 72 From: Dawn WHEELER PCP: Dr. Ko Benavides DO Status:ADM SUKUMAR Location: MS3 EB018-7 Subjective Subjective patient is s/p right sided total knee arthroplasty with Dr. Robison. Patient resting comfortably in bed. Rates pain 3/ 10 at rest. With movement 10/10. States taking Tylenol and oxycodone as needed and ice help to relieve pain. Patient has been up with therapy. Walking with the assit of a walker. Afebrile, no chest pain, shortness of breath, negative calf pain/ erythema, and no other signs of DVT. Objective Data Objective Data Vital Signs: Vital Signs Temp Pulse Resp BP Pulse Ox O2 Del Method O2 Flow Rate 98.2 F 82 18 126/66 H 95 Room Air 4 06/13/23 08:30 06/13/23 08:30 06/13/23 08:30 06/13/23 08:30 06/13/23 08:30 06/13/23 08:30 06/10/23 13:30 Oxygen Flow Rate (L/min) 4 Oxygen Delivery Method Room Air Weight: 97.4 kg Body Mass Index (BMI) 41.9 Intake & Output: Intake and Output for Last 24 Hours 06/11/23 06/12/23 06/13/23 23:59 23:59 23:59 Intake Total 50 / 50 Output Total 500 / 500 Balance 50 / 50 -500 / -500 Lab / Micro Data 06/11/23 06:57 06/11/23 06:57 Physical Exam Const Constitutional Narrative: Patient resting comfortably in bed No signs of acute distress Satting well on room air Limb is warm to touch, Sensation intact throughout entire lower extremity, including saphenous, sural, superficial and deep peroneal, and tibial distribution. DP/PT pulses bounding. Dorsi and plantarflexion strength 5/5 Dressing clear dry intact Calf nontender to palpation, no erythema, no edema. Negative Homans Assessment & Plan Assessment/Plan (1) Status post total right knee replacement not using cement: PLAN: Postop day 3 right total knee arthroplasty 1. Will continue PT today. Weightbearing as tolerated 2. plan for discharge to extended care facility today 3. Patient will follow up for post op appointment on as previously scheduled in 2 weeks 4. Labs remained stable no new data. 5. DVT prophylaxis : Aspirin 81 mg twice daily x4 weeks. Compressions walking x2 weeks. 6. Pain control: patient instructed to take tylenol 500mg 2 tablets TID. and oxycodone 1-2 tablets every 4-6 hours only as needed for pain control. 7. ok to remove post op dressing. post op day 5 06/13/23 1354 <Electronically signed by Dawn WHEELER> Cosigner Signature (if applicable): CC: ~ Signed [facility] Work Phone: 1(569) 194-596009-21-2023 Discharge summary Author Dawn Ritchie [facility] June 13, 2023 1:53pm Note Date/Time June 13, 2023 1:43pm [facility] Medical Records Department [address] [place] [address] Instructions for Home/Discharge Instructions 06/13/23 1342 MR#: [id number] Acct: [id number] Name: ANNA SANCHEZ Rep #:[id number] : 1950 72 From: Dawn WHEELER PCP: Dr. Ko Benavides, DO Status:ADM SUKUMAR Discharge Instructions Diet Discharge Diet: 1800 Calorie Control Diet and Carb Control Diet Activity Discharge Activity: Return to Normal Activity Weight Bearing Status: Weight bearing as tolerated Dressing / Incision Call your doctor if your incision/area has: Continuous Slow Oozing, Sudden Increased Bleeding, Increased Pain/ Swelling, Increased Redness, Foul Smelling Discharge and Swelling at the incision site Call your doctor if you observe: Fever of 101 or Higher, Shortness of breath, Chest pain and Calf discomfort Remove Dressing in: 5 days Cleanse incision/area with: Soap & Water and Keep Dressing Clean & Dry Follow Up Care When: In 2 weeks as previously scheduled. Test Results: Test results from this visit will be discussed in further detail at your follow- up appointment, if applicable. Discharge Plan Admission Admit Date/Time: 06/10/23 14:24 Attending Provider: Mariangel Robison Primary Care Provider: Ko Benavides Discharge Orders/Prescriptions Prescriptions: New acetaminophen 500 mg Tablet 1,000 mg PO Q8 Qty: 180 0RF aspirin 81 mg Tablet,Chewable 81 mg PO BIDCM Qty: 60 0RF sennosides-docusate sodium [Stool Softener-Stimulant Laxat] 8.6-50 mg Tablet 2 tab PO BID Qty: 14 0RF oxycodone 5 mg Tablet 5 - 10 mg PO .q4-6hrs prn PRN (Reason: Pain Score 4-10) 7 Days Qty: 60 0RF Continued albuterol sulfate 90 mcg/actuation HFA aerosol inhaler 2 inh INHALATION Q4H PRN (Reason: shortness of breath or wheezing) Patient Comments: inhale 2 puffs by mouth and INTO THE LUNGS every 4 hours if neede... (REFER TO PRESCRIPTION NOTES). levothyroxine 50 mcg tablet 50 mcg PO DAILY Patient Comments: take 1 tablet by mouth once daily 30 MINUTES before OTHER MEDS OR FOOD lisinopril 20 mg tablet 20 mg PO DAILY Patient Comments: take 1 tablet by mouth once daily omeprazole 20 mg capsule,delayed release(DR/EC) 20 mg PO DAILY Patient Comments: take 1 capsule by mouth once daily celecoxib 100 mg capsule 100 mg PO DAILY Patient Comments: take 1 capsule by mouth twice a day if needed for pain metformin 500 mg tablet extended release 24 hr 500 mg PO QHS Patient Comments: take 1 tablet by mouth every evening with dinner rosuvastatin 5 mg tablet 5 mg PO QHS Patient Comments: take 1 tablet by mouth at bedtime calcium carbonate-vitamin D3 [Calcium 600 + D(3)] 600 mg-10 mcg (400 unit) tablet 1 tab PO DAILY ascorbic acid (vitamin C) 500 mg capsule 50 mg PO DAILY zinc 50 mg capsule 50 mg PO DAILY cetirizine 10 mg tablet 10 mg PO DAILY Patient Comments: take 1 tablet by mouth once daily losartan 50 mg tablet 50 mg PO DAILY Patient Comments: take 1 tablet by mouth once daily Referrals / Follow Up: Ko Benavides DO [Primary Care Provider] - Disposition Disposition (needs filled in before D/C Order can be placed): [facility] 06/13/23 1353<Electronically signed by Dawn WHEELER>Dawn WHEELER CC: Dr. Ko Benavides DO ~ Signed [facility] Work Phone: 1(958) 962-976909-20-2023 Progress note Author Aimee De Los Santos [facility] June 12, 2023 10:38am Note Date/Time June 12, 2023 10:38am [facility] Medical Records Department [address] [place] [address] Progress Note - Orthopedic 06/12/23 1035 MR#: [id number] Acct: [id number] Name: ANNA SANCHEZ Rep #:[id number] : 1950 72 From: Aimee WHEELER PA-C PCP: Dr. Ko Benavides, DO Status:ADM SUKUMAR Location: MS3 ST910-3 Subjective Subjective Patient sitting at bedside. Patient states pain has been very well managed. Patient denies chest pain, shortness of breath, calf pain, nausea vomiting. No other complaints at this time. Patient states she is ready for discharge to [facility]. Objective Data Objective Data Vital Signs: Vital Signs Temp Pulse Resp BP Pulse Ox O2 Del Method O2 Flow Rate 97.7 F L 82 18 146/85 H 98 Room Air 4 06/12/23 06:30 06/12/23 06:30 06/12/23 06:30 06/12/23 06:30 06/12/23 06:30 06/12/23 06:30 06/10/23 13:30 Oxygen Flow Rate (L/min) 4 Oxygen Delivery Method Room Air Weight: 97.4 kg Body Mass Index (BMI) 41.9 Intake & Output: Intake and Output for Last 24 Hours 06/10/23 06/11/23 06/12/23 23:59 23:59 23:59 Intake Total 2474 / 2474 50 / 50 Balance 2474 / 2474 50 / 50 Lab / Micro Data 06/11/23 06:57 06/11/23 06:57 Physical Exam Narrative Exam I found patient sitting at bedside alert oriented. No respiratory distressspeaking full sentences. Cranial nerves II through gross intact. Full range ofmotion the upper extremities good muscle tone and strength. The dressing was clean dry intact. No calf tenderness. Neurovascular is otherwise intact. Const alert and oriented x3 General Appearance: cooperative and well developed HEENT normocephalic Eyes PERRL Resp normal respiratory effort Effort and Inspection: able to speak in complete sentences Extremity normal capillary refill Skin no rashes or lesions noted Neuro CN's II-XII intact bilaterally Psych mental status grossly normal and affect normal Assessment & Plan Assessment/Plan (1) Status post total right knee replacement not using cement: PLAN: 1. Continue all pain medications as prescribed 2. Aspirin 81 mg 1 p.o. every 12 hours x30 days for postop DVT prophylaxis 3. Continue encourage incentive spirometry 4. Ice to 30 minutes each hour while awake 5. Weight-bear as tolerated with walker 6. Diet to be changed to diabetic diet 1800 corwin/day 7. Possible discharge to [facility] tomorrow 06/12/23 1038 <Electronically signed by Aimee WHEELER PA-C> Cosigner Signature (if applicable): CC: ~ Signed [facility] Work Phone: 1(418) 380-186009-19-2023 Progress note Author Aimee [facility] June 11, 2023 7:59am Note Date/Time June 11, 2023 7:56am [facility] Medical Records Department [address] [place] [address] Progress Note - Orthopedic 06/11/23 0754 MR#: [id number] Acct: [id number] Name: ANNA SANCHEZ Rep #:[id number] : 1950 72 From: Aimee WHEELER PA-C PCP: Dr. Ko Benavides, DO Status:ADM SUKUMAR Location: [place] [address] Subjective Subjective Patient sitting at bedside. Patient states her knee is a little sore today. Otherwise she feels her pain has been very well managed. Patient denies chest pain, shortness of breath, calf pain, nausea or vomiting. Has no other complaints at this time. Patient is hoping that she can go to [facility] for for rehab. Objective Data Objective Data Vital Signs: Vital Signs Temp Pulse Resp BP Pulse Ox O2 Del Method O2 Flow Rate 98.2 F 65 16 136/67 H 94 Room Air 4 06/11/23 07:32 06/11/23 07:32 06/11/23 07:32 06/11/23 07:32 06/11/23 07:32 06/11/23 07:32 06/10/23 13:30 Oxygen Flow Rate (L/min) 4 Oxygen Delivery Method Room Air Weight: 97.4 kg Body Mass Index (BMI) 41.9 Intake & Output: Intake and Output for Last 24 Hours 06/09/23 06/10/23 06/11/23 23:59 23:59 23:59 Intake Total 2264 / 5754 50 / 50 Balance 2474 / 2474 50 / 50 Lab / Micro Data 06/11/23 06:57 06/11/23 06:57 Labs: Laboratory Results - last 24 hr 06/10/23 08:14: POC Glucose 130 H 06/10/23 13:31: POC Glucose 132 H 06/11/23 06:57: WBC 9.0, RBC 4.31, Hgb 12.3, Hct 39.7, MCV 92.1, MCH 28.5, MCHC 31.0 L, RDW Std Deviation 47.8 H, RDW Coeff of Romario 14.1, Plt Count 202, MPV 8.9,Sodium 136, Potassium 4.9, Chloride 105, Carbon Dioxide 29.0, Anion Gap 2 L, BUN16, Creatinine 0.77, Estim Creat Clear Calc 37.06, Est GFR (MDRD) Af Amer 95, Est GFR (MDRD) Non-Af 79, BUN/Creatinine Ratio 20.9 H, Glucose 149 H, Calcium 8.7 Radiography Diagnostic Testing: Radiology Impression Knee X-Ray 06/10/23 12:29 IMPRESSION: Status post total knee replacement. There is good alignment. Postoperative soft tissue changes. Electronically Signed: Damir Lake MD at 13:28 EDT , Physical Exam Narrative Exam patient sitting in chair at bedside. Alert oriented. No respiratory distress, speaking in full sentences. Full range of motion of the upper extremities without limitations. The dressing is clean dry intact. No calf tenderness. Neurovascular is otherwise intact. Const alert and oriented x3 General Appearance: cooperative HEENT normocephalic Eyes PERRL Resp normal respiratory effort Effort and Inspection: able to speak in complete sentences Extremity normal capillary refill Skin no rashes or lesions noted Neuro CN's II-XII intact bilaterally Motor Exam: strength 5/5 throughout Psych mental status grossly normal and affect normal Assessment & Plan Assessment/Plan (1) Status post total right knee replacement not using cement: PLAN: 1. Continue all pain medications as prescribed 2. Aspirin 81 mg 1 p.o. every 12 hours x30 days for postop DVT prophylaxis 3. Encourage incentive spirometry 4. Continue ice to right knee when sitting 5. Ambulate weightbearing as tolerated with walker 6. Possible discharge tomorrow to [facility] for for rehab 06/11/23 8699 <Electronically signed by Aimee WHEELER PA-C> Cosigner Signature (if applicable): CC: ~ Signed [facility] Work Phone: 1(971) 903-655909-18-2023 Procedure [facility] 06-03-2023 Note* Exam Date Time Procedure Performing Provider Status 06/03/23 2:51 PM Echocardiogram, Adult ([facility]) Auth (Verified) [facility] 08-28-2023 Note ORIGINAL EXAMINATION: CT OF THE RIGHT KNEE WITHOUT CONTRAST 05/20/2023 8:35 am TECHNIQUE: CT of the right knee was performed without the administration of intravenous contrast. Multiplanar reformatted images are provided for review. Automated exposure control, iterative reconstruction, and/or weight based adjustment of the mA/kV was utilized to reduce the radiation dose to as low as reasonably achievable. COMPARISON: Right knee radiographs 05/04/2012. 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 robotic knee mapping. History of arthroscopy. FINDINGS: No acute fracture or dislocation. Decreased osseous mineralization. No visible aggressive osseous lesions. There is rvja-go-mjvqrexr medial femorotibial compartment joint space narrowing with with central and marginal osteophytes. Chondrocalcinosis. There is moderate lateral femorotibial compartment joint space narrowing with subchondral sclerosis and marginal osteophytes. Chondrocalcinosis. There is tlzv-vc-aodoktaa patellofemoral compartment joint space narrowing with sizable marginal osteophytes and subchondral sclerosis. Chondrocalcinosis. No significant joint effusion. An intracapsular body of the medial parapatellar recess measures up to 0.5 cm. Smaller intracapsular bodies of the infrapatellar recess are present. No significant volume of fluid is evident of a popliteal cyst. Tendons and ligaments are suboptimally evaluated on this examination. Mild insertional quadriceps and patellar origin enthesopathy. No severe muscle atrophy. A nonspecific small rounded fluid signal intensity focus is noted abutting the inferior aspect of the medial collateral ligament measuring 1.0 x 0.8 x 0.8 cm. Provided images of the hip and hemipelvis exhibit no acute osseous abnormalities or aggressive osseous lesions. The included intrapelvic contents exhibit no acute abnormalities. Provided images of the ankle exhibit no acute osseous abnormalities or aggressive osseous lesions. IMPRESSION: 1. No acute osseous abnormalities or aggressive osseous lesions. 2. Tricompartmental degenerative change with chondrocalcinosis, most advanced of the lateral femorotibial compartment. Intracapsular bodies as above. Interpreted by: Madhav Hines DO Preliminary Report By: Madhav Hines DO Electronically signed By Madhav Hines DO Dictated Date: 05/20/2023 8:42:54 AM Prelim Date: 05/20/2023 8:49:12 AM Sign Date: 05/20/2023 8:49:12 AM Ordering Provider: [facility]10-10-2022 Evaluation + Plan noteExtracted from: Title:Clinical Document Author:FRANCISCO JAVIER BRIAN Date:07/02/22 [place] ADMISSION HISTORY AN D PHYSICIAL CHIEF COMPLAINT: HISTORY OF PRESENT ILLNESS: REVIEW OF SYSTEMS: ACTIVE PROBLEMS: (22) Asthma (107335771) Carpal tunnel (162384192) Cholecystectomy (34398555) Chronic low back pain (186956179) Diabetes (258086280) Diverticulosis (0092114404) Elevated blood pressure reading (659564912) Elevated liver enzymes (4940409640) Fibromyalgia (00221055) Gastroesophageal reflux (358408136) GERD (gastroesophageal reflux disease) ([id number]) H/O: hysterectomy ([id number]) Hiatal hernia (208929809) Ingrown toenail of right foot (2933619750) Leg cramping (3542843686) Nasal sore (506821279) Osteopenia (764761843) Panniculitis (76792454) Post-menopausal (471780762) Prediabetes (7709629408) Psoriasis (54881552) Right knee pain (7187265645) MEDICATIONS: Active Inpt Meds: None Active PRN Meds: None One Time Meds: None Active IV Meds: Lactated Ringers Infusion 1,000 mL (LR 1,000 mL) Start: 07/02/22 7:07:00 EDT, Rate: 50 mL/hr, 07/02/22 7:07:00 EDT ALLERGIES: (1) penicillin FAMILY HISTORY: SOCIAL HISTORY: PHYSICAL EXAM: VITALS: XgzhubKpncVAQokwgKPJoZ5IMN0BfdkDw(kg) 07/02 07:1536.1142/98246899RI44/10 95.5 24 Hr Tmax: 36.1 at 07/02 07:15 36 Hr Tmax: 36.1 at 07/02 07:15 Vital Signs are the last 5 in the past 48 hours. Weights display the last 5 within 7 days. Initial Wt: 07/02 95.5 kg 210 lb Current Wt: 07/02 95.5 kg 210 lb GENERAL: HEENT: CARDIOVASCULAR: RESPIRATORY: ABDOMEN: EXREMETIES: NEUROLOGICAL: PSYCHIATRIC: LABS: 36hr Labs 07/02 0715 Blood Glucose, Auupmdpfo77 Blood Glucose, Ayuvvjzzp41 DIAGNOSTICS: IMPRESSION: PLAN: History and Physical Update I have examined the patient; reviewed the H&P and there are no changes to the H&P unless noted below. Future Appointments Appointment Date:08/09/2022 09:00:00 AM Scheduled Provider:KO BENAVIDES DO Location:[facility] Appointment Type:[facility] Wellness Medicare Appointment Date:10/01/2022 10:00:00 AM Scheduled Provider: Location:[facility] Appointment Type:DB Diabetic Individual Visit Future Scheduled Tests Radiology* BD Bone Density DEXA Axial Skeleton 11/14/21 * XR Spine Lumbar W/Obliques 4 Views 05/10/22 [facility] 10-10-2022 Hospital Discharge instructions Patient Education 07/02/2022 08:58:53 Monitored Anesthesia Care, Care After Monitored Anesthesia Care, Care After These instructions provide you with information about caring for yourself after your procedure. Your health care provider may also give you more specific instructions. Your treatment has been plannedaccording to current medical practices, but problems sometimes occur. Call your health care provider if you have any problems or questions after your procedure. What can I expect after the procedure? After your procedure, you may: Feel sleepy for several hours. Feel clumsy and have poor balance for several hours. Feel forgetful about what happened after the procedure. Have poor judgment for several hours. Feel nauseous or vomit. Have a sore throat if you had a breathing tube during the procedure. Follow these instructions at home: For at least 24 hours after the procedure: Have a responsible adult stay with you. It is important to have someone help care for you until youare awake and alert. Rest as needed. Do not: ?Participate in activities in which you could fall or become injured. ?Drive. ?Use heavy machinery. ?Drink alcohol. ?Take sleeping pills or medicines that cause drowsiness. ?Make important decisions or sign legal documents. ?Take care of children on your own. Eating and drinking Follow the diet that is recommended by your health care provider. If you vomit, drink water, juice, or soup when you can drink without vomiting. Make sure you have little or no nausea before eating solid foods. General instructions Take kisv-tto-qasjtln and prescription medicines only as told by your health care provider. If you have sleep apnea, surgery and certain medicines can increase your risk for breathing problems. Follow instructions from your health care provider about wearing your sleep device: ?Anytime you are sleeping, including during daytime naps. ?While taking prescription pain medicines, sleeping medicines, or medicines that make you drowsy. If you smoke, do not smoke without supervision. Keep all follow-up visits as told by your health care provider. This is important. Contact a health care provider if: You keep feeling nauseous or you keep vomiting. You feel light-headed. You develop a rash. You have a fever. Get help right away if: You have trouble breathing. Summary For several hours after your procedure, you may feel sleepy and have poor judgment. Have a responsible adult stay with you for at least 24 hours or until you are awake and alert. This information is not intended to replace advice given to you by your health care provider. Make sure you discuss any questions you have with your health care provider. Document Released: 12/30/2016 Document Revised: 12/08/2018 Document Reviewed: 12/30/2016 [email or web address] Patient Education 2020 [employer]. 07/02/2022 08:58:53 9 - AO Minor Esophagogastroduodenoscopy (12/04) (Custom) Esophagogastroduodenoscopy This is an endoscopic procedure (a procedure that uses a device like a flexible telescope) that allows your caregiver to view the upper stomach and small bowel. This test allows your caregiver to look at the esophagus. The esophagus carries food from your mouth to your stomach. They can also look at your duodenum. This is the first part of the small intestine that attaches to the stomach. This test is used to detect problems in the bowel such as ulcers and inflammation. MEANING OF TEST Your caregiver will go over the test results with you and discuss the importance and meaning of your results, as well as treatment options and the need for additional tests if necessary. OBTAINING THE TEST RESULTS Your caregiver s office will call you with the results of the test. POST SEDATION INSTRUCTIONS Rest at home today. Since your coordination may be impaired, be cautious on stairways, do not drive any vehicle or operate any heavy machinery, or use any sharp instruments for the remainder of the day. Do not drink any alcoholic beverages or make any major decisions for 24 hours. POST PROCEDURE INSTRUCTIONS Progress slowly with full liquids then resume previous diet and medications. Belching or passing of gas is to be expected. Notify the physician if you have severe chest pain, fever, or if difficulty when swallowing persists. 12/01/13 Custom Follow Up Care 06/11/2022 14:11:26 With:FRANCISCO JAVIER BRIAN MD Address: [address] [facility] [place] [address] [phone] When: Unknown Comments:call if needed. office will call with specimen results [facility] 10-10-2022 Summary of episode note Discharge Instructions Thank you for allowing [facility] to assist you with your healthcare needs. The following is importantdischarge information regarding your hospital visit. Your Care Team KO BENAVIDES DO What to do next Scheduled Follow-Up Appointments Appointment Type When With Where Contact InformationPC Wellness Medicare 08/09/2022 09:00 AM KO MCCLENDON DO [facility] [address] [place] [address] DB Diabetic Individual Visit 10/01/2022 10:00 AM AMANDA Mcdaniels Diet Visits Follow Up Appointments Follow Up with FRANCISCO JAVIER BRIAN MD When Why: call if needed. office will call with specimen results Where: [address] [facility] [address] [place], [place] [id number]- [phone] Allergies penicillin Medications Please ask your primary doctor or pharmacist before taking any other medication not listed, including over the counter drugs, herbal medications, vitamins and or supplements as they may interact withyour home medications. What How Much When Why Instructions Last Dose Unchanged albuterol (ProAir HFA MDI (90 mcg/ inh) inhalation aerosol) 2 puff(s) by inhalation Every 6 hours as needed for as needed for wheezing Unchanged ascorbic acid (Vitamin C 500 mg oral tablet, chewable) 1 tab(s) Chewed Every day Unchanged betamethasone topical (betamethasone dipropionate 0.05% topical cream) 1 application Topical Two (2) times a day Unchanged celecoxib (CeleBREX 100 mg oral capsule) 1 cap by mouth Two (2) times a day as needed for Pain Duration: 90 Days Take with food and drink fluids. Do not take any other NSAIDs while on this medication. Unchanged chlorhexidine topical (Hibiclens 4% topical soap) See instructions Rinse area with water, then apply minimum amount necessary to cover skin or wound area and wash gently. Rinse again thoroughly. Unchanged diclofenac topical (Voltaren 1% topical gel) 4 gram(s) Topical Four (4) times a day as needed for Pain Duration: 90 Days not to exceed 16 grams/ day/ single joint of lower extremities. not to exceed 8 grams/ day/ single joint of upper extremities. not to exceed 32 grams/ day total. Unchanged DME (DME MISCellaneous) See instructions Elevated blood pressure reading BP machine and cuff. Dx: R03.0 Unchanged doxycycline (doxycycline hyclate 100 mg oral capsule) 1 cap by mouth Two (2) times a day Duration: 10 Days Unchanged levothyroxine (levothyroxine 50 mcg (0.05 mg) oral tablet) 1 tab(s) by mouth Once a day Duration: 90 Days 30 minutes before other meds/ food Unchanged loratadine (loratadine 10 mg oral tablet) 1 tab(s) by mouth Once a day as needed for as needed for allergy symptoms Duration: 90 Days Unchanged metFORMIN (metFORMIN 750 mg oral tablet EXTENDED RELEASE) 1 tab(s) by mouth Two (2) times a day Duration: 90 Days Unchanged methocarbamol (methocarbamol 750 mg oral tablet) 1 tab(s) by mouth Three (3) times a day as needed for Muscle spasm Duration: [address], operate heavy machinery, or drink alcohol while on this med. Unchanged multivitamin with minerals (Calcium with Vitamin D and K oral tablet, chewable) Unchanged mupirocin topical (mupirocin 2% topical ointment) apply sparingly to NASAL LESION twice a day for 5 days (IF NO IMPROVEMENT, SEEK MEDICAL ATTENTION) Unchanged nystatin topical (nystatin 100,000 units/ g topical powder) 1 application Topical Two (2) times a day Unchanged omeprazole (omeprazole 20 mg oral delayed release capsule) 1 cap by mouth Once a day Duration: 90 Days Unchanged rosuvastatin (rosuvastatin 5 mg oral capsule) 1 cap by mouth Once a day (in the evening) Duration: 90 Days Unchanged zinc sulfate (Zinc) 50 Milligram by mouth Once a day Duration: 30 Days Please take this list to your next doctor s visit. Bring all medications you take, including over the counter medications, herbals and other supplements with you to your doctor s visit. Patients and families are reminded to discard old lists and to update any records with all medication providers or retail pharmacies. Education Materials Monitored Anesthesia Care, Care After These instructions provide you with information about caring for yourself after your procedure. Your health care provider may also give you more specific instructions. Your treatment has been plannedaccording to current medical practices, but problems sometimes occur. Call your health care provider if you have any problems or questions after your procedure. What can I expect after the procedure? After your procedure, you may: Feel sleepy for several hours. Feel clumsy and have poor balance for several hours. Feel forgetful about what happened after the procedure. Have poor judgment for several hours. Feel nauseous or vomit. Have a sore throat if you had a breathing tube during the procedure. Follow these instructions at home: For at least 24 hours after the procedure: Have a responsible adult stay with you. It is important to have someone help care for you until youare awake and alert. Rest as needed. Do not: ? Participate in activities in which you could fall or become injured. ? Drive. ? Use heavy machinery. ? Drink alcohol. ? Take sleeping pills or medicines that cause drowsiness. ? Make important decisions or sign legal documents. ? Take care of children on your own. Eating and drinking Follow the diet that is recommended by your health care provider. If you vomit, drink water, juice, or soup when you can drink without vomiting. Make sure you have little or no nausea before eating solid foods. General instructions Take dtst-wuq-tyssqzl and prescription medicines only as told by your health care provider. If you have sleep apnea, surgery and certain medicines can increase your risk for breathing problems. Follow instructions from your health care provider about wearing your sleep device: ? Anytime you are sleeping, including during daytime naps. ? While taking prescription pain medicines, sleeping medicines, or medicines that make you drowsy. If you smoke, do not smoke without supervision. Keep all follow-up visits as told by your health care provider. This is important. Contact a health care provider if: You keep feeling nauseous or you keep vomiting. You feel light-headed. You develop a rash. You have a fever. Get help right away if: You have trouble breathing. Summary For several hours after your procedure, you may feel sleepy and have poor judgment. Have a responsible adult stay with you for at least 24 hours or until you are awake and alert. This information is not intended to replace advice given to you by your health care provider. Make sure you discuss any questions you have with your health care provider. Document Released: 12/30/2016 Document Revised: 12/08/2018 Document Reviewed: 12/30/2016 [email or web address] Patient Education 2020 [employer]. Esophagogastroduodenoscopy This is an endoscopic procedure (a procedure that uses a device like a flexible telescope) that allows your caregiver to view the upper stomach and small bowel. This test allows your caregiver to look at the esophagus. The esophagus carries food from your mouth to your stomach. They can also look at your duodenum. This is the first part of the small intestine that attaches to the stomach. This test is used to detect problems in the bowel such as ulcers and inflammation. MEANING OF TEST Your caregiver will go over the test results with you and discuss the importance and meaning of your results, as well as treatment options and the need for additional tests if necessary. OBTAINING THE TEST RESULTS Your caregiver s office will call you with the results of the test. POST SEDATION INSTRUCTIONS Rest at home today. Since your coordination may be impaired, be cautious on stairways, do not drive any vehicle or operate any heavy machinery, or use any sharp instruments for the remainder of the day. Do not drink any alcoholic beverages or make any major decisions for 24 hours. POST PROCEDURE INSTRUCTIONS Progress slowly with full liquids then resume previous diet and medications. Belching or passing of gas is to be expected. Notify the physician if you have severe chest pain, fever, or if difficulty when swallowing persists. 12/01/13 Custom Additional Information VACCINATE! IT SAVES LIVES! Members of the community who have not yet received the COVID-19 vaccine and would like to receive it can visit one of [facility] vaccine clinics. There are many vaccine clinic locations within the [facility]. For locations and available times, please visit [email or web address].[place].gov/. It is important to note that some COVID mobile vaccine clinics are held outdoors and may be canceled in rainy or stormy conditions. To learn more about pediatric vaccinations (ages 5-11), we invite you to visit the [facility] webpage. [email or web address]/[email or web address]-Tekve-Kafwklaeeso-Xtxuvtjdac-Srblt-[email or web address] stions.htmlTo learn more about the COVID-19 vaccine, we invite you to visit the [facility] website for a list of frequently asked questions. [email or web address] _[email or web address]-Questions.pdf [facility] Patient Portal Access Instructions: Stay connected with your healthcare team and access your personal medical information anytime with the [facility] Patient Portal.If you would like a full copy of your medical records, please contact the [facility] Medical Records Department, Saturday through Saturday between 8a.m. and 4:30p.m. Please follow the directions below to access the portal: 1.Access the email account you provided upon registration to the [facility].2.Look for an invitation email from [facility].3.Open the email and access the invitation link: Accept Invitation to [facility]4.Fill in the required horn to create your account. Sign into [email or web address] with your username and password that you created in the above steps to stay up to date. You can then view a summary of results, a summary of your visits, and the ability to download your summaries to your computer or send the information securely to a physician. Remember that your healthcare information is confidential, so carefully consider who you will allow to register on the [facility] Patient Portal for access to your information. You can also access the [facility] Patient Portal on the legalPAD. Simply click on Health Records under myTomorrows and then click on the [employer] logo. HOW TO SAFELY DISPOSE OF PRESCRIPTION MEDICATIONS Please use one of the following methods to safely dispose of your unused medications. 1.Use a drug disposal kit: the drug disposal pouch allows you to safely discard your old and unuseddrugs. Ask your nurse to give you one when you are discharged.2.Visit a local take-back location: Many local pharmacies and police departments have programs that collect old and unwanted prescriptiondrugs. Call your local pharmacy or go to http://NGDATA.Synappio/3J7Am5c to find one close to you.3.Make use of household items: Use cat litter or old coffee grounds to dispose medications if other options arenot available. Mix your drugs with these household products, seal them in an airtight container andthrow it into the garbage. Call [facility]: [phone] to be sure your drugs can be disposed of in this way. Some medicines may require a different approach.4.Never flush your medications down the toilet. IF YOU HAVE BEEN PRESCRIBED AN OPIOID FOR PAIN If you have been prescribed an opioid (such as hydrocodone, oxycodone or morphine), it is critical to understand the possible side effects and risks of opioid pain medications. Even when taken as directed, opioids can have several side effects including: Tolerance, meaning you might need to take more of a medication for the same pain relief. Nausea, vomiting and/or constipation. Sleepiness, dizziness, dry mouth, confusion, depression or itching. Physical dependence, meaning you have withdrawal symptoms when a medication is stopped, can develop within a few days. KNOW YOUR RESPONSIBILITIES It is important to know exactly how much and how often to take the opioid pain medications you are prescribed. Never take opioids in higher amounts or more often than prescribed. Do not combine opioids with alcohol or other drugs that cause drowsiness, such as benzodiazepines, also known as benzos, including diazepam and alprazolam, muscle relaxants or sleep aids. Never sell or share prescription opioids. This is illegal. Store opioids in a secure place and out of reach of others (including children, family, friends and visitors). The last page of this document has been signed and retained as a CHART COPY. Signatures Patient Education Materials Monitored Anesthesia Care, Care After 9 - AO Minor Esophagogastroduodenoscopy (12/04) (Custom) Medication Leaflets My discharge plan and instructions have been reviewed and explained to me and I,ANNA SANCHEZ understand my current condition and have read and understand these discharge instructions. I have received a written copy of the plan/instructions. If I have questions, I am aware that I should contact my doctor. Patient/Surgeon'S Assistant Signature: Date/Time: Relationship to Patient: Witness Name/Signature: Date/Time: [facility]10-10-2022 Anesthesiology Consult note Patient: ANNA SANCHEZ Age: 71 years Sex: Female : 1950 Associated Diagnoses: None Author: AMINA CONRAD Assessment Postanesthesia assessment Vitals: Reviewed Results: Vital signs from flowsheet : Vital Signs(Date Range: 07/01/2022 0:00 EDT -07/02/2022 8:41 EDT) . Mental status: at preoperative baseline. Respiratory function: lungs are clear to auscultation. Respiratory support: none. CV function: Normal rate. Cardiovascular support: none. Pain. Nausea status: denies nausea. Postoperative hydration status: within normal limits. Digitally Signed by AMINA CONRAD on 07/02/2022 08:41 AM [facility]10-10-2022 Note [place] ADMISSION HISTORY AND PHYSICIAL CHIEF COMPLAINT: HISTORY OF PRESENT ILLNESS: REVIEW OF SYSTEMS: ACTIVE PROBLEMS: (22) Asthma (741348323) Carpal tunnel (787943183) Cholecystectomy (08840534) Chronic low back pain (195025429) Diabetes (326540823) Diverticulosis (0299823972) Elevated blood pressure reading (072603458) Elevated liver enzymes (0416913226) Fibromyalgia (83873984) Gastroesophageal reflux (979360338) GERD (gastroesophageal reflux disease) ([id number]) H/O: hysterectomy ([id number]) Hiatal hernia (152095213) Ingrown toenail of right foot (0214578689) Leg cramping (5092575112) Nasal sore (788823938) Osteopenia (342252395) Panniculitis (99346203) Post-menopausal (572118437) Prediabetes (6008417629) Psoriasis (14130997) Right knee pain (3252356794) MEDICATIONS: Active Inpt Meds: None Active PRN Meds: None One Time Meds: None Active IV Meds: Lactated Ringers Infusion 1,000 mL (LR 1,000 mL) Start: 07/02/22 7:07:00 EDT, Rate: 50 mL/hr, 07/02/22 7:07:00 EDT ALLERGIES: (1) penicillin FAMILY HISTORY: SOCIAL HISTORY: PHYSICAL EXAM: VITALS: AdysidKkiyQJNkedtLRYaM9TVN9WzerGv(kg) 07/02 07:1536.1142/24652638YX35/10 95.5 24 Hr Tmax: 36.1 at 07/02 07:15 36 Hr Tmax: 36.1 at 07/02 07:15 Vital Signs are the last 5 in the past 48 hours. Weights display the last 5 within 7 days. Initial Wt: 07/02 95.5 kg 210 lb Current Wt: 07/02 95.5 kg 210 lb GENERAL: HEENT: CARDIOVASCULAR: RESPIRATORY: ABDOMEN: EXREMETIES: NEUROLOGICAL: PSYCHIATRIC: LABS: 36hr Labs 07/02 0715 Blood Glucose, Nkgoncqtq84 Blood Glucose, Nxcrldszq32 DIAGNOSTICS: IMPRESSION: PLAN: History and Physical Update I have examined the patient; reviewed the H&P and there are no changes to the H&P unless noted below. Digitally Signed by FRANCISCO JAVIER BRIAN MD on 07/02/2022 08:21 AM [facility]10-10-2022 Anesthesiology Consult note Patient: ANNA SANCHEZ Age: 71 years Sex: Female : 1950 Associated Diagnoses: None Author: AMINA CONRAD Preoperative Information Time of last food or liquid consumption: 07/02/2022 00:00:00 Anesthesia history Patient's history: negative. Family's history: negative. Health Status Allergies: Allergic Reactions (Selected) Severity Not Documented Penicillin- No reactions were documented., Allergies (1) ActiveReaction penicillinNone Documented Current medications: (Selected) Inpatient Medications Ordered LR 1,000 mL: 50 mL/hr, Intravenous Prescriptions Prescribed CeleBREX 100 mg oral capsule: 100 mg, 1 cap(s), Oral, BID, for 90 day(s), Take with food and drink fluids. Do not take any other NSAIDs while on this medication., PRN: Pain, 180 cap(s), 0 Refill(s) DME MISCellaneous: See Instructions, BP machine and cuff. Dx: R03.0, 1 EA, 0 Refill(s) Hibiclens 4% topical soap: See Instructions, Rinse area with water, then apply minimum amount necessary to cover skin or wound area and wash gently. Rinse again thoroughly., 240 mL, 0 Refill(s) ProAir HFA MDI (90 mcg/inh) inhalation aerosol: 2 puff(s), Inhalation, q6h, PRN: as needed for wheezing, 8.5 gram(s), 0 Refill(s) Vitamin C 500 mg oral tablet, chewable: 500 mg, 1 tab(s), Chewed, Daily, 30 tab(s), 0 Refill(s) Voltaren 1% topical gel: 4 gram(s), Topical, QID, for 90 day(s), not to exceed 16 grams/day/single joint of lower extremities. not to exceed 8 grams/day/single joint of upper extremities. not to exceed 32 grams/day total., PRN: Pain, 100 gram(s), 3 Refill(s) levothyroxine 50 mcg (0.05 mg) oral tablet: 50 mcg, 1 tab(s), Oral, qDay, for 90 day(s), 30 minutesbefore other meds/food, 90 tab(s), 1 Refill(s) loratadine 10 mg oral tablet: 10 mg, 1 tab(s), Oral, qDay, for 90 day(s), PRN: as needed for allergy symptoms, 90 tab(s), 1 Refill(s) metFORMIN 750 mg oral tablet EXTENDED RELEASE: 750 mg, 1 tab(s), Oral, BID, for 90 day(s), 180 tab(s), 1 Refill(s) methocarbamol 750 mg oral tablet: 750 mg, 1 tab(s), Oral, TID, for 7 day(s), Do not drive, operate heavy machinery, or drink alcohol while on this med., PRN: Muscle spasm, 21 tab(s), 0 Refill(s) omeprazole 20 mg oral delayed release capsule: 20 mg, 1 cap(s), Oral, qDay, for 90 day(s), 90 cap(s), 1 Refill(s) rosuvastatin 5 mg oral capsule: 5 mg, 1 cap(s), Oral, qPM, for 90 day(s), 90 cap(s), 1 Refill(s) Documented Medications Documented Calcium with Vitamin D and K oral tablet, chewable: 0 Refill(s) Zinc: 50 mg, Oral, qDay, for 30 day(s) betamethasone dipropionate 0.05% topical cream: 1 katie, Topical, BID, 45 gram(s), 0 Refill(s) doxycycline hyclate 100 mg oral capsule: 100 mg, 1 cap(s), Oral, BID, for 10 day(s), 20 cap(s), 0 Refill(s) mupirocin 2% topical ointment: apply sparingly to NASAL LESION twice a day for 5 days (IF NO IMPROVEMENT, SEEK MEDICAL ATTENTION) nystatin 100,000 units/g topical powder: 1 katie, Topical, BID, 60 gram(s), 0 Refill(s), Medications (1) Active Scheduled: (0) Continuous: (1) Lactated Ringers Infusion 1,000 mL 1,000 mL, Intravenous, 50 mL/hr PRN: (0) Problem list: Medical Asthma / SNOMED CT 843203596 / Confirmed Carpal tunnel / SNOMED CT 742851708 / Confirmed Cholecystectomy / SNOMED CT 15758244 / Confirmed Chronic low back pain / SNOMED CT 287758283 / Confirmed Leg cramping / SNOMED CT 3573230942 / Confirmed Diabetes / SNOMED CT 055888154 / Confirmed Diverticulosis / SNOMED CT 5970188087 / Confirmed Elevated blood pressure reading / SNOMED CT 560659484 / Confirmed Elevated liver enzymes / SNOMED CT 1179025816 / Confirmed Fibromyalgia / SNOMED CT 90786489 / Confirmed Gastroesophageal reflux / SNOMED CT 604039073 / Confirmed GERD (gastroesophageal reflux disease) / SNOMED CT [id number] / Confirmed H/O: hysterectomy / SNOMED CT [id number] / Confirmed Hiatal hernia / SNOMED CT 481717192 / Confirmed Ingrown toenail of right foot / SNOMED CT 7741756777 / Confirmed Nasal sore / SNOMED CT 128782850 / Confirmed Osteopenia / SNOMED CT 424382187 / Confirmed Right knee pain / SNOMED CT 1145681919 / Confirmed Panniculitis / SNOMED CT 45140291 / Confirmed Post-menopausal / SNOMED CT 172677205 / Confirmed Prediabetes / SNOMED CT 0054224413 / Confirmed Psoriasis / SNOMED CT 00915146 / Confirmed, Active Problems (22) Asthma Carpal tunnel Cholecystectomy Chronic low back pain Diabetes Diverticulosis Elevated blood pressure reading Elevated liver enzymes Fibromyalgia Gastroesophageal reflux GERD (gastroesophageal reflux disease) H/O: hysterectomy Hiatal hernia Ingrown toenail of right foot Leg cramping Nasal sore Osteopenia Panniculitis Post-menopausal Prediabetes Psoriasis Right knee pain Histories Past Medical History: Active GERD (gastroesophageal reflux disease) ([id number]) Cholecystectomy (14512399) Carpal tunnel (525910254) H/O: hysterectomy ([id number]) Fibromyalgia (86182850) Diabetes (175439954) Family History: Heart disease Mother () Father () Arthritis Mother () Alcohol abuse Mother () Brother Heart attack Mother () Father () Mental illness Mother () Procedure history: Cholecystectomy (99526795). Fracture of thumb (2058623390). Hysterectomy (047973024). Knee (062615053). Comments: 11/14/2021 9:06 AMANDA Duong Ingris Lai ROSALIO cartilage removed Tonsillectomy (963632539). Social History Social & Psychosocial Habits Alcohol 07/08/2018Risk Assessment: Denies Alcohol Use 01/09/2022 Type: Liquor Frequency: 1-2 times per week Substance Abuse 07/08/2018Risk Assessment: Denies Substance Abuse 09/29/2021 Use: Never Tobacco 11/02/2021 Tobacco Use: Never (less than 100 in l Exposure to Tobacco Smoke Lives in non-smoking home 2Risk Assessment: No Risk Home/Environment 03/29/2022 Living situation: Home/Independent Nutrition/Health 11/02/2021 Caffeine intake amount: 1 serving/day . Physical Examination No qualifying data available Measurements from flowsheet : Measurements 07/02/2022 7:15 EDT Height 152.4 cm Admission Weight 95.5 kg Weight Method Stated [place] Body Weight 45.50 kg General: Alert and oriented. Airway: Normal temporomandibular joint mobility. Mallampati classification: III (soft palate, base of uvula visible). Head: Normocephalic. Dentition Evaluation: Intact. Neck: Supple. Respiratory: Lungs are clear to auscultation. Cardiovascular: Normal rate. Heart Sounds: Normal. Gastrointestinal: Soft. Musculoskeletal Normal range of motion. Integumentary: Intact. Neurologic: Alert. Review / Management Results review: No qualifying data available , Lab results 07/02/2022 7:15 EDT Designated Person #1 We May Share ALFREDITO suarez . . Designated Person #1 Relationship Spouse Privacy Restrictions Requested None Height 152.4 cm Admission Weight 95.5 kg Weight Method Stated [place] Body Weight 45.50 kg Status N/A Sensory Deficits None Sleep Apnea Snore No Sleep Apnea Tired No Sleep Apnea Obstruction No Sleep Apnea Pressure Yes Sleep Apnea Age Yes Sleep Apnea Neck No Sleep Apnea Gender No High Risk for Sleep Apnea No Diagnosed With Sleep Apnea No Advanced Directives No - refuses information Infectious Disease Symptoms Patient states no symptoms Infectious Disease Recent Exposure No Alcohol and Drug Use No Employee of Institutional Living No Health Care Employee No History of Exposure to TB No History of Positive Chest X-Ray for TB Unable to obtain History of Positive TB Skin Test Unable to obtain Homeless No Known Immunosuppression No Recent Immigrant No Resident of Institutional Living No Bloody Sputum No Fatigue No Fever No Loss of Appetite No Night Sweats No Persistent Cough > 3 Weeks No Weight Loss No Safety Brochure Information Reviewed Unable to complete [facility] Video Viewed No Barriers to Learning None evident Teaching Method Explanation Teaching Evaluation No further teaching needed Preferred Written Language Singaporean Preferred Spoken Language Singaporean Information Given by Patient Patient's Current Physicians Patient's Current Physicians Discharge To, Anticipated Home with family care Prev Test Positive/Diagnosis w/COVID-19 No Current Quarantine/Isolated any Illness No Any Contact with Sick Animals/Birds No Traveled Anywhere in Last 30 Days No Lost Weight Unintentionally Recently No Eat Poorly Due to Decreased Appetite No Total MST Score 0 N/A Personal Devices, Patient Valuables Glasses Anesthesia/Transfusions Prior anesthesia Admission Note-Nursing Same Day Patient History . Assessment and Plan [place] [employer] Anesthesiologists (ASA) physical status classification: Class III. Anesthetic Preoperative Plan Premedication: None, intravenous. Anesthetic technique: MAC. Induction: intravenously. Postoperative pain management: Per surgeon. Risks discussed: nausea, vomiting, headache, sore throat, dental injury, hypotension, allergic reaction, serious complications. Informed consent: signed by patient. Digitally Signed by AMINA CONRAD on 07/02/2022 07:27 AM [facility]08-02-2022 Note ORIGINAL EXAMINATION: BONE DENSITOMETRY04/24/2022 11:05 am TECHNIQUE: Dual energy bone densitometry lumbar spine and left hip. COMPARISON: None HISTORY: Reason for Exam: Osteoporosis Screening FINDINGS: T Score Left Femoral Neck: -1.1 Left Femoral Neck: 0.727 (g/cm2) T Score Left Hip: -0.2 Left Hip: 0.915 (g/cm2) T Score Lumbar Spine: 0.7 Lumbar Spine: 1.127 (g/cm2) FRAX score: 10 year risk major osteoporotic fracture 8.1 %. 10 year risk hip fracture 0.9 %. IMPRESSION: Osteopenia. Interpreted by: Hi Franklin MD Preliminary Report By: Hi Franklin MD Electronically signed By Hi Franklin MD Dictated Date: 04/24/2022 11:12:24 AM Prelim Date: 04/24/2022 11:13:51 AM Sign Date: 04/24/2022 11:13:51 AM Ordering Provider: KO BENAVIDES [facility]08-02-2022 Note ORIGINAL EXAMINATION: BONE DENSITOMETRY04/24/2022 11:05 am TECHNIQUE: Dual energy bone densitometry lumbar spine and left hip. COMPARISON: None HISTORY: Reason for Exam: Osteoporosis Screening FINDINGS: T Score Left Femoral Neck: -1.1 Left Femoral Neck: 0.727 (g/cm2) T Score Left Hip: -0.2 Left Hip: 0.915 (g/cm2) T Score Lumbar Spine: 0.7 Lumbar Spine: 1.127 (g/cm2) FRAX score: 10 year risk major osteoporotic fracture 8.1 %. 10 year risk hip fracture 0.9 %. IMPRESSION: Osteopenia. Interpreted by: Hi Franklin MD Preliminary Report By: Hi Franklin MD Electronically signed By Hi Franklin MD Dictated Date: 04/24/2022 11:12:24 AM Prelim Date: 04/24/2022 11:13:51 AM Sign Date: 04/24/2022 11:13:51 AM Ordering [facility] note Author Raysa Fuentes [facility] Note Date/Time December 28, 2024 7:57 am [facility] Medical Records Department [address] [place] [address] Pre-Anesthesia Evaluation 12/28/24 0756 MR#: [id number] Acct: [id number] Name: ANNA SANCHEZ Rep #:[id number] : 1950 74 From: Raysa Fuentes MD PCP: Dr. Ko Benavides, DO Status:REG SDC Y Race: C Location: [place] [address] ASA Classification* ASA Classification ASA Classification: 2 Assessment & Plan Anesthesia* Anesthesia Assessment Anesthesia Assessment: Discussed sedation and/or anesthesia options, risks, benefits, and alternatives with patient/parents/legal guardian/POA. Questions invited. The patient/parents/legal guardian/POA seems to understand and agrees to proceedwith anesthesia plan. Reviewed the physical assessment, medical history, allergy history and patient home medications list prior to surgery/procedure/anesthetic and documented any changes. Performed airway and anesthesia risk assessments. Anesthesia Type Anesthesia Type: MAC Anesthesia Focused Assessment* Airway Assessment Mouth opens: >3 cm Mallampati Score: II Focused Labs Anesthesia Preop lab: CBC WBC 9.0 K/mm3 (4.4-11.0) 06/11/23 06:57 06/11/23 RBC 4.31 M/mm3 (4.2-5.4) 06/11/23 06:57 06/11/23 Hgb 12.3 g/dL (12.0-15.0) 06/11/23 06:57 06/11/23 Hct 39.7 % (37-47) 06/11/23 06:57 06/11/23 Plt Count 202 K/mm3 (150-450) 06/11/23 06:57 06/11/23 CHEMISTRY Potassium 4.9 mmol/L (3.5-5.1) 06/11/23 06:57 06/11/23 Sodium 136 mmol/L (136-145) 06/11/23 06:57 06/11/23 BUN 16 mg/dL (7-18) 06/11/23 06:57 06/11/23 Creatinine 0.77 mg/dL (0.55-1.02) 06/11/23 06:57 06/11/23 Glucose 149 mg/dL (74-106) H 06/11/23 06:57 06/11/23 POC Glucose 125 mg/dL (74-106) H 11/09/24 06:32 11/09/24 COAG Pre-Assessment Diagnosis/Proposed Procedure Planned Operative Procedure(s): alysia median nerve block Anesthesia History 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 When Was Last Pacemaker Check QUESTION #4 FULL TEXT: You/Your Family Experience fever (hyperthermia) with Anesthesia Last Oral Intake Last Oral intake: Last Oral Intake NPO since Meds taken in AM with sips of water? 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 Has anyone observed you stop breathing during sleep? STOP Results QUESTION #5 FULL TEXT : Do you snore loudly (louder than talking or can be heard through closed doors)? 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 Specify any problems Hx of Preganancy in last 3 Months Nurse Filling Out Transfusion & Questions: Date: Time: Patient unable to answer at this time (ie. 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 Hx Now Gestational Age (in weeks): EDC: Hx Hx Para Hx Section SAB No 05/06/24 14:31 PFSH Medical History Allergic rhinitis Fatty liver Herniated disc Wears glasses History of skin cancer Alcohol use Seasonal allergies Thyroid disease Diabetes Walker as ambulation aid Fibromyalgia Ambulates with cane High cholesterol Migraine headache Restless legs Dietary restriction Gastric reflux Asthma Shortness of breath on exertion Former smoker History of stress test Hypertension Home Medications ?Medication ?Instructions ?Recorded ?Last Taken ?Type calcium 600 mg (as 1 tab PO DAILY SUPPLEMENT 11/08/24 History carbonate)-vitamin D3 10 mcg (400 unit) tablet (Calcium 600 + D(3)) levothyroxine 50 mcg tablet 50 mcg PO DAILY THYROID 12/28/24 History omeprazole 20 mg capsule,delayed 20 mg PO DAILY GERD 0 05/13/23 11/08/24 History release rosuvastatin 5 mg tablet 5 mg PO QHS HLD 05/13/23 History losartan 50 mg tablet 50 mg PO DAILY htn 06/10/23 12/28/24 History magnesium oxide 400 mg (241.3 mg 400 mg PO BID 4 11/08/24 History magnesium) tablet diclofenac sodium 1 % topical gel 2 g topical ONCE 10/17 Unknown History (Arthritis Pain (diclofenac)) ferrous sulfate 325 mg (65 mg 325 mg PO QDAY 12/22/24 Unknown History iron) tablet semaglutide 1 mg/dose (4 mg/3 mL) 1 mg subcut QWEEK 12/13/24 History subcutaneous pen injector (Ozempic) Allergy/AdvReac Type Severity Reaction Status Date / Time erythromycin base Allergy PT UNSURE Verified 12/28/24 07:47 OF REACTION Penicillins Allergy PT UNSURE Verified 12/28/24 07:47 OF REACTION Family History Mother Alcohol abuse Arthritis Myocardial infarction Heart disease Brother Alcohol abuse Father Myocardial infarction Heart disease Surgical History History of total right knee replacement History of colonoscopy History of tonsillectomy History of thumb surgery History of tubal ligation History of cholecystectomy History of right knee surgery Social History Smoking Status: Former smoker alcohol intake: current alcohol intake frequency: a few times a week substance use type: does not use Review of Systems (Anesthesia) ROS Narrative System reviewed and no additional complaints, except as documented. 12/28/24 0757 <Electronically signed by Raysa Fuentes MD > Date _ Raysa Fuentes MD Cosigner Signature: Date CC: ~ Signed [facility] Work Phone: Consult note Author Cary Forrester [facility] Note Date/Time December 28, 2024 8:57 am [facility] Medical Records Department [address] [place] [address] Anesthesia Postop Eval I 12/28/24 0854 MR#: [id number] Acct: [id number] Name: ANNA SANCHEZ Rep #:[id number] : 1950 74 From: Cary Forrester PCP: Dr. Ko Benavides, DO Status:REG SDC Y Race: C Location: [place] [address] Anesthesia: Postop Eval I Current Vital Signs Temperature: 97.8 F Pulse Rate: 79 Blood Pressure: 120/88 Respiratory Rate: 18 Pulse Ox: 93 Assessment Airway patent: Yes Spontaneous unlabored respirations: Yes nausea: No Vomiting: No Anesthesia Complication: No Fluid Hydration Crystalloid volume administer (ml): 10 Total IV fluid infused: 10 Progress Note Anesthesia document: Postop Eval 1 completed: Yes 12/28/24 0857 <Electronically signed by Cary earl> Date _ Cary Jay Signature: Date CC: ~ Signed [facility] Work Phone: Consult note Author Cary Forrester [facility] Note Date/Time December 28, 2024 9:34 am [facility] Medical Records Department [address] [place] [address] Anesthesia Postop Eval II 12/28/24913 MR#: [id number] Acct: [id number] Name: ANNA SANCHEZ Rep #:[id number] : 1950 74 From: Cary Forrester PCP: Dr. 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 Anesthesia Postop Eval I: Fluid Summary Crystalloid volume administer 10 12/28/24 08:54 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 (ml) Colloids volume administered ( ml) Blood Product volume administered (ml) Total IV fluid infused 10 12/28/24 08:54 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 Anesthesia Postop Eval I: Summary Notes Anesthesia Complication No 12/28/24 08:54 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 Anesthesia Complication Comment: Post-operative progress note Anesthesia: Postop Eval II Evaluation Mental status: Awake Pain Level: 2 nausea: No Vomiting: No 12/28/24913 <Electronically signed by Cary earl> Date _ Cary Sirparish Cosigner Signature: Date CC: ~ Signed [facility] Work Phone: Consult note Author Dagoberto Gold [facility] Note Date/Time April 12, 2025 8:49 am [facility] Medical Records Department [address] [place] [address] Pre-Anesthesia Evaluation 04/12/25 0844 MR#: [id number] Acct: [id number] Name: ANNA SANCHEZ Rep #:[id number] : 1950 74 From: Dagoberto Gold MD PCP: Dr. Heather Styles, DO Status:REG SDC Y Race: C Location: [place] [address] ASA Classification* ASA Classification ASA Classification: 3 Assessment & Plan Anesthesia* Anesthesia Assessment Anesthesia Assessment: Discussed sedation and/or anesthesia options, risks, benefits, and alternatives with patient/parents/legal guardian/POA. Questions invited. The patient/parents/legal guardian/POA seems to understand and agrees to proceedwith anesthesia plan. Reviewed the physical assessment, medical history, allergy history and patient home medications list prior to surgery/procedure/anesthetic and documented any changes. Performed airway and anesthesia risk assessments. Anesthesia Type Anesthesia Type: MAC History Source History Obtained from:: Patient and Chart Anesthesia Focused Assessment* Temperature: 98.4 F Pulse Rate: 61 Blood Pressure: 128/65 Respiratory Rate: 16 Pulse Ox: 98 Oxygen Delivery Method: Room Air Airway Assessment Mouth opens: >3 cm Mallampati Score: IV Teeth Condition: Missing (Several missing teeth. Rest of the teeth are tight.) Neck Range of motion (ROM): Limited ROM (Slight Decrease) Labs Anesthesia Preop lab: CBC WBC 9.0 K/mm3 (4.4-11.0) 06/11/23 06:57 06/11/23 RBC 4.31 M/mm3 (4.2-5.4) 06/11/23 06:57 06/11/23 Hgb 12.3 g/dL (12.0-15.0) 06/11/23 06:57 06/11/23 Hct 39.7 % (37-47) 06/11/23 06:57 06/11/23 Plt Count 202 K/mm3 (150-450) 06/11/23 06:57 06/11/23 CHEMISTRY Potassium 4.9 mmol/L (3.5-5.1) 06/11/23 06:57 06/11/23 Sodium 136 mmol/L (136-145) 06/11/23 06:57 06/11/23 BUN 16 mg/dL (7-18) 06/11/23 06:57 06/11/23 Creatinine 0.77 mg/dL (0.55-1.02) 06/11/23 06:57 06/11/23 Glucose 149 mg/dL (74-106) H 06/11/23 06:57 06/11/23 POC Glucose 123 mg/dL (74-106) H 12/28/24 07:52 12/28/24 COAG Pre-Assessment Diagnosis/Proposed Procedure Planned Operative Procedure(s): bilateral lumbar medial branch block at l4 l5 [id number] fluoroscopy Anesthesia History 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 When Was Last Pacemaker Check QUESTION #4 FULL TEXT: You/Your Family Experience fever (hyperthermia) with Anesthesia Last Oral Intake Last Oral intake: Last Oral Intake NPO since 13:00 04/12/25 08:15 Meds taken in AM with sips of Yes 04/12/25 08:15 water? 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 Female Yes 04/06/25 08:15 HX of Motion Sickness No 04/06/25 08:15 HX of N/V After Surgery No 04/06/25 08:15 Non-Smoker Yes 04/06/25 08:15 Duration of Surgery greater No 04/06/25 08:15 than 60 minutes Number of Risk Factors 2 04/06/25 08:15 PONV Score Moderate Risk 04/06/25 08:15 Height & Weight Height & Weight: Anesthesia: Height & Weight Height 5 ft 04/12/25 08:15 Weight: 99.9 kg 04/12/25 08:15 Body Mass Index (BMI) 43.0 04/12/25 08:15 Respiratory Assessment Respiratory Assessment - 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 Has anyone observed you stop No 04/06/25 08:15 breathing during sleep? STOP Results Negative 04/06/25 08:15 QUESTION #5 FULL TEXT : Do you snore loudly (louder than talking or can be heard through closed doors)? 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 Specify any problems Hx of Preganancy in last 3 No 04/06/25 08:15 Months Nurse Filling Out Transfusion [email or web address] 04/06/25 08:15 & Questions: Date: 04/06/25 04/06/25 08:15 Time: 08:19 04/06/25 08:15 Patient unable to answer at this time (ie. 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 Hx Now Gestational Age (in weeks): EDC: Hx Hx Para Hx Section SAB No 04/06/25 08:15 Active Medications Active Medications: Current Medications Generic Name Dose Route Start Last Admin Trade Name Freq PRN Reason Stop Dose Admin Lactated Ringer's 1,000 mls @ 15 mls/hr 04/12/25 08:15 04/12/25 08:28 IV 15 mls/hr .Q48H DORIS Administration PFSH Medical History Cardiology follow-up encounter Allergic rhinitis Fatty liver Herniated disc Wears glasses History of skin cancer Alcohol use Seasonal allergies Thyroid disease Diabetes Walker as ambulation aid Fibromyalgia Ambulates with cane High cholesterol Migraine headache Restless legs Dietary restriction Gastric reflux Asthma Shortness of breath on exertion Former smoker History of stress test Hypertension Home Medications ?Medication ?Instructions ?Recorded ?Last Taken ?Type calcium 600 mg (as 1 tab PO DAILY SUPPLEMENT 11/08/24 History carbonate)-vitamin D3 10 mcg (400 unit) tablet (Calcium 600 + D(3)) levothyroxine 50 mcg tablet 50 mcg PO DAILY THYROID 04/12/25 History omeprazole 20 mg capsule,delayed 20 mg PO DAILY GERD 0 05/13/23 11/08/24 History release rosuvastatin 5 mg tablet 5 mg PO QHS HLD 05/13/23 History losartan 50 mg tablet 50 mg PO DAILY htn 06/10/23 04/12/25 History magnesium oxide 400 mg (241.3 mg 400 mg PO BID 4 11/08/24 History magnesium) tablet diclofenac sodium 1 % topical gel 2 g topical ONCE 10/17 Unknown History (Arthritis Pain (diclofenac)) semaglutide 1 mg/dose (4 mg/3 mL) 1 mg subcut QWEEK 03/28/25 History subcutaneous pen injector (Ozempic) ferrous sulfate 325 mg (65 mg 325 mg PO MOFR 02/11/25 Unknown History iron) tablet aspirin 81 mg tablet,delayed 81 mg PO DAILY 04/06/25 0 04/09/25 History release (Adult Aspirin Regimen) folic acid 1 mg tablet 1 mg PO DAILY 04/06/25 Unkno wn History Allergy/AdvReac Type Severity Reaction Status Date / Time erythromycin base Allergy PT UNSURE Verified 04/12/25 08:14 OF REACTION Penicillins Allergy PT UNSURE Verified 04/12/25 08:14 OF REACTION Family History Mother Alcohol abuse Arthritis Myocardial infarction Heart disease Brother Alcohol abuse Father Myocardial infarction Heart disease Surgical History History of total right knee replacement History of colonoscopy History of tonsillectomy History of thumb surgery History of tubal ligation History of cholecystectomy History of right knee surgery Social History Smoking Status: Former smoker alcohol intake: current alcohol intake frequency: a few times a week substance use type: does not use Review of Systems (Anesthesia) ROS Narrative System reviewed and no additional complaints, except as documented. Physical Exam Resp clear to auscultation bilaterally 04/12/25 0849 <Electronically signed by Dagoberto hitchcock MD> Date _ Dagoberto Gold MD Cosigner Signature: Date CC: ~ Signed [facility] Work Phone: Consult note Author Dawood Maxwell [facility] Note Date/Time April 12, 2025 9:47 am [facility] Medical Records Department [facility] [place] [address] Anesthesia Postop Eval I 04/12/25916 MR#: [id number] Acct: [id number] Name: ANNA SANCHEZ Rep #:[id number] : 1950 74 From: Dawood HORNER PCP: Dr. Heather Styles, DO Status:REG SDC Y Race: C Location: [place] [address] Anesthesia: Postop Eval I Current Vital Signs Temperature: 98.3 F Pulse Rate: 76 Blood Pressure: 115/65 Respiratory Rate: 14 Pulse Ox: 95 Assessment Airway patent: Yes Spontaneous unlabored respirations: Yes nausea: No Vomiting: No Anesthesia Complication: No Fluid Hydration Crystalloid volume administer (ml): 300 Total IV fluid infused: 300 Progress Note Anesthesia document: Postop Eval 1 completed: Yes 04/12/25916 <Electronically signed by Dawood Maxwell CRNA> Date _ Dawood Maxwell CRNA Cosigner Signature: Date CC: ~ Signed [facility] Work Phone: Discharge summary Author Dawn Ritchie [facility] June 13, 2023 2:26pm Note Date/Time June 13, 2023 2:26pm [facility] Medical Records Department [address] [place] [id number] Discharge Summary 06/13/23 1425 MR#: [id number] Acct: [id number] Name: ANNA SANCHEZ Rep #:[id number] : 1950 72 From: Dawn WHEELER PCP: Dr. Ko Benavides, DO Status:ADM SUKUMAR Location: [place] [id number] Providers Date of Admission: 06/10/23 Primary Care Physician: Dr. Ko Benavides, DO Reason For Visit: Total Knee Replacement Robotic Arm Nimesh Diagnosis Discharge Diagnosis (1) Status post total right knee replacement not using cement: Status: Acute Code(s): Z96.651 - Presence of right artificial knee joint Plan: Postop day 3 right total knee arthroplasty 1. Will continue PT today. Weightbearing as tolerated 2. plan for discharge to extended care facility today 3. Patient will follow up for post op appointment on as previously scheduled in 2 weeks 4. Labs remained stable no new data. 5. DVT prophylaxis : Aspirin 81 mg twice daily x4 weeks. Compressions walking x2 weeks. 6. Pain control: patient instructed to take tylenol 500mg 2 tablets TID. and oxycodone 1-2 tablets every 4-6 hours only as needed for pain control. 7. ok to remove post op dressing. post op day 5 Medications at Discharge Home Medications albuterol sulfate 90 mcg/actuation aerosol inhaler 2 inh inhalation Q4H PRN shortness of breath or wheezing 05/13/23 ascorbic acid (vitamin C) 500 mg capsule 50 mg PO DAILY SUPPLEMENT 05/13/23 calcium carbonate 600 mg-vitamin D3 10 mcg (400 unit) tablet (Calcium 600 + D(3)) 1 tab PO DAILY SUPPLEMENT 05/13/23 celecoxib 100 mg capsule 100 mg PO DAILY PAIN 05/13/23 cetirizine 10 mg tablet 10 mg PO DAILY ALLERGIES 05/13/23 levothyroxine 50 mcg tablet 50 mcg PO DAILY THYROID 05/13/23 lisinopril 20 mg tablet 20 mg PO DAILY HTN 05/13/23 metformin 500 mg tablet,extended release 24 hr 500 mg PO QHS BLOOD GLUCOSE 05/13/23 omeprazole 20 mg capsule,delayed release 20 mg PO DAILY GERD 05/13/23 rosuvastatin 5 mg tablet 5 mg PO QHS HLD 05/13/23 zinc 50 mg capsule 50 mg PO DAILY SUPPLEMENT 05/13/23 losartan 50 mg tablet 50 mg PO DAILY htn 06/10/23 acetaminophen 500 mg tablet 1,000 mg (2 x 500 mg) PO Q8 #180 tabs 06/13/23 aspirin 81 mg chewable tablet 81 mg PO BIDCM #60 tabs 06/13/23 oxycodone 5 mg tablet 5 - 10 mg (1 - 2 x 5 mg) PO .q4-6hrs prn PRN Pain Score 4- 10 7 days #60 tabs 06/13/23 sennosides 8.6 mg-docusate sodium 50 mg tablet (Stool Softener-Stimulant Laxative) 2 tab PO BID #14 tabs 06/13/23 Hospital Course Summary of Care Provided Hospital Course: Patient was admitted electively on 06/10/2023 for a right total knee arthroplastywith Dr. Greenwood. Medically patient had uncomplicated postoperative course however she had trouble with movement, pain control and therapy. She and therapy and case management have decided to pre-CERT to an extended care facility for which she was excepted to. Plan for discharge today. Weight / BMI Weight Weight: 97.4 kg Body Mass Index (BMI) 41.9 ABG / Lab / Microbiology Data 06/11/23 06:57 06/11/23 06:57 D/C Instructions Discharge Diet: 1800 Calorie Control Diet and Carb Control Diet Weight Bearing Status: Weight bearing as tolerated Call your doctor if your incision/area has: Continuous Slow Oozing, Sudden Increased Bleeding, Increased Pain/ Swelling, Increased Redness, Foul Smelling Discharge and Swelling at the incision site Call your doctor if you observe: Fever of 101 or Higher, Shortness of breath, Chest pain and Calf discomfort Cleanse incision/area with: Soap & Water and Keep Dressing Clean & Dry When: In 2 weeks as previously scheduled. Meaningful Use Info Meaningful Use Diagnoses (Choose all that apply): None applicable Discharge Plan Admission Admit Date/Time: 06/10/23 14:24 Attending Provider: Mariangel Robison Primary Care Provider: Ko Benavides Discharge Orders/Prescriptions Prescriptions: New acetaminophen 500 mg Tablet 1,000 mg PO Q8 Qty: 180 0RF aspirin 81 mg Tablet,Chewable 81 mg PO BIDCM Qty: 60 0RF sennosides-docusate sodium [Stool Softener-Stimulant Laxat] 8.6-50 mg Tablet 2 tab PO BID Qty: 14 0RF oxycodone 5 mg Tablet 5 - 10 mg PO .q4-6hrs prn PRN (Reason: Pain Score 4-10) 7 Days Qty: 60 0RF Continued albuterol sulfate 90 mcg/actuation HFA aerosol inhaler 2 inh INHALATION Q4H PRN (Reason: shortness of breath or wheezing) Patient Comments: inhale 2 puffs by mouth and INTO THE LUNGS every 4 hours if neede... (REFER TO PRESCRIPTION NOTES). levothyroxine 50 mcg tablet 50 mcg PO DAILY Patient Comments: take 1 tablet by mouth once daily 30 MINUTES before OTHER MEDS OR FOOD lisinopril 20 mg tablet 20 mg PO DAILY Patient Comments: take 1 tablet by mouth once daily omeprazole 20 mg capsule,delayed release(DR/EC) 20 mg PO DAILY Patient Comments: take 1 capsule by mouth once daily celecoxib 100 mg capsule 100 mg PO DAILY Patient Comments: take 1 capsule by mouth twice a day if needed for pain metformin 500 mg tablet extended release 24 hr 500 mg PO QHS Patient Comments: take 1 tablet by mouth every evening with dinner rosuvastatin 5 mg tablet 5 mg PO QHS Patient Comments: take 1 tablet by mouth at bedtime calcium carbonate-vitamin D3 [Calcium 600 + D(3)] 600 mg-10 mcg (400 unit) tablet 1 tab PO DAILY ascorbic acid (vitamin C) 500 mg capsule 50 mg PO DAILY zinc 50 mg capsule 50 mg PO DAILY cetirizine 10 mg tablet 10 mg PO DAILY Patient Comments: take 1 tablet by mouth once daily losartan 50 mg tablet 50 mg PO DAILY Patient Comments: take 1 tablet by mouth once daily Referrals / Follow Up: Ko Benavides DO [Primary Care Provider] - Disposition Disposition (needs filled in before D/C Order can be placed): [facility] 06/13/23 1426 <Electronically signed by Dawn WHEELER> Cosigner Signature (if applicable): CC: Dr. oK Benavides DO; SUMMER Vazquez~ Signed [facility] Work Phone: Evaluation + Plan note Future Appointments Appointment Date:11/03/2021 08:30:00 AM Scheduled Provider:KO BENAVIDES DO Location:[facility] Appointment Type:PC OV Follow Up [facility] Evaluation + Plan note Future Appointments Appointment Date:01/25/2022 08:30:00 AM Scheduled Provider:KO BENAVIDES DO Location:[facility] Appointment Type:PC OV Appointment Date:04/30/2022 10:00:00 AM Scheduled Provider: Location:[facility] Appointment Type:DB Diabetic Individual Visit [facility] Evaluation + Plan note Future Appointments Appointment Date:01/11/2022 08:30:00 AM Scheduled Provider: Location:[facility] Appointment Type:NUT Diet Visit Individual Appointment Date:01/11/2022 10:00:00 AM Scheduled Provider:KO BENAVIDES DO Location:[facility] Appointment Type:PC OV Appointment Date:04/30/2022 10:00:00 AM Scheduled Provider: Location:[facility] Appointment Type:DB Diabetic Individual Visit Future Scheduled Tests Radiology* MA Mammo Screening Bilateral w/ Gunner 11/14/21 * BD Bone Density DEXA Axial Skeleton 11/14/21 [facility] Evaluation + Plan note Future Appointments Appointment Date:03/29/2022 08:00:00 AM Scheduled Provider:KO BENAVIDES DO Location:[facility] Appointment Type: Wellness Medicare Appointment Date:04/30/2022 10:00:00 AM Scheduled Provider: Location:[facility] Appointment Type:DB Diabetic Individual Visit Future Scheduled Tests Radiology* MA Mammo Screening Bilateral w/ Gunner 11/14/21 * BD Bone Density DEXA Axial Skeleton 11/14/21 [facility] bluebird bioaluation + Plan note Future Appointments Appointment Date:03/15/2022 08:30:00 AM Scheduled Provider: Location:[facility] Appointment Type:NUT Diet Visit Individual Appointment Date:03/29/2022 08:00:00 AM Scheduled Provider:KO BENAVIDES DO Location:[facility] Appointment Type: Wellness Medicare Appointment Date:04/30/2022 10:00:00 AM Scheduled Provider: Location:[facility] Appointment Type:DB Diabetic Individual Visit Future Scheduled Tests Radiology* MA Mammo Screening Bilateral w/ Gunner 11/14/21 * BD Bone Density DEXA Axial Skeleton 11/14/21 [facility] bluebird bioaluation + Plan note Future Appointments Appointment Date:04/11/2022 08:30:00 AM Scheduled Provider: Location:[facility] Appointment Type:NUT Diet Visit Individual Appointment Date:04/30/2022 10:00:00 AM Scheduled Provider: Location:[facility] Appointment Type:DB Diabetic Individual Visit Appointment Date:05/10/2022 08:30:00 AM Scheduled Provider:KO BENAVIDES DO Location:[facility] Appointment Type:PC OV Future Scheduled Tests Radiology* MA Mammo Screening Bilateral w/ Gunner 03/29/22 * BD Bone Density DEXA Axial Skeleton 03/29/22 * BD Bone Density DEXA Axial Skeleton 11/14/21 [facility] Evaluation + Plan note Future Appointments Appointment Date:04/24/2022 11:00:00 AM Scheduled Provider: Location:[facility] Appointment Type:BD Bone Density DEXA Axial Skeleton Appointment Date:04/24/2022 11:30:00 AM Scheduled Provider: Location:[facility] Appointment Type:MA Mammogram Screening Bilateral w/ Gunner Appointment Date:04/30/2022 10:00:00 AM Scheduled Provider: Location:[facility] Appointment Type:DB Diabetic Individual Visit Appointment Date:05/10/2022 08:30:00 AM Scheduled Provider:KO BENAVIDES DO Location:[facility] Appointment Type:PC OV Future Scheduled Tests Radiology* MA Mammo Screening Bilateral w/ Gunner 04/24/22 * BD Bone Density DEXA Axial Skeleton 04/24/22 * BD Bone Density DEXA Axial Skeleton 11/14/21 [facility] Evaluation + Plan note Future Appointments Appointment Date:04/30/2022 10:00:00 AM Scheduled Provider: Location:[facility] Appointment Type:DB Diabetic Individual Visit Appointment Date:05/10/2022 08:30:00 AM Scheduled Provider:KO BENAVIDES DO Location:[facility] Appointment Type:PC OV Future Scheduled Tests Radiology* BD Bone Density DEXA Axial Skeleton 11/14/21 [facility] Evaluation + Plan note Future Appointments Appointment Date:04/01/2023 09:30:00 AM Scheduled Provider: Location:[facility] Appointment Type:DB Diabetic Individual Visit (AOH) Appointment Date:05/07/2023 09:00:00 AM Scheduled Provider:KO BENAVIDES DO Location:[facility] Appointment Type:PC OV Future Scheduled Tests Laboratory* Basic Metabolic Panel 09/11/22 Radiology* BD Bone Density DEXA Axial Skeleton 11/14/21 * XR Spine Lumbar W/Obliques 4 Views 05/10/22 [facility] evaluation + Plan note Future Appointments Appointment Date:01/23/2023 09:00:00 AM Scheduled Provider:MARIEL RANGEL DO Location:[facility] Appointment Type:OSM OV New Problem Appointment Date:01/30/2023 08:30:00 AM Scheduled Provider:KO BENAVIDES DO Location:[facility] Appointment Type:PC OV Appointment Date:04/01/2023 09:30:00 AM Scheduled Provider: Location:[facility] Appointment Type:DB Diabetic Individual Visit (AOH) Appointment Date:05/07/2023 09:00:00 AM Scheduled Provider:KO BENAVIDES DO Location:[facility] Appointment Type:PC Wellness Medicare Future Scheduled Tests Laboratory* Basic Metabolic Panel 12/21/22 * Basic Metabolic Panel 09/11/22 Radiology* XR Spine Lumbar W/Obliques 4 Views 05/10/22 [facility] evaluation + Plan note Future Appointments Appointment Date:01/30/2023 08:30:00 AM Scheduled Provider:KO BENAVIDES DO Location:[facility] Appointment Type:PC OV Appointment Date:04/01/2023 09:30:00 AM Scheduled Provider: Location:[facility] Appointment Type:DB Diabetic Individual Visit (AOH) Appointment Date:05/07/2023 09:00:00 AM Scheduled Provider:KO BENAVIDES DO Location:[facility] Appointment Type:PC Wellness Medicare Future Scheduled Tests Laboratory* Basic Metabolic Panel 01/24/23 Radiology* XR Spine Lumbar W/Obliques 4 Views 05/10/22 [facility] Evaluation + Plan note Future Appointments Appointment Date:01/30/2023 08:30:00 AM Scheduled Provider:KO BENAVIDES DO Location:[facility] Appointment Type:PC OV Appointment Date:04/01/2023 09:30:00 AM Scheduled Provider: Location:[facility] Appointment Type:DB Diabetic Individual Visit (AOH) Appointment Date:05/07/2023 09:00:00 AM Scheduled Provider:KO BENAVIDES DO Location:[facility] Appointment Type:PC Wellness Medicare Future Scheduled Tests Radiology* XR Spine Lumbar W/Obliques 4 Views 05/10/22 [facility] evaluation + Plan note Future Appointments Appointment Date:05/21/2023 01:30:00 PM Scheduled Provider:KO BENAVIDES DO Location:[facility] Appointment Type:PC OV Pre Op Appointment Date:09/30/2023 10:00:00 AM Scheduled Provider: Location:[facility] Appointment Type:DB Diabetic Individual Visit ([facility]) [facility] Evaluation + Plan note Future Appointments Appointment Date:08/21/2023 10:00:00 AM Scheduled Provider:KO BENAVIDES DO Location:[facility] Appointment Type:PC OV Appointment Date:09/30/2023 10:00:00 AM Scheduled Provider: Location:[facility] Appointment Type:DB Diabetic Individual Visit ([facility]) [facility] evaluation + Plan note Future Appointments Appointment Date:08/08/2023 09:30:00 AM Scheduled Provider: Location:[facility] Appointment Type:PT Treatment - [place] Appointment Date:08/12/2023 09:00:00 AM Scheduled Provider: Location:[facility] Appointment Type:PT Treatment - [place] Appointment Date:08/14/2023 10:30:00 AM Scheduled Provider: Location:[facility] Appointment Type:PT Treatment - [place] Appointment Date:08/19/2023 08:30:00 AM Scheduled Provider: Location:[facility] Appointment Type:PT Treatment - [place] Appointment Date:08/21/2023 10:00:00 AM Scheduled Provider:KO BENAVIDES DO Location:[facility] Appointment Type:PC OV Appointment Date:08/22/2023 08:30:00 AM Scheduled Provider: Location:[facility] Appointment Type:PT Treatment - [place] Appointment Date:08/26/2023 08:30:00 AM Scheduled Provider: Location:[facility] Appointment Type:PT Treatment - [place] Appointment Date:08/28/2023 08:30:00 AM Scheduled Provider: Location:[facility] Appointment Type:PT Treatment - [place] Appointment Date:09/03/2023 08:30:00 AM Scheduled Provider: Location:[facility] Appointment Type:PT Treatment - [place] Appointment Date:09/05/2023 08:30:00 AM Scheduled Provider: Location:[facility] Appointment Type:PT Treatment - [place] Appointment Date:09/30/2023 10:00:00 AM Scheduled Provider: Location:[facility] Appointment Type:DB Diabetic Individual Visit (AO) [facility] Evaluation + Plan note Future Appointments Appointment Date:09/17/2023 03:00:00 PM Scheduled Provider: Location:[facility] Appointment Type:PT Outpatient Evaluation Appointment Date:09/30/2023 10:00:00 AM Scheduled Provider: Location:[facility] Appointment Type:DB Diabetic Individual Visit ([facility]) Appointment Date:11/20/2023 10:00:00 AM Scheduled Provider:KO BENAVIDES DO Location:[facility] Appointment Type:PC OV Future Scheduled Tests Laboratory* Magnesium Level 10/02/23 * Complete Metabolic Panel 10/02/23 [facility] Evbrendaation + Plan note Future Appointments Appointment Date:10/28/2023 09:30:00 AM Scheduled Provider:LIVIA JOHNSON Location:[facility] Appointment Type:PC Acute Appointment Date:11/08/2023 09:30:00 AM Scheduled Provider:KO BENAVIDES DO Location:[facility] Appointment Type:PC Wellness Annual Appointment Date:11/20/2023 10:00:00 AM Scheduled Provider:KO BENAVIDES DO Location:[facility] Appointment Type:PC OV Appointment Date:02/10/2024 09:00:00 AM Scheduled Provider: Location:[facility] Appointment Type:MEDS - Diabetic Individual Visit Future Scheduled Tests Radiology* MA Mammo Screening Bilateral w/ Gunner 10/22/23 [facility] Evaluation + Plan note Future Appointments Appointment Date:11/08/2023 09:30:00 AM Scheduled Provider:KO BENAVIDES DO Location:[facility] Appointment Type:PC Wellness Annual Appointment Date:11/20/2023 10:00:00 AM Scheduled Provider:KO BENAVIDES DO Location:[facility] Appointment Type:PC OV Appointment Date:02/10/2024 09:00:00 AM Scheduled Provider: Location:[facility] Appointment Type:MEDS - Diabetic Individual Visit [facility] evaluation + Plan note Future Appointments Appointment Date:02/10/2024 09:00:00 AM Scheduled Provider: Location:[facility] Appointment Type:MEDS - Diabetic Individual Visit Appointment Date:02/11/2024 08:00:00 AM Scheduled Provider:KO BENAVIDES DO Location:[facility] Appointment Type:PC OV Future Scheduled Tests Laboratory* Rapid HIV (AO) 11/08/23 * Rapid Plasma Reagin Test 11/08/23 * Hepatitis C Antibody IgG 11/08/23 * MISC Lab Send Out (Non-Blood Specimens) 11/08/23 [facility] Evaluation + Plan note Future Appointments Appointment Date:12/02/2023 08:00:00 AM Scheduled Provider: Location:[facility] Appointment Type:PT Outpatient Evaluation Appointment Date:12/11/2023 11:30:00 AM Scheduled Provider: Location:[facility] Appointment Type:GI OV Consult Appointment Date:02/10/2024 09:00:00 AM Scheduled Provider: Location:[facility] Appointment Type:MEDS - Diabetic Individual Visit Appointment Date:02/11/2024 08:00:00 AM Scheduled Provider:KO BENAVIDES DO Location:[facility] Appointment Type:PC OV Future Scheduled Tests Laboratory* Rapid HIV (AO) 11/08/23 * Rapid Plasma Reagin Test 11/08/23 * Hepatitis C Antibody IgG 11/08/23 * MISC Lab Send Out (Non-Blood Specimens) 11/08/23 [facility] evaluation + Plan note Future Appointments Appointment Date:03/17/2024 10:00:00 AM Scheduled Provider:KO BENAVIDES DO Location:[facility] Appointment Type:PC OV Appointment Date:08/12/2024 10:00:00 AM Scheduled Provider: Location:[facility] Appointment Type:MEDS - Diabetic Individual Visit Future Scheduled Tests Radiology* NM Myocardial Spect Rest/Stress 02/11/24 [facility] Evaluation + Plan note Future Appointments Appointment Date:03/11/2024 09:30:00 AM Scheduled Provider: Location:[facility] Appointment Type:NUT Diet Visit Individual Appointment Date:03/17/2024 10:00:00 AM Scheduled Provider:KO BENAVIDES DO Location:[facility] Appointment Type:PC OV Appointment Date:08/12/2024 10:00:00 AM Scheduled Provider: Location:[facility] Appointment Type:MEDS - Diabetic Individual Visit [facility] Evaluation + Plan note Future Appointments Appointment Date:04/01/2024 09:00:00 AM Scheduled Provider: Location:[facility] Appointment Type:Echo - Echocardiogram Adult Appointment Date:04/07/2024 10:30:00 AM Scheduled Provider:KO BENAVIDES DO Location:[facility] Appointment Type:PC OV Appointment Date:04/08/2024 01:30:00 PM Scheduled Provider: Location:[facility] Appointment Type:CV CARPENTER INSPECTOR Appointment Date:05/14/2024 08:00:00 AM Scheduled Provider: Location:[facility] Appointment Type:NUT Diet Visit Individual Appointment Date:08/12/2024 10:00:00 AM Scheduled Provider: Location:[facility] Appointment Type:MEDS - Diabetic Individual Visit [facility] Evaluation + Plan note Future Appointments Appointment Date:04/07/2024 10:30:00 AM Scheduled Provider:KO BENAVIDES DO Location:[facility] Appointment Type:PC OV Appointment Date:04/08/2024 01:30:00 PM Scheduled Provider: Location:[facility] JACKELYN GINA Appointment Type:CV CARPENTER INSPECTOR Appointment Date:05/14/2024 08:00:00 AM Scheduled Provider: Location:[facility] Appointment Type:NUT Diet Visit Individual Appointment Date:08/12/2024 10:00:00 AM Scheduled Provider: Location:[facility]IL[facility] Appointment Type:MEDS - Diabetic Individual Visit [facility] Evaluation + Plan note Future Appointments Appointment Date:08/12/2024 09:00:00 AM Scheduled Provider:KO BENAVIDES DO Location:[facility] Appointment Type:PC OV Appointment Date:08/12/2024 10:00:00 AM Scheduled Provider: Location:[facility] Appointment Type:MEDS - Diabetic Individual Visit [facility] evaluation + Plan note Future Appointments Appointment Date:12/02/2024 09:30:00 AM Scheduled Provider:KO BENAVIDES DO Location:[facility] Appointment Type:[facility] evaluation + Plan note Future Appointments Appointment Date:11/18/2024 09:30:00 AM Scheduled Provider: Location:[facility] Appointment Type:MEDS - Diabetic Individual Visit Appointment Date:01/26/2025 10:00:00 AM Scheduled Provider:KO BENAVIDES DO Location:[facility] Appointment Type:PC Wellness Medicare Future Scheduled Tests Radiology* US Elastography Liver Only 10/27/24 [facility] evaluation + Plan note Future Appointments Appointment Date:11/18/2024 09:30:00 AM Scheduled Provider: Location:[facility] Appointment Type:MEDS - Diabetic Individual Visit Appointment Date:01/26/2025 10:00:00 AM Scheduled Provider:KO BENVAIDES DO Location:[facility] Appointment Type:PC Wellness Medicare [facility] + Plan note Future Appointments Appointment Date:01/26/2025 10:00:00 AM Scheduled Provider:KO BENAVIDES DO Location:[facility] Appointment Type:PC Wellness Medicare Appointment Date:02/22/2025 09:00:00 AM Scheduled Provider: Location:[facility] Appointment Type:MEDS - Diabetic Individual Visit [facility] bluebird bioaluation + Plan note Future Appointments Appointment Date:03/05/2025 09:30:00 AM Scheduled Provider: Location:[facility] Appointment Type:MEDS - Diabetic Individual Visit Appointment Date:03/05/2025 10:30:00 AM Scheduled Provider:KO BENAVIDES DO Location:[facility] Appointment Type:PC Wellness Medicare [facility] Evaluation + Plan note Future Appointments Appointment Date:03/31/2025 10:30:00 AM Scheduled Provider: Location:[facility] Appointment Type:MA Mammogram Screening Bilateral w/ Gunner Appointment Date:03/31/2025 11:00:00 AM Scheduled Provider: Location:RAD Appointment Type:BD Bone Density DEXA Axial Skeleton Appointment Date:06/11/2025 08:40:00 AM Scheduled Provider:HEATHER STYLES DO Location:[facility] Appointment Type:PC OV Appointment Date:09/03/2025 09:30:00 AM Scheduled Provider: Location:[facility] Appointment Type:MEDS - Diabetic Individual Visit Future Scheduled Tests Radiology* MA Mammo Screening Bilateral w/ Gunner 03/31/25 * BD Bone Density DEXA Axial Skeleton Adult (21 yrs or older) 03/31/25 [facility] Evaluation + Plan note Future Appointments Appointment Date:06/11/2025 08:40:00 AM Scheduled Provider:HEATHER STYLES DO Location:[facility] Appointment Type:PC OV Appointment Date:09/03/2025 09:30:00 AM Scheduled Provider: Location:[facility] Appointment Type:MEDS - Diabetic Individual Visit [facility] Evaluation note* Diagnosis Onset Date Resolution Status Status post total right knee replacement not using cement acute [facility] Work Phone: Evaluation noteNo assessment information available [facility] Work Phone: Hospital course Narrative No data available for this section [facility] Discharge instructions No data available for this section [facility] Discharge instructions Additional Instructions [facility]: Progress note No data available for this section [facility] Reason for referral (narrative)No reason for referral [facility]: Summary Purpose Family History No Family History Records Found Relationship Condition Age at Onset Recorded Date/T shekhar mother Alcohol abuse Unknown Arthritis Unknown Myocardial infarction Unknown Cardiac disease Unknown brother Alcohol abuse Unknown father Myocardial infarction Unknown Advance Directives No Advanced Directives Records Found Advance Directive Response Recorded Date/ Time Living Will No June 10, 2023 2:49pm Power of Jewel Staker No May 2:49pm Directive Description Status Resuscitation FULL CODE Current and Veri fied Advance Directive Response Recorded Date/ Time Do you have a Healthcare Power of Jewel Staker? No April 06, 2025 8:15am Chief Complaint and Reason for Visit Chief Complaint Total Knee Replaceme nt Robotic Arm Nimesh Reason for Visit Status post total ri ght knee replacement not using cement Chief Complaint Admit Date Fatty liver February 11, 2025 7:50a m Block, Medial Branch Nerve, Lumbar April 12, 2025 7:55am Reason for Visit Admit Date Metabolic dysfunction-associ ated steatotic liver disease (MASLD) February 11, 2025 7:50am Additional Source Comments INFORMATION SOURCE (unrecogn ized section and content) DATE CREATED AUTHOR 10/22/2019 [facility] DATE CREATED AUTHOR AUTHOR'S ORGANIZ ATION 07/01/2023 [facility] DATE CREATED AUTHOR AUTHOR'S ORGANIZ ATION 05/19/2024 [facility] ([place]) DATE CREATED AUTHOR AUTHOR'S ORGANIZ ATION 04/14/2025 [facility] DATE CREATED AUTHOR AUTHOR'S ORGANIZ ATION 07/11/2025 [facility] Care Team (unrecognized sect ion and content) Team Status: Active Member Role Status Dates Dr. Ko Benavides DO Primary Care Provider Active Team Status: Inactive Member Role Status Dates Dr. Ko Benavides DO Primary Care Provider Active Dr. Mariangel Robison DO Admit Provider, Attending Provider, Referring Provider Active NENA BALL Active Team Status: Inactive Member Role Status Dates Dr. Ko Benavides DO Primary Care Provider Active Start: November 09, 2024 End: November 09, 2024 Dr. Raj Booth MD Attending Provider Active Start: November 09, 2024 End: November 09, 2024 Dr. Raj Booth MD Referring Provider Active Start: November 09, 2024 End: November 09, 2024 Team Status: Inactive Member Role Status Dates Dr. Ko Benavides DO Primary Care Provider Active Start: December 28, 2024 End: December 28, 2024 Dr. Raj Booth MD Attending Provider Active Start: December 28, 2024 End: December 28, 2024 Dr. Raj Booth MD Referring Provider Active Start: December 28, 2024 End: December 28, 2024 Team Status: Active Member Role/Relationship Status Dates Dr. Heather Styles DO Primary Care Provider Active Team Status: Inactive Member Role/Relationship Status Dates Dr. Ko Benavides DO Primary Care Provider Active Start: December 28, 2024 End: December 28, 2024 Dr. Raj Booth MD Attending Provider Active Start: December 28, 2024 End: December 28, 2024 Dr. Raj Booth MD Referring Provider Active Start: December 28, 2024 End: December 28, 2024 Team Status: Inactive Member Role/Relationship Status Dates Dr. Ko Benavides DO Primary Care Provider Active Start: February 11, 2025 End: February 11, 2025 Dr. Ko Benavides DO Referring Provider Active St art: February 11, 2025 End: February 11, 2025 Dr. Jeffery Gomez MD Attending Provider Active Start: February 11, 2025 End: February 11, 2025 Team Status: Inactive Member Role/Relationship Status Dates Dr. Raj Booth MD Attending Provider Active Start: April 12, 2025 End: April 12, 2025 Dr. Raj Booth MD Referring Provider Active Start: April 12, 2025 End: April 12, 2025 Dr. Heather Styles DO Primary Care Provider Active Start: April 12, 2025 End: April 12, 2025 Care Team (unrecognized sect ion and content) Care Team Personnel Name: KO BENAVIDES DO Position: P4 Physician - Primary Care Med Service: Active Provider Member Role: Primary Care Physician Address: Address: [address] [place] [id number]- Care Team Related Persons Name: HOLLY SANCHEZ Address: Home [address] [place], [place] [phone] [place] Care Team Personnel Name: KO BENAVIDES DO Position: P4 Physician - Primary Care Med Service: Active Provider Member Role: Primary Care Physician Address: Address: [address] [place] [address] Care Team Related Persons Name: HOLLY SANCHEZ Address: Home [address] [place] [phone] [place] Care Team Personnel Name: KO BENAVIDES DO Position: P4 Physician - Primary Care Med Service: Active Provider Member Role: Primary Care Physician Address: Address: [address] [place] [address]- Care Team Related Persons Name: HOLLY SANCHEZ Address: Home [address] [place] [phone] [place] Care Team Personnel Name: KO BENAVIDES DO Position: P4 Physician - Primary Care Med Service: Active Provider Member Role: Primary Care Physician Address: Address: [address] [place] [address]- Care Team Related Persons Name: HOLLY SANCHEZ Address: Home [address] [place] [phone] [place] Care Team Personnel Name: KO BENAVIDES DO Position: P4 Physician - Primary Care Member Role: Primary Care Physician Address: Address: [address] [place] [address] Care Team Related Persons Name: HOLLY SANCHEZ Address: Home [address] [place] [phone] FOR RECORDS PERTAINING TO PATIENTS WHO ARE OR HAVE BEEN ENROLLED IN A CHEMICAL DEPENDENCY/SUBSTANCEABUSE PROGRAM, SOME INFORMATION MAY BE OMITTED. This clinical summary was aggregated from multiple sources. Caution should be exercised in using it in the provision of clinical care. This summary normalizes information from multiple sources, and as a consequence, information in this document may materially change the coding, format and clinical context of patient data. In addition, data may be omitted in some cases. CLINICAL DECISIONS SHOULD BE BASED ON THE PRIMARY CLINICAL RECORDS. [facility] [employer] provides no warranty or guarantee of the accuracy or completeness of information in this document.
--- NOTE | 2025-07-12 06:30 | RAD_ITS ---
EXAM: XR Lumbosacral Spine, 2 or 3 Views CLINICAL INDICATION: RADIO FREQUENCY ABLATION L4, L5, S1 TECHNIQUE: Frontal and lateral views of the lumbar spine and sacrum. COMPARISON: No relevant prior studies available. FINDINGS: Total of 9 fluoroscopic images were obtained. Total fluoroscopy time 19.5 seconds. Total radiation dose 0.92149 mGy. RAD/Lumbar Spine 2 or 3 Views IMPRESSION: Fluoroscopic guidance was used intraoperatively. Please refer to the operative note for further details. Reading Location: [facility]
[2025-07-12] MEDS: Lactated Ringers 1,000 ML 15 ML IV (06:35)
--- NOTE | 2025-07-12 06:41 | PCM.PRE.AN2 ---
ASA Classification* ASA Classification ASA Classification: 3 Assessment & Plan Anesthesia* Anesthesia Assessment Anesthesia Assessment: Discussed sedation and/or anesthesia options, risks, benefits, and alternatives with patient/parents/legal guardian/POA. Questions invited. The patient/parents/legal guardian/POA seems to understand and agrees to proceed with anesthesia plan. Reviewed the physical assessment, medical history, allergy history and patient home medications list prior to surgery/procedure/anesthetic and documented any changes. Performed airway and anesthesia risk assessments. Anesthesia Type Anesthesia Type: MAC Anesthesia Focused Assessment* Temperature: 97.1 F Pulse Rate: 58 Blood Pressure: 139/68 Respiratory Rate: 12 Pulse Ox: 98 Airway Assessment Mouth opens: >3 cm Mallampati Score: II Labs Anesthesia Preop lab: CBC WBC, (4.4-11.0) 9.0 K/mm3 06/11/23, 06:57 RBC, (4.2-5.4) 4.31 M/mm3 06/11/23, 06:57 Hgb, (12.0-15.0) 12.3 g/dL 06/11/23, 06:57 Hct, (37-47) 39.7 % 06/11/23, 06:57 Plt Count, (150-450) 202 K/mm3 06/11/23, 06:57 CHEMISTRY Potassium, (3.5-5.1) 4.9 mmol/L 06/11/23, 06:57 Sodium, (136-145) 136 mmol/L 06/11/23, 06:57 BUN, (7-18) 16 mg/dL 06/11/23, 06:57 Creatinine, (0.55-1.02) 0.77 mg/dL 06/11/23, 06:57 Glucose, (74-106) 149 mg/dL H 06/11/23, 06:57 POC Glucose, (74-106) 130 mg/dL H 04/12/25, 08:12 COAG Pre-Assessment Diagnosis/Proposed Procedure Planned Operative Procedure(s): (R) Radio Frequency Ablation, LUMBAR ABLATION AT MEDIAL BRANCH AT L4 L5 S1 UNDER FLUOROSCOPY Anesthesia History Anesthesia History - client care consultant: Anesthesia History - client care consultant Hx Hospitalization No 07/02/25 11:45 Any Problems With Anesthesia Yes: PONV AFTER CATARACT 07/02/25 11:45 SURGERY Cholinesterase deficiency No 07/02/25 11:45 You/Your Family Experience No 07/02/25 11:45 fever (hyperthermia) with Relationship Recent Exposure to Contagious No 07/12/25 06:26 Disease Does patient have nerve No 07/02/25 11:45 stimulator Patient instructed to have device shut off --Does patient have Pacemaker No 07/12/25 06:26 or ICD? When Was Last Pacemaker Check QUESTION #4 FULL TEXT: You/Your Family Experience fever (hyperthermia) with Anesthesia Last Oral Intake Last Oral intake: Last Oral Intake NPO since 19:00 07/12/25 06:26 Meds taken in AM with sips of No 07/12/25 06:26 water? Meds patient instructed to take am of surgery PONV PONV - client care consultant: PONV - client care consultant Female Yes 07/02/25 11:45 HX of Motion Sickness No 07/02/25 11:45 HX of N/V After Surgery Yes 07/02/25 11:45 Non-Smoker Yes 07/02/25 11:45 Duration of Surgery greater No 07/02/25 11:45 than 60 minutes Number of Risk Factors 3 07/02/25 11:45 PONV Score Moderate Risk 07/02/25 11:45 Height & Weight Height & Weight: Anesthesia: Height & Weight Height 5 ft 07/12/25 06:26 Weight: 98 kg 07/12/25 06:26 Body Mass Index (BMI) 42.2 07/12/25 06:26 Respiratory Assessment Respiratory Assessment - client care consultant: Respiratory Tract Infection Hx - client care consultant Hx Respiratory Tract Infection No 07/02/25 11:45 STOP Sleep Apnea STOP Sleep Apnea - client care consultant: STOP Sleep Apnea - client care consultant Hx Hypertension Yes: PER PT, CONTROLLED ON 07/02/25 11:45 MEDS Hx Sleep Apnea No 07/02/25 11:45 CPAP No 07/02/25 11:45 BIPAP Do you snore loudly (louder No 07/02/25 11:45 than talking or can be heard Do you often feel tired/ No 07/02/25 11:45 fatigued/ sleepy during daytime? Has anyone observed you stop No 07/02/25 11:45 breathing during sleep? STOP Results Negative 07/02/25 11:45 QUESTION #5 FULL TEXT : Do you snore loudly (louder than talking or can be heard through closed doors)? Tobacco Use History Tobacco Use History - client care consultant: Tobacco Use History - client care consultant Tobacco Use Smoking Status Never smoker 07/02/25 11:45 Hx Tobacco Use No 07/02/25 11:45 Years Smoking Packs Smoked per Day Smoking Cessation Date was within the last 15 years Hx Smoking Cessation Date Hx Smoking Cessation Counseling Hematologic Medial History Hematologic Hx - client care consultant: Hematologic Medical Hx - industrial specialist Hx of Blood Transfusion No 07/02/25 11:45 Hx of Transfusion in last 3 No 07/02/25 11:45 Months Date of Last Transfusion (if within last 3 months) Ever experience any problems No 07/02/25 11:45 with transfusion(s)? Specify any problems Hx of Preganancy in last 3 No 07/02/25 11:45 Months Nurse Filling Out Transfusion MGRIFFITH 07/02/25 11:45 & Questions: Date: 07/02/25 07/02/25 11:45 Time: 11:49 07/02/25 11:45 Patient unable to answer at this time (ie. confused, unrespo /Reproduction History /Reproductive History - client care consultant: /Reproductive Hx- client care consultant Hx Now No 07/02/25 11:45 Gestational Age (in weeks): EDC: Hx Hx Para Hx Section SAB No 07/02/25 11:45 Active Medications Active Medications: Current Medications Generic Name Dose Route Start Last Admin Trade Name Freq PRN Reason Stop Dose Admin Lactated Ringer's 1,000 mls @ 15 mls/hr 07/12/25 06:15 07/12/25 06:35 IV 15 mls/hr .Q48H DORIS Administration PFSH Medical History Arthritis Leg cramps PONV (postoperative nausea and vomiting) Non-smoker Cardiology follow-up encounter Allergic rhinitis Fatty liver Herniated disc Wears glasses History of skin cancer Alcohol use Seasonal allergies Thyroid disease Diabetes Walker as ambulation aid Fibromyalgia Ambulates with cane High cholesterol Migraine headache Dietary restriction Gastric reflux Asthma Shortness of breath on exertion Former smoker History of stress test Hypertension Home Medications ?Medication ?Instructions ?Recorded ?Last Taken ?Type calcium 600 mg (as 1 tab PO BID SUPPLEMENT 05/13/23 07/12/25 History carbonate)-vitamin D3 10 mcg (400 unit) tablet (Calcium 600 + D(3)) levothyroxine 50 mcg tablet 50 mcg PO DAILY THYROID 05/13/23 07/12/25 History omeprazole 20 mg capsule,delayed 20 mg PO DAILY GERD 05/13/23 07/11/25 History release rosuvastatin 5 mg tablet 5 mg PO QHS HLD 05/13/23 07/11/25 History losartan 50 mg tablet 50 mg PO DAILY htn 06/10/23 07/12/25 History magnesium oxide 400 mg (241.3 mg 400 mg PO BID 05/06/24 07/11/25 History magnesium) tablet diclofenac sodium 1 % topical gel 2 g topical ONCE PRN pain 12/22/24 Unknown History (Arthritis Pain (diclofenac)) semaglutide 1 mg/dose (4 mg/3 mL) 1 mg subcut QWEEK 12/28/24 06/23/25 History subcutaneous pen injector (Ozempic) ferrous sulfate 325 mg (65 mg 325 mg PO MOFR 02/11/25 07/09/25 History iron) tablet aspirin 81 mg tablet,delayed 81 mg PO DAILY 04/06/25 07/06/25 History release (Adult Aspirin Regimen) Held on 07/02/25. Instructions: ON HOLD FOR SURGERY 07/06/25 folic acid 1 mg tablet 1 mg PO DAILY 04/06/25 07/11/25 History ascorbic acid (vitamin C) 500 mg 500 mg PO DAILY 07/02/25 07/11/25 History tablet (Vitamin C) Allergy/AdvReac Type Severity Reaction Status Date / Time erythromycin base Allergy PT UNSURE Verified 07/12/25 06:24 OF REACTION Penicillins Allergy PT UNSURE Verified 07/12/25 06:24 OF REACTION Family History Mother Alcohol abuse Arthritis Myocardial infarction Heart disease Brother Alcohol abuse Father Myocardial infarction Heart disease Surgical History History of epidural steroid injection into lumbar spine History of total right knee replacement History of colonoscopy History of tonsillectomy History of thumb surgery History of tubal ligation History of cholecystectomy History of right knee surgery Social History Smoking Status: Never smoker alcohol intake: current alcohol intake frequency: a few times a week substance use type: does not use Review of Systems (Anesthesia) ROS Narrative System reviewed and no additional complaints, except as documented.
[2025-07-12] MEDS: Lidocaine 1% (30 ml sdv) 30 ML Vial (07:35)
--- NOTE | 2025-07-12 07:44 | PCM.POST.ANE ---
Anesthesia: Postop Eval I Current Vital Signs Temperature: 37 F Pulse Rate: 86 Blood Pressure: 125/75 Respiratory Rate: 20 Pulse Ox: 98 Assessment Airway patent: Yes Spontaneous unlabored respirations: Yes nausea: No Vomiting: No Anesthesia Complication: No Fluid Hydration Crystalloid volume administer (ml): 200 Total IV fluid infused: 200 Progress Note Anesthesia document: Postop Eval 1 completed: Yes
--- NOTE | 2025-07-12 07:52 | PCM.OPRPT ---
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 BLOOD LOSS: Minimal. COMPLICATIONS: None. DESCRIPTION OF PROCEDURE: History and physical of today was reviewed. Risks and benefits of the procedure were explained. The patient understood and agreed to proceed. Informed consent was obtained. IV inserted per routine protocol. The patient was taken to the operating room and placed in the prone position with a pillow positioned underneath the abdomen. The right side of her lower back was prepped and draped in a sterile fashion using iodine x3. Under fluoroscopy guidance in an oblique view, the L3 through S1 vertebral bodies were visualized. The skin and subcutaneous tissue was anesthetized with approximately 10 mL of 1% lidocaine using a 25-gauge regular needle. Under direct visualization on fluoroscopy at approximately 25-degree angle, starting on the right L3, ending on the right S1, passing through the L4 and L5, using a 20-gauge 15-cm with a 10-mm curved active-tip radiofrequency ablation needle, the needle was passed through the skin. The tip of the needle was maneuvered and directed towards the superior medial gutter of the transverse process at the vicinity of the medial branch. Once the tip of the needle was in contact with the bone, the needle was pulled approximately 2 mm off the bone. The stylette of each needle was then removed. After negative aspiration of blood or CSF and confirmation on AP, oblique as well as lateral view, the radiofrequency ablation probe was then inserted at each level. Impedance was then recorded at L3 to be 354 ohm, at L4 to be 303 ohm, at L5 to be 351 ohm, and at S1 to be 369 ohm. Motor evoked potential was then initiated to 2 Hz and 1.5 volt without any motor response at each corresponding level. The probe was then removed intact and a total of 6 mL of preservative-free 1% lidocaine was injected in divided doses between those four levels after negative aspiration of blood or CSF. The radiofrequency ablation probe was then reinserted. After confirmation on AP, oblique as well as lateral view, radiofrequency ablation was then initiated to 80 degree Celsius for 90 second at each level. Once concluded, the probe was then removed intact. A total of 6 mL of preservative-free 0.25% Marcaine with 40 mg of Depo-Medrol was injected in divided doses between those four levels. The needles were then removed intact. The patient experienced no sign or symptoms of intrathecal or intravascular injection. The patient experienced no paresthesia. The procedure was completed without any apparent difficulty or any complications. The patient appeared to tolerate it well. Sensory as well as motor exam was unchanged from prior to the procedure. ASSESSMENT AND PLAN: This is a 74-year-old female with lumbosacral spondylosis, lumbosacral degenerative disc disease, lumbar facet arthropathy, status post right sided lumbar radiofrequency ablation of the medial branch at L4-S1, patient will continue her current medications, patient will follow-up in approximately 2 weeks for reevaluation. Surgical Findings: 0 Complications Complications: No Admit VTE Documentation VTE Present on Admission: No VTE Mechan Device Prophylaxis: None VTE Pharm Prophylaxis ordered?: No
--- NOTE | 2025-07-12 12:06 | POSTOPAN2_ITS ---
Anesthesia Postop Eval I Sum Postop Eval Completion status Anesthesia document: Postop Eval 1 completed: Yes Anesthesia Postop Eval I Summary Anesthesia Postop Eval I Summary: Anesthesia Postop Eval I: Assessment Summary Airway patent Yes 07/12/25 07:44 [email or web address] Spontaneous unlabored Yes 07/12/25 07:44 [email or web address] respirations Mental status nausea No 07/12/25 07:44 [email or web address] Vomiting No 07/12/25 07:44 [email or web address] Anesthesia Postop Eval I: Fluid Summary Crystalloid volume administer 200 07/12/25 07:44 [email or web address] (ml) Colloids volume administered ( ml) Blood Product volume administered (ml) Total IV fluid infused 200 07/12/25 07:44 [email or web address] Anesthesia Postop Eval I: Summary Notes Anesthesia Complication No 07/12/25 07:44 [email or web address] Anesthesia Complication Comment: Post-operative progress note Anesthesia: Postop Eval II Evaluation Mental status: Awake Pain Level: 2 nausea: No Vomiting: No
--- NOTE | 2025-07-12 12:06 | PCM.POSTANE2 ---
Anesthesia Postop Eval I Sum Postop Eval Completion status Anesthesia document: Postop Eval 1 completed: Yes Anesthesia Postop Eval I Summary Anesthesia Postop Eval I Summary: Anesthesia Postop Eval I: Assessment Summary Airway patent Yes 07/12/25 07:44 [email or web address] Spontaneous unlabored Yes 07/12/25 07:44 CUSTOM [email or web address] [email or web address] respirations Mental status nausea No 07/12/25 07:44 CUSTOM [email or web address] BUILDER.[email or web address] Vomiting No 07/12/25 07:44 CUSTOM [email or web address] [email or web address] Anesthesia Postop Eval I: Fluid Summary Crystalloid volume administer 200 07/12/25 07:44 CUSTOM [email or web address] [email or web address] (ml) Colloids volume administered ( ml) Blood Product volume administered (ml) Total IV fluid infused 200 07/12/25 07:44 CUSTOM BIKE BUILDER.[email or web address] Anesthesia Postop Eval I: Summary Notes Anesthesia Complication No 07/12/25 07:44 CUSTOM BIKE BUILDER.[email or web address] Anesthesia Complication Comment: Post-operative progress note Anesthesia: Postop Eval II Evaluation Mental status: Awake Pain Level: 2 nausea: No Vomiting: No
== END 2025-07-12 08:26 | disposition home or self-care (01) ==
LOC: SDC 06:01 → AC 06:03
PROVIDERS: PCP Student in an Organized Health Care Education/Training Program; Referring Provider Anesthesiology Pain Medicine; Visit Provider Anesthesiology Pain Medicine
PROC: (CPT 64635; principal; 2025-07-12 07:15)
DX: M51.379 Other intervertebral disc degeneration, lumbosacral region without mention of lumbar back pain or lower extremity pain (principal); M47.816 Spondylosis without myelopathy or radiculopathy, lumbar region; M47.817 Spondylosis without myelopathy or radiculopathy, lumbosacral region; I10 Essential (primary) hypertension; J45.909 Unspecified asthma, uncomplicated; K21.9 Gastro-esophageal reflux disease without esophagitis; Z79.82 Long term (current) use of aspirin; Z79.899 Other long term (current) drug therapy
CPT/HCPCS: 64635; 64636; 72100; 76000; 82962; J2405

== ENCOUNTER → 2025-07-15 | Outpatient (CLI) | payer MEDICARE, SELFPAY ==
--- NOTE | 2025-07-15 08:31 | US_ITS ---
PROCEDURE: ABDOMEN LIMITED 07/15/2025 REASON FOR EXAM: MASLD TECHNIQUE: Procedure Code: USABDL Modality: US Procedure: ABDOMEN LIMITED COMPARISON: None FINDINGS: Liver: The liver is echogenic. No mass is seen. Mild decrease in acoustic penetration. Gallbladder: Cholecystectomy Common bile duct: Normal measuring 2.8 mm. Pancreas: The pancreatic head and neck are unremarkable. The tail is obscured by gas. Kidneys: The right kidney measures 11.9 x 4.3 x 3.4 cm. No collecting system dilation, calculus or mass. Spleen: 10.7 x 2.7 x 2.6 cm. Normal echotexture . Peritoneal Findings: No ascites identified. US/Abdomen Limited IMPRESSION: 1. Cholecystectomy 2. Diffuse hepatocellular disease. Consider fatty infiltration among other ca uses. Reading Location: [id number]
== END | disposition home or self-care (01) ==
PROVIDERS: PCP Student in an Organized Health Care Education/Training Program; Referring Provider Internal Medicine; Visit Provider Internal Medicine
DX: K76.0 Fatty (change of) liver, not elsewhere classified (principal)
CPT/HCPCS: 76705

== ENCOUNTER → 2025-09-06 | Outpatient (CLI) | payer MEDICARE, SELFPAY ==
--- NOTE | 2025-09-06 07:39 | US_ITS ---
PROCEDURE: ELASTOGRAPHY PARENCHYMA/ORGAN 09/06/2025 REASON FOR EXAM: MASLD TECHNIQUE: Procedure Code: USELPAROG Modality: US Procedure: ELASTOGRAPHY PARENCHYMA/ORGAN FINDINGS: KPA: 5.3. Velocity: 1.3 m/sec. Metavir score: F 0 F 1 US/Elastography Parenchyma/Organ IMPRESSION: No to mild hepatic fibrosis. Reading Location: [id number]
== END | disposition home or self-care (01) ==
LOC: US 07:39
PROVIDERS: PCP Student in an Organized Health Care Education/Training Program; Referring Provider Internal Medicine; Visit Provider Internal Medicine
DX: K76.0 Fatty (change of) liver, not elsewhere classified (principal)
CPT/HCPCS: 76981